=== PATIENT | female | born 1945 | race Caucasian/White ===

== ENCOUNTER 2018-04-27 18:26 | Outpatient (CLI) | payer MEDICARE, SELFPAY ==
[2018-04-27 16:33] LABS: Cholesterol 209 mg/dL (50-200); HDL Cholesterol 42 mg/dL (40-60); LDL CHOLESTEROL 136 mg/dL (<100); Triglyceride 190 mg/dL (30-150)
== END 2018-04-27 18:27 ==
PROVIDERS: PCP Nurse Practitioner; Visit Provider Nurse Practitioner
DX: I10 Essential (primary) hypertension (principal); R78.5 Finding of other psychotropic drug in blood
CPT/HCPCS: 80061; 83721

== ENCOUNTER → 2018-05-16 09:47 | Outpatient (BNVA) | payer MEDICARE, OTHER, SELFPAY | PROVIDERS: Visit Provider Orthopaedic Surgery | DX: M17.12 Unilateral primary osteoarthritis, left knee (principal) | CPT/HCPCS: 20610; 99212; J1040 ==

== ENCOUNTER 2018-05-31 09:45 | Day surgery (SDC) | payer MEDICARE, OTHER, SELFPAY ==
--- NOTE | 2018-05-29 21:06 | W.PIPPEYE ---
PFSH Family History Mother Heart disease Hypertension Father Heart disease Brother Diabetes Brother Diabetes Sister Diabetes Medical History Nuclear sclerotic cataract of right eye (Acute) Cortical cataract of right eye (Acute) Elevated fasting glucose GERD (gastroesophageal reflux disease) Hyperlipidemia Hypertension Obesity Sensorineural hearing loss, asymmetrical Social History adopted: No housing: house number of children: 0 pets and animals: Yes frequency: 1-2 times per week Smoking/Tobacco Use Status: Never alcohol intake: current alcohol intake frequency: holidays/special occasions only Alcohol type: beer, wine and hard liquor substance use type: does not use seatbelt use: always working smoke detector in home: Yes fire extinguisher in home: Yes carbon monox detector in home: Yes Surgical History History of arthroplasty of right knee (Acute ~02/2012) History of total right hip arthroplasty (Acute ~05/13/14) Colonoscopy - IV Sedation (04/10/16) Vaginal hysterectomy Meds Home Medications Medication Instructions Recorded Confirmed Type aspirin [Ecotrin Low Strength] 81 mg PO DAILY tab-cap 12/26/12 05/28/18 History multivitamin 1 ea PO DAILY 12/26/12 05/28/18 History acetaminophen [Tylenol Extra 1,000 mg PO DAILY PRN 05/11/14 05/28/18 History Strength] blood pressure monitor [Blood #1 kit 07/11/17 05/16/18 Rx Pressure Kit] ranitidine HCl 150 mg PO BID #180 tab-cap 10/25/17 05/28/18 Rx Varicella-Zoster Ge/As01b/Pf 50 mcg IM ONCE #1 kit 01/09/18 05/16/18 Clinic [Shingrix Vial Kit] hydrochlorothiazide 25 mg PO DAILY #90 tab-cap 01/09/18 05/28/18 Rx losartan 100 mg PO DAILY #90 tab-cap 01/09/18 05/28/18 Rx Allergies Allergy/AdvReac Type Severity Reaction Status Date / Time Sulfa (Sulfonamide Allergy Unknown FEELS LIKE Unverified 05/15/18 12:21 Antibiotics) IN OUTER SPACE Wpnlism-Xgd-Zjv Reductase AdvReac Intermediate MYALGIAS Unverified 05/15/18 12:21 Inhibitor lisinopril AdvReac Mild cough Unverified 05/15/18 11:37 Exam OCULAR EXAM:: Visual acuity at distance: [] Pupils: [] IOP: [] Extraocular Motility: [] Pertinent Slit Lamp Findings: [] Dilated Funduscopic Examination: [] BRIGHTNESS ACUITY TESTING (BAT):: Off [] Low:[] Medium:[] High:[] Assessment and Plan (1) Cortical cataract of right eye: Current visit: Yes Status: Acute (2) Nuclear sclerotic cataract of right eye: Current visit: Yes Status: Acute Note: NOTE:: The details of the planned surgery, including the risks, indications,limitations,expectations,outcome and possible complications were explained to the patient. The patient understands the complications including, but not limited to: infection, hemorrhage, posterior dislocation of the lens or nuclear fragments which may require the intervention of a vitreoretinal surgeon, possible loss of the eye, or from anesthetic complications. The patient has been made aware of the option of not having surgery, that vision following surgery may not be equal to that prior to surgery, and that the planned surgery may not achieve the intended results. Following this discussion, which the patient appeared to understand, the patient wishes to proceed with cataract surgery with lens implantation of the affected eye to improve and maximize vision.
--- NOTE | 2018-05-29 21:09 | POEE_ITS ---
PFSH Family History Mother Heart disease Hypertension Father Heart disease Brother Diabetes Brother Diabetes Sister Diabetes Medical History Nuclear sclerotic cataract of right eye (Acute) Cortical cataract of right eye (Acute) Elevated fasting glucose GERD (gastroesophageal reflux disease) Hyperlipidemia Hypertension Obesity Sensorineural hearing loss, asymmetrical Social History adopted: No housing: house number of children: 0 pets and animals: Yes frequency: 1-2 times per week Smoking/Tobacco Use Status: Never alcohol intake: current alcohol intake frequency: holidays/special occasions only Alcohol type: beer, wine and hard liquor substance use type: does not use seatbelt use: always working smoke detector in home: Yes fire extinguisher in home: Yes carbon monox detector in home: Yes Surgical History History of arthroplasty of right knee (Acute ~02/2012) History of total right hip arthroplasty (Acute ~05/13/14) Colonoscopy - IV Sedation (04/10/16) Vaginal hysterectomy Meds Home Medications Medication Instructions Recorded Confirmed Type aspirin [Ecotrin Low Strength] 81 mg PO DAILY tab-cap 12/26/12 05/28/18 History multivitamin 1 ea PO DAILY 12/26/12 05/28/18 History acetaminophen [Tylenol Extra 1,000 mg PO DAILY PRN 05/11/14 05/28/18 History Strength] blood pressure monitor [Blood #1 kit 07/11/17 05/16/18 Rx Pressure Kit] ranitidine HCl 150 mg PO BID #180 tab-cap 10/25/17 05/28/18 Rx Varicella-Zoster Ge/As01b/Pf 50 mcg IM ONCE #1 kit 01/09/18 05/16/18 Clinic [Shingrix Vial Kit] hydrochlorothiazide 25 mg PO DAILY #90 tab-cap 01/09/18 05/28/18 Rx losartan 100 mg PO DAILY #90 tab-cap 01/09/18 05/28/18 Rx Allergies Allergy/AdvReac Type Severity Reaction Status Date / Time Sulfa (Sulfonamide Allergy Unknown FEELS LIKE Unverified 05/15/18 12:21 Antibiotics) IN OUTER SPACE Pitrzxd-Vtu-Ymw Reductase AdvReac Intermediate MYALGIAS Unverified 05/15/18 12: 21 Inhibitor lisinopril AdvReac Mild cough Unverified 05/15/18 11:37 Exam OCULAR EXAM:: Visual acuity at distance: [] Pupils: [] IOP: [] Extraocular Motility: [] Pertinent Slit Lamp Findings: [] Dilated Funduscopic Examination: [] BRIGHTNESS ACUITY TESTING (BAT):: Off [] Low:[] Medium:[] High:[] Assessment and Plan (1) Cortical cataract of right eye: Current visit: Yes Status: Acute (2) Nuclear sclerotic cataract of right eye: Current visit: Yes Status: Acute Note: NOTE:: The details of the planned surgery, including the risks, indications, limitations,expectations,outcome and possible complications were explained to the patient. The patient understands the complications including, but not limited to: infection, hemorrhage, posterior dislocation of the lens or nuclear fragments which may require the intervention of a vitreoretinal surgeon, possible loss of the eye, or from anesthetic complications. The patient has been made aware of the option of not having surgery, that vision following surgery may not be equal to that prior to surgery, and that the planned surgery may not achieve the intended results. Following this discussion, which the patient appeared to understand, the patient wishes to proceed with cataract surgery with lens implantation of the affected eye to improve and maximize vision.
--- NOTE | 2018-05-30 13:51 | POEE_ITS ---
History of Present Illness Chief Complaint: Progressive decreased vision, right eye Narrative: The patient is a 72-year-old lady with history of progressive decreased vision in both eyes at both distance and near. She notes significant difficulty with reading road signs. On examination she was noted to have moderate bilateral nuclear and cortical cataracts. The option of cataract surgery was offered to the patient and she felt she was symptomatic enough that she wished to proceed. NOTE: The Chief Complaint, HPI, Past Medical History, Past Surgical History, Family History, Social History, Medications, and complete Ophthalmic Exam with detailed Assessment and Plan have already been documented in the patient's outpatient ophthalmic record and are not covered again in detail here. PFSH Family History Mother Heart disease Hypertension Father Heart disease Brother Diabetes Brother Diabetes Sister Diabetes Medical History Nuclear sclerotic cataract of right eye (Acute) Cortical cataract of right eye (Acute) Elevated fasting glucose GERD (gastroesophageal reflux disease) Hyperlipidemia Hypertension Obesity Sensorineural hearing loss, asymmetrical Social History adopted: No housing: house number of children: 0 pets and animals: Yes frequency: 1-2 times per week Smoking/Tobacco Use Status: Never alcohol intake: current alcohol intake frequency: holidays/special occasions only Alcohol type: beer, wine and hard liquor substance use type: does not use seatbelt use: always working smoke detector in home: Yes fire extinguisher in home: Yes carbon monox detector in home: Yes Surgical History History of arthroplasty of right knee (Acute ~02/2012) History of total right hip arthroplasty (Acute ~05/13/14) Colonoscopy - IV Sedation (04/10/16) Vaginal hysterectomy Meds Home Medications Medication Instructions Recorded Confirmed Type aspirin [Ecotrin Low Strength] 81 mg PO DAILY tab-cap 12/26/12 05/28/18 History multivitamin 1 ea PO DAILY 12/26/12 05/28/18 History acetaminophen [Tylenol Extra 1,000 mg PO DAILY PRN 05/11/14 05/28/18 History Strength] blood pressure monitor [Blood #1 kit 07/11/17 05/16/18 Rx Pressure Kit] ranitidine HCl 150 mg PO BID #180 tab-cap 10/25/17 05/28/18 Rx Varicella-Zoster Ge/As01b/Pf 50 mcg IM ONCE #1 kit 01/09/18 05/16/18 Clinic [Shingrix Vial Kit] hydrochlorothiazide 25 mg PO DAILY #90 tab-cap 01/09/18 05/28/18 Rx losartan 100 mg PO DAILY #90 tab-cap 01/09/18 05/28/18 Rx Allergies Allergy/AdvReac Type Severity Reaction Status Date / Time Sulfa (Sulfonamide Allergy Unknown FEELS LIKE Unverified 05/15/18 12:21 Antibiotics) IN OUTER SPACE Tqymusc-Vxi-Wan Reductase AdvReac Intermediate MYALGIAS Unverified 05/15/18 12: 21 Inhibitor lisinopril AdvReac Mild cough Unverified 05/15/18 11:37 Exam OCULAR EXAM:: Visual acuity at distance: Corrected to 20/50 OD, 20/50 OS. Pupils: Pupils equal, round, and reactive without afferent pupillary defect IOP: 16 OD 14 OS Extraocular Motility: Normal Pertinent Slit Lamp Findings: Significant for pupils dilating to 5 mm OU. 2+ nuclear with 2+ cortical cataracts OU. Dilated Funduscopic Examination: Disc cupping is 0.3 OU with good color. The optic nerves have good perfusion and normal color. The retinal vasculature is normal without significant tortuosity or abnormality. The maculas are normal in appearance with normal contour and foveal reflex appropriate for age. The peripheral retina and vitreous are normal. BRIGHTNESS ACUITY TESTING (BAT):: Off right eye 20/50 Low: 20/30 Medium: 20/30 High: 20/40 Assessment and Plan (1) Nuclear sclerotic cataract of right eye: Current visit: No Status: Acute Assessment: Visually significant cataract, right eye. Plan: Cataract extraction with intraocular lens implantation, right eye (2) Cortical cataract of right eye: Current visit: No Status: Acute Assessment: Visually significant cataract, right eye. Plan: Cataract extraction with intraocular lens implantation, right eye Note: NOTE:: The details of the planned surgery, including the risks, indications, limitations,expectations,outcome and possible complications were explained to the patient. The patient understands the complications including, but not limited to: infection, hemorrhage, posterior dislocation of the lens or nuclear fragments which may require the intervention of a vitreoretinal surgeon, possible loss of the eye, or from anesthetic complications. The patient has been made aware of the option of not having surgery, that vision following surgery may not be equal to that prior to surgery, and that the planned surgery may not achieve the intended results. Following this discussion, which the patient appeared to understand, the patient wishes to proceed with cataract surgery with lens implantation of the affected eye to improve and maximize vision.
[2018-05-31 10:09] VITALS: BP 177/84; PULSE 70; RESP 18; TEMP 37.1; O2SAT 98
[2018-05-31] MEDS: Povidone-Iodine Ophth 30 ML BTL (11:02)
[2018-05-31] MEDS: Lidocaine 2% Jelly 6 ML SYR (11:02)
[2018-05-31] MEDS: Balanced Salt Soln.-PLUS 500 ML BAG (11:02)
--- NOTE | 2018-05-31 11:43 | W.PM.DSUDISC ---
Discharge Plan Discharge Details Attending Provider: Delfino Donovan Primary Care Provider: Shannan De Leon Home Meds and New Rx's Prescriptions: No Action multivitamin 1 EACH tablet 1 ea PO DAILY RF: 0 aspirin [Ecotrin Low Strength] 81 MG tablet,delayed release (DR/EC) 81 mg PO DAILY RF: 0 blood pressure monitor [Blood Pressure Kit] 1 EACH kit 1 ea Miscellaneous DAILY Qty: 1 RF: 0 ranitidine HCl 150 MG capsule 150 mg PO BID Qty: 180 RF: 3 hydrochlorothiazide 25 MG tablet 25 mg PO DAILY Qty: 90 RF: 3 losartan 100 MG tablet 100 mg PO DAILY Qty: 90 RF: 3 Varicella-Zoster Ge/As01b/Pf [Shingrix Vial Kit] 50 MCG INJ 50 mcg IM ONCE Qty: 1 RF: 1 acetaminophen [Tylenol Extra Strength] 500 MG tablet 1,000 mg PO DAILY PRNRF: 0 Discharge Instructions Stand Alone Forms: Post-op Topical Cataract, Antonio Isaac (DSU) DS: Diagnosis Discharge Diagnosis (1) Nuclear sclerotic cataract of right eye: Status: Resolved (2) Cortical cataract of right eye: Status: Resolved
--- NOTE | 2018-05-31 11:44 | W.PM.OP ---
Date of service: 05/31/18 Time of Service: 11:44 Operative Note PRE-OP DIAGNOSIS: Cataract, right eye POST-OP DIAGNOSIS: same SURGEON: Delfino Donovan ANESTHESIA: MAC and local (sub-tenon's anesthetic infiltration) PATHOLOGY: none sent COMPLICATIONS: None Patient was transported to: same day Patient's condition: stable Implants: Brian [employer] Brian Vision / [employer] Tecnis [id number] Indications: Progressive decreased vision due to cataract, right eye Findings: Loose zonules with thin capsular bag Procedure Description: CATARACT SURGERY OPERATIVE REPORT PREOPERATIVE DIAGNOSIS: Nuclear/cortical cataract, right eye POSTOPERATIVE DIAGNOSIS: Same OPERATION: Cataract extraction using phacoemulsification with posterior chamber intraocular lens implant, right eye. IOL: IOL Glass Finisher/Model: J[employer]J Vision / JOHANNY Tecnis ZCB00 IOL Power: + 14.50 diopters IOL Serial Number: [id number] Optic Diameter: 6.0mm Haptic/Overall Diameter: 13.0mm PHACO INFO: Jacob [employer]ovore[employer] Vision System with OZil and Active Fluidics Cumulative Dispersed Energy (CDE): 7.0 seconds SURGEON: Delfino Donovan MD, KAMRAN ANESTHESIA: Monitored Anesthesia Care (MAC), with local sub-tenon's anesthetic infiltration COMPLICATIONS: None SPECIMENS: None INDICATIONS FOR PROCEDURE: The patient is a 73-year-old lady with history of progressive decreased vision in both eyes secondary to the development of nuclear and cortical cataracts.. She has a history of myopia. She was significantly symptomatic from her cataract with visual acuity of 20/50 in the right eye that she desires cataract surgery and attempt to improve and maximize her vision PROCEDURE: The correct surgical eye was identified and marked as the right eye and the pupil was dilated in the preoperative area using mydriatics, cycloplegics, and NSAIDS (except in aspirin allergic patients). The dilated pupil size was 5.5 mm. Oral sedation was administered in the form of an Imprimis MKO Melt (midazolam 3mg/ketamine 25mg/ondansetron 2mg). The patient was brought to the operating room where cardiopulmonary monitoring was instituted and surgical time-out was performed, confirming the correct operative eye and IOL power. Topical anesthesia was administered and ophthalmic povidone-iodine 5% was instilled into the conjunctival fornices. Lidocaine gel was applied to the cornea and the silke-ocular area was prepped with Betadine 10% solution and draped in the usual sterile fashion for intraocular surgery. Steri-strips were used to cover the lashes and lid margins and an adhesive eye drape was placed. Care was taken to isolate the lashes and lid margins under the Steri-strips and adhesive eye drape. A lid speculum was placed between the lids of the operative eye and the Amanda-Bandar operating microscope was maneuvered into position. Cristiano scissors were then used to make a conjunctival buttonhole approximately 6mm posterior to the limbus in the inferonasal quadrant. Blunt dissection was carried out to expose bare sclera, and a blunt-tipped sub-tenon?s anesthesia cannula was introduced and passed posteriorly along the globe where non-preserved plain lidocaine was injected into posterior sub-Tenon?s space. A sideport knife was used to make a paracentesis port at the 7:00 postion and the anterior chamber was filled with Healon GV. A 2.4mm keratome knife was used to create a half-thickness groove at the limbus and then to construct a three-plane near-clear corneal tunnel extending 2.0mm into clear cornea at the 10:00 position. A flap was raised on the anterior capsule and capsulorhexis forceps were used to complete a continuous curvilinear capsulorhexis of 4.5 mm. The zonules were noted to be moderately loose. Balanced salt solution was then used to perform cortical cleaving hydrodissection and nuclear hydrodelineation until the lens could be freely rotated within the capsular bag. The lens nucleus was then disassembled and removed within the capsular bag and iris plane using phacoemulsification. Nucleus splitters were used to aid in cracking the nucleus to reduce stress on the zonules. Residual cortical material was removed using the 45-degree angled silicone I/A tip with 0.3mm port. The posterior capsule was carefully polished to remove as much residual lens epithelial cells as safely possible. The capsular bag was then inflated and the anterior chamber deepened with viscoelastic. The lens implant described above was inserted into the capsular bag using the JOHANNY [place] Injector. A Kuglen hook was used to dial the IOL into position. Residual viscoelastic was then removed first from posterior to the IOL, then from the anterior chamber using the I/A handpiece. The lens implant was noted to center nicely within the capsular bag with the haptics oriented at 11 and 5:00. The incisions were stromally hydrated, and the anterior chamber was reformed using BSS. Then 0.4cc of moxifloxacin 1.5mg/ml were injected into the capsular bag and anterior chamber. The incisions were checked with a Weck spear and found to be secure. Several drops of ophthalmic povidone-iodine 5% were then applied to the eye followed by two drops of Imprimis combination moxifloxacin/dexamethasone solution. The drapes were removed and a clear plastic protective eye shield was placed over the eye. The patient was then returned to Same Day Surgery in stable condition.
--- NOTE | 2018-05-31 11:48 | ROE_ITS ---
Date of service: 05/31/18 Time of Service: 11:44 Operative Note PRE-OP DIAGNOSIS: Cataract, right eye POST-OP DIAGNOSIS: same SURGEON: Delfino Donovan ANESTHESIA: MAC and local (sub-tenon's anesthetic infiltration) PATHOLOGY: none sent COMPLICATIONS: None Patient was transported to: same day Patient's condition: stable Implants: Brian and Brian Vision / [employer] Opt[employer] Tecnis [id number] Indications: Progressive decreased vision due to cataract, right eye Findings: Loose zonules with thin capsular bag Procedure Description: CATARACT SURGERY OPERATIVE REPORT PREOPERATIVE DIAGNOSIS: Nuclear/cortical cataract, right eye POSTOPERATIVE DIAGNOSIS: Same OPERATION: Cataract extraction using phacoemulsification with posterior chamber intraocular lens implant, right eye. IOL: IOL Airbrush Painter/Model: J[employer]J Vision / JOHANNY Tecnis ZCB00 IOL Power: + 14.50 diopters IOL Serial Number: [id number] Optic Diameter: 6.0mm Haptic/Overall Diameter: 13.0mm PHACO INFO: Jacob [employer] Vision System with OZil and Active Fluidics Cumulative Dispersed Energy (CDE): 7.0 seconds SURGEON: Delfino Donovan MD, KAMRAN ANESTHESIA: Monitored Anesthesia Care (MAC), with local sub-tenon's anesthetic infiltration COMPLICATIONS: None SPECIMENS: None INDICATIONS FOR PROCEDURE: The patient is a 73-year-old lady with history of progressive decreased vision in both eyes secondary to the development of nuclear and cortical cataracts.. She has a history of myopia. She was significantly symptomatic from her cataract with visual acuity of 20/50 in the right eye that she desires cataract surgery and attempt to improve and maximize her vision PROCEDURE: The correct surgical eye was identified and marked as the right eye and the pupil was dilated in the preoperative area using mydriatics, cycloplegics, and NSAIDS (except in aspirin allergic patients). The dilated pupil size was 5.5 mm. Oral sedation was administered in the form of an Imprimis MKO Melt (midazolam 3mg/ketamine 25mg/ondansetron 2mg). The patient was brought to the operating room where cardiopulmonary monitoring was instituted and surgical time-out was performed, confirming the correct operative eye and IOL power. Topical anesthesia was administered and ophthalmic povidone-iodine 5% was instilled into the conjunctival fornices. Lidocaine gel was applied to the cornea and the silke-ocular area was prepped with Betadine 10% solution and draped in the usual sterile fashion for intraocular surgery. Steri-strips were used to cover the lashes and lid margins and an adhesive eye drape was placed. Care was taken to isolate the lashes and lid margins under the Steri-strips and adhesive eye drape. A lid speculum was placed between the lids of the operative eye and the Amanda-Bandar operating microscope was maneuvered into position. Cristiano scissors were then used to make a conjunctival buttonhole approximately 6mm posterior to the limbus in the inferonasal quadrant. Blunt dissection was carried out to expose bare sclera, and a blunt-tipped sub-tenon? s anesthesia cannula was introduced and passed posteriorly along the globe where non-preserved plain lidocaine was injected into posterior sub-Tenon?s space. A sideport knife was used to make a paracentesis port at the 7:00 postion and the anterior chamber was filled with Healon GV. A 2.4mm keratome knife was used to create a half-thickness groove at the limbus and then to construct a three-plane near-clear corneal tunnel extending 2.0mm into clear cornea at the 10:00 position. A flap was raised on the anterior capsule and capsulorhexis forceps were used to complete a continuous curvilinear capsulorhexis of 4.5 mm. The zonules were noted to be moderately loose. Balanced salt solution was then used to perform cortical cleaving hydrodissection and nuclear hydrodelineation until the lens could be freely rotated within the capsular bag. The lens nucleus was then disassembled and removed within the capsular bag and iris plane using phacoemulsification. Nucleus splitters were used to aid in cracking the nucleus to reduce stress on the zonules. Residual cortical material was removed using the 45-degree angled silicone I/A tip with 0.3mm port. The posterior capsule was carefully polished to remove as much residual lens epithelial cells as safely possible. The capsular bag was then inflated and the anterior chamber deepened with viscoelastic. The lens implant described above was inserted into the capsular bag using the JOHANNY [place] Injector. A Kuglen hook was used to dial the IOL into position. Residual viscoelastic was then removed first from posterior to the IOL, then from the anterior chamber using the I/A handpiece. The lens implant was noted to center nicely within the capsular bag with the haptics oriented at 11 and 5: 00. The incisions were stromally hydrated, and the anterior chamber was reformed using BSS. Then 0.4cc of moxifloxacin 1.5mg/ml were injected into the capsular bag and anterior chamber. The incisions were checked with a Weck spear and found to be secure. Several drops of ophthalmic povidone-iodine 5% were then applied to the eye followed by two drops of Imprimis combination moxifloxacin/dexamethasone solution. The drapes were removed and a clear plastic protective eye shield was placed over the eye. The patient was then returned to Same Day Surgery in stable condition.
[2018-05-31 12:18] VITALS: BP 151/68; PULSE 70; RESP 20; TEMP 36.5; O2SAT 97
== END 2018-05-31 12:15 | disposition home or self-care (01) ==
LOC: SUR 09:45
PROVIDERS: PCP Nurse Practitioner; Visit Provider Ophthalmology
PROC: (CPT 66984; principal; 2018-05-31 11:40)
DX: H25.811 Combined forms of age-related cataract, right eye (principal); I10 Essential (primary) hypertension; K21.9 Gastro-esophageal reflux disease without esophagitis
CPT/HCPCS: 66984; V2632

== ENCOUNTER → 2018-06-07 11:13 | Outpatient (BNVA) | payer MEDICARE, OTHER, SELFPAY | PROVIDERS: PCP Nurse Practitioner; Referring Provider Nurse Practitioner; Visit Provider Surgery | DX: L72.3 Sebaceous cyst (principal); I10 Essential (primary) hypertension | CPT/HCPCS: 99212; 99213 ==

== ENCOUNTER 2018-06-14 09:47 | Day surgery (SDC) | payer MEDICARE, OTHER, SELFPAY ==
--- NOTE | 2018-06-13 17:11 | W.PIPPEYE ---
History of Present Illness Chief Complaint: Progressive decreased vision, left eye Narrative: The patient is a 73-year-old lady with history of progressive decreased vision in both eyes at both distance and near. She has significant difficulty when reading fine print and road signs. On examination she was noted to have moderate bilateral nuclear and cortical cataracts. Visual acuity measures 20/50 in each eye but was blurry. The option of cataract surgery was offered to the patient and she wished to proceed. She underwent cataract surgery in the right eye on 05/31/2018, and postoperatively has regained corrected visual acuity of 20/20 in the right eye. She now presents for cataract surgery in the left eye NOTE: The Chief Complaint, HPI, Past Medical History, Past Surgical History, Family History, Social History, Medications, and complete Ophthalmic Exam with detailed Assessment and Plan have already been documented in the patient's outpatient ophthalmic record and are not covered again in detail here. PFSH Family History Mother Heart disease Hypertension Father Heart disease Brother Diabetes Brother Diabetes Sister Diabetes Medical History Elevated fasting glucose GERD (gastroesophageal reflux disease) Hyperlipidemia Hypertension Obesity Sensorineural hearing loss, asymmetrical Social History adopted: No housing: house number of children: 0 pets and animals: Yes frequency: 1-2 times per week Smoking/Tobacco Use Status: Never alcohol intake: current alcohol intake frequency: holidays/special occasions only Alcohol type: beer, wine and hard liquor substance use type: does not use seatbelt use: always working smoke detector in home: Yes fire extinguisher in home: Yes carbon monox detector in home: Yes Surgical History Status post cataract extraction and insertion of intraocular lens of right eye (Acute 05/31/18) History of arthroplasty of right knee (Acute ~02/2012) History of total right hip arthroplasty (Acute ~05/13/14) Colonoscopy - IV Sedation (04/10/16) Vaginal hysterectomy Meds Home Medications Medication Instructions Recorded Confirmed Type aspirin [Ecotrin Low Strength] 81 mg PO DAILY tab-cap 12/26/12 06/07/18 History multivitamin 1 ea PO DAILY 12/26/12 06/07/18 History acetaminophen [Tylenol Extra 1,000 mg PO DAILY PRN 05/11/14 06/07/18 History Strength] blood pressure monitor [Blood #1 kit 07/11/17 06/07/18 Rx Pressure Kit] ranitidine HCl 150 mg PO BID #180 tab-cap 10/25/17 06/07/18 Rx Varicella-Zoster Ge/As01b/Pf 50 mcg IM ONCE #1 kit 01/09/18 06/07/18 Clinic [Shingrix Vial Kit] hydrochlorothiazide 25 mg PO DAILY #90 tab-cap 01/09/18 06/07/18 Rx losartan 100 mg PO DAILY #90 tab-cap 01/09/18 06/07/18 Rx Allergies Allergy/AdvReac Type Severity Reaction Status Date / Time Sulfa (Sulfonamide Allergy Unknown FEELS LIKE Unverified 05/31/18 10:01 Antibiotics) IN OUTER SPACE Abqwgih-Vbp-Dmf Reductase AdvReac Intermediate MYALGIAS Unverified 05/31/18 10:01 Inhibitor lisinopril AdvReac Mild cough Unverified 05/31/18 10:01 Exam OCULAR EXAM:: Visual acuity at distance: Corrected to 20/20 right eye, 20/50 left eye. Pupils: Pupils equal, round, and reactive without afferent pupillary defect IOP: 16 OD 14 OS Extraocular Motility: Normal Pertinent Slit Lamp Findings: Significant for pupils dilating to 5 mm OU. Well-positioned PCIOL OD with clear posterior capsule. 2+ nuclear with 2+ cortical cataract OS Dilated Funduscopic Examination: Disc cupping is 0.3 OU with good color. The optic nerves have good perfusion and normal color. The retinal vasculature is normal without significant tortuosity or abnormality. The maculas are normal in appearance with normal contour and foveal reflex appropriate for age. The peripheral retina and vitreous are normal. BRIGHTNESS ACUITY TESTING (BAT):: Off left eye 20/50 Low: 20/40 Medium: 20/40 High: 20/40 Assessment and Plan (1) Cortical cataract of left eye: Current visit: No Status: Acute Assessment: Visually significant cataract, left eye. Plan: Cataract extraction with intraocular lens implantation, left eye (2) Nuclear sclerotic cataract of left eye: Current visit: No Status: Acute Assessment: Visually significant cataract, left eye. Plan: Cataract extraction with intraocular lens implantation, left eye Note: NOTE:: The details of the planned surgery, including the risks, indications,limitations,expectations,outcome and possible complications were explained to the patient. The patient understands the complications including, but not limited to: infection, hemorrhage, posterior dislocation of the lens or nuclear fragments which may require the intervention of a vitreoretinal surgeon, possible loss of the eye, or from anesthetic complications. The patient has been made aware of the option of not having surgery, that vision following surgery may not be equal to that prior to surgery, and that the planned surgery may not achieve the intended results. Following this discussion, which the patient appeared to understand, the patient wishes to proceed with cataract surgery with lens implantation of the affected eye to improve and maximize vision.
--- NOTE | 2018-06-13 17:16 | POEE_ITS ---
History of Present Illness Chief Complaint: Progressive decreased vision, left eye Narrative: The patient is a 73-year-old lady with history of progressive decreased vision in both eyes at both distance and near. She has significant difficulty when reading fine print and road signs. On examination she was noted to have moderate bilateral nuclear and cortical cataracts. Visual acuity measures 20/50 in each eye but was blurry. The option of cataract surgery was offered to the patient and she wished to proceed. She underwent cataract surgery in the right eye on 05/31/2018, and postoperatively has regained corrected visual acuity of 20/20 in the right eye. She now presents for cataract surgery in the left eye NOTE: The Chief Complaint, HPI, Past Medical History, Past Surgical History, Family History, Social History, Medications, and complete Ophthalmic Exam with detailed Assessment and Plan have already been documented in the patient's outpatient ophthalmic record and are not covered again in detail here. PFSH Family History Mother Heart disease Hypertension Father Heart disease Brother Diabetes Brother Diabetes Sister Diabetes Medical History Elevated fasting glucose GERD (gastroesophageal reflux disease) Hyperlipidemia Hypertension Obesity Sensorineural hearing loss, asymmetrical Social History adopted: No housing: house number of children: 0 pets and animals: Yes frequency: 1-2 times per week Smoking/Tobacco Use Status: Never alcohol intake: current alcohol intake frequency: holidays/special occasions only Alcohol type: beer, wine and hard liquor substance use type: does not use seatbelt use: always working smoke detector in home: Yes fire extinguisher in home: Yes carbon monox detector in home: Yes Surgical History Status post cataract extraction and insertion of intraocular lens of right eye ( Acute 05/31/18) History of arthroplasty of right knee (Acute ~02/2012) History of total right hip arthroplasty (Acute ~05/13/14) Colonoscopy - IV Sedation (04/10/16) Vaginal hysterectomy Meds Home Medications Medication Instructions Recorded Confirmed Type aspirin [Ecotrin Low Strength] 81 mg PO DAILY tab-cap 12/26/12 06/07/18 History multivitamin 1 ea PO DAILY 12/26/12 06/07/18 History acetaminophen [Tylenol Extra 1,000 mg PO DAILY PRN 05/11/14 06/07/18 History Strength] blood pressure monitor [Blood #1 kit 07/11/17 06/07/18 Rx Pressure Kit] ranitidine HCl 150 mg PO BID #180 tab-cap 10/25/17 06/07/18 Rx Varicella-Zoster Ge/As01b/Pf 50 mcg IM ONCE #1 kit 01/09/18 06/07/18 Clinic [Shingrix Vial Kit] hydrochlorothiazide 25 mg PO DAILY #90 tab-cap 01/09/18 06/07/18 Rx losartan 100 mg PO DAILY #90 tab-cap 01/09/18 06/07/18 Rx Allergies Allergy/AdvReac Type Severity Reaction Status Date / Time Sulfa (Sulfonamide Allergy Unknown FEELS LIKE Unverified 05/31/18 10:01 Antibiotics) IN OUTER SPACE Qryiffo-Fhu-Cdo Reductase AdvReac Intermediate MYALGIAS Unverified 05/31/18 10: 01 Inhibitor lisinopril AdvReac Mild cough Unverified 05/31/18 10:01 Exam OCULAR EXAM:: Visual acuity at distance: Corrected to 20/20 right eye, 20/50 left eye. Pupils: Pupils equal, round, and reactive without afferent pupillary defect IOP: 16 OD 14 OS Extraocular Motility: Normal Pertinent Slit Lamp Findings: Significant for pupils dilating to 5 mm OU. Well- positioned PCIOL OD with clear posterior capsule. 2+ nuclear with 2+ cortical cataract OS Dilated Funduscopic Examination: Disc cupping is 0.3 OU with good color. The optic nerves have good perfusion and normal color. The retinal vasculature is normal without significant tortuosity or abnormality. The maculas are normal in appearance with normal contour and foveal reflex appropriate for age. The peripheral retina and vitreous are normal. BRIGHTNESS ACUITY TESTING (BAT):: Off left eye 20/50 Low: 20/40 Medium: 20/40 High: 20/40 Assessment and Plan (1) Cortical cataract of left eye: Current visit: No Status: Acute Assessment: Visually significant cataract, left eye. Plan: Cataract extraction with intraocular lens implantation, left eye (2) Nuclear sclerotic cataract of left eye: Current visit: No Status: Acute Assessment: Visually significant cataract, left eye. Plan: Cataract extraction with intraocular lens implantation, left eye Note: NOTE:: The details of the planned surgery, including the risks, indications, limitations,expectations,outcome and possible complications were explained to the patient. The patient understands the complications including, but not limited to: infection, hemorrhage, posterior dislocation of the lens or nuclear fragments which may require the intervention of a vitreoretinal surgeon, possible loss of the eye, or from anesthetic complications. The patient has been made aware of the option of not having surgery, that vision following surgery may not be equal to that prior to surgery, and that the planned surgery may not achieve the intended results. Following this discussion, which the patient appeared to understand, the patient wishes to proceed with cataract surgery with lens implantation of the affected eye to improve and maximize vision.
[2018-06-14 09:53] VITALS: BP 143/80; PULSE 70; RESP 16; TEMP 37.3; O2SAT 99
[2018-06-14] MEDS: Lidocaine 1% Pres-Free 5 ML VIAL (11:00)
[2018-06-14] MEDS: Lidocaine 2% Jelly 6 ML SYR (11:00)
[2018-06-14] MEDS: Povidone-Iodine Ophth 30 ML BTL (11:00)
[2018-06-14] MEDS: Balanced Salt Soln.-PLUS 500 ML BAG (11:00)
--- NOTE | 2018-06-14 11:38 | W.PM.DSUDISC ---
Discharge Plan Discharge Details Attending Provider: Delfino Donovan Primary Care Provider: Shannan De Leon Home Meds and New Rx's Prescriptions: No Action multivitamin 1 EACH tablet 1 ea PO DAILY RF: 0 aspirin [Ecotrin Low Strength] 81 MG tablet,delayed release (DR/EC) 81 mg PO DAILY RF: 0 blood pressure monitor [Blood Pressure Kit] 1 EACH kit 1 ea Miscellaneous DAILY Qty: 1 RF: 0 ranitidine HCl 150 MG capsule 150 mg PO BID Qty: 180 RF: 3 hydrochlorothiazide 25 MG tablet 25 mg PO DAILY Qty: 90 RF: 3 losartan 100 MG tablet 100 mg PO DAILY Qty: 90 RF: 3 Varicella-Zoster Ge/As01b/Pf [Shingrix Vial Kit] 50 MCG INJ 50 mcg IM ONCE Qty: 1 RF: 1 acetaminophen [Tylenol Extra Strength] 500 MG tablet 1,000 mg PO DAILY PRNRF: 0 Discharge Instructions Stand Alone Forms: Post-op Topical Cataract, Press Ganey (DSU) DS: Diagnosis Discharge Diagnosis (1) Cortical cataract of left eye: Status: Resolved (2) Nuclear sclerotic cataract of left eye: Status: Resolved (3) Status post cataract extraction and insertion of intraocular lens of left eye: Status: Acute
--- NOTE | 2018-06-14 11:39 | W.PM.OP ---
Date of service: 06/14/18 Time of Service: 11:39 Operative Note DATE OF PROCEDURE: 06/14/18 PRE-OP DIAGNOSIS: Cataract, left eye POST-OP DIAGNOSIS: same PROCEDURE: Cataract extraction using phacoemulsification with intraocular lens implant, left eye SURGEON: Delfino Donovan ANESTHESIA: MAC and local (sub-tenon's anesthetic infiltration) PATHOLOGY: none sent COMPLICATIONS: None Patient was transported to: same day Patient's condition: stable Implants: [employer] / [employer] Tecnis [id number] Indications: Progressive decreased vision due to cataract, left eye Findings: Moderate to severe zonular laxity with hyperdeep anterior chamber Procedure Description: CATARACT SURGERY OPERATIVE REPORT PREOPERATIVE DIAGNOSIS: Nuclear/cortical cataract left eye POSTOPERATIVE DIAGNOSIS: Same OPERATION: Cataract extraction using phacoemulsification with posterior chamber intraocular lens implant, left eye. IOL: IOL Recruiting And Selection Consultant/Model: J[employer]J Vision / JOHANNY Tecnis ZCB00 IOL Power: +14.5diopters IOL Serial Number: [id number] Optic Diameter: 6.0mm Haptic/Overall Diameter: 13.0mm PHACO INFO: Jacob [employer] Vision System with OZil and Active Fluidics Cumulative Dispersed Energy (CDE): 7.32 seconds SURGEON: Delfino Donovan MD, KAMRAN ANESTHESIA: Monitored Anesthesia Care (MAC), with local sub-tenon's anesthetic infiltration COMPLICATIONS: None SPECIMENS: None INDICATIONS FOR PROCEDURE: The patient is a 73-year-old lady with history of diminished visual acuity in both eyes secondary to the development of bilateral nuclear and cortical cataracts. She also has a history of myopic astigmatism. She has undergone cataract surgery in the right eye on 05/31/2018 and postoperatively has achieved best corrected vision of 20/20 in the right eye. She now presents for cataract surgery in the left eye PROCEDURE: The correct surgical eye was identified and marked as the left eye and the pupil was dilated in the preoperative area using mydriatics, cycloplegics, and NSAIDS (except in aspirin allergic patients). The dilated pupil size was 6.5 mm. Oral sedation was administered in the form of an Imprimis MKO Melt (midazolam 3mg/ketamine 25mg/ondansetron 2mg). The patient was brought to the operating room where cardiopulmonary monitoring was instituted and surgical time-out was performed, confirming the correct operative eye and IOL power. Topical anesthesia was administered and ophthalmic povidone-iodine 5% was instilled into the conjunctival fornices. Lidocaine gel was applied to the cornea and the silke-ocular area was prepped with Betadine 10% solution and draped in the usual sterile fashion for intraocular surgery. Steri-strips were used to cover the lashes and lid margins and an adhesive eye drape was placed. Care was taken to isolate the lashes and lid margins under the Steri-strips and adhesive eye drape. A lid speculum was placed between the lids of the operative eye and the Amanda-Bandar operating microscope was maneuvered into position. Cristiano scissors were then used to make a conjunctival buttonhole approximately 6mm posterior to the limbus in the inferonasal quadrant. Blunt dissection was carried out to expose bare sclera, and a blunt-tipped sub-tenon?s anesthesia cannula was introduced and passed posteriorly along the globe where non-preserved plain lidocaine was injected into posterior sub-Tenon?s space. A sideport knife was used to make a paracentesis port at the 12:00 postion and the anterior chamber was filled with Healon GV. A 2.4mm keratome knife was used to create a half-thickness groove at the limbus and then to construct a three-plane near-clear corneal tunnel extending 2.0mm into clear cornea at the 3:00 position. A flap was raised on the anterior capsule and capsulorhexis forceps were used to complete a continuous curvilinear capsulorhexis of 5.0 mm. The capsule was noted to be quite thin with moderate to severe zonular laxity. Balanced salt solution was then used to perform cortical cleaving hydrodissection and nuclear hydrodelineation until the lens could be freely rotated within the capsular bag. The lens nucleus was then disassembled and removed within the capsular bag and iris plane using phacoemulsification. The anterior chamber was noted to be very deep with severely loose zonules. Residual cortical material was removed using the 45-degree angled silicone I/A tip with 0.3mm port. The posterior capsule was carefully polished to remove as much residual lens epithelial cells as safely possible. The capsular bag was then inflated and the anterior chamber deepened with viscoelastic. The lens implant described above was inserted into the capsular bag using the JOHANNY [place] Injector. A Kuglen hook was used to dial the IOL into position. Residual viscoelastic was then removed first from posterior to the IOL, then from the anterior chamber using the I/A handpiece. The lens implant was noted to center nicely within the capsular bag. The incisions were stromally hydrated, and the anterior chamber was reformed using BSS. Then 0.4cc of moxifloxacin 1.5mg/ml were injected into the capsular bag and anterior chamber. The incisions were checked with a Weck spear and found to be secure. Several drops of ophthalmic povidone-iodine 5% were then applied to the eye followed by two drops of Imprimis combination moxifloxacin/dexamethasone solution. The drapes were removed and a clear plastic protective eye shield was placed over the eye. The patient was then returned to Same Day Surgery in stable condition.
--- NOTE | 2018-06-14 11:42 | ROE_ITS ---
Date of service: 06/14/18 Time of Service: 11:39 Operative Note DATE OF PROCEDURE: 06/14/18 PRE-OP DIAGNOSIS: Cataract, left eye POST-OP DIAGNOSIS: same PROCEDURE: Cataract extraction using phacoemulsification with intraocular lens implant, left eye SURGEON: Delfino Donovan ANESTHESIA: MAC and local (sub-tenon's anesthetic infiltration) PATHOLOGY: none sent COMPLICATIONS: None Patient was transported to: same day Patient's condition: stable Implants: [employer] Brian [employer] / [employer] Tecnis [id number] Indications: Progressive decreased vision due to cataract, left eye Findings: Moderate to severe zonular laxity with hyperdeep anterior chamber Procedure Description: CATARACT SURGERY OPERATIVE REPORT PREOPERATIVE DIAGNOSIS: Nuclear/cortical cataract left eye POSTOPERATIVE DIAGNOSIS: Same OPERATION: Cataract extraction using phacoemulsification with posterior chamber intraocular lens implant, left eye. IOL: IOL Pneumatic Press Hand/Model: J&J Vision / JOHANNY Tecnis ZCB00 IOL Power: +14.5diopters IOL Serial Number: [id number] Optic Diameter: 6.0mm Haptic/Overall Diameter: 13.0mm PHACO INFO: Jacob [employer] Vision System with OZil and Active Fluidics Cumulative Dispersed Energy (CDE): 7.32 seconds SURGEON: Delfino Donovan MD, KAMRAN ANESTHESIA: Monitored Anesthesia Care (MAC), with local sub-tenon's anesthetic infiltration COMPLICATIONS: None SPECIMENS: None INDICATIONS FOR PROCEDURE: The patient is a 73-year-old lady with history of diminished visual acuity in both eyes secondary to the development of bilateral nuclear and cortical cataracts. She also has a history of myopic astigmatism. She has undergone cataract surgery in the right eye on 05/31/2018 and postoperatively has achieved best corrected vision of 20/20 in the right eye. She now presents for cataract surgery in the left eye PROCEDURE: The correct surgical eye was identified and marked as the left eye and the pupil was dilated in the preoperative area using mydriatics, cycloplegics, and NSAIDS (except in aspirin allergic patients). The dilated pupil size was 6.5 mm. Oral sedation was administered in the form of an Imprimis MKO Melt (midazolam 3mg/ketamine 25mg/ondansetron 2mg). The patient was brought to the operating room where cardiopulmonary monitoring was instituted and surgical time-out was performed, confirming the correct operative eye and IOL power. Topical anesthesia was administered and ophthalmic povidone-iodine 5% was instilled into the conjunctival fornices. Lidocaine gel was applied to the cornea and the silke-ocular area was prepped with Betadine 10% solution and draped in the usual sterile fashion for intraocular surgery. Steri-strips were used to cover the lashes and lid margins and an adhesive eye drape was placed. Care was taken to isolate the lashes and lid margins under the Steri-strips and adhesive eye drape. A lid speculum was placed between the lids of the operative eye and the Amanda-Bandar operating microscope was maneuvered into position. Cristiano scissors were then used to make a conjunctival buttonhole approximately 6mm posterior to the limbus in the inferonasal quadrant. Blunt dissection was carried out to expose bare sclera, and a blunt-tipped sub-tenon? s anesthesia cannula was introduced and passed posteriorly along the globe where non-preserved plain lidocaine was injected into posterior sub-Tenon?s space. A sideport knife was used to make a paracentesis port at the 12:00 postion and the anterior chamber was filled with Healon GV. A 2.4mm keratome knife was used to create a half-thickness groove at the limbus and then to construct a three-plane near-clear corneal tunnel extending 2.0mm into clear cornea at the 3:00 position. A flap was raised on the anterior capsule and capsulorhexis forceps were used to complete a continuous curvilinear capsulorhexis of 5.0 mm. The capsule was noted to be quite thin with moderate to severe zonular laxity. Balanced salt solution was then used to perform cortical cleaving hydrodissection and nuclear hydrodelineation until the lens could be freely rotated within the capsular bag. The lens nucleus was then disassembled and removed within the capsular bag and iris plane using phacoemulsification. The anterior chamber was noted to be very deep with severely loose zonules. Residual cortical material was removed using the 45-degree angled silicone I/A tip with 0.3mm port. The posterior capsule was carefully polished to remove as much residual lens epithelial cells as safely possible. The capsular bag was then inflated and the anterior chamber deepened with viscoelastic. The lens implant described above was inserted into the capsular bag using the JOHANNY [place] Injector. A Kuglen hook was used to dial the IOL into position. Residual viscoelastic was then removed first from posterior to the IOL, then from the anterior chamber using the I/A handpiece. The lens implant was noted to center nicely within the capsular bag. The incisions were stromally hydrated , and the anterior chamber was reformed using BSS. Then 0.4cc of moxifloxacin 1.5mg/ml were injected into the capsular bag and anterior chamber. The incisions were checked with a Weck spear and found to be secure. Several drops of ophthalmic povidone-iodine 5% were then applied to the eye followed by two drops of Imprimis combination moxifloxacin/dexamethasone solution. The drapes were removed and a clear plastic protective eye shield was placed over the eye. The patient was then returned to Same Day Surgery in stable condition.
[2018-06-14 11:55] VITALS: BP 145/71; PULSE 66; RESP 16; TEMP 36.2; O2SAT 100
== END 2018-06-14 12:03 | disposition home or self-care (01) ==
LOC: SUR 09:48
PROVIDERS: PCP Nurse Practitioner; Visit Provider Ophthalmology
PROC: (CPT 66984; principal; 2018-06-14 11:40)
DX: H25.812 Combined forms of age-related cataract, left eye (principal); Z98.41 Cataract extraction status, right eye; Z96.1 Presence of intraocular lens; I10 Essential (primary) hypertension; K21.9 Gastro-esophageal reflux disease without esophagitis
CPT/HCPCS: 66984; V2632

== ENCOUNTER → 2018-06-21 10:37 | Outpatient (BNVA) | payer MEDICARE, OTHER, SELFPAY | PROVIDERS: PCP Nurse Practitioner; Referring Provider Nurse Practitioner; Visit Provider Surgery | DX: L72.3 Sebaceous cyst (principal); I10 Essential (primary) hypertension | CPT/HCPCS: 11400 ==

== ENCOUNTER 2018-08-01 00:32 | Outpatient (CLI) | payer MEDICARE, OTHER, SELFPAY ==
--- NOTE | 2018-08-01 15:04 | DI.MAMMO_ITS ---
SYMPTOMS/DIAGNOSIS: SCREENING, Z12.31, FAMILY H/O BREAST CA BILATERAL SCREENING MAMMOGRAM: Mammograms were interpreted according to the usual protocol including computer analysis with CAD system, tomosynthesis and C view imaging. Comparison is made with exams from 2014 through 2017. The breasts are composed of scattered fibroglandular densities, breast density category B. No suspicious masses or suspicious microcalcifications are seen. There has been no significant change. IMPRESSION: Category 1B, negative mammogram. Yearly screening mammography is recommended. [facility] ASSESSMENT OF FINDINGS: Negative. Category 1. Patient will receive a letter notifying them of these results. BI-RADS category B. There are scattered areas of fibroglandular density.
== END 2018-08-01 00:52 ==
PROVIDERS: PCP Nurse Practitioner; Visit Provider Nurse Practitioner
DX: Z12.31 Encounter for screening mammogram for malignant neoplasm of breast (principal); Z80.3 Family history of malignant neoplasm of breast
CPT/HCPCS: 77063; 77067

== ENCOUNTER → 2018-08-05 10:02 | Outpatient (BNVA) | payer MEDICARE, OTHER, SELFPAY | PROVIDERS: PCP Nurse Practitioner; Referring Provider Nurse Practitioner; Visit Provider Orthopaedic Surgery | DX: M70.62 Trochanteric bursitis, left hip (principal); M17.12 Unilateral primary osteoarthritis, left knee; I10 Essential (primary) hypertension; E66.9 Obesity, unspecified | CPT/HCPCS: 20610; 99211; 99213; J1040 ==

== ENCOUNTER 2018-10-14 02:05 | Outpatient (CLI) | payer MEDICARE, SELFPAY ==
[2018-10-14 08:59] LABS: Cholesterol 193 mg/dL (50-200); HDL Cholesterol 39 mg/dL (40-60); LDL CHOLESTEROL 113 mg/dL (<100); Triglyceride 223 mg/dL (30-150)
== END 2018-10-14 02:25 ==
PROVIDERS: PCP Nurse Practitioner; Visit Provider Nurse Practitioner
DX: E78.5 Hyperlipidemia, unspecified (principal); I10 Essential (primary) hypertension; E66.9 Obesity, unspecified
CPT/HCPCS: 36415; 80061; 83721

== ENCOUNTER 2018-11-04 10:30 | Outpatient (CLI) | payer MEDICARE, OTHER, SELFPAY ==
--- NOTE | 2018-11-04 10:25 | DI.RAD_ITS ---
SYMPTOMS/DIAGNOSIS: TROCHANTERIC BURSITIS VS DJD LT HIP AP PELVIS: Comparison 08/31/16. There are again seen post surgical changes of a right total hip replacement. The orthopedic hardware appears stable. In the left hip, there is moderately severe narrowing of the superior joint space, subchondral sclerosis and periarticular osteophytes. The bones appear intact and normally mineralized. The soft tissues are grossly unremarkable. IMPRESSION: 1. Stable right THR. 2. Moderately severe degenerative changes of the left hip which appear stable.
== END 2018-11-04 10:50 ==
PROVIDERS: PCP Nurse Practitioner; Referring Provider Nurse Practitioner; Visit Provider Orthopaedic Surgery
DX: M25.552 Pain in left hip (principal); M16.12 Unilateral primary osteoarthritis, left hip; Z96.641 Presence of right artificial hip joint; M17.12 Unilateral primary osteoarthritis, left knee; I10 Essential (primary) hypertension
CPT/HCPCS: 99211; 99213; 72170

== ENCOUNTER 2018-11-28 09:27 | Outpatient (CLI) | payer MEDICARE, OTHER, SELFPAY ==
[2018-11-28 11:13] LABS: Abs Immature Grans 0.02 k/cumm (0.0-0.09); Absolute Basophil Count 0.05 k/cumm (0.0-0.2); Absolute Eosinophil Count 0.27 k/cumm (0.0-0.7); Absolute Monocyte Count 0.61 k/cumm (0.11-0.7); Absolute Neutrophil Count 4.13 k/cumm (1.2-6.7); Basophils % 0.7; HCT 36.8 % (36.0-46.0); HGB 11.9 g/dL (12.0-15.5); Immature Grans % 0.3; Lymphocytes % 25.1; Mean Corp. HGB Concentration 32.3 g/dL (32.0-36.0); Mean Corpuscular Hemoglobin 29.6 pg (27.0-33.0); Mean Corpuscular Volume 91.5 fL (80-95); Neutrophils % 60.9; Platelet Count 303 x1000/uL (130-400); RBC 4.02 m/cumm (4.00-5.20); RBC Distribution Width 14.2 % (11.7-14.6); White Blood Cell Count 6.78 k/cumm (4.4-10.8)
[2018-11-28 11:31] LABS: Anion Gap 6.7 mmol/L (3-11); BUN 21 mg/dL (7-18); CO2 31.3 mmol/L (21.0-32.0); CREATININE 0.74 mg/dL (0.55-1.02); Chloride 100 mmol/L (98-107); Glucose 94 mg/dL (70-100); Potassium 3.9 mmol/L (3.5-5.1); Sodium 138 mmol/L (136-145)
[2018-11-28 11:55] LABS: Bilirubin Negative (Negative); Blood Negative (Negative); Clarity Clear; Glucose Negative (Negative); Ketones Negative (Negative); Leukocyte Esterase Negative (Negative); Nitrite Negative (Negative); Urobilinogen 0.2 EU/dL (Up TO 0.2)
== END 2018-11-28 09:47 ==
PROVIDERS: PCP Nurse Practitioner; Visit Provider Orthopaedic Surgery
DX: M25.552 Pain in left hip (principal); M16.12 Unilateral primary osteoarthritis, left hip; I10 Essential (primary) hypertension; K21.9 Gastro-esophageal reflux disease without esophagitis; E78.5 Hyperlipidemia, unspecified; Z01.818 Encounter for other preprocedural examination
CPT/HCPCS: 36415; 80051; 82947; 84520; 86850; 86900; 86901; 81003; 82565; 85025; 93005; 93010

== ENCOUNTER 2018-12-11 08:51 | Inpatient (IN) | payer MEDICARE, OTHER, SELFPAY ==
[2018-12-11] VITALS (11 sets, daily range): BP systolic 121–178; BP diastolic 49–104; PULSE 74–93; RESP 12–20; TEMP 35.9–36.8; O2SAT 93–97
[2018-12-11] MEDS: Lactated Ringers 1,000 ML 80 ML IV ×2 (10:12→13:36)
[2018-12-11] MEDS: ceFAZolin 2 GM/50 ML BAG IVPB ×2 (11:02→20:54)
[2018-12-11] MEDS: fentaNYL 100 MCG/2 ML VIAL IVP ×3 (14:10→14:30)
--- NOTE | 2018-12-11 14:18 | DI.RAD_ITS ---
SYMPTOMS/DIAGNOSIS: LEFT TOTAL HIP ARTHROPLASTY S/P RIGHT TOTAL HIP AP PELVIS: A left hip prosthesis is noted in excellent position, surrounding bone intact. As visualized, the right hip prosthesis appears well maintained. Pelvic bones are intact.
[2018-12-11] MEDS: HYDROmorphone 2 MG/ML VIAL IVP (14:40)
[2018-12-11] MEDS: Normal Saline Flush 10 ML SYR IV ×2 (14:50→15:40)
[2018-12-11] MEDS: POTASSIUM CHLORIDE/0.9% NACL 1,000 ML 125 MEQ IV ×2 (15:23→23:49)
[2018-12-11] MEDS: MORPHine 10 MG/ML VIAL IVP (15:39)
[2018-12-11] MEDS: HYDROcodone 5/Acetaminophen 325 TAB PO (20:07)
[2018-12-12] VITALS (7 sets, daily range): BP systolic 120–152; BP diastolic 61–68; PULSE 78–93; RESP 16–20; TEMP 36.4–37.5; O2SAT 92–97
--- NOTE | 2018-12-12 01:23 | NUR.NOTE ---
Patient state she used the santizer wipes this evening and her hands started getting red. On assessment right hand noted to bed red. Pt voice no pain to the site. Charge nurse was informed.
[2018-12-12] MEDS: ceFAZolin 2 GM/50 ML BAG IVPB ×3 (02:04→14:43)
[2018-12-12] MEDS: Normal Saline Flush 10 ML SYR IV ×2 (02:04→10:21)
[2018-12-12] MEDS: HYDROcodone 5/Acetaminophen 325 TAB PO ×4 (02:10→21:58)
[2018-12-12 07:33] LABS: HCT 31.8 % (36.0-46.0); HGB 10.1 g/dL (12.0-15.5); Mean Corp. HGB Concentration 31.8 g/dL (32.0-36.0); Mean Corpuscular Hemoglobin 29.4 pg (27.0-33.0); Mean Corpuscular Volume 92.7 fL (80-95); Platelet Count 285 x1000/uL (130-400); RBC 3.43 m/cumm (4.00-5.20); RBC Distribution Width 14.4 % (11.7-14.6); White Blood Cell Count 12.84 k/cumm (4.4-10.8)
[2018-12-12 07:45] LABS: Anion Gap 8.5 mmol/L (3-11); BUN 17 mg/dL (7-18); CO2 25.5 mmol/L (21.0-32.0); CREATININE 0.86 mg/dL (0.55-1.02); Chloride 103 mmol/L (98-107); Glucose 124 mg/dL (70-100); Potassium 4.1 mmol/L (3.5-5.1); Sodium 137 mmol/L (136-145)
--- NOTE | 2018-12-12 08:31 | W.PM.PROGNOT ---
Date of Service Date of service: 12/12/18 Time of Service: 08:31 Assessment and Plan (1) Degenerative joint disease of left hip: Current visit: No Status: Chronic Patient is doing well following difficult left total hip arthroplasty because of her morbid obesity. Hemoglobin is 10.0. She has mild elevated glucose like lites are otherwise within normal limits will progress slowly with close observation of hip precautions even though intraoperatively her hips seem quite stable and I could not easily dislocated. Nonetheless her fascia was very tight and had to use Ethibond sutures to ensure its closure. Therefore I want to avoid any sudden or untoward movements. The Kincaid catheter is not bothering her and therefore we will will keep it in place. (2) History of total left hip arthroplasty: Current visit: Yes Status: Acute Subjective Interval history since last seen: Patient is sitting up in bed eating breakfast. She states that she is much more pain-free than before surgery. She has no numbness or tingling in her left lower extremity. She is moving her toes well. Exam Extrem Other: Patient has no obvious neurovascular deficits of her left lower extremity position of the limb looks good she has 2 regular pillows between her knees. Objective Objective Clinical Data: Abnormal lab results 12/12/18 12/12/18 Range/Units 07:15 07:15 WBC 12.84 H (4.4-10.8) k/cumm RBC 3.43 L (4.00-5.20) m/cumm Hgb 10.1 L (12.0-15.5) g/dL Hct 31.8 L (36.0-46.0) % MCHC 31.8 L (32.0-36.0) g/dL Glucose 124 H (70-100) mg/dL Calcium 8.0 L (8.5-10.1) mg/dL Vital Signs Temperature 97.5 F L 12/12/18 03:30 Temperature Source Skin 12/12/18 03:30 Pulse 86 12/12/18 03:30 Pulse Rhythm Regular 12/12/18 00:10 Respiratory Rate 16 12/12/18 03:30 Respiratory Effort 12/12/18 00:10 Respiratory Depth Normal 12/12/18 00:10 Respiratory Pattern Normal 12/12/18 00:10 Blood Pressure 132/62 12/12/18 03:30 Pulse Oximetry 93 L 12/12/18 03:30 Respiratory End-tidal CO2 40 12/11/18 14:45 Oxygen Delivery Method Room Air 12/12/18 03:30 Oxygen Flow Rate 0 12/12/18 03:30 Pain Level 5 12/12/18 07:43 Intake & Output 12/11/18 12/11/18 12/12/18 11:59 23:59 11:59 Intake Total 50 / 2430 2380 / 2430 331.25 / 331.25 Output Total 775 / 775 1150 / 1150 Balance 50 / 1655 1605 / 1655 -818.75 / -818.75 Weight 240 lb 4.862 oz Intake: IV 50 / 2410 2360 / 2410 331.25 / 331.25 Oral 20 / 20 Output: Urine 475 / 475 1150 / 1150 Estimated Blood Loss 300 / 300 Other: Urine Color Yellow Straw Dark Anisha Urine Appearance Clear Clear Clear Comment SMALL AMT OF BLOOD NOTED IN KINCAID TUBING Emesis Description None Laboratory Results WBC 12.84 k/cumm (4.4-10.8) H 12/12/18 07:15 RBC 3.43 m/cumm (4.00-5.20) L 12/12/18 07:15 Hgb 10.1 g/dL (12.0-15.5) L 12/12/18 07:15 Hct 31.8 % (36.0-46.0) L 12/12/18 07:15 MCV 92.7 fL (80-95) 12/12/18 07:15 MCH 29.4 pg (27.0-33.0) 12/12/18 07:15 MCHC 31.8 g/dL (32.0-36.0) L 12/12/18 07:15 RDW 14.4 % (11.7-14.6) 12/12/18 07:15 Plt Count 285 x1000/uL (130-400) 12/12/18 07:15 MPV 10.0 fL (8.0-11.0) 12/12/18 07:15 Sodium 137 mmol/L (136-145) 12/12/18 07:15 Potassium 4.1 mmol/L (3.5-5.1) 12/12/18 07:15 Chloride 103 mmol/L (98-107) 12/12/18 07:15 Carbon Dioxide 25.5 mmol/L (21.0-32.0) 12/12/18 07:15 Anion Gap 8.5 mmol/L (3-11) 12/12/18 07:15 BUN 17 mg/dL (7-18) 12/12/18 07:15 Creatinine 0.86 mg/dL (0.55-1.02) 12/12/18 07:15 Estimated GFR/1.73 m2 >= 60.00 (mL/min/1.73m2) 12/12/18 07:15 Glucose 124 mg/dL (70-100) H 12/12/18 07:15 Calcium 8.0 mg/dL (8.5-10.1) L 12/12/18 07:15
[2018-12-12] MEDS: POTASSIUM CHLORIDE/0.9% NACL 1,000 ML 125 MEQ IV ×2 (08:35→17:30)
[2018-12-12] MEDS: Enoxaparin 30 MG/0.3 ML SYR SC ×2 (08:35→19:24)
[2018-12-12] MEDS: Losartan 50 MG TAB 100 MG PO (08:36)
[2018-12-12] MEDS: Multivitamin w/Minerals TAB 1 TAB PO (08:36)
[2018-12-12] MEDS: Ezetimibe 10 MG TAB PO (08:36)
[2018-12-12] MEDS: Pantoprazole 40 MG TABCR PO (08:36)
[2018-12-12] MEDS: hydroCHLOROthiazide 25 MG TAB PO (08:36)
--- NOTE | 2018-12-12 08:36 | ROE_ITS ---
REPORT OF OPERATIVE PROCEDURE DATE OF SERVICE December 11, 2018 PREOPERATIVE DIAGNOSIS End-stage osteoarthritis left hip. POSTOPERATIVE DIAGNOSIS End-stage osteoarthritis left hip. PROCEDURE Left total hip arthroplasty with cementless fixation. SURGEON Allen Huang M.D. PUBLIC SPEAKING COACH Anuradha Bacon PA-C ANESTHESIA General endotracheal by Simran Resendiz CRNA PREP ChloraPrep. INDICATIONS This patient is a 73-year-old white female, who I have been following for several years. She is statu s post successful right total hip arthroplasty five years ago. She has also had a total knee arthropl asty. She presented in my office with increasing pain in her left groin radiating down into her left knee. Physical exam showed restriction of axial rotational motion of the hip reproducing her groin a nd knee pain with internal rotation. An x-ray demonstrated end-stage osteoarthritis of the left hip j oint. Since the patient's previous arthroplasty, she has gained a significant amount of weight. She n ow weighs approximately 239 pounds. I discussed treatment options. The patient was anxious to proceed with total hip arthroplasty as she had significant improvement following the procedure done five yea rs ago. She did understand however, that her increased and worsening morbid obesity would make her at risk for complications including infection, blood loss, dislocation and failure to obtain bony ingro wth into the prosthesis. She understood and wished to proceed. PROCEDURE DESCRIPTION I saw the patient in the Day Surgery holding area. I discussed the operative procedure in detail. She understood and wished to proceed. She was taken to the Operating Suite, where she underwent inductio n of general endotracheal anesthesia without difficulty. A Diamond catheter was then inserted under st erile technique. She was placed in the right lateral decubitus position with that position being main tained with an extra-large VAC-JUVENTINO device. Prior to making the skin incision and applying drapes, kelechi dumont was instituted verifying the procedure, and that I had appropriately signed the correct surgical site. After prepping and draping the left hip for posterolateral approach the incision was made. The patien t received 2 grams of Ancef as a prophylactic antibiotic. The incision was carried down through the a bundant subcutaneous fat measuring approximately 8 inches. Hemostasis was controlled by electrocauter y. A Charnley retractor exposed the iliotibial band and the investing fascia of the gluteus polo muscles. These fascial layers were split sharply under direct vision. The Charnley retractor was the n inserted deep to these tissues. It was difficult to initial visualize the hip joint because of the extraneous fat. I had to rotate the hip internally and externally to better define the presence of th e femoral head and neck. I was able to identify the short external rotator tendons consisting of the piriformis and obturator internus. These were tagged with a suture of #1-Vicryl. They were released from their posterior intertrochanteric insertion. The hip capsule was identified. Cutting away from t he sciatic nerve, I was able to expose the femoral head. A moderate amount of joint fluid was noted. The capsule was incised and the femoral head was visualized. I then placed a leg length caliper on th e iliac crest and placed it to a reference juliet on the greater trochanter. The patient's preoperative radiograph showed some shortening of the left lower extremity in comparison to the right side due to the arthritis and I felt that I had to lengthen the left lower extremity about 5 millimeters. After taking these lux and notations of the difference, I then dislocated the hip without difficulty. Th e femoral head was deformed and absent of all articular cartilage. Using a femoral head and neck rese ction guide, the neck was resected at an appropriate level about the lesser trochanter. This was sub sequently revised later on in the procedure to a slightly shorter distance leaving approximately 1.5 centimeters between the superior aspect of the lesser trochanter and the cut line. The acetabulum was exposed with retractors. The femoral head that had been removed measured 45 millimeters with a calip er. I selected 45 millimeters as the beginning size reamer for the acetabulum. I first centralized th e acetabulum and then placed my reamer at an appropriate level of anteversion and abduction. I reamed to size 50 and I felt that this had the most appropriate fit. This allowed use of a 32-mm interface. I did not feel I could safely go to 52 millimeters, which would allow for a 36-mm interface because I felt that that would compromise the acetabular bone quality. The actual acetabular shell was then tapped into position. A tight press fit was achieved. Fixation s crews were placed at the 1 o'clock and 4 o'clock positions. The superior screw was approximately 30 millimeters in length. The inferior screw was 20 millimeters in length. Both had good bony purchase. The screw heads were seate d in the depths of the shell. A provisional acetabular liner, which was a trial liner, was placed. Next, the proximal femur was approached. The bone between the lesser and greater trochanter was remov ed with a box chisel. The canal finder was then allowed entrance into the proximal femur. The proxima l femur was reamed with straight reamers to size 5. I then used broaches and it was felt that a size component would have the most appropriate fit. The broach was passed multiple times in order to open up the canal enough to allow the actual prosthesis to fit. I was able to seat the most proximal tip of the broach teeth in relationship to the calcar. I then proceeded to place the broach in position and use it as a reduction guide for the hip joint. I t was felt that a 1-mm x 32-mm extended offset would be most appropriate. This did not however afford any significant lengthening of the leg, compared to the preop status and therefore my plan was to us e a plus 5-mm acetabular component on the femoral head. I then removed the trial acetabular liner, which was screwed into the shell, and placed the actual li ner, which was 50 mm x 32 mm. This had an extraneous lip of polyethylene placed at the 3 o'clock posi tion. I then placed the actual hip prosthesis in position, this was a size 5. As it was nearly seate d, it became difficult to advance it. I waited several minutes to allow hoop stresses to dissipate an d then continue to drive it. I got the actual component within about 4 to 5 millimeters of its ideal position. I allowed to accept that and instead of using a plus 5-mm head, I was going to use a plus 1 -mm head. Trial head was placed and this seemed to improve the leg lengths and equalize and correct the leg length inequality. The actual ceramic head was then placed on the C-taper of the femoral comp onent. This was made of ceramic and measured 32 millimeters. It was reduced with mild to moderate dif ficulty because of the lengthening of the limb. However, the hip was stable to the extremes of flexio n, adduction and internal rotation, as well as extension and external rotation. I felt the leg length s were improved, if not perfectly equalized. The wound was then irrigated utilizing the Betadine irrigation protocol. Dilute Betadine, consisting of 17.5 cc was placed in 500 cc of saline. Over the course of 3 minutes, it was instilled and evacua jacky from the wound. This was followed by irrigation of the wound of 1000 cc of sterile saline. The I T band and investing fascia of the gluteus polo, the tendons were closed after first repairing the piriformis tendon to the posterior intertrochanteric line. I did not have any significant posterior capsule available to repair. The IT band was closed with sutures of #2 Ethibond and #1-Vicryl. The Sc arpa's fascia was closed with #2-0 Vicryl and the skin was closed with stables after closing the subc uticular layer with #2-0 Vicryl. Prior to closure of the deep fascia, tranexamic acid 3 grams and 100 cc of saline was placed topically in the incision to provide for hemostasis. The patient had utiliza tion of the OrthoPAT blood salvage device, but there was not exuberant bleeding such that no blood wa s produced despite it being used during the case. A total estimated blood loss was approximately 300 cc. No blood was replaced intraoperatively. The wo und was dressed with Xeroform gauze, 4x4s, ABD pads and Medipore tape. The patient was carefully carcamo sferred into the supine position with an abduction bolster pillow between her legs. She tolerated the procedure well. In the Recovery Room, the patient has good function in terms of sensation and motor function of her left foot, including dorsiflexion and plantar flexion.
[2018-12-12] MEDS: MORPHine 10 MG/ML VIAL IVP (10:21)
--- NOTE | 2018-12-12 13:21 | PHARADMIT ---
Addendum entered by Rachel Cardona 12/15/18 09:40: Pharmacy Note Subjective post op day #4 Objective HR-95 other VS okay Assessment fleet enema ordered daily PRN Plan MD to re-examine wound tomorrow Addendum entered by Rachel Cardona 12/14/18 11:19: Pharmacy Note Subjective post op day #3; pain-5/10; pt feeling better per progress note Objective BP-184/75 HR-92 other VS okay no labs Assessment has been using IV morphine and PO hydrocodone/APAP for pain; has ibuprofen and acetaminophen ordered PRN but has not used these yesterday or so far today Plan continue to watch VS, labs and for med changes Addendum entered by Dario Milligan III 12/13/18 12:05: Pharmacy Note Subjective Post-op day#2 for left Hip arthroplasty. Doing welll with mild, asympsomatic surgical anemia. Objective BP-16./2 Pain:9/10 Lytes, SCr,WBC, PLts-OK H&H-9.3/29.9 (down) No BM yet Assessment Ancef post-op completed, Morphine IV dc's Plan Patient progressing with PT. Dressing change and shower tomorrow. Original Note: Admission Pharmacy Clinical Review LEFT TOTAL KNEE ARTHROPLASTY Code Status Full Code Current Weight Wgt-109 kg Renally Cleared and Narrow Therapeutic Index Meds CrCl~ 49.5 mL/min Meds-OK QTc Value / Action Taken QTc-438 NA BP Control, Fever BP- 120/64 Tmax- 37.1C Electrolytes reviewed Na- 137 K+4.1 DVT Prophylaxis Lovenox Opiate Usage / Scheduled Bowel Regimen Ordered Yes Yes Plt/SCr for Heparin / Enoxaparin Plts-285 SCr-0.86 INR for Warfarin NA H/H stable, WBC/Bands H&H- 10.1/31.8 WBC-12.84 Antibiotic appropriateness Cefazolin Cultures and Sensitivities NA Surgical ABX d/c within 24 hr Yes DM control / Insulin Dosing BG-124 Heart Failure (Check EF%) (HUBER's, B-Block, Diuretics) HCTZ,Losartan IV to PO Switch No Home Meds Reviewed YUes Home Meds Not Ordered Ibuprofen, Zantac, Crestor Comments
--- NOTE | 2018-12-12 14:08 | PT.INTREAT ---
Date of service: 12/12/18 Time of Service: 14:08 PT Notes Inpatient Physical Therapy Treatment Note [facility] Date: 12/12/18 PRECAUTIONS: Fall, WBAT on L, AKIL Prec SUBJECTIVE: Irene states that she has been up in the chair for several hours and would like to go back to bed. OBJECTIVE: PAIN: Patient c/o L LE pain with transfers and ther ex BED MOBILITY/TRANSFERS Sit-supine: Max A Sit-stand: CGA Stand-sit: CGA GAIT Assistive Device: FWW Weight bearing: WBAT L Assist: CGA Distance: 3' + 15' Deviation: Standing rest x3 THEREX: Patient completed a LE strengthening and stabilization program, in a supine position, as per flow sheet. TOILETING: Patient toileted with assist. ASSESSMENT: Patient tolerated session with c/o increased L LE pain with ther ex and transfers. She was able to tolerate a progression in gait distance with FWW support and SBA. She would benefit from continued gait and transfer training as well as strengthening for improved ability to perform daily functional tasks at a more independent level and improved activity tolerance. PLAN: Continue with PT's POC TREATMENT CODE/TIME: 35 minutes; 29502, [id number]
--- NOTE | 2018-12-12 14:30 | PT.INIE ---
Date of service: 12/12/18 Time of Service: 10:45 PT Notes Inpatient Physical Therapy Evaluation Date: 12/12/18 Referring Doctor: Dr. Huang PT Orders: PT CONSULT: 73-year-old morbidly obese female, status post left cementless total hip arthroplasty 12/11/2018. Up in chair tomorrow, weightbearing as tolerated on the left. Patient is status post right total hip replacement 5 years ago. Precautions: Fall, standard, WBAT LLE, posterior hip precautions left Patient Profile/Admitting Diagnosis: Patient presenting 1 day status post left cementless AKIL. 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) Trochanteric bursitis of left hip (Chronic) Pulmonary nodule seen on imaging study (Acute 03/28/17) Conductive hearing loss (Chronic) Tubular adenoma (Acute 04/10/16) Sensorineural hearing loss, unilateral (Acute 06/07/17) Pre-diabetes (Acute 01/09/18) Osteopenia (Acute 07/11/16) IBS (irritable bowel syndrome) (Acute 07/09/17) Abnormal CT scan, bladder (Acute 05/08/17) Obesity (Chronic) Hypertension (Chronic) Chronic sinusitis (Chronic) GERD (gastroesophageal reflux disease) (Chronic) Elevated lipids (Chronic) Conductive hearing loss, external ear (Resolved 06/07/17) Impacted cerumen (Resolved 05/01/14) Impacted cerumen of both ears (Resolved) OA (osteoarthritis) of hip (Resolved 05/13/14) Primary osteoarthritis of left knee (Resolved) Elevated fasting glucose Social History/Home Situation: Patient lives in a single level home with ramp to enter. She normally drives independently, and has a neighbor who checks in with her, and assist with grocery shopping, meal prep, etc. She has been attending outpatient physical therapy at [facility], and plans to utilize home health services upon discharge. Equipment Owned/DME: FW W Subjective: Irene states that she is feeling well. She is very nervous about getting up out of bed. Objective: General Observation: Resting in bed with IV in LUE, Diamond catheter in place. Mental Status: A and O x3 Pain: 2/10 ROM: Right Upper Extremity: WFL Left Upper Extremity: WFL Right Lower Extremity: WFL Left Lower Extremity: Not assessed due to acute postoperative status Strength: Right Upper Extremity: WFL Left Upper Extremity: WFL Right Lower Extremity: Quads 5/5, hip flexion 3/5 or greater Left Lower Extremity: Patient is able to pump ankles and wiggle toes. Quad strength is 3/5 or greater Sensation: Intact distally Bed Mobility/Transfers: Supine?sit: Mod assist x1 with head of bed at 45 degrees Sit to stand: Min assist x1 Stand to sit: Min assist x1 Bed to chair: Mod assist x1 with FW W Gait: Patient ambulance 3 feet with FW W, mod assist x1, WBAT LLE. She demonstrates poor foot clearance bilaterally, and relies heavily on upper extremity support to FW W Balance: Static Sitting: Good Dynamic Sitting: Fair Static Standing: Fair Dynamic Standing: Fair Special Tests: Mobility Limitations Standardized Measure [facility] AM-PAC 6 clicks Basic Mobility Inpatient Short Form: Raw Score: 17 CMS Score: 51% Informed Consent/Education: Patient instructed in purpose of PT consult and plan of care. She was instructed in an early exercise program, consisting of lower extremity isometrics and long arc quads. We reviewed posterior hip precautions, with patient verbalizing understanding. Assessment: Patient is a 73 year old female referred to physical therapy services with the diagnosis of left hip OA, 1 day status post AKIL. Patient presents with clinical signs and symptoms consistent with postoperative status, as demonstrated by the following impairment level findings: 1. Decreased left lower extremity strength 2. Decreased left lower extremity range of motion 3. Decreased activity tolerance 4. Posterior hip precautions with associated range of motion restrictions Impairments are contributing to the following functional limitations: 1. Gait impairments 2. Decreased activity tolerance 3. Unable to tolerate household distance ambulation 4. Unable to independently perform bed mobility 5. Unable to independently transfer 6. Unable to manage stairs Patient is assessed as Moderate 48253 complexity based on the following: History: 73-year-old female, one day status post left AKIL. Extensive medical history, as noted above. Patient also lives independently and relies on a neighbor for assistance with wire frame dipper. Examination: Actual limitations as noted above Presentation: Evolving Decision Making: Moderate complexity Goals: Goals X1 week 1. Supine-Sit : Supervision 2. Sit-Supine: Supervision 3. Sit-Stand: Supervision 4. Stand-Sit: Supervision 5. Bed-Chair: Supervision with FWW 6. Chair-Bed: Supervision with FWW 7. Gait: Supervision with FWW x 50' Plan of Care/Treatment Plan: 1-2x/day, 7 days/week x 1 week. Plan of care has been reviewed with the DIRECTOR EMERGENCY SERVICES providing the service under Physical Therapy direction. Initiate Physical Therapy intervention for strengthening, bed mobility, transfers, gait, stairs, balance training, use of assistive device. DISCHARGE RECOMMENDATIONS: Home with home health PT TREATMENT CODE/TIME: 09235 (10:45 AM?11:15 AM) Eugenia Webster, PT, DPT [facility]
--- NOTE | 2018-12-12 14:40 | IN_ITS ---
Date of service: 12/12/18 Time of Service: 10:45 PT Notes Inpatient Physical Therapy Evaluation Date: 12/12/18 Referring Doctor: Dr. Huang PT Orders: PT CONSULT: 73-year-old morbidly obese female, status post left cementless total hip arthroplasty 12/11/2018. Up in chair tomorrow, weightbearing as tolerated on the left. Patient is status post right total hip replacement 5 years ago. Precautions: Fall, standard, WBAT LLE, posterior hip precautions left Patient Profile/Admitting Diagnosis: Patient presenting 1 day status post left cementless AKIL. 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) Trochanteric bursitis of left hip (Chronic) Pulmonary nodule seen on imaging study (Acute 03/28/17) Conductive hearing loss (Chronic) Tubular adenoma (Acute 04/10/16) Sensorineural hearing loss, unilateral (Acute 06/07/17) Pre-diabetes (Acute 01/09/18) Osteopenia (Acute 07/11/16) IBS (irritable bowel syndrome) (Acute 07/09/17) Abnormal CT scan, bladder (Acute 05/08/17) Obesity (Chronic) Hypertension (Chronic) Chronic sinusitis (Chronic) GERD (gastroesophageal reflux disease) (Chronic) Elevated lipids (Chronic) Conductive hearing loss, external ear (Resolved 06/07/17) Impacted cerumen (Resolved 05/01/14) Impacted cerumen of both ears (Resolved) OA (osteoarthritis) of hip (Resolved 05/13/14) Primary osteoarthritis of left knee (Resolved) Elevated fasting glucose Social History/Home Situation: Patient lives in a single level home with ramp to enter. She normally drives independently, and has a neighbor who checks in with her, and assist with grocery shopping, meal prep, etc. She has been attending outpatient physical therapy at [facility], and plans to utilize home health services upon discharge. Equipment Owned/DME: FW W Subjective: Irene states that she is feeling well. She is very nervous about getting up out of bed. Objective: General Observation: Resting in bed with IV in LUE, Diamond catheter in place. Mental Status: A and O x3 Pain: 2/10 ROM: Right Upper Extremity: WFL Left Upper Extremity: WFL Right Lower Extremity: WFL Left Lower Extremity: Not assessed due to acute postoperative status Strength: Right Upper Extremity: WFL Left Upper Extremity: WFL Right Lower Extremity: Quads 5/5, hip flexion 3/5 or greater Left Lower Extremity: Patient is able to pump ankles and wiggle toes. Quad strength is 3/5 or greater Sensation: Intact distally Bed Mobility/Transfers: Supine?sit: Mod assist x1 with head of bed at 45 degrees Sit to stand: Min assist x1 Stand to sit: Min assist x1 Bed to chair: Mod assist x1 with FW W Gait: Patient ambulance 3 feet with FW W, mod assist x1, WBAT LLE. She demonstrates poor foot clearance bilaterally, and relies heavily on upper extremity support to FW W Balance: Static Sitting: Good Dynamic Sitting: Fair Static Standing: Fair Dynamic Standing: Fair Special Tests: Mobility Limitations Standardized Measure [facility] AM-PAC 6 clicks Basic Mobility Inpatient Short Form: Raw Score: 17 CMS Score: 51% Informed Consent/Education: Patient instructed in purpose of PT consult and plan of care. She was instructed in an early exercise program, consisting of lower extremity isometrics and long arc quads. We reviewed posterior hip precautions, with patient verbalizing understanding. Assessment: Patient is a 73 year old female referred to physical therapy services with the diagnosis of left hip OA, 1 day status post AKIL. Patient presents with clinical signs and symptoms consistent with postoperative status, as demonstrated by the following impairment level findings: 1. Decreased left lower extremity strength 2. Decreased left lower extremity range of motion 3. Decreased activity tolerance 4. Posterior hip precautions with associated range of motion restrictions Impairments are contributing to the following functional limitations: 1. Gait impairments 2. Decreased activity tolerance 3. Unable to tolerate household distance ambulation 4. Unable to independently perform bed mobility 5. Unable to independently transfer 6. Unable to manage stairs Patient is assessed as Moderate 97210 complexity based on the following: History: 73-year-old female, one day status post left AKIL. Extensive medical history, as noted above. Patient also lives independently and relies on a neighbor for assistance with senior project accountant. Examination: Actual limitations as noted above Presentation: Evolving Decision Making: Moderate complexity Goals: Goals X1 week 1. Supine-Sit : Supervision 2. Sit-Supine: Supervision 3. Sit-Stand: Supervision 4. Stand-Sit: Supervision 5. Bed-Chair: Supervision with FWW 6. Chair-Bed: Supervision with FWW 7. Gait: Supervision with FWW x 50' Plan of Care/Treatment Plan: 1-2x/day, 7 days/week x 1 week. Plan of care has been reviewed with the HAIRSPRING SETTER providing the service under Physical Therapy direction. Initiate Physical Therapy intervention for strengthening, bed mobility, transfers, gait, stairs, balance training, use of assistive device. DISCHARGE RECOMMENDATIONS: Home with home health PT TREATMENT CODE/TIME: [id number] (10:45 AM?11:15 AM) Eugenia Webster, PT, DPT [facility]
[2018-12-12] MEDS: Docusate Sodium 100 MG CAP PO (14:43)
--- NOTE | 2018-12-12 15:39 | CHAPLAIN ---
Irene has a hip replacement yesterday and said she had pain getting up last night and this morning, but his is her second hip replacement so she said she knew what she was getting in to. She had hot flashes last night that made it difficult to sleep, so I was able to get her a small portable fan to use. Her daughter was with her. Irene is a member of the [facility], but has not been able to attend [employer] recently because she has difficulty walking.
--- NOTE | 2018-12-12 17:55 | INITIAL_ITS ---
Care Management Initial Assess REASON FOR HOSPITALIZATION:: Left Total Hip Arthroplasty PAST MEDICAL HISTORY/PAST SURGICAL HISTORY:: L AKIL, degenerative joint disease of left hip, trochanteric bursitis of left hip, pulmonary nodule seen on imaging study, conductive hearing loss, tubular adenoma, sensorineural hearing loss, pre-diabetes, osteopenia, IBS, abnormal CT scan, obesity, hypertension, chronic sinusitis, GERD, Elevated lipids PREVIOUS FUNCTIONAL STATUS/SOCIAL/FAMILY SUPPORTS:: Irene resides alone in [place], [place] with her three year old cat, [place] who she shares is full of hell. She reports a supportive family incluidng her nephew Campbell and brother, Raffi. She reports being independent with all ADLs but shares she has slowed down quite a bit. CURRENT FUNCTIONAL STATUS:: Irene is sitting up in her chair, female visitor at her side both enjoying lunch. Irene is forthcoming with information and pleasant in interaction. ADVANCE DIRECTIVES:: At home; not yet completed; CM provided patient education. Has patient been provided with information about the portal?: Yes Did the patient sign up for the portal?: No CODE STATUS:: Full Code CURRENT HOME/COMMUNITY SERVICES/EQUIPMENT:: FWW, raised toilet seat. PRIMARY CARE PHYSICIAN:: Shannan De Leon POTENTIAL DISCHARGE NEEDS:: PT evaluation, pain management, follow up appointments. PATIENT/FAMILY EDUCATION NEEDS:: Review of discharge instructions, discuss Ask Me Three. ANTICIPATED BARRIERS TO DISCHARGE:: None identified. TRANSPORTATION:: Via private vehicle with family. PLAN:: Irene will continue working with PT and her pain will be closely managed. She will follow up with Dr. Huang and her plan of care as prescribed including medication recommendations and activity limitations. She will transport via private vehicle with family.
[2018-12-12] MEDS: Acetaminophen 325 MG TAB 650 MG PO (23:30)
[2018-12-13] MEDS: POTASSIUM CHLORIDE/0.9% NACL 1,000 ML 125 MEQ IV (00:56)
[2018-12-13 03:55] VITALS: BP 124/66; PULSE 81; RESP 18; TEMP 36.5; O2SAT 95
[2018-12-13] MEDS: HYDROcodone 5/Acetaminophen 325 TAB PO ×4 (06:05→22:50)
[2018-12-13 07:35] LABS: HCT 29.9 % (36.0-46.0); HGB 9.3 g/dL (12.0-15.5); Mean Corp. HGB Concentration 31.1 g/dL (32.0-36.0); Mean Corpuscular Hemoglobin 29.2 pg (27.0-33.0); Mean Platelet Volume 9.9 fL (8.0-11.0); Platelet Count 250 x1000/uL (130-400); RBC 3.18 m/cumm (4.00-5.20); RBC Distribution Width 14.5 % (11.7-14.6); White Blood Cell Count 9.09 k/cumm (4.4-10.8)
[2018-12-13 07:49] LABS: Anion Gap 7.3 mmol/L (3-11); BUN 15 mg/dL (7-18); CO2 25.7 mmol/L (21.0-32.0); CREATININE 0.71 mg/dL (0.55-1.02); Calcium 7.8 mg/dL (8.5-10.1); Chloride 106 mmol/L (98-107); Glucose 103 mg/dL (70-100); Potassium 4.2 mmol/L (3.5-5.1); Sodium 139 mmol/L (136-145)
[2018-12-13 07:55] VITALS: BP 163/82; PULSE 86; RESP 18; TEMP 36.6; O2SAT 96
--- NOTE | 2018-12-13 08:04 | PGE_ITS ---
Date of Service Date of service: 12/13/18 Time of Service: 07:57 Assessment and Plan (1) History of total left hip arthroplasty: Current visit: Yes Status: Acute Left total hip arthroplasty with mild to moderate surgical anemia which is asymptomatic. Patient's electrolytes are pending. Patient has not required IV morphine in 24 hours. Therefore, I will d/c iv and hep cap since she is eating and drinking well. I will also d/c harrington catheter. Urine is grossly clear in harrington bag. Dressing change tomorrow and up to shower tomorrow as tolerated. Continue lovenox dvt prophylaxis. Platelet count is adequate. Subjective Interval history since last seen: Feeling well. Currently sitting at bedside g etting ready to get out of bed. No chest pain, pressure, or shortness of breath. Exam Extrem Other: No gross swelling of left leg. The patient's edema is difficult to assess because of morbid obesity. No newovascular deficits of left foot. Objective Objective Clinical Data: Abnormal lab results 12/13/18 Range/Units 07:26 RBC 3.18 L (4.00-5.20) m/cumm Hgb 9.3 L (12.0-15.5) g/dL Hct 29.9 L (36.0-46.0) % MCHC 31.1 L (32.0-36.0) g/dL Vital Signs Temperature 97.7 F 12/13/18 03:55 Temperature Source Tympanic 12/13/18 03:55 Pulse 81 12/13/18 03:55 Pulse Rhythm Regular 12/13/18 00:33 Respiratory Rate 18 12/13/18 03:55 Respiratory Effort Non-Labored 12/13/18 00:33 Respiratory Depth Normal 12/13/18 00:33 Respiratory Pattern Normal 12/13/18 00:33 Blood Pressure 124/66 12/13/18 03:55 Pulse Oximetry 95 12/13/18 03:55 Respiratory End-tidal CO2 40 12/11/18 14:45 Oxygen Delivery Method Room Air 12/13/18 03:55 Oxygen Flow Rate 0 12/13/18 03:55 Pain Level 3 12/13/18 07:48 Comment 12/13/18 03:55 Intake & Output 12/12/18 12/12/18 12/13/18 11:59 23:59 11:59 Intake Total 2614.167 / 4919.584 2305.417 / 4919.584 2058.334 / 2058.334 Output Total 1150 / 3650 2500 / 3650 1250 / 1250 Balance 1464.167 / 1269.584 -194.583 / 1269.584 808.334 / 808.334 Intake: IV 1824.167 / 2859.584 1035.417 / 2859.584 1558.334 / 1558.334 Oral 790 / 2060 1270 / 2060 500 / 500 Output: Urine 1150 / 3650 2500 / 3650 1250 / 1250 Other: Urine Color Dark Anisha Pale Yellow Yellow Urine Appearance Clear Clear Clear Comment SMALL AMT OF BLOOD NOTED IN HARRINGTON TUBING Laboratory Results WBC 9.09 k/cumm (4.4-10.8) 12/13/18 07:26 RBC 3.18 m/cumm (4.00-5.20) L 12/13/18 07:26 Hgb 9.3 g/dL (12.0-15.5) L 12/13/18 07:26 Hct 29.9 % (36.0-46.0) L 12/13/18 07:26 MCV 94.0 fL (80-95) 12/13/18 07:26 MCH 29.2 pg (27.0-33.0) 12/13/18 07:26 MCHC 31.1 g/dL (32.0-36.0) L 12/13/18 07:26 RDW 14.5 % (11.7-14.6) 12/13/18 07:26 Plt Count 250 x1000/uL (130-400) 12/13/18 07:26 MPV 9.9 fL (8.0-11.0) 12/13/18 07:26 Sodium 137 mmol/L (136-145) 12/12/18 07:15 Potassium 4.1 mmol/L (3.5-5.1) 12/12/18 07:15 Chloride 103 mmol/L (98-107) 12/12/18 07:15 Carbon Dioxide 25.5 mmol/L (21.0-32.0) 12/12/18 07:15 Anion Gap 8.5 mmol/L (3-11) 12/12/18 07:15 BUN 17 mg/dL (7-18) 12/12/18 07:15 Creatinine 0.86 mg/dL (0.55-1.02) 12/12/18 07:15 Estimated GFR/1.73 m2 >= 60.00 (mL/min/1.73m2) 12/12/18 07:15 Glucose 124 mg/dL (70-100) H 12/12/18 07:15 Calcium 8.0 mg/dL (8.5-10.1) L 12/12/18 07:15
--- NOTE | 2018-12-13 09:34 | PT.INTREAT ---
Date of service: 12/13/18 Time of Service: 09:34 PT Notes Inpatient Physical Therapy Treatment Note [facility] Date: 12/13/18 PRECAUTIONS: Fall, WBAT on L, AKIL Prec SUBJECTIVE: Irene reports that her leg is pretty sore this morning. She also reports that she has been performing quad sets and glute sets independently. OBJECTIVE: PAIN: Patient c/o L LE pain with transfers and ther ex, and UE pain with gait training with FWW BED MOBILITY/TRANSFERS Supine-sit: Min A with HOB at 50 degrees Sit-stand: SBA with cueing for safety Stand-sit: SBA GAIT Assistive Device: FWW Weight bearing: WBAT L Assist: CGA Distance: 20' Deviation: Standing rest x1 THEREX: Patient completed a LE strengthening and stabilization program, in a supine and seated position, as per flow sheet. ASSESSMENT: Patient tolerated session with c/o increased L LE pain with ther ex and transfers. She was able to tolerate a progression in gait distance with FWW support and CGA. She would benefit from continued gait and transfer training as well as strengthening for improved ability to perform daily functional tasks at a more independent level and improved activity tolerance. PLAN: Continue with PT's POC TREATMENT CODE/TIME: 25 minutes; 53113, [id number]
[2018-12-13] MEDS: Ezetimibe 10 MG TAB PO (09:52)
[2018-12-13] MEDS: Docusate Sodium 100 MG CAP PO (09:52)
[2018-12-13] MEDS: Pantoprazole 40 MG TABCR PO (09:52)
[2018-12-13] MEDS: Multivitamin w/Minerals TAB 1 TAB PO (09:52)
[2018-12-13] MEDS: hydroCHLOROthiazide 25 MG TAB PO (09:52)
[2018-12-13] MEDS: Losartan 50 MG TAB 100 MG PO (09:52)
[2018-12-13] MEDS: Enoxaparin 30 MG/0.3 ML SYR SC ×2 (09:53→19:37)
--- NOTE | 2018-12-13 11:34 | PDOC.CMPRO ---
Care Management Progress Note S/O: Irene was sitting up in her chair, she remains pleasant in interaction. Per MD, Irene will have harrington removed today and switch to oral medications. She continues to work with PT and has required no IV pain medication overnight. Anticipate she will discharge home tomorrow with continued gains. CM will continue to follow. A: 73 year old female admitted to [facility] 12/10/18 for Left AKIL P: Irene will continue working with PT, her dressings will be changed tomorrow and she will shower per MD. She will follow up with Dr. Huang and her plan of care as prescribed including medication recommendations and activity limitations. She will transport via private vehicle with family.
--- NOTE | 2018-12-13 11:46 | CMPROGNOTE_ITS ---
Care Management Progress Note S/O: Irene was sitting up in her chair, she remains pleasant in interaction. Per MD, Irene will have harrington removed today and switch to oral medications. She continues to work with PT and has required no IV pain medication overnight. Anticipate she will discharge home tomorrow with continued gains. CM will continue to follow. A: 73 year old female admitted to [facility] 12/10/18 for Left AKIL P: Irene will continue working with PT, her dressings will be changed tomorrow and she will shower per MD. She will follow up with Dr. Huang and her plan of care as prescribed including medication recommendations and activity limitations. She will transport via private vehicle with family.
--- NOTE | 2018-12-13 12:13 | PT.INTREAT ---
Date of service: 12/13/18 Time of Service: 12:13 PT Notes Inpatient Physical Therapy Treatment Note [facility] Date: 12/13/18 PRECAUTIONS: Fall, WBAT on L, AKIL Prec SUBJECTIVE: Irene reports that she continues to feel pretty sore, although she has been up to the commode. OBJECTIVE: PAIN: Patient c/o L LE pain with transfers and ther ex BED MOBILITY/TRANSFERS Sit-stand: SBA Stand-sit: SBA GAIT Assistive Device: FWW Weight bearing: WBAT L Assist: CGA Distance: 40' THEREX: Patient completed a LE strengthening and stabilization program, in a seated position, as per flow sheet. She also completed functional [id number] exercise x5 with UE support. ASSESSMENT: Patient tolerated increased gait distance with c/o increased fatigue, although without c/o UE pain. She would benefit from continued gait and transfer training as well as strengthening for improved ability to perform daily functional tasks at a more independent level and improved activity tolerance. PLAN: Continue with PT's POC TREATMENT CODE/TIME: 30 minutes; [id number], [id number]
--- NOTE | 2018-12-13 12:17 | PTTR_ITS ---
Date of service: 12/13/18 Time of Service: 12:13 PT Notes Inpatient Physical Therapy Treatment Note [facility] Date: 12/13/18 PRECAUTIONS: Fall, WBAT on L, AKIL Prec SUBJECTIVE: Irene reports that she continues to feel pretty sore, although she has been up to the commode. OBJECTIVE: PAIN: Patient c/o L LE pain with transfers and ther ex BED MOBILITY/TRANSFERS Sit-stand: SBA Stand-sit: SBA GAIT Assistive Device: FWW Weight bearing: WBAT L Assist: CGA Distance: 40' THEREX: Patient completed a LE strengthening and stabilization program, in a seated position, as per flow sheet. She also completed functional [id number] exercise x5 with UE support. ASSESSMENT: Patient tolerated increased gait distance with c/o increased fatigue, although without c/o UE pain. She would benefit from continued gait and transfer training as well as strengthening for improved ability to perform daily functional tasks at a more independent level and improved activity tolerance. PLAN: Continue with PT's POC TREATMENT CODE/TIME: 30 minutes; [id number], [id number]
[2018-12-13 14:20] VITALS: BP 131/69; PULSE 92; RESP 16; TEMP 36.8; O2SAT 98
[2018-12-13 15:36] VITALS: BP 144/75; PULSE 97; RESP 18; TEMP 37; O2SAT 98
[2018-12-13 19:31] VITALS: BP 139/67; PULSE 93; RESP 20; TEMP 37.6; O2SAT 97
[2018-12-13 23:45] VITALS: BP 169/64; PULSE 97; RESP 18; TEMP 36.6; O2SAT 96
[2018-12-14 03:05] VITALS: BP 125/72; PULSE 89; RESP 18; TEMP 36.8; O2SAT 94
[2018-12-14 07:34] VITALS: BP 184/75; PULSE 92; RESP 18; TEMP 37.4; O2SAT 96
--- NOTE | 2018-12-14 08:18 | W.PM.PROGNOT ---
Date of Service Date of service: 12/14/18 Time of Service: 08:18 Assessment and Plan (1) History of total left hip arthroplasty: Current visit: Yes Status: Acute 72 hours s/p left total hip arthroplasty, patient generally doing well. I will add ibuprofen to meds as patient is getting regular doses of norco and is close to tylenol maximum of 3000 mg. Up to shower with assistance. Up to shower prn. Meds available for constipation. Continue lovenox dvt prophylaxis. Subjective Interval history since last seen: Felling better I think im getting better. Patient is sitting in chair and awaiting breakfast. She needed minimal assistanceto get in and out of bed. She got up twice last night to urinate, but denies dysuria. No chest pain, pressure or wshortness of breath. Exam Extrem Other: Left hip bandage changed by Gwen Wound is benign. Mild serous drainage on bandage, but no active drainage that can be expressed. New sterile gauze applied. Objective Objective Clinical Data: Vital Signs Temperature 99.3 F 12/14/18 07:34 Temperature Source Tympanic 12/14/18 07:34 Pulse 92 H 12/14/18 07:34 Pulse Rhythm Regular 12/13/18 23:45 Respiratory Rate 18 12/14/18 07:34 Respiratory Effort 12/13/18 23:45 Respiratory Depth Normal 12/13/18 23:45 Respiratory Pattern Normal 12/13/18 23:45 Blood Pressure 184/75 H 12/14/18 07:34 Pulse Oximetry 96 12/14/18 07:34 Respiratory End-tidal CO2 40 12/11/18 14:45 Oxygen Delivery Method Room Air 12/14/18 07:34 Oxygen Flow Rate 0 12/14/18 07:34 Pain Level 3 12/14/18 06:39 Comment 12/13/18 19:31 Intake & Output 12/13/18 12/13/18 12/14/18 11:59 23:59 11:59 Intake Total 3209.334 / 4389.334 1180 / 4389.334 300 / 300 Output Total 1925 / 4075 2150 / 4075 700 / 700 Balance 1284.334 / 314.334 -970 / 314.334 -400 / -400 Intake: IV 1679.334 / 1679.334 Oral 1530 / 2710 1180 / 2710 300 / 300 Output: Urine 1925 / 4075 2150 / 4075 700 / 700 Other: Urine Color Yellow Yellow Yellow Urine Appearance Clear Clear Clear Urine Odor None None None Voiding Methods Bedside Commode Bedside Commode Bedside Commode Laboratory Results WBC 9.09 k/cumm (4.4-10.8) 12/13/18 07:26 RBC 3.18 m/cumm (4.00-5.20) L 12/13/18 07:26 Hgb 9.3 g/dL (12.0-15.5) L 12/13/18 07:26 Hct 29.9 % (36.0-46.0) L 12/13/18 07:26 MCV 94.0 fL (80-95) 12/13/18 07:26 MCH 29.2 pg (27.0-33.0) 12/13/18 07:26 MCHC 31.1 g/dL (32.0-36.0) L 12/13/18 07:26 RDW 14.5 % (11.7-14.6) 12/13/18 07:26 Plt Count 250 x1000/uL (130-400) 12/13/18 07:26 MPV 9.9 fL (8.0-11.0) 12/13/18 07:26 Sodium 139 mmol/L (136-145) 12/13/18 07:26 Potassium 4.2 mmol/L (3.5-5.1) 12/13/18 07:26 Chloride 106 mmol/L (98-107) 12/13/18 07:26 Carbon Dioxide 25.7 mmol/L (21.0-32.0) 12/13/18 07:26 Anion Gap 7.3 mmol/L (3-11) 12/13/18 07:26 BUN 15 mg/dL (7-18) 12/13/18 07:26 Creatinine 0.71 mg/dL (0.55-1.02) 12/13/18 07:26 Estimated GFR/1.73 m2 >= 60.00 (mL/min/1.73m2) 12/13/18 07:26 Glucose 103 mg/dL (70-100) H 12/13/18 07:26 Calcium 7.8 mg/dL (8.5-10.1) L 12/13/18 07:26
[2018-12-14] MEDS: Docusate Sodium 100 MG CAP PO (08:38)
[2018-12-14] MEDS: hydroCHLOROthiazide 25 MG TAB PO (08:38)
[2018-12-14] MEDS: Ezetimibe 10 MG TAB PO (08:38)
[2018-12-14] MEDS: Multivitamin w/Minerals TAB 1 TAB PO (08:38)
[2018-12-14] MEDS: Losartan 50 MG TAB 100 MG PO (08:38)
[2018-12-14] MEDS: Enoxaparin 30 MG/0.3 ML SYR SC ×2 (08:38→19:39)
[2018-12-14] MEDS: Pantoprazole 40 MG TABCR PO (08:39)
[2018-12-14] MEDS: HYDROcodone 5/Acetaminophen 325 TAB PO ×3 (08:39→21:55)
[2018-12-14 11:05] VITALS: BP 108/65; PULSE 93; RESP 18; TEMP 37.4; O2SAT 96
[2018-12-14] MEDS: Ibuprofen 400 MG TAB PO ×2 (11:24→16:37)
--- NOTE | 2018-12-14 12:40 | PT.INTREAT ---
Date of service: 12/14/18 Time of Service: 10:00 PT Notes Inpatient Physical Therapy Treatment Note [facility] Date: 12/14/18 PRECAUTIONS:WBAT on left LE and post hip replacement precautions SUBJECTIVE: Feels good to walk. Reviewed posterior hip precautions with client. OBJECTIVE: PAIN: 3 out of 10 on 0-10 pain scale BED MOBILITY/TRANSFERS Up with nursing when I arrived to room. Sit-stand: SBA and verbal cueing Stand-sit: SBA adn verbal cueing GAIT Assistive Device: FWW Weight bearing: WBAT on left Assist: CGA Distance: 50 ft, walked part way to shower room THEREX: Performed AP, LAQs, seated hip abd/add and seated marching to 90 degree only on left for 20 reps each. Sit to stands x 7 reps with SBA and verbal cueing. ASSESSMENT: Tolerated today's PT session well with good effort given. PLAN: Continue to encourage mobility for improved ADL function. TREATMENT CODE/TIME: 10:00 to 10:25 (25'), TP x 1 and Gait x 1
[2018-12-14 16:05] VITALS: BP 122/63; PULSE 77; RESP 18; TEMP 36.8; O2SAT 96
--- NOTE | 2018-12-14 17:54 | PDOC.CMPRO ---
- If Service Date Differs Date of service: 12/14/18 Time of Service: 17:54 Care Management Progress Note S/O: Irene was sitting up in her chair, she makes good eye contact she states her pain level is a 3 out of 10 after ambulation. She states that she anticipates she may go home over the weekend. She a friend that is supportive and will assist her at home. She states she has a walker and raised toilet seat. She would like home health PT which she has had in the past and is being recommended by PT. A: 73 year old female admitted to [facility] 12/10/18 for Left AKIL P: Irene will continue working with PT, her dressings will be changed tomorrow and she will shower per MD. She will follow up with Dr. Huang and her plan of care as directed including medication recommendations and activity limitations. Irene would like home health PT at time of discharge she will need a face to face for services. She will transport via private vehicle with family.
--- NOTE | 2018-12-14 17:58 | CMPROGNOTE_ITS ---
- If Service Date Differs Date of service: 12/14/18 Time of Service: 17:54 Care Management Progress Note S/O: Irene was sitting up in her chair, she makes good eye contact she states her pain level is a 3 out of 10 after ambulation. She states that she anticipates she may go home over the weekend. She a friend that is supportive and will assist her at home. She states she has a walker and raised toilet seat. She would like home health PT which she has had in the past and is being recommended by PT. A: 73 year old female admitted to [facility] 12/10/18 for Left AKIL P: Irene will continue working with PT, her dressings will be changed tomorrow and she will shower per MD. She will follow up with Dr. Huang and her plan of care as directed including medication recommendations and activity limitations. Irene would like home health PT at time of discharge she will need a face to face for services. She will transport via private vehicle with family.
[2018-12-14 19:37] VITALS: BP 105/66; PULSE 87; RESP 18; TEMP 37.1; O2SAT 98
[2018-12-14] MEDS: Milk of Magnesia 30 ML CUP PO (19:39)
--- NOTE | 2018-12-14 21:56 | NUR.NOTE ---
Pt state after getting up to commode she started feeling burning sensation to the right thigh (non-post op). she state the pain when it had started felt like a 6/10. Charge nurse made aware. Pt encouraged to active range of motion exercises when away.
[2018-12-14 23:36] VITALS: BP 135/70; PULSE 80; RESP 18; TEMP 36.7; O2SAT 96
[2018-12-15] MEDS: Ibuprofen 400 MG TAB PO ×3 (00:39→18:42)
[2018-12-15] MEDS: HYDROcodone 5/Acetaminophen 325 TAB PO ×4 (01:59→22:53)
[2018-12-15 03:27] VITALS: BP 145/66; PULSE 78; RESP 20; TEMP 36.9; O2SAT 96
[2018-12-15] MEDS: Losartan 50 MG TAB 100 MG PO (07:36)
[2018-12-15] MEDS: hydroCHLOROthiazide 25 MG TAB PO (07:36)
[2018-12-15] MEDS: Ezetimibe 10 MG TAB PO (07:36)
[2018-12-15] MEDS: Pantoprazole 40 MG TABCR PO (07:36)
[2018-12-15] MEDS: Multivitamin w/Minerals TAB 1 TAB PO (07:36)
[2018-12-15] MEDS: Enoxaparin 30 MG/0.3 ML SYR SC ×2 (07:36→20:34)
[2018-12-15] MEDS: Docusate Sodium 100 MG CAP PO (07:36)
[2018-12-15 07:40] VITALS: BP 128/62; PULSE 95; RESP 20; TEMP 36.8; O2SAT 100
--- NOTE | 2018-12-15 08:08 | PGE_ITS ---
Date of Service Date of service: 12/15/18 Time of Service: 08:02 Assessment and Plan (1) History of total left hip arthroplasty: Current visit: Yes Status: Acute S/P left total hip arthroplasty. Patient is afebrile. Will re-examine wound tomorrow. Patient may continue to shower prn. Patient will need [facility] physical therapy and home health nursing. Subjective Interval history since last seen: Feeeling well in general. Did have some muscular pain in right quad, ? secondary to over use for left AKIL. No chestpain, pressure or wshortness of breath. Still has had no bowel movement. Did develop some serous drainage over incision, which was expected due to 8 + inches of subcutaneous fat. Patient feels ready to go home tomorrow afternoon. This was the same length of hospitalization as for her right AKIL in 2013. Exam Extrem Other: No unusual swelling. No neurovascular deficits. Patient sitting comfortably in bedside chair, doing word puzzles and awaiting breakfast. Objective Objective Clinical Data: Vital Signs Temperature 98.4 F 12/15/18 03:27 Temperature Source Tympanic 12/15/18 03:27 Pulse 78 12/15/18 03:27 Pulse Rhythm Regular 12/15/18 00:05 Respiratory Rate 20 12/15/18 03:27 Respiratory Effort 12/15/18 00:05 Respiratory Depth Normal 12/15/18 00:05 Respiratory Pattern Normal 12/15/18 00:05 Blood Pressure 145/66 H 12/15/18 03:27 Pulse Oximetry 96 12/15/18 03:27 Respiratory End-tidal CO2 40 12/11/18 14:45 Oxygen Delivery Method Room Air 12/15/18 03:27 Oxygen Flow Rate 0 12/15/18 03:27 Pain Level 4 12/15/18 07:15 Comment 12/13/18 19:31 Intake & Output 12/14/18 12/14/18 12/15/18 11:59 23:59 11:59 Intake Total 750 / 1350 600 / 1350 1100 / 1100 Output Total 700 / 1700 1000 / 1700 1850 / 1850 Balance 50 / -350 -400 / -350 -750 / -750 Intake: Oral 750 / 1350 600 / 1350 1100 / 1100 Output: Urine 700 / 1700 1000 / 1700 1850 / 1850 Other: Urine Color Yellow Yellow Yellow Urine Appearance Clear Clear Clear Urine Odor None None Normal Voiding Methods Bedside Commode Bedside Commode Bedside Commode Laboratory Results WBC 9.09 k/cumm (4.4-10.8) 12/13/18 07:26 RBC 3.18 m/cumm (4.00-5.20) L 12/13/18 07:26 Hgb 9.3 g/dL (12.0-15.5) L 12/13/18 07:26 Hct 29.9 % (36.0-46.0) L 12/13/18 07:26 MCV 94.0 fL (80-95) 12/13/18 07:26 MCH 29.2 pg (27.0-33.0) 12/13/18 07:26 MCHC 31.1 g/dL (32.0-36.0) L 12/13/18 07:26 RDW 14.5 % (11.7-14.6) 12/13/18 07:26 Plt Count 250 x1000/uL (130-400) 12/13/18 07:26 MPV 9.9 fL (8.0-11.0) 12/13/18 07:26 Sodium 139 mmol/L (136-145) 12/13/18 07:26 Potassium 4.2 mmol/L (3.5-5.1) 12/13/18 07:26 Chloride 106 mmol/L (98-107) 12/13/18 07:26 Carbon Dioxide 25.7 mmol/L (21.0-32.0) 12/13/18 07:26 Anion Gap 7.3 mmol/L (3-11) 12/13/18 07:26 BUN 15 mg/dL (7-18) 12/13/18 07:26 Creatinine 0.71 mg/dL (0.55-1.02) 12/13/18 07:26 Estimated GFR/1.73 m2 >= 60.00 (mL/min/1.73m2) 12/13/18 07:26 Glucose 103 mg/dL (70-100) H 12/13/18 07:26 Calcium 7.8 mg/dL (8.5-10.1) L 12/13/18 07:26
[2018-12-15] MEDS: Milk of Magnesia 30 ML CUP PO (08:28)
[2018-12-15 11:40] VITALS: BP 113/66; PULSE 92; RESP 18; TEMP 37.3; O2SAT 100
--- NOTE | 2018-12-15 14:45 | PDOC.CMPRO ---
- If Service Date Differs Date of service: 12/15/18 Time of Service: 14:46 Care Management Progress Note S/O: Irene is sitting up in the chair in her room she states she has minimal pain today. She is excited to report she had a bowel movement. She states she does have stool softner at home if she needs it. She is planning on discharging home on Sunday with new home health services. She will be discharged after PT and her friend will help her return home and assist her at home. A: 73 year old female admitted to [facility] 12/10/18 for Left AKIL P: Irene will continue working with PT, anticipate discharge home on Sunday with new home health. She will transport via private vehicle with friend.
--- NOTE | 2018-12-15 14:49 | CMPROGNOTE_ITS ---
- If Service Date Differs Date of service: 12/15/18 Time of Service: 14:46 Care Management Progress Note S/O: Irene is sitting up in the chair in her room she states she has minimal pain today. She is excited to report she had a bowel movement. She states she does have stool softner at home if she needs it. She is planning on discharging home on Sunday with new home health services. She will be discharged after PT and her friend will help her return home and assist her at home. A: 73 year old female admitted to [facility] 12/10/18 for Left AKIL P: Irene will continue working with PT, anticipate discharge home on Sunday with new home health. She will transport via private vehicle with friend.
[2018-12-15 16:14] VITALS: BP 129/77; PULSE 93; RESP 18; TEMP 37.1; O2SAT 98
[2018-12-15 19:55] VITALS: BP 140/86; PULSE 94; RESP 18; TEMP 36.6; O2SAT 98
[2018-12-16 00:14] VITALS: BP 126/72; PULSE 88; RESP 16; TEMP 36.4; O2SAT 97
[2018-12-16 03:30] VITALS: BP 154/85; PULSE 88; RESP 16; TEMP 36.4; O2SAT 97
[2018-12-16 07:45] VITALS: BP 148/78; PULSE 88; RESP 18; TEMP 36.9; O2SAT 96
--- NOTE | 2018-12-16 08:00 | W.PM.PROGNOT ---
Date of Service Date of service: 12/16/18 Time of Service: 08:00 Assessment and Plan (1) History of total left hip arthroplasty: Current visit: Yes Status: Acute S/p cementless total hip arthroplasty, doing well. Able to stand and sit in chair comfortabley and without loss of muscular control. Total hip precautions re-reviewed and patient understands. I will discharge home after am physical therapy. Follow-up in 1 week. Patient knows to take aspirin 81 mg bid. She will have home health nursing and home health physical therapy. Subjective Interval history since last seen: Feeling well. Again up in chair awaiting breakfast. No drainage from incision and it was left open to the iar. Had bowel movements yesterday which is making her feel much better. Exam Extrem Other: Left hip wound is carefully examined. No drainage, unusual swelling or cellulitis. Left hip alignment is good. Galeazzi's sign is negative. Objective Objective Clinical Data: Vital Signs Temperature 97.5 F L 12/16/18 03:30 Temperature Source Tympanic 12/16/18 03:30 Pulse 88 12/16/18 03:30 Pulse Rhythm Regular 12/15/18 19:50 Respiratory Rate 16 12/16/18 03:30 Respiratory Effort Non-Labored 12/15/18 19:50 Respiratory Depth Normal 12/15/18 19:50 Respiratory Pattern Normal 12/15/18 19:50 Blood Pressure 154/85 H 12/16/18 03:30 Pulse Oximetry 97 12/16/18 03:30 Respiratory End-tidal CO2 40 12/11/18 14:45 Oxygen Delivery Method Room Air 12/16/18 03:30 Oxygen Flow Rate 0 12/16/18 03:30 Pain Level 4 12/15/18 18:42 Comment 12/13/18 19:31 Intake & Output 12/15/18 12/15/18 12/16/18 11:59 23:59 11:59 Intake Total 1100 / 1530 430 / 1530 750 / 750 Output Total 1850 / 2500 650 / 2500 700 / 700 Balance -750 / -970 -220 / -970 50 / 50 Intake: Oral 1100 / 1530 430 / 1530 750 / 750 Output: Urine 1850 / 2500 650 / 2500 700 / 700 Other: Urine Color Yellow Pale Pale Yellow Yellow Urine Appearance Clear Clear Urine Odor Normal None None Comment voided in the commode pt voided using the commode Stool Size Large Copious Stool Characteristics Soft Soft Formed Brown Brown Voiding Methods Toilet Bedside Commode Bedside Commode Bedside Commode Laboratory Results WBC 9.09 k/cumm (4.4-10.8) 12/13/18 07:26 RBC 3.18 m/cumm (4.00-5.20) L 12/13/18 07:26 Hgb 9.3 g/dL (12.0-15.5) L 12/13/18 07:26 Hct 29.9 % (36.0-46.0) L 12/13/18 07:26 MCV 94.0 fL (80-95) 12/13/18 07:26 MCH 29.2 pg (27.0-33.0) 12/13/18 07:26 MCHC 31.1 g/dL (32.0-36.0) L 12/13/18 07:26 RDW 14.5 % (11.7-14.6) 12/13/18 07:26 Plt Count 250 x1000/uL (130-400) 12/13/18 07:26 MPV 9.9 fL (8.0-11.0) 12/13/18 07:26 Sodium 139 mmol/L (136-145) 12/13/18 07:26 Potassium 4.2 mmol/L (3.5-5.1) 12/13/18 07:26 Chloride 106 mmol/L (98-107) 12/13/18 07:26 Carbon Dioxide 25.7 mmol/L (21.0-32.0) 12/13/18 07:26 Anion Gap 7.3 mmol/L (3-11) 12/13/18 07:26 BUN 15 mg/dL (7-18) 12/13/18 07:26 Creatinine 0.71 mg/dL (0.55-1.02) 12/13/18 07:26 Estimated GFR/1.73 m2 >= 60.00 (mL/min/1.73m2) 12/13/18 07:26 Glucose 103 mg/dL (70-100) H 12/13/18 07:26 Calcium 7.8 mg/dL (8.5-10.1) L 12/13/18 07:26
[2018-12-16] MEDS: Pantoprazole 40 MG TABCR PO (08:03)
[2018-12-16] MEDS: Ezetimibe 10 MG TAB PO (08:04)
[2018-12-16] MEDS: hydroCHLOROthiazide 25 MG TAB PO (08:04)
[2018-12-16] MEDS: Multivitamin w/Minerals TAB 1 TAB PO (08:05)
[2018-12-16] MEDS: Losartan 50 MG TAB 100 MG PO (08:05)
[2018-12-16] MEDS: Enoxaparin 30 MG/0.3 ML SYR SC (08:06)
--- NOTE | 2018-12-16 08:17 | DSE_ITS ---
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 Her post operative course was uneventful. She was maintained on prophylactic antibiotics for 24 hours. Her harrington catheter was removed after 48 hours and she had no trouble voiding or dysuria or signs of a uti. She had serial cbc and electrolyte counts done and the results were unremarkable except for mild s urgical anemia with hgb of 9.3. She was started on dvt prophylaxis using lovenox 30 mg sub q bid starting 12/12/18. In addition she had serial scd's and JOSE hose. She received physical therapy twice daily, weight bearing as tolerated on left with walker. She will continue home health p.t. and home health nursing assessment of multiple medical problems. Her wound had a benign appearance and will be left open to the air unless drainage develops. She had her first post op bowel movement on 12/15/18. She was afebrile thru out her hospital course. Home Meds and New Rx's Prescriptions: New hydrocodone-acetaminophen 5-325 mg tablet 1 tab PO Q6H Qty: 18 RF: 0 No Action multivitamin 1 EACH tablet 1 ea PO DAILY RF: 0 aspirin [Ecotrin Low Strength] 81 MG tablet,delayed release (DR/EC) 81 mg PO DAILY RF: 0 blood pressure monitor [Blood Pressure Kit] 1 EACH kit 1 ea Miscellaneous DAILY Qty: 1 RF: 0 ranitidine HCl 150 MG capsule 150 mg PO BID Qty: 180 RF: 3 hydrochlorothiazide 25 MG tablet 25 mg PO DAILY Qty: 90 RF: 3 losartan 100 MG tablet 100 mg PO DAILY Qty: 90 RF: 3 Varicella-Zoster Ge/As01b/Pf [Shingrix Vial Kit] 50 MCG INJ 50 mcg IM ONCE Qty: 1 RF: 1 ezetimibe [Zetia] 10 mg tablet 10 mg PO DAILY Qty: 90 RF: 1 acetaminophen [Tylenol Extra Strength] 500 mg tablet 1,000 mg PO PRN RF: 0 ibuprofen 800 mg Tablet 800 mg PO DAILY RF: 0 Discharge Instructions Additional Instructions: Use your new hip. You may place your full weight upon it. Use your walker at all times for balance and to prevent falls. Always observe your hip precautions and make sure you keep your knees spread wide apart especially when getting in or out of a chair. Take multiple small walks about your home in addition to performing physical therapy with home health p.t. Home health nursing will be checking up on your other medical problems as well and will make sure they are stable. You may get your incision wet in the shower with soap and water. Gently pat the mich dry and leave them open to the air. If your mich catch on your clothing, or if you develop any drainage from the wound, cover the wound with gauze. Placing a chair or stool in the shower to sit upon will assist with showering. Use your elastic stockings during the day. They help to prevent blood clots. Using baby powder will assist in placing them on and off. Take your regular medications as before. In addition take a baby aspirin (81 mg) twice daily for the next 2 weeks. This also prevents blood clots.Follow-up with Dr. Huang in 1 week for staple removal and wound check. Take tylenol and ibuprofen for milder pain. They may be taken at the same time because they are metabolized differently and are not cross toxic. Take norco (5/325 mg) 1-2 every 4-6 hours for more serious pain. [facility] regulations limit the amount of norco that may be prescribed to 18 tablets. Care Plan Goals: Home with new home health PT face to face is needed. Activity:: Activity as Tolerated Equipment/Supplies:: Walker Diet:: Carb Counting Discharge Orders Discharge Orders: Discharge Order (Routine); Ordered 12/16/18 Ordered By: Allen Huang DS: Data Vitals/I&O Vitals and I&O: Vital Signs Temperature 97.5 F L 12/16/18 03:30 Temperature Source Tympanic 12/16/18 03:30 Pulse 88 12/16/18 03:30 Pulse Rhythm Regular 12/15/18 19:50 Respiratory Rate 16 12/16/18 03:30 Respiratory Effort Non-Labored 12/15/18 19:50 Respiratory Depth Normal 12/15/18 19:50 Respiratory Pattern Normal 12/15/18 19:50 Blood Pressure 154/85 H 12/16/18 03:30 Pulse Oximetry 97 12/16/18 03:30 Respiratory End-tidal CO2 40 12/11/18 14:45 Oxygen Delivery Method Room Air 12/16/18 03:30 Oxygen Flow Rate 0 12/16/18 03:30 Pain Level 4 12/15/18 18:42 Comment 12/13/18 19:31 Intake & Output 12/15/18 12/15/18 12/16/18 11:59 23:59 11:59 Intake Total 1100 / 1530 430 / 1530 750 / 750 Output Total 1850 / 2500 650 / 2500 700 / 700 Balance -750 / -970 -220 / -970 50 / 50 Intake: Oral 1100 / 1530 430 / 1530 750 / 750 Output: Urine 1850 / 2500 650 / 2500 700 / 700 Other: Urine Color Yellow Pale Pale Yellow Yellow Urine Appearance Clear Clear Urine Odor Normal None None Comment voided in the commode pt voided using the commode Stool Size Large Copious Stool Characteristics Soft Soft Formed Brown Brown Voiding Methods Toilet Bedside Commode Bedside Commode Bedside Commode [facility] Medical History 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) Trochanteric bursitis of left hip (Chronic) Pulmonary nodule seen on imaging study (Acute 03/28/17) Conductive hearing loss (Chronic) Tubular adenoma (Acute 04/10/16) Sensorineural hearing loss, unilateral (Acute 06/07/17) Pre-diabetes (Acute 01/09/18) Osteopenia (Acute 07/11/16) IBS (irritable bowel syndrome) (Acute 07/09/17) Abnormal CT scan, bladder (Acute 05/08/17) Obesity (Chronic) Hypertension (Chronic) Chronic sinusitis (Chronic) GERD (gastroesophageal reflux disease) (Chronic) Elevated lipids (Chronic) Cyst (Acute) Conductive hearing loss, external ear (Resolved 06/07/17) Impacted cerumen (Resolved 05/01/14) Impacted cerumen of both ears (Resolved) OA (osteoarthritis) of hip (Resolved 05/13/14) Primary osteoarthritis of left knee (Resolved) Elevated fasting glucose Surgical History History of arthroplasty of right knee (Acute ~02/2012) History of total right hip arthroplasty (Acute ~05/13/14) S/P total hip arthroplasty (Resolved 05/13/14) Status post cataract extraction and insertion of intraocular lens of left eye (Resolved 06/14/18) Status post cataract extraction and insertion of intraocular lens of right eye (Resolved 05/31/18) Colonoscopy - IV Sedation (04/10/16) Vaginal hysterectomy Social History Smoking/Tobacco Use Status: Never Alcohol Intake: current Alcohol Intake frequency: holidays/special occasions only Alcohol type: beer, wine and hard liquor Drug use: Never Substance use type: does not use Adopted: No Caregiver/Support person: No Household members: none Housing: house Number of Children: 0 Pets and animals: Yes Sexually active: No Current gender identity: female What type of physical activity do you participate in: regular exercise Frequency: 1-2 times per week Seatbelt use: always Working smoke detector in home: Yes Fire extinguisher in home: Yes Carbon monox detector in home: Yes Do you feel safe in your relationship?: Yes
--- NOTE | 2018-12-16 08:35 | PDOC.HHF2F ---
1. Encounter Date and Reason I certify that MEAGAN STEINER was seen by Allen Huang MD on 12/16/18 and that I had a [id number] encounter with this patient that meets the physician face to face encounter requirements. 2. Clinical Findings Supporting Skilled Need and Homebound Status I certify that home health services are medically necessary, include either intermittent correction and/or physical/speech therapy, and that this patient is homebound in that absences from the home require considerable and taxing effort and are infrequent or of short duration, or are attributable to the need to receive medical care. [X] (a) Attached documentation from encounter provides clinical findings supporting skilled need and homebound status (including what assistance patient requires to leave the home). The encounter with the patient was in whole, or in part, for the following medical condition, which is the primary reason for home health care: LEFT TOTAL HIP ARTHROPLASTY Shelter: 73 YEAR OLD 240 POUND WHITE FEMALE WITH MULTIPLE CO-MORBIDITIES S/P LEFT TOTAL HIP ARTHROPLASTY. OTHER PROBLEMS INCLUDE DECONDITIONING, HYPERTENSION,GERD,PRE-DIABETES,IRRITABLE BOWEL SYNDROM, UNILATERAL HEARING LOSS Physical Therapy:CEMENTLKESS LEFT TOTAL HIP 12/11/18. S/P RIGHT TOTAL HIP AND RIGHT TOTAL KNEE Speech Therapy: Homebound: 3. Certification and Authentication I certify that I composed the above information based on my clinical judgement relating to this patient's medical condition and, if applicable, clinical findings communicated to me by the NPP or inpatient physician who performed the Home Health Referral. All further orders will be obtained through (Community Based Physician - PCP)
--- NOTE | 2018-12-16 08:40 | HHF2F_ITS ---
1. Encounter Date and Reason I certify that MEAGAN STEINER was seen by Allen Huang MD on 12/16/18 and that I had a [id number] encounter with this patient that meets the physician face to face encounter requirements. 2. Clinical Findings Supporting Skilled Need and Homebound Status I certify that home health services are medically necessary, include either intermittent half-way and/or physical/speech therapy, and that this patient is homebound in that absences from the home require considerable and taxing effort and are infrequent or of short duration, or are attributable to the need to receive medical care. [X] (a) Attached documentation from encounter provides clinical findings supporting skilled need and homebound status (including what assistance patient requires to leave the home). The encounter with the patient was in whole, or in part, for the following medical condition, which is the primary reason for home health care: LEFT TOTAL HIP ARTHROPLASTY Assisted: 73 YEAR OLD 240 POUND WHITE FEMALE WITH MULTIPLE CO-MORBIDITIES S/P LEFT TOTAL HIP ARTHROPLASTY. OTHER PROBLEMS INCLUDE DECONDITIONING, HYPERTENSION,GERD,PRE- DIABETES,IRRITABLE BOWEL SYNDROM, UNILATERAL HEARING LOSS Physical Therapy:CEMENTLKESS LEFT TOTAL HIP 12/11/18. S/P RIGHT TOTAL HIP AND RIGHT TOTAL KNEE Speech Therapy: Homebound: 3. Certification and Authentication I certify that I composed the above information based on my clinical judgement relating to this patient's medical condition and, if applicable, clinical findings communicated to me by the NPP or inpatient physician who performed the Home Health Referral. All further orders will be obtained through (Community Based Physician - PCP)
--- NOTE | 2018-12-16 11:33 | PDOC.CMDIS ---
LACE Index Scoring Tool - Questions: Length of Stay (in days): 4 - 6 Acuity (Admit via E.D.?): Yes E.D. Visits: 1 - Answers: Total Score: 8 Risk of Readmission: Low Risk Care Management Discharge Reason for Hospitalization: Left Total Hip Arthroplasty Discharge Plan: Irene will return home when ready per MD. She will transport home via private vehicle with a friend. She will have new orders for PT through [facility], follow up wtih Dr. Huang and her plan of care as prescribed. Patient/Family Education Needs: Review of discharge instructions, discuss Ask Me Three. Services Needed at Discharge: Home Health Care Services (PT)
--- NOTE | 2018-12-16 11:37 | CMDISCH_ITS ---
LACE Index Scoring Tool - Questions: Length of Stay (in days): 4 - 6 Acuity (Admit via E.D.?): Yes E.D. Visits: 1 - Answers: Total Score: 8 Risk of Readmission: Low Risk Care Management Discharge Reason for Hospitalization: Left Total Hip Arthroplasty Discharge Plan: Irene will return home when ready per MD. She will transport home via private vehicle with a friend. She will have new orders for PT through [facility], follow up wtih Dr. Huang and her plan of care as prescribed. Patient/Family Education Needs: Review of discharge instructions, discuss Ask Me Three. Services Needed at Discharge: Home Health Care Services (PT)
[2018-12-16 11:40] VITALS: BP 125/78; PULSE 86; RESP 20; TEMP 37.3; O2SAT 100
--- NOTE | 2018-12-16 12:29 | PT.INTREAT ---
Date of service: 12/16/18 Time of Service: 12:29 PT Notes Inpatient Physical Therapy Treatment Note [facility] Date: 12/16/18 PRECAUTIONS: WBAT on L, Posterior AKIL Prec SUBJECTIVE: Irene states that she is still having anterior thigh pain when she is walking OBJECTIVE: PAIN: Patient c/o anterior thigh pain with hip flexion and gait training BED MOBILITY/TRANSFERS Sit-stand: S Stand-sit: S GAIT Assistive Device: FWW Weight bearing: WBAT on L Assist: SBA Distance: 80' x2 in a.m.; 120' in p.m. THEREX: Patient completed a LE strengthening program, as per flow sheet. She also performed functional [id number] exercise with UE support and glute set. TOILETING: Patient toileted with supervision for transfers ASSESSMENT: Patient tolerated sessions well with minimal c/o anterior thigh pain with gait training. She was able to perform gait training and transfers with decreased assist required. She would benefit from continued strengthening, as well as gait training for improved activity tolerance and mobility. PLAN: As per primary PT TREATMENT CODE/TIME: Session 1: 30 minutes; 63099, [id number] Session 2: 15 minutes; 13785
[2018-12-16] MEDS: HYDROcodone 5/Acetaminophen 325 TAB PO (12:52)
--- NOTE | 2018-12-20 06:06 | INDS_ITS ---
Date of service: 12/16/18 PT Notes Inpatient Physical Therapy Discharge Summary Dates: 12/16/2018 Dates of Service: 12/12/18 through 12/16/18 Referring Doctor: Dr. Huang PT Orders: PT CONSULT: 73-year-old morbidly obese female, status post left cementless total hip arthroplasty 12/11/2018. Up in chair tomorrow, weigh tbearing as tolerated on the left. Patient is status post right total hip replacement 5 years ago. Precautions: Fall, standard, WBAT LLE, posterior hip precautions left Patient Profile/Admitting Diagnosis: Patient presenting 1 day status post left cementless AKIL. 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) Trochanteric bursitis of left hip (Chronic) Pulmonary nodule seen on imaging study (Acute 03/28/17) Conductive hearing loss (Chronic) Tubular adenoma (Acute 04/10/16) Sensorineural hearing loss, unilateral (Acute 06/07/17) Pre-diabetes (Acute 01/09/18) Osteopenia (Acute 07/11/16) IBS (irritable bowel syndrome) (Acute 07/09/17) Abnormal CT scan, bladder (Acute 05/08/17) Obesity (Chronic) Hypertension (Chronic) Chronic sinusitis (Chronic) GERD (gastroesophageal reflux disease) (Chronic) Elevated lipids (Chronic) Conductive hearing loss, external ear (Resolved 06/07/17) Impacted cerumen (Resolved 05/01/14) Impacted cerumen of both ears (Resolved) OA (osteoarthritis) of hip (Resolved 05/13/14) Primary osteoarthritis of left knee (Resolved) Elevated fasting glucose Social History/Home Situation: Patient lives in a single level home with ramp to enter. She normally drives independently, and has a neighbor who checks in with her, and assist with grocery shopping, meal prep, etc. She has been attending outpatient physical therapy at [facility], and plans to utilize home health services upon discharge. Equipment Owned/DME: [facility] This is a clinical summary of skilled therapy services provided on today's listed above. No changes made in the completion of this documentation. Subjective: NT Objective: General Observation: NT Mental Status: A and O x3 Pain: NT ROM: Right Upper Extremity: WFL Left Upper Extremity: WFL Right Lower Extremity: WFL Left Lower Extremity: Not assessed due to acute postoperative status Strength: Right Upper Extremity: WFL Left Upper Extremity: WFL Right Lower Extremity: Quads 5/5, hip flexion 3/5 or greater Left Lower Extremity: Patient is able to pump ankles and wiggle toes. Quad strength is 3/5 or greater Sensation: Intact distally Bed Mobility/Transfers: Supine?sit: S Sit to stand:S Stand to sit: S Bed to chair: S Gait: Patient ambulance 3 feet with FW W, mod assist x1, WBAT LLE. She demonstrates poor foot clearance bilaterally, and relies heavily on upper extremity support to FW W Balance: Static Sitting: Good Dynamic Sitting:Good Static Standing: Fair Dynamic Standing: Fair Assessment: Patient is a 73 year old female referred to physical therapy services with the diagnosis of left hip OA, 1 day status post AKIL. Patient presents with clinical signs and symptoms consistent with postoperative status, as demonstrated by the following impairment level findings: 1. Decreased left lower extremity strength 2. Decreased left lower extremity range of motion 3. Decreased activity tolerance 4. Posterior hip precautions with associated range of motion restrictions Impairments are contributing to the following functional limitations: 1. Gait impairments 2. Decreased activity tolerance 3. Unable to tolerate household distance ambulation 4. Unable to independently perform bed mobility 5. Unable to independently transfer 6. Unable to manage stairs Goals: Goals X1 week 1. Supine-Sit : Supervision MET 2. Sit-Supine: Supervision MET 3. Sit-Stand: Supervision MET 4. Stand-Sit: Supervision MET 5. Bed-Chair: Supervision with FWW MET 6. Chair-Bed: Supervision with FWW MET 7. Gait: Supervision with FWW x 50' NOT MET DISCHARGE RECOMMENDATIONS: Home with home health PT TREATMENT CODE/TIME: NT Thank you very much for this referral. Susan Arroyo, PT, DPT, CLT [facility]
== END 2018-12-16 13:59 | disposition home health service (06) | DRG 470 ==
LOC: PDS 14:04 → MS 14:06
PROVIDERS: Admitting Provider Orthopaedic Surgery; PCP Nurse Practitioner; Visit Provider Orthopaedic Surgery
PROC: 0SRB04A Replacement of Left Hip Joint with Ceramic on Polyethylene Synthetic Substitute, Uncemented, Open Approach (ICD-10-PCS; CPT 27130; principal; 2018-12-11 10:00)
DX: M16.12 Unilateral primary osteoarthritis, left hip (principal); Z68.41 Body mass index [BMI] 40.0-44.9, adult; D62 Acute posthemorrhagic anemia; Z96.642 Presence of left artificial hip joint; Z96.641 Presence of right artificial hip joint; Z96.651 Presence of right artificial knee joint; E66.01 Morbid (severe) obesity due to excess calories; I10 Essential (primary) hypertension; K21.9 Gastro-esophageal reflux disease without esophagitis; R06.09 Other forms of dyspnea; E78.5 Hyperlipidemia, unspecified; Y83.1 Surgical operation with implant of artificial internal device as the cause of abnormal reaction of the patient, or of later complication, without mention of misadventure at the time of the procedure
CPT/HCPCS: 27130; 36415; 80048; 85027; 97110; 97162; 97530; NC; 72170; J0690; J1100; J1644; J1650; J1885; J2270; J2405; J3010

== ENCOUNTER → 2018-12-26 09:16 | Outpatient (BNVA) | payer MEDICARE, OTHER, SELFPAY | PROVIDERS: PCP Nurse Practitioner; Referring Provider Nurse Practitioner; Visit Provider Orthopaedic Surgery | DX: Z47.1 Aftercare following joint replacement surgery (principal); Z96.642 Presence of left artificial hip joint ==

== ENCOUNTER 2018-12-29 14:59 | Emergency (ER) | payer MEDICARE, OTHER, SELFPAY ==
--- NOTE | 2018-12-29 15:03 | NUR.NOTE ---
hip replacement on the 12/11/18 pt stopped using compression stockings prior to removing stockings she started noticing left ankle pain
[2018-12-29 15:06] VITALS: BP 126/60; PULSE 83; RESP 17; TEMP 36.5; O2SAT 96
--- NOTE | 2018-12-29 15:14 | DI.RAD_ITS ---
SYMPTOM/DIAGNOSIS: LATERAL PAIN LEFT ANKLE: Three views were obtained. There is marked soft tissue swelling of the ankle. The ankle mortise appears well maintained. No fracture is seen.
--- NOTE | 2018-12-29 15:14 | W.ED.GENAD ---
Discharge Plan Disposition Patient Disposition: HOME Condition: Stable Discharge Details Chief Complaint: Orthopedic Clinical Impression: Ankle pain, left Primary Care Provider: Shannan De Leon ED Provider: Lei Emanuel Home Meds and New Rx's Prescriptions: Continued hydrocodone-acetaminophen 5-325 mg tablet 1 tab PO Q6H MDD 6 PRN (Reason: pain) Qty: 18 RF: 0 multivitamin 1 EACH tablet 1 ea PO DAILY RF: 0 aspirin [Ecotrin Low Strength] 81 MG tablet,delayed release (DR/EC) 81 mg PO DAILY RF: 0 blood pressure monitor [Blood Pressure Kit] 1 EACH kit 1 ea Miscellaneous DAILY Qty: 1 RF: 0 hydrochlorothiazide 25 MG tablet 25 mg PO DAILY Qty: 90 RF: 3 losartan 100 MG tablet 100 mg PO DAILY Qty: 90 RF: 3 Varicella-Zoster Ge/As01b/Pf [Shingrix Vial Kit] 50 MCG INJ 50 mcg IM ONCE Qty: 1 RF: 1 ezetimibe [Zetia] 10 mg tablet 10 mg PO DAILY Qty: 90 RF: 1 ranitidine HCl 150 mg capsule 150 mg PO BID Qty: 180 RF: 3 acetaminophen [Tylenol Extra Strength] 500 mg tablet 1,000 mg PO PRN RF: 0 ibuprofen 800 mg Tablet 800 mg PO DAILY RF: 0 Discharge Instructions Instructions: Arthralgia (ED), Swollen Joint (ED) Additional Instructions: You may continue to take [id number] every 8 hours as needed for pain. You may also apply ice and make sure that you modify any physical activity that seems to be causing you increased discomfort. If not improving over the next week please call orthopedic office for arrangement of follow-up appointment and reassessment Referrals: Allen Huang MD [ [facility] STAFF PHYSICIAN] - (As needed for reassessment) Discharge Data Discharge Date/Time-TO BE ENTERED AT DEPARTURE: 12/29/18 17:08 Medical Decision Making <HENRY Garcia - Last Filed: 12/30/18 22:08> Patient is a 73-year-old female presents today with chief complaint of left ankle pain. She reports that ankle pain began several days ago, is unclear as to when the pain actually began. Patient is a 15 days status post left total hip replacement, completed by Dr. Huang. She reports that she had her compression hose removed this past week when she was seen by Dr. Huang for her 2-week appointment. She reports that at that time she did mention her left ankle pain to him. Review of Dr. Huang's note explains more vague left lower extremity pain. She reports that he was concerned for possible sciatica at that time. However, on today's exam, her pain is much more localized to the left lateral ankle. Pain is primarily over the ATFL. Patient has bilateral lower extremity edema but certainly has more swelling on the lateral aspect of the left ankle at the area of her discomfort. She denies any known trauma. However, given the patient's history, age I am concerned for possible bony abnormality plan to obtain x-ray. Patient was concerned for gout. However, she does not seem tender enough for this diagnosis, patient is not erythematous, warm. She denies any fevers or chills. Denies any recent illness. Pain does not radiate. No pain in the knee. At the end of my shift, care transitioned to Bryan Emanuel NP with images pending <Lei Emanuel NP - Last Filed: 12/29/18 23:02> I agree with previous assessment and also after discussion with HENRY Garcia feel that patient's ankle pain is most likely secondary arthralgia due to recent procedure and difference in weightbearing. Review of radiological imaging and radiologist interpretation shows no evidence of acute fracture no notation of malalignment or dislocation. Patient was placed in an Cody wrap and informed to wear supportive footwear and to use this as needed for discomfort. Patient was also encouraged to use acetaminophen and modify activity. Patient also informed to contact orthopedist if not improving for reassessment. After discussion of diagnosis and plan of care patient and family have no further needs, questions, or concerns and states clear understanding to return to the emergency department for any worsening symptoms. HPI <HENRY Garcia - Last Filed: 12/30/18 22:08> General Mode of arrival: ambulatory (ambulates with cane). Date/Time Provider Initiated Documentation: 12/29/18 15:13. Limitations to Documentation: no limitations. Information obtained by: patient, family and RN notes reviewed. History of Present Illness 73 year old F presents to the emergency department with the chief complaint of left lateral ankle pain, described as mild, with intensity rated at 3. Quality is described as aching, and is localized to the left and lower extremity. Patient reports no radiation. Patient started experiencing this day(s) and it has been constant. Immobilization improves symptom(s), Movement worsens symptoms . Patient notes no other symptoms.. Patient did receive the following treatments prior to arrival, NSAID (0800) Related Data Home Medications Medication Instructions Recorded Confirmed aspirin [Ecotrin Low Strength] 81 mg PO DAILY tab-cap 12/26/12 12/26/18 multivitamin 1 ea PO DAILY 12/26/12 12/26/18 blood pressure monitor [Blood #1 kit 07/11/17 12/26/18 Pressure Kit] hydrochlorothiazide 25 mg PO DAILY #90 tab-cap 01/09/18 12/26/18 losartan 100 mg PO DAILY #90 tab-cap 01/09/18 12/26/18 ezetimibe 10 mg tablet 10 mg PO DAILY #90 tab 09/04/18 12/26/18 acetaminophen 500 mg tablet 1,000 mg PO PRN tab 11/28/18 12/26/18 ibuprofen 800 mg PO DAILY 12/11/18 12/26/18 ranitidine 150 mg capsule 150 mg PO BID #180 tab-cap 12/25/18 12/26/18 hydrocodone 5 mg-acetaminophen 325 1 tab PO Q6H PRN #18 tab NS MDD 6 12/26/18 12/26/18 mg tablet Previous Rx's Medication Instructions Recorded blood pressure monitor [Blood #1 kit 07/11/17 Pressure Kit] hydrochlorothiazide 25 mg PO DAILY #90 tab-cap 01/09/18 losartan 100 mg PO DAILY #90 tab-cap 01/09/18 ezetimibe 10 mg tablet 10 mg PO DAILY #90 tab 09/04/18 ranitidine 150 mg capsule 150 mg PO BID #180 tab-cap 12/25/18 hydrocodone 5 mg-acetaminophen 325 1 tab PO Q6H PRN #18 tab NS MDD 6 12/26/18 mg tablet Allergies Allergy/AdvReac Type Severity Reaction Status Date / Time Sulfa (Sulfonamide Allergy Unknown FEELS LIKE Verified 12/11/18 09:16 Antibiotics) IN OUTER SPACE Ognjwva-Qct-Icn Reductase AdvReac Intermediate MYALGIAS Verified 12/11/18 09:16 Inhibitor lisinopril AdvReac Mild cough Verified 12/11/18 09:16 oxycodone AdvReac Mild Nausea Verified 11/28/18 11:13 General Stated Complaint: Orthopedic TRICIA: 4 Review of Systems <HENRY Garcia - Last Filed: 12/30/18 22:08> Constitutional Reports as per HPI, Denies chills, Denies fever(s), Denies headache(s) and Denies weakness ENT Denies headache(s) Cardiovascular Reports as per HPI Respiratory Reports as per HPI and Denies cough Musculoskeletal Reports as per HPI, Reports abnormal gait (antalgic gait, associates with left hip replacement) and Denies tingling Integumentary/Breasts Reports as per HPI, Denies rash and Denies wounds Neurologic Reports as per HPI, Reports abnormal gait (antalgic gait, associates with left hip replacement), Denies headache(s), Denies tingling, Denies paresthesias and Denies weakness PFSH <HENRY Garcia - Last Filed: 12/30/18 22:08> Medical History 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) Trochanteric bursitis of left hip (Chronic) Pulmonary nodule seen on imaging study (Acute 03/28/17) Conductive hearing loss (Chronic) Tubular adenoma (Acute 04/10/16) Sensorineural hearing loss, unilateral (Acute 06/07/17) Pre-diabetes (Acute 01/09/18) Osteopenia (Acute 07/11/16) IBS (irritable bowel syndrome) (Acute 07/09/17) Abnormal CT scan, bladder (Acute 05/08/17) Obesity (Chronic) Hypertension (Chronic) Chronic sinusitis (Chronic) GERD (gastroesophageal reflux disease) (Chronic) Elevated lipids (Chronic) Cyst (Acute) Conductive hearing loss, external ear (Resolved 06/07/17) Impacted cerumen (Resolved 05/01/14) Impacted cerumen of both ears (Resolved) OA (osteoarthritis) of hip (Resolved 05/13/14) Primary osteoarthritis of left knee (Resolved) Elevated fasting glucose Surgical History History of arthroplasty of right knee (Acute ~02/2012) History of total right hip arthroplasty (Acute ~05/13/14) S/P total hip arthroplasty (Resolved 05/13/14) Status post cataract extraction and insertion of intraocular lens of left eye (Resolved 06/14/18) Status post cataract extraction and insertion of intraocular lens of right eye (Resolved 05/31/18) Colonoscopy - IV Sedation (04/10/16) Vaginal hysterectomy Social History Smoking/Tobacco Use Status: Never Alcohol Intake: current Alcohol Intake frequency: holidays/special occasions only Alcohol type: beer, wine and hard liquor Drug use: Never Substance use type: does not use Adopted: No Caregiver/Support person: No Household members: none Housing: house Number of Children: 0 Pets and animals: Yes Sexually active: No Current gender identity: female What type of physical activity do you participate in: regular exercise Frequency: 1-2 times per week Seatbelt use: always Working smoke detector in home: Yes Fire extinguisher in home: Yes Carbon monox detector in home: Yes Do you feel safe at home: Yes Do you feel safe in your relationship?: Yes Exam <HENRY Garcia - Last Filed: 12/30/18 22:08> Const General: cooperative, healthy appearing, comfortable, no acute distress, well developed and well groomed Nutritional Appearance: well nourished and overweight Orientation: alert and awake Resp Effort & Inspection: normal respiratory effort, able to speak in complete sentences and no respiratory distress Auscultation: clear to auscultation bilaterally Cardio Rate: regular rate Rhythm: regular rhythm Heart Sounds: S1 normal and S2 normal Skin General skin exam: no rashes or lesions noted Lesions: no lesions Rashes: no rashes Trauma: no lacerations or abrasions Neuro General: alert and awake Cognition: normal cognition Speech: speech normal Gait: normal gait (ambulates well without signs of discomfort, uses cane) Motor: muscle tone normal throughout Sensory Exam: no sensory deficits noted Extrem General: normal to inspection, full ROM, normal capillary refill, no calf tenderness, normal gait (uses cane at baseline), no calf tenderness bilaterally and edema Laterality: bilateral Left lower extremity: full ROM, normal capillary refill, lower leg Details: non-pitting edema; no erythema, no tenderness, no localized swelling and no palpable cords and ankle Details: tenderness Location: of the lateral malleolus and of the anterior talofibular ligament; not of the achilles tendon, not anteromedially, not anterolaterally and not posteriorly, swelling Details: laterally, pitting edema Details: non-pitting and normal ROM; no warmth, no abrasions, no lacerations, no ecchymosis, no crepitus and achilles tendon exam normal; no cyanosis Psych Appearance: grossly normal and well kempt Mental Status: mental status grossly normal Speech and Movement: speech and movement normal Course <HENRY Garcia - Last Filed: 12/30/18 22:08> Vital Signs Temperature 36.5 C 12/29/18 15:06 Pulse 83 12/29/18 15:06 Respiratory Rate 17 12/29/18 15:06 Pulse Oximetry 96 12/29/18 15:06 Temperature 36.5 C 12/29/18 15:06 Temperature Source Skin 12/29/18 15:06 Pulse 83 12/29/18 15:06 Respiratory Rate 17 12/29/18 15:06 Blood Pressure Position Sitting 12/29/18 15:06 Pulse Oximetry 96 12/29/18 15:06 Pain Level 3 12/29/18 15:06 Sign Out <HENRY Garcia - Last Filed: 12/30/18 22:08> Sign Out Data: Sign Out Comment: Care transitioned to Bryan Emanuel NP with images pending Last updated by Zhane Colin PA at 12/29/18 16:21
[2018-12-29] MEDS: Acetaminophen 500 MG TAB PO (15:24)
[2018-12-29] MEDS: Ibuprofen 600 MG TAB PO (15:24)
--- NOTE | 2018-12-29 15:35 | ED.GENADUL_ITS ---
Discharge Plan Disposition Patient Disposition: HOME Condition: Stable Discharge Details Chief Complaint: Orthopedic Clinical Impression: Ankle pain, left Primary Care Provider: Shannan De Leon ED Provider: Lei Emanuel Home Meds and New Rx's Prescriptions: Continued hydrocodone-acetaminophen 5-325 mg tablet 1 tab PO Q6H MDD 6 PRN (Reason: pain) Qty: 18 RF: 0 multivitamin 1 EACH tablet 1 ea PO DAILY RF: 0 aspirin [Ecotrin Low Strength] 81 MG tablet,delayed release (DR/EC) 81 mg PO DAILY RF: 0 blood pressure monitor [Blood Pressure Kit] 1 EACH kit 1 ea Miscellaneous DAILY Qty: 1 RF: 0 hydrochlorothiazide 25 MG tablet 25 mg PO DAILY Qty: 90 RF: 3 losartan 100 MG tablet 100 mg PO DAILY Qty: 90 RF: 3 Varicella-Zoster Ge/As01b/Pf [Shingrix Vial Kit] 50 MCG INJ 50 mcg IM ONCE Qty: 1 RF: 1 ezetimibe [Zetia] 10 mg tablet 10 mg PO DAILY Qty: 90 RF: 1 ranitidine HCl 150 mg capsule 150 mg PO BID Qty: 180 RF: 3 acetaminophen [Tylenol Extra Strength] 500 mg tablet 1,000 mg PO PRN RF: 0 ibuprofen 800 mg Tablet 800 mg PO DAILY RF: 0 Discharge Instructions Instructions: Arthralgia (ED), Swollen Joint (ED) Additional Instructions: You may continue to take [id number] every 8 hours as needed for pain. You may also apply ice and make sure that you modify any physical activity that seems to be causing you increased discomfort. If not improving over the next week please call orthopedic office for arrangement of follow-up appointment and reassessment Referrals: Allen Huang MD [ [facility] STAFF PHYSICIAN] - (As needed for reassessment) Discharge Data Discharge Date/Time-TO BE ENTERED AT DEPARTURE: 12/29/18 17:08 Medical Decision Making <HERNY Garcia - Last Filed: 12/30/18 22:08> Patient is a 73-year-old female presents today with chief complaint of left ankle pain. She reports that ankle pain began several days ago, is unclear as to when the pain actually began. Patient is a 15 days status post left total hip replacement, completed by Dr. Huang. She reports that she had her compression hose removed this past week when she was seen by Dr. Huang for her 2-week appointment. She reports that at that time she did mention her left ankle pain to him. Review of Dr. Huang's note explains more vague left low er extremity pain. She reports that he was concerned for possible sciatica at that time. However, on today's exam, her pain is much more localized to the left lateral ankle. Pain is primarily over the ATFL. Patient has bilateral lower extremity edema but certainly has more swelling on the lateral aspect of the left ankle at the area of her discomfort. She denies any known trauma. However, given the patient's history, age I am concerned for possible bony abnormality plan to obtain x-ray. Patient was concerned for gout. However, she does not seem tender enough for this diagnosis, patient is not erythematous, warm. She denies any fevers or chills. Denies any recent illness. Pain does not radiate. No pain in the knee. At the end of my shift, care transitioned to Bryan Emanuel NP with images pending <Lei Emanuel NP - Last Filed: 12/29/18 23:02> I agree with previous assessment and also after discussion with HENRY Garcia feel that patient's ankle pain is most likely secondary arthralgia due to recent procedure and difference in weightbearing. Review of radiological imaging and radiologist interpretation shows no evidence of acute fracture no notation of malalignment or dislocation. Patient was placed in an Cody wrap and informed to wear supportive footwear and to use this as needed for discomfort. Patient was also encouraged to use acetaminophen and modify activity. Patient also informed to contact orthopedist if not improving for reassessment. After discussion of diagnosis and plan of care patient and family have no further needs, questions, or concerns and states clear understanding to return to the emergency department for any worsening symptoms. HPI <HENRY Garcia - Last Filed: 12/30/18 22:08> General Mode of arrival: ambulatory (ambulates with cane) . Date/Time Provider Initiated Documentation: 12/29/18 15:13 . Limitations to Documentation: no limitations . Information obtained by: patient, family and RN notes reviewed . History of Present Illness 73 year old F presents to the emergency department with the chief complaint of left lateral ankle pain, described as mild, with intensity rated at 3. Quality is described as aching, and is localized to the left and lower extremity. Patient reports no radiation. Patient started experiencing this day(s) and it has been constant. Immobilization improves symptom(s), Movement worsens symptoms . Patient notes no other symptoms.. Patient did receive the following treatments prior to arrival, NSAID (0800) Related Data Home Medications Medication Instructions Recorded Confirmed aspirin [Ecotrin Low Strength] 81 mg PO DAILY tab-cap 12/26/12 12/26/18 multivitamin 1 ea PO DAILY 12/26/12 12/26/18 blood pressure monitor [Blood #1 kit 07/11/17 12/26/18 Pressure Kit] hydrochlorothiazide 25 mg PO DAILY #90 tab-cap 01/09/18 12/26/18 losartan 100 mg PO DAILY #90 tab-cap 01/09/18 12/26/18 ezetimibe 10 mg tablet 10 mg PO DAILY #90 tab 09/04/18 12/26/18 acetaminophen 500 mg tablet 1,000 mg PO PRN tab 11/28/18 12/26/18 ibuprofen 800 mg PO DAILY 12/11/18 12/26/18 ranitidine 150 mg capsule 150 mg PO BID #180 tab-cap 12/25/18 12/26/18 hydrocodone 5 mg-acetaminophen 325 1 tab PO Q6H PRN #18 tab NS MDD 6 12/26/18 12/26/18 mg tablet Previous Rx's Medication Instructions Recorded blood pressure monitor [Blood #1 kit 07/11/17 Pressure Kit] hydrochlorothiazide 25 mg PO DAILY #90 tab-cap 01/09/18 losartan 100 mg PO DAILY #90 tab-cap 01/09/18 ezetimibe 10 mg tablet 10 mg PO DAILY #90 tab 09/04/18 ranitidine 150 mg capsule 150 mg PO BID #180 tab-cap 12/25/18 hydrocodone 5 mg-acetaminophen 325 1 tab PO Q6H PRN #18 tab NS MDD 6 12/26/18 mg tablet Allergies Allergy/AdvReac Type Severity Reaction Status Date / Time Sulfa (Sulfonamide Allergy Unknown FEELS LIKE Verified 12/11/18 09:16 Antibiotics) IN OUTER SPACE Pblekpn-Ywx-Aym Reductase AdvReac Intermediate MYALGIAS Verified 12/11/18 09:16 Inhibitor lisinopril AdvReac Mild cough Verified 12/11/18 09:16 oxycodone AdvReac Mild Nausea Verified 11/28/18 11:13 General Stated Complaint: Orthopedic TRICIA: 4 Review of Systems <HENRY Garcia - Last Filed: 12/30/18 22:08> Constitutional Reports as per HPI, Denies chills, Denies fever(s), Denies headache(s) and Denies weakness ENT Denies headache(s) Cardiovascular Reports as per HPI Respiratory Reports as per HPI and Denies cough Musculoskeletal Reports as per HPI, Reports abnormal gait (antalgic gait, associates with left hip replacement) and Denies tingling Integumentary/Breasts Reports as per HPI, Denies rash and Denies wounds Neurologic Reports as per HPI, Reports abnormal gait (antalgic gait, associates with left hip replacement), Denies headache(s), Denies tingling, Denies paresthesias and Denies weakness PFSH <HENRY Garcia - Last Filed: 12/30/18 22:08> Medical History 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) Trochanteric bursitis of left hip (Chronic) Pulmonary nodule seen on imaging study (Acute 03/28/17) Conductive hearing loss (Chronic) Tubular adenoma (Acute 04/10/16) Sensorineural hearing loss, unilateral (Acute 06/07/17) Pre-diabetes (Acute 01/09/18) Osteopenia (Acute 07/11/16) IBS (irritable bowel syndrome) (Acute 07/09/17) Abnormal CT scan, bladder (Acute 05/08/17) Obesity (Chronic) Hypertension (Chronic) Chronic sinusitis (Chronic) GERD (gastroesophageal reflux disease) (Chronic) Elevated lipids (Chronic) Cyst (Acute) Conductive hearing loss, external ear (Resolved 06/07/17) Impacted cerumen (Resolved 05/01/14) Impacted cerumen of both ears (Resolved) OA (osteoarthritis) of hip (Resolved 05/13/14) Primary osteoarthritis of left knee (Resolved) Elevated fasting glucose Surgical History History of arthroplasty of right knee (Acute ~02/2012) History of total right hip arthroplasty (Acute ~05/13/14) S/P total hip arthroplasty (Resolved 05/13/14) Status post cataract extraction and insertion of intraocular lens of left eye (Resolved 06/14/18) Status post cataract extraction and insertion of intraocular lens of right eye (Resolved 05/31/18) Colonoscopy - IV Sedation (04/10/16) Vaginal hysterectomy Social History Smoking/Tobacco Use Status: Never Alcohol Intake: current Alcohol Intake frequency: holidays/special occasions only Alcohol type: beer, wine and hard liquor Drug use: Never Substance use type: does not use Adopted: No Caregiver/Support person: No Household members: none Housing: house Number of Children: 0 Pets and animals: Yes Sexually active: No Current gender identity: female What type of physical activity do you participate in: regular exercise Frequency: 1-2 times per week Seatbelt use: always Working smoke detector in home: Yes Fire extinguisher in home: Yes Carbon monox detector in home: Yes Do you feel safe at home: Yes Do you feel safe in your relationship?: Yes Exam <HENRY Garcia - Last Filed: 12/30/18 22:08> Const General: cooperative, healthy appearing, comfortable, no acute distress, well developed and well groomed Nutritional Appearance: well nourished and overweight Orientation: alert and awake Resp Effort & Inspection: normal respiratory effort, able to speak in complete sentences and no respiratory distress Auscultation: clear to auscultation bilaterally Cardio Rate: regular rate Rhythm: regular rhythm Heart Sounds: S1 normal and S2 normal Skin General skin exam: no rashes or lesions noted Lesions: no lesions Rashes: no rashes Trauma: no lacerations or abrasions Neuro General: alert and awake Cognition: normal cognition Speech: speech normal Gait: normal gait (ambulates well without signs of discomfort, uses cane) Motor: muscle tone normal throughout Sensory Exam: no sensory deficits noted Extrem General: normal to inspection, full ROM, normal capillary refill, no calf tenderness, normal gait (uses cane at baseline), no calf tenderness bilaterally and edema Laterality: bilateral Left lower extremity: full ROM, normal capillary refill, lower leg Details: non- pitting edema; no erythema, no tenderness, no localized swelling and no palpable cords and ankle Details: tenderness Location: of the lateral malleolus and of the anterior talofibular ligament; not of the achilles tendon, not anteromedially, not anterolaterally and not posteriorly, swelling Details: la terally, pitting edema Details: non-pitting and normal ROM; no warmth, no abrasions, no lacerations, no ecchymosis, no crepitus and achilles tendon exam normal; no cyanosis Psych Appearance: grossly normal and well kempt Mental Status: mental status grossly normal Speech and Movement: speech and movement normal Course <HENRY Garcia - Last Filed: 12/30/18 22:08> Vital Signs Temperature 36.5 C 12/29/18 15:06 Pulse 83 12/29/18 15:06 Respiratory Rate 17 12/29/18 15:06 Pulse Oximetry 96 12/29/18 15:06 Temperature 36.5 C 12/29/18 15:06 Temperature Source Skin 12/29/18 15:06 Pulse 83 12/29/18 15:06 Respiratory Rate 17 12/29/18 15:06 Blood Pressure Position Sitting 12/29/18 15:06 Pulse Oximetry 96 12/29/18 15:06 Pain Level 3 12/29/18 15:06 Sign Out <HENRY Garcia - Last Filed: 12/30/18 22:08> Sign Out Data: Sign Out Comment: Care transitioned to Bryan Emanuel NP with images pending Last updated by Zhane Colin PA at 12/29/18 16:21
--- NOTE | 2018-12-29 16:32 | DI.VRAD_ITS ---
EXAM: XR Left Ankle Complete, 3 or more Views EXAM DATE/TIME: 12/29/2018 3:15 PM CLINICAL HISTORY: 73 years old, female; Left; Patient HX: Lt ankle pain and swelling, sudden onset, no injury TECHNIQUE: Imaging protocol: XR Left ankle. Views: 3 or more views. COMPARISON: No relevant prior studies available. FINDINGS: Bones/joints: There is no evidence of acute fracture.. There is no evidence of malalignment or dislocation. Soft tissues: Bimalleolar soft tissue swelling IMPRESSION: There is no evidence of acute fracture.. Dictated and Authenticated by: Luisa Fields MD. Ordering:ROSALINA Phelan MD
[2018-12-29 17:09] VITALS: BP 130/64; PULSE 83; RESP 17; TEMP 36.5; O2SAT 96
== END 2018-12-29 17:08 | disposition home or self-care (01) ==
PROVIDERS: Emergency Provider Nurse Practitioner Family; PCP Nurse Practitioner
DX: M25.572 Pain in left ankle and joints of left foot (principal); M25.472 Effusion, left ankle; Y83.1 Surgical operation with implant of artificial internal device as the cause of abnormal reaction of the patient, or of later complication, without mention of misadventure at the time of the procedure; Z96.642 Presence of left artificial hip joint; I10 Essential (primary) hypertension
CPT/HCPCS: 99283; 73610

== ENCOUNTER 2019-01-09 13:11 | Outpatient (CLI) | payer MEDICARE, OTHER, SELFPAY ==
--- NOTE | 2019-01-09 13:07 | DI.CT_ITS ---
SYMPTOMS/DIAGNOSIS: LEFT FOOT AND ANKLE PAIN, 9/10, SWELLING, NO INJURY, RECENT LEFT TOTAL HIP ARTHROPLASTY, M79.672, M25.572, M79.[address]: CT examination of the foot and ankle was performed utilizing multislice acquisition and multiplanar reconstruction. No fracture is identified. Bony alignment appears within normal limits. CONCLUSION: No evidence of fracture.
== END 2019-01-09 13:31 ==
PROVIDERS: PCP Nurse Practitioner; Visit Provider Nurse Practitioner
DX: M79.672 Pain in left foot (principal); M25.572 Pain in left ankle and joints of left foot; M79.89 Other specified soft tissue disorders
CPT/HCPCS: 73700

== ENCOUNTER 2019-01-23 01:37 | Outpatient (CLI) | payer MEDICARE, OTHER, SELFPAY ==
--- NOTE | 2019-01-23 08:30 | DI.CT_ITS ---
SYMPTOM/DIAGNOSIS: F/U PULMONARY NODULE, F/U ABNL FINDING LUNG FIELD, R91.[address]; The study was carried out without contrast enhancement and is compared with the previous examination of 12/31/17. Again noted is a right upper lobe nodule, unchanged. Again noted is a small left lower lobe calcification consistent with an old healed granuloma. There is no evidence of adenopathy. There is no pleural effusion. SUMMARY: When compared with the previous examination, there has been no interval change in the status of the right upper lobe nodule or left lower lobe calcification.
== END 2019-01-23 01:57 ==
PROVIDERS: PCP Nurse Practitioner; Visit Provider Internal Medicine
DX: R91.8 Other nonspecific abnormal finding of lung field (principal); J98.4 Other disorders of lung
CPT/HCPCS: 71250

== ENCOUNTER → 2019-01-28 11:08 | Outpatient (BNVA) | payer MEDICARE, OTHER, SELFPAY | PROVIDERS: PCP Nurse Practitioner; Referring Provider Nurse Practitioner; Visit Provider Orthopaedic Surgery | DX: Z47.1 Aftercare following joint replacement surgery (principal); Z96.642 Presence of left artificial hip joint ==

== ENCOUNTER → 2019-04-15 09:29 | Outpatient (BNVA) | payer MEDICARE, OTHER, SELFPAY | PROVIDERS: PCP Nurse Practitioner; Referring Provider Nurse Practitioner; Visit Provider Orthopaedic Surgery | DX: M17.12 Unilateral primary osteoarthritis, left knee (principal); M25.572 Pain in left ankle and joints of left foot; Z96.642 Presence of left artificial hip joint; I10 Essential (primary) hypertension | CPT/HCPCS: 20610; 99211; 99213; J1040; L1902 ==

== ENCOUNTER → 2019-07-17 09:17 | Outpatient (BNVA) | payer MEDICARE, OTHER, SELFPAY | PROVIDERS: PCP Nurse Practitioner; Referring Provider Nurse Practitioner; Visit Provider Student in an Organized Health Care Education/Training Program | DX: M17.12 Unilateral primary osteoarthritis, left knee (principal); M70.61 Trochanteric bursitis, right hip; Z96.643 Presence of artificial hip joint, bilateral; Z96.651 Presence of right artificial knee joint; I10 Essential (primary) hypertension | CPT/HCPCS: 20610; 99213; J1040 ==

== ENCOUNTER 2019-08-18 00:51 | Outpatient (CLI) | payer MEDICARE, OTHER, SELFPAY ==
--- NOTE | 2019-08-18 10:47 | DI.MAMMO_ITS ---
EXAM: MG MAMMO SCREENING CLINICAL HISTORY: screening Z12.39 TECHNIQUE: Bilateral full field digital CC and MLO mammographic images were obtained with 3D tomosyn thesis and utilizing computer aided detection (CAD). COMPARISON: Available for comparison. FINDINGS: Masses/Architectural Distortion: None seen. Microcalcifications: No suspicious pleomorphic-type are seen. Skin Thickening/Nipple Retraction: None. IMPRESSION: 1. No significant interval change with no specific features of malignancy noted. 2. Unless there is more urgent need, screening mammography is recommended, as per [employer] guidelines. ACR BI-RAD Category- 1 Negative Breast Density - Category B - Scattered areas of fibroglandular density A negative radiographic report should not delay biopsy if a dominant or clinically suspicious mass is present. Up to ten percent of cancers are not identified on mammography. A negative report may reinforce clinical impression. Adenosis and dense breasts may obscure an underlying neoplasm. False positive reports average 6 to 10%. Patient will receive a letter notifying them of these results.
== END 2019-08-18 01:11 ==
PROVIDERS: PCP Nurse Practitioner; Visit Provider Nurse Practitioner
DX: Z12.31 Encounter for screening mammogram for malignant neoplasm of breast (principal)
CPT/HCPCS: 77063; 77067

== ENCOUNTER 2019-08-24 10:31 | Emergency (ER) | payer MEDICARE, OTHER, SELFPAY ==
[2019-08-24 10:40] VITALS: BP 175/77; PULSE 89; RESP 16; TEMP 36.3; O2SAT 99
[2019-08-24 11:12] LABS: Bilirubin Negative (Negative); Blood Trace-intact (Negative); Clarity Sl Cloudy (Clear); Glucose Negative (Negative); Ketones Negative (Negative); Leukocyte Esterase Small (Negative); Nitrite Negative (Negative); Specific Gravity 1.015 (1.005-1.025); Urobilinogen 0.2 EU/dL (Up TO 0.2); pH 8.5 (5-8)
[2019-08-24 11:19] LABS: Bacteria Moderate HPF (Negative); C & S Indicated? No/Sq. Contamination; Casts Negative LPF (Negative); Crystals Negative HPF (Negative); Epithelial Cells Moderate HPF (Negative); Mucus Trace (Negative)
--- NOTE | 2019-08-24 11:42 | ED.GENADUL_ITS ---
Discharge Plan Disposition Patient Disposition: HOME Condition: Stable Discharge Details Chief Complaint: Urinary Clinical Impression: UTI (urinary tract infection) Primary Care Provider: Shannan De Leon ED Provider: Anisa Oviedo Home Meds and New Rx's Prescriptions: New cephalexin [Keflex] 500 mg capsule 500 mg PO BID 7 Days Qty: 14 RF: 0 phenazopyridine [Pyridium] 100 mg tablet 100 mg PO TID PRN (Reason: pain) Qty: 6 RF: 0 Continued (DME) Left ankle foot orthosis (AFO) Qty: 1 RF: 0 Culturelle 10 billion cell capsule 1 cap PO .every other day RF: 0 hydrochlorothiazide 25 mg tablet 25 mg PO DAILY Qty: 90 RF: 3 losartan 100 mg tablet 100 mg PO DAILY Qty: 90 RF: 3 multivitamin 1 EACH tablet 1 ea PO DAILY RF: 0 aspirin [Ecotrin Low Strength] 81 MG tablet,delayed release (DR/EC) 81 mg PO DAILY RF: 0 (DME) blood pressure monitor [Blood Pressure Kit] 1 EACH kit 1 ea Miscellaneous DAILY Qty: 1 RF: 0 Varicella-Zoster Ge/As01b/Pf [Shingrix Vial Kit] 50 MCG INJ 50 mcg IM ONCE Qty: 1 RF: 1 ranitidine HCl 150 mg capsule 150 mg PO BID Qty: 180 RF: 3 ezetimibe [Zetia] 10 mg tablet 10 mg PO DAILY Qty: 90 RF: 1 acetaminophen [Tylenol Extra Strength] 500 mg tablet 1,000 mg PO PRN RF: 0 Discharge Instructions Instructions: Urinary Tract Infection in Women (ED) Additional Instructions: Take the antibiotics until finished. Use the Pyridium as needed and directed for pain. Follow-up with your primary care doctor in 1 week. Return to the emergency department with any worsening or new concerning symptoms of fever, vomiting or back pain. Discharge Data Discharge Physician: Anisa Oviedo Medical Decision Making 74-year-old female presents with dysuria, urinary frequency, urgency and hesitancy for the past 4 days. Denies any fever, vomiting or back pain. Urinalysis notes 10-20 WBCs, 5-10 RBCs but appears contaminated. Discussed with patient that we can obtain another sample to send for urine culture but she would rather just go with treatment at this time without urine culture. We will give a prescription for Keflex and Pyridium. She was advised to follow- up with her primary care doctor this week for reevaluation and to return here with any worsening symptoms of fever, vomiting or back pain. HPI General Mode of arrival: ambulatory . Date/Time Provider Initiated Documentation: 08/24/19 11:16 . Limitations to Documentation: no limitations . Information obtained by: patient . History of Present Illness 74 year old F presents to the emergency department with the chief complaint of UTI symptoms, Quality is described as burning and aching, and is localized to the abdomen. Patient reports no radiation. Patient started experiencing this day(s) (4) and it has been constant. No relieving factors improve symptom(s), No exacerbating factors reported . Patient notes denies confusion, chest pain, fever/chills, headaches, loss of appetite, malaise, nausea/vomiting, shortness of breath, syncope and weakness. Patient did receive the following treatments prior to arrival, none Related Data Home Medications Medication Instructions Recorded Confirmed aspirin [Ecotrin Low Strength] 81 mg PO DAILY tab-cap 12/26/12 08/24/19 multivitamin 1 ea PO DAILY 12/26/12 08/24/19 blood pressure monitor [Blood #1 kit 07/11/17 07/17/19 Pressure Kit] acetaminophen 500 mg tablet 1,000 mg PO PRN tab 11/28/18 08/24/19 ranitidine HCl 150 mg capsule 150 mg PO BID #180 tab-cap 12/25/18 08/24/19 hydrochlorothiazide 25 mg tablet 25 mg PO DAILY #90 tab-cap 01/09/19 08/24/19 losartan 100 mg tablet 100 mg PO DAILY #90 tab-cap 01/09/19 08/24/19 ezetimibe 10 mg tablet 10 mg PO DAILY #90 tab 03/03/19 08/24/19 Left ankle foot orthosis (AFO) #1 ea 03/13/19 07/17/19 Lactobacillus rhamnosus GG 10 1 cap PO .every other day cap 07/15/19 08/24/19 billion cell capsule cephalexin [Keflex] 500 mg PO BID 7 Days #14 cap 08/24/19 phenazopyridine [Pyridium] 100 mg PO TID PRN #6 tab 08/24/19 Previous Rx's Medication Instructions Recorded blood pressure monitor [Blood #1 kit 07/11/17 Pressure Kit] ranitidine HCl 150 mg capsule 150 mg PO BID #180 tab-cap 12/25/18 hydrochlorothiazide 25 mg tablet 25 mg PO DAILY #90 tab-cap 01/09/19 losartan 100 mg tablet 100 mg PO DAILY #90 tab-cap 01/09/19 ezetimibe 10 mg tablet 10 mg PO DAILY #90 tab 03/03/19 Left ankle foot orthosis (AFO) #1 ea 03/13/19 cephalexin [Keflex] 500 mg PO BID 7 Days #14 cap 08/24/19 phenazopyridine [Pyridium] 100 mg PO TID PRN #6 tab 08/24/19 Allergies Allergy/AdvReac Type Severity Reaction Status Date / Time Cgtdrhq-Tyy-Thh Reductase AdvReac Intermediate MYALGIAS Verified 08/24/19 10:43 Inhibitor lisinopril AdvReac Mild cough Verified 08/24/19 10:43 oxycodone AdvReac Mild Nausea Verified 08/24/19 10:43 Sulfa (Sulfonamide AdvReac Unknown FEELS LIKE Verified 08/24/19 10:43 Antibiotics) IN OUTER SPACE General Stated Complaint: Urinary TRICIA: 3 Review of Systems All systems reviewed & are unremarkable except as noted in HPI and below Constitutional Constitutional: Reports as per HPI, Denies chills and Denies fever(s) Eyes Eyes: Denies blurry vision ENT Ears, Nose, Mouth, and Throat: Denies dizziness, Denies sore throat and Denies throat swelling Cardiovascular Cardiovascular: Denies chest pain and Denies dyspnea Respiratory Respiratory: Denies cough and Denies dyspnea Gastrointestinal Gastrointestinal: Denies abdominal pain, Denies diarrhea and Denies vomiting Genitourinary Genitourinary: Denies hematuria, Reports urinary frequency, Reports dysuria, Reports urinary hesitancy and Reports urinary urgency Musculoskeletal Musculoskeletal: Denies back pain and Denies numbness Integumentary/Breasts Skin/Breast: Denies lesions and Denies rash Neurologic Neurologic: Denies dizziness, Denies focal weakness and Denies numbness Allergic/Immunologic Allergic/Immunologic: Denies throat swelling [facility] Medical History Abnormal CT scan, bladder (Acute 05/08/17) Chronic sinusitis (Chronic) Has been followed by Dr. Shmuel Willingham. Conductive hearing loss (Chronic) Conductive hearing loss, external ear (Resolved 06/07/17) Cyst (Acute) pt. reports 06/13, removed below L breast Degenerative joint disease of left hip (Resolved) Elevated fasting glucose Elevated lipids (Chronic) Has been on a statin but this caused muscle aches so the medication was stopped. GERD (gastroesophageal reflux disease) (Chronic) Hypertension (Chronic) Long standing hypertension which has been treated with low dose Hydrochlorothiazide. IBS (irritable bowel syndrome) (Acute 07/09/17) Ishan Norman DO Impacted cerumen (Resolved 05/01/14) Impacted cerumen of both ears (Resolved) OA (osteoarthritis) of hip (Resolved 05/13/14) Total hip replacement 05/13/4014 by Allen Huang M.D. Obesity (Chronic) Osteopenia (Acute 07/11/16) DEXA 07/11/16 L forearm T -0.7 NL spine, hip Pre-diabetes (Acute 01/09/18) Primary osteoarthritis of left knee (Resolved) Pulmonary nodule seen on imaging study (Acute 03/28/17) yearly CT, next due 12/2018 Dr. Petersen 03/28/19 F/U with Dr Bee, Chest CT Ordered for 08/2019 with F/U. Sensorineural hearing loss, unilateral (Acute 06/07/17) Trochanteric bursitis of left hip (Chronic) Trochanteric bursitis, right hip (Acute) Tubular adenoma (Acute 04/10/16) Surgical History Colonoscopy - IV Sedation (04/10/16) Dr Prieto History of arthroplasty of right knee (Acute ~02/2012) History of total right hip arthroplasty (Acute ~05/13/14) S/P total hip arthroplasty (Resolved 05/13/14) Status post cataract extraction and insertion of intraocular lens of left eye (Resolved 06/14/18) Status post cataract extraction and insertion of intraocular lens of right eye (Resolved 05/31/18) Vaginal hysterectomy Family History Mother Heart disease Hypertension Father Heart disease [place] caused Brother Diabetes Brother Diabetes Sister Diabetes Social History Smoking/Tobacco Use Status: Never Alcohol Intake: current Alcohol Intake frequency: holidays/special occasions only Alcohol type: beer, wine and hard liquor Drug use: Never Substance use type: does not use Adopted: No Caregiver/Support person: No Foster care: No Household members: none Housing: house Number of Children: 0 Communication Needs: None Pets and animals: Yes Sexually active: No Current gender identity: female What type of physical activity do you participate in: regular exercise Frequency: 1-2 times per week Seatbelt use: always Working smoke detector in home: Yes Fire extinguisher in home: Yes Carbon monox detector in home: Yes Do you feel safe at home: Yes Do you feel safe in your relationship?: Yes Exam Const General: cooperative, healthy appearing and no acute distress HENMT Head: normal to inspection Face and sinus: normal facial exam Eyes General: appearance normal, both eyes and all related structures EOM: EOM intact bilaterally Neck Neck: normal visual inspection and No submandibular swelling Lymphatic: no lymphadenopathy noted Chest Chest: normal inspection of the chest and no tenderness Resp Effort & Inspection: normal respiratory effort and able to speak in complete sentences Auscultation: clear to auscultation bilaterally Cardio Rate: regular rate Rhythm: regular rhythm GI Inspection: normal to inspection Palpation: soft, not firm, not rigid and tender suprapubicly Auscultation: normal bowel sounds Back/Spine/Pelvis Back: no CVA tenderness Skin General skin exam: no rashes or lesions noted Neuro General: alert, awake and oriented x3 Cognition: normal cognition Speech: speech normal Motor: muscle tone normal throughout Sensory Exam: no sensory deficits noted Extrem General: normal to inspection, full ROM, normal capillary refill, no calf tenderness bilaterally and no edema Psych Appearance: grossly normal Mental Status: mental status grossly normal Speech and Movement: speech and movement normal Affect: normal affect Course Vital Signs Vital signs: Vital Signs Temperature 97.3 F L 08/24/19 10:40 Pulse 89 08/24/19 10:40 Respiratory Rate 16 08/24/19 10:40 Blood Pressure 175/77 H 08/24/19 10:40 Pulse Oximetry 99 08/24/19 10:40 Temperature 97.3 F L 08/24/19 10:40 Temperature Source Skin 08/24/19 10:40 Pulse 89 08/24/19 10:40 Respiratory Rate 16 08/24/19 10:40 Respiratory Effort Non-Labored 08/24/19 10:40 Blood Pressure 175/77 H 08/24/19 10:40 Blood Pressure Position Sitting 08/24/19 10:40 Pulse Oximetry 99 08/24/19 10:40 Oxygen Delivery Method Room Air 08/24/19 10:40 Oxygen Flow Rate 0 08/24/19 10:40 Pain Level 8 08/24/19 11:13 Lab/Test Results Lab/Test Results: Laboratory Tests Range/Units 08/24/19 11:05 Urine Color (Yellow) Yellow Urine Clarity (Clear) Sl cloudy Urine pH (5-8) 8.5 H Ur Specific [place] (1.005-1.025) 1.015 Urine Protein (Negative) mg/dL Negative Urine Ketones (Negative) mg/dL Negative Urine Blood (Negative) Trace-intact H Urine Nitrite (Negative) Negative Urine Bilirubin (Negative) Negative Urine Urobilinogen (Up TO 0.2) EU/dL 0.2 Ur Leukocyte Esterase (Negative) Small H Urine RBC (0-2) HPF 5-10 H Urine WBC (0-5) HPF 10-20 H Ur Epithelial Cells (Negative) HPF Moderate Urine Crystals (Negative) HPF Negative Urine Bacteria (Negative) HPF Moderate Urine Casts (Negative) LPF Negative Urine Mucus (Negative) Trace Ur Culture Indicated? No/sq. contamination Urine Glucose (Negative) mg/dL Negative
== END 2019-08-24 12:00 | disposition home or self-care (01) ==
PROVIDERS: Emergency Provider Physician Assistant; PCP Nurse Practitioner
DX: N39.0 Urinary tract infection, site not specified (principal); I10 Essential (primary) hypertension
CPT/HCPCS: 99283; 81003; 81015

== ENCOUNTER 2019-08-28 01:57 | Outpatient (CLI) | payer MEDICARE, OTHER, SELFPAY ==
--- NOTE | 2019-08-28 13:41 | DI.CT_ITS ---
EXAM: CT CHEST WO CLINICAL HISTORY: LUNG MASS R91.8 TECHNIQUE: CT examination of the chest was performed utilizing noncontrast low-dose protocol. COMPARISON: CT CHEST WO from 01/23/2019 CT CHEST WO from 01/23/2019 FINDINGS: The examination is compared with most recent prior scan of 01/23/2019. A previously described left l ower lobe calcified granuloma is again noted. An approximately 7 millimeter mean diameter right upper lobe well-circumscribed noncalcified nodule is unchanged. A vaguely rounded ground-glass opacity of the right lower lobe seen posteriorly is essentially unchanged measuring about 20 x 15 by 15 millime ters in diameter. No new intrapulmonary nodule is seen. No mediastinal or hilar adenopathy. Trache obronchial tree appears intact. Note is made of patchy dependent ground-glass opacities on the current examination and there is cardi omegaly, raising the possibility of borderline CHF. No gross pleural effusion or interstitial infilt rates seen. Images obtained through the upper abdomen show hepatomegaly, presumed splenic scarring, and grossly u nremarkable appearance of the pancreas. IMPRESSION: Stable solid and ground-glass nodular opacities. Category 2, benign appearance or behavior, continue annual screening with LD CT in 12 months.
== END 2019-08-28 02:17 ==
PROVIDERS: PCP Nurse Practitioner; Visit Provider Internal Medicine
DX: R91.8 Other nonspecific abnormal finding of lung field (principal); J84.10 Pulmonary fibrosis, unspecified; J98.4 Other disorders of lung; I51.7 Cardiomegaly
CPT/HCPCS: 71250

== ENCOUNTER 2019-09-09 07:57 | Outpatient (CLI) | payer MEDICARE, OTHER, SELFPAY ==
[2019-09-09 08:30] LABS: HGB 13.4 g/dL (12.0-15.5); Mean Corp. HGB Concentration 31.9 g/dL (32.0-36.0); Mean Corpuscular Hemoglobin 28.9 pg (27.0-33.0); Mean Corpuscular Volume 90.7 fL (80-95); Mean Platelet Volume 9.1 fL (8.0-11.0); Platelet Count 390 x1000/uL (130-400); RBC 4.63 m/cumm (4.00-5.20); RBC Distribution Width 15.5 % (11.7-14.6); White Blood Cell Count 7.63 k/cumm (4.4-10.8)
[2019-09-09 08:42] LABS: Bilirubin Negative (Negative); Blood Trace-intact (Negative); Clarity Clear (Clear); Glucose Negative (Negative); Ketones Negative (Negative); Leukocyte Esterase Trace (Negative); Nitrite Negative (Negative); Specific Gravity 1.015 (1.005-1.025); Urobilinogen 0.2 EU/dL (Up TO 0.2); pH 8.5 (5-8)
[2019-09-09 08:46] LABS: Epithelial Cells Moderate HPF (Negative)
[2019-09-09 08:47] LABS: Bacteria Rare HPF (Negative); Casts Negative LPF (Negative); Mucus Trace (Negative)
[2019-09-09 08:48] LABS: C & S Indicated? No/Sq. Contamination
[2019-09-09 08:57] LABS: Hemoglobin A1C 6.3 % (3.8-5.6)
[2019-09-09 09:21] LABS: ALT 30 U/L (14-59); AST 14 U/L (15-37); Albumin 3.8 g/dL (3.4-5.0); Alkaline Phosphatase 80 U/L (46-116); Anion Gap 7.9 mmol/L (3-11); BUN 15 mg/dL (7-18); Bilirubin, Total 0.5 mg/dL (0.2-1.0); CO2 32.1 mmol/L (21.0-32.0); CREATININE 0.72 mg/dL (0.55-1.02); Calcium 9.4 mg/dL (8.5-10.1); Calculated LDL 144 mg/dL; Chloride 100 mmol/L (98-107); Cholesterol 230 mg/dL (<200); Glucose 103 mg/dL (74-106); HDL Cholesterol 51 mg/dL (40-60); Sodium 140 mmol/L (136-145); Total Protein 7.5 g/dL (6.4-8.2); Triglyceride 177 mg/dL (<150)
== END 2019-09-09 08:17 ==
PROVIDERS: PCP Nurse Practitioner; Visit Provider Nurse Practitioner
DX: E78.5 Hyperlipidemia, unspecified (principal); E11.9 Type 2 diabetes mellitus without complications; I10 Essential (primary) hypertension; R31.29 Other microscopic hematuria; E66.9 Obesity, unspecified
CPT/HCPCS: 36415; 80053; 80061; 85027; 81003; 81015; 83036

== ENCOUNTER → 2019-10-16 09:41 | Outpatient (BNVA) | payer MEDICARE, OTHER, SELFPAY | PROVIDERS: PCP Nurse Practitioner; Referring Provider Nurse Practitioner; Visit Provider Student in an Organized Health Care Education/Training Program | DX: M17.12 Unilateral primary osteoarthritis, left knee (principal); M70.61 Trochanteric bursitis, right hip; Z98.890 Other specified postprocedural states; Z96.651 Presence of right artificial knee joint; Z96.643 Presence of artificial hip joint, bilateral | CPT/HCPCS: 20610; 99213; J1040 ==

== ENCOUNTER → 2019-11-06 10:00 | Outpatient (BNVA) | payer MEDICARE, OTHER, SELFPAY | PROVIDERS: PCP Nurse Practitioner; Referring Provider Nurse Practitioner; Visit Provider Student in an Organized Health Care Education/Training Program | DX: M17.12 Unilateral primary osteoarthritis, left knee (principal); M70.61 Trochanteric bursitis, right hip | CPT/HCPCS: 20610; 99213; J1040 ==

== ENCOUNTER 2020-01-29 09:41 | Outpatient (REF) | payer MEDICARE, OTHER, SELFPAY ==
[2020-01-29 19:27] LABS: BUN 12 mg/dL (7-18); CREATININE 0.81 mg/dL (0.55-1.02); Calcium 10.1 mg/dL (8.5-10.1); Chloride 101 mmol/L (98-107); Glucose 106 mg/dL (74-106); Potassium 3.9 mmol/L (3.5-5.1); Sodium 139 mmol/L (136-145)
== END 2020-01-29 10:01 ==
LOC: LBN 09:41
PROVIDERS: PCP Nurse Practitioner; Visit Provider Nurse Practitioner
DX: I10 Essential (primary) hypertension (principal)
CPT/HCPCS: 80048

== ENCOUNTER 2020-02-12 09:43 | Outpatient (CLI) | payer MEDICARE, OTHER, SELFPAY ==
--- NOTE | 2020-02-12 09:40 | DI.RAD_ITS ---
EXAM: XR STANDING ALIGNMENT CLINICAL HISTORY: eval L knee OA, planning TKA. TECHNIQUE: 2D digital imaging was performed. COMPARISON: No exams were available for comparison FINDINGS: Standing AP views were performed from the pelvis through the ankles. There are bilateral total hip p rostheses and a right total knee prosthesis. There is no significant leg length discrepancy. There are degenerative changes of the left knee with moderate narrowing of the medial femoral tibial joint. Mild degenerative changes are seen at the medial ankle joints. IMPRESSION: Degenerative changes of the left knee. No significant leg length discrepancy. DATA REPOSITORY: RADIATION DOSE DELIVERED:
== END 2020-02-12 10:03 ==
PROVIDERS: PCP Nurse Practitioner; Referring Provider Nurse Practitioner; Visit Provider Student in an Organized Health Care Education/Training Program
DX: M25.562 Pain in left knee (principal); M17.12 Unilateral primary osteoarthritis, left knee; Z96.643 Presence of artificial hip joint, bilateral; I10 Essential (primary) hypertension
CPT/HCPCS: 99214; 77073

== ENCOUNTER 2020-02-16 00:30 | Outpatient (CLI) | payer MEDICARE, OTHER, SELFPAY ==
--- NOTE | 2020-02-16 07:45 | DI.NM_ITS ---
APPROVED REPORT Exam: Pharmacologic Patient Location: Out-Patient Room/Bed: Stress Nurse: Erum Sharif RN BMI: 43.42 Baseline Rhythm: Sinus Rhythm Indications: PARKER. Bilateral leg edema. Hypertension. Pre-surgical screening for scheduled knee replac ement on 03/17/[address] Smith. Medical History Medical History: Pre-Diabetes, HTN, Hyperlipidemia Cardiac Medications: Losartan. Hydrochlorothiazide. Aspirin. Metoprolol. Ezetimide., Allergies: Sulfa Cardiac Risk Factors: HTN, Hyperlipidemia, Pre-Diabetes (non-insulin) Exercise History: Indeterminate Physical Disabilities: Knees Lung Sounds: Crackles in left base. Heart Sounds: Regular Stress Test Details Test: Pharmacologic stress testing performed using 0.4 mg of regadenoson per 5 mL given IV over 10 s econds. Nuclear Acquisition: Rest Tc-99m/Stress Tc-99m 1 day Rest Isotope: Tc-99m Sestamibi. Dose: 11.8 Date: 02/16/2020 Injection Time: 1030 Stress Isotope: Tc-99m Sestamibi. Dose: 38.0 Date: 02/16/2020 Injection Time: 1150 HR Resting HR Supine: 79 bpm Max Heart Rate (APMHR): 145 bpm Target HR (85% APMHR): 123 bpm Max HR Achieved: 97 bpm % of APMHR: 66 HR response to stress: Normal HR response to stress BP Resting BP Supine: 144/80 mmHg Max BP: 168/88 mmHg BP response to stress: Normal blood pressure response to stress. ECG Resting ECG: Sinus Rhythm Stress ECG: Sinus Rhythm ST Change: No significant ST segment changes Arrhythmia: None Recovery ECG: Sinus Rhythm Recovery ST Change: No significant ST segment changes Stress ECG Conclusion 1. This was a pharmacological stress test. 2. The EKG portion of this exam was nondiagnostic. MPI Conclusion The ejection fraction was 69% with stress. There was no wall motion abnormality seen. There is no evidence of ischemia on the imaging portion of the exam. This represents a normal SPECT stress test. Radiologist Interpretation Radiologist Interpretation by: Ernesto Murary MD Interpretation Date/Time: 02/16/2020 16:42:49
[2020-02-16] MEDS: Regadenoson 0.4 MG/5 ML SYR IVP (11:55)
== END 2020-02-16 00:50 ==
PROVIDERS: PCP Nurse Practitioner; Visit Provider Nurse Practitioner
DX: R06.09 Other forms of dyspnea (principal); I10 Essential (primary) hypertension; R60.0 Localized edema; E78.5 Hyperlipidemia, unspecified; R73.03 Prediabetes
CPT/HCPCS: 78452; 93016; 93018; 93017; J2785

== ENCOUNTER 2020-03-10 00:46 | Outpatient (CLI) | payer MEDICARE, OTHER, SELFPAY ==
--- NOTE | 2020-03-10 07:33 | DI.US_ITS ---
APPROVED REPORT EXAM: Comprehensive 2D, Doppler, and color-flow Echocardiogram Patient Location: Out-Patient [employer] Assembly Machine Operator: Lindsay Fox RDCS (AE) Indications: Dyspnea, HTN Other Information Study Quality: Adequate. Technically limited study due to inability to position patient. Conclusion Normal left ventricular wall thickness and chamber size. Estimated ejection fraction is normal at 55 %. There are no segmental wall motion abnormalities Normal right ventricular size and systolic function There is no chamber enlargement There are no structural valvular abnormalities Trace physiologic mitral tricuspid and pulmonic regurgitation Estimated right ventricular systolic pressure is normal at 25.6 mmHg Wall motion Left Ventricle The left ventricle is normal size. The left ventricular systolic function is normal. The left ventric ular ejection fraction is within the normal range. There is normal left ventricular wall thickness. T here is normal LV segmental wall motion. There is no ventricular septal defect visualized. LVEF is 55 %. Right Ventricle The right ventricle is normal size. The right ventricular systolic function is normal. The RVSP is 25 .6mmHg. Atria The left atrium size is normal. The right atrium size is normal. The interatrial septum is intact wit h no evidence for an atrial septal defect. Aortic Valve Aortic valve is trileaflet. There is no aortic valvular stenosis. No aortic regurgitation is present. Mitral Valve The mitral valve is normal in structure. No evidence of mitral valve stenosis. Trace mitral regurgita tion. Tricuspid Valve The tricuspid valve is normal in structure. There is no tricuspid valve stenosis. Trace tricuspid reg urgitation. Pulmonic Valve The pulmonary valve is normal in structure. There is no pulmonic valvular stenosis. Trace pulmonic re gurgitation. Great Vessels The aortic root is normal in size. The ascending aorta is normal in size. Aortic arch is normal in ca liber. IVC is normal in size and collapses >50% with inspiration. Pericardium There is no pericardial effusion. There is no pleural effusion. 2D Dimensions IVSD d PLAX 0.99 cm F: 0.6-1.0 LV Vol A2C d MOD 92.7 mL LVPW d PLAX 0.99 cm F: 0.6 - 1.0 LV Vol A4C d MOD 89.3 mL LVID d PLAX 4.90 cm F: 3.8 - 5.2 LA vol/ BSA A2C s A-L 22.4 mL/m2 LVDs 3.40 cm F: 2.2 - 3.5 LA vol/ BSA A4C s A-L 19.8 mL/m2 Ao Root d 2.61 cm F: 2.7 - 3.3 LA Vol/ BSA Biplane s A-L 21.3 mL/m2 RA Area A4C 14.52 cm2 LA Area A4C s MOD 16.67 cm2 RA Vol/ BSA A4C s A-L 16.5 mL/m2 LA Area A2C s MOD 17.61 cm2 Ao Asc Diam d 2.92 cm F: 2.3 - 3.1 LV EF A4C MOD 52.8 % LV EF Teichholz 57.7 % LV EF A2C MOD 54.5 % LVEF (Hoang's) 54.10 % F: 54 - 74 LV EF Biplane MOD 54.1 % LV Volume 69.51 mL F: 46 - 106 SV 51.61 mL LV Volume Index 31.88 mL/m2 F: 29 - 61 SV Index 23.60 mL/m2 LV Vol Biplane MOD 95.4 mL FS 30.40 % M-Mode TAPSE 2.48 cm (M/F) >1.7 LV Diastology MV E' medial 0.092 (>0.07 m/s) E/A Ratio 0.8 LV E/e MED 7.80 (<14) MV E Vmax 0.72 (0.4-1.3 m/s) MV E' lateral 0.076 (>0.1 m/s) MV A Vmax 0.95 (0.4-1.3 m/s) LV E/e LAT 9.45 (<14) MV E/A Ratio 0.74 MV E/E' medial 7.82 MV E/E' lateral 9.46 Aortic Valve LVOT Area 3.24 cm2 AoV Area Vmax 2.20 cm2 LVOT Vmax 1.09 m/s AoV Area/ BSA (Vmax) 1.01 cm2/m2 LVOT Mean Francesco. 0.73 m/s LILIYA Mean Francesco. 2.10 cm2 LVOT Peak Grad 4.7 mmHg LILIYA Mean Francesco. Index 0.96 cm2/m2 LVOT Mean Grad 2.4 mmHg LVOT VTI 0.238 m LVOT Diam s 2.00 cm AoV Vmax 1.60 m/s Velocity Ratio 0.68 AoV Mean Francesco. 1.12 m/s AoV Peak Grad 10.2 mmHg LVOT SV 76.95 mL AoV Mean Grad 5.6 mmHg AoV VTI 0.352 m AoV Area VTI 2.19 cm2 AoV Area/ BSA (VTI) 1.00 cm/m2 Mitral Valve MV DT 229 (160-240 msec) MV PHT 66 msec MV Area PHT 3.31 cm2 Pulmonary Valve PV Vmax 1.09 (0.5-1.5 m/s) RVOT Peak Gr. 2.45 mmHg PV Peak Grad 4.7 mmHg RVOT Mean Gr. 1.40 mmHg PV Mean Grad 2.8 mmHg RVOT VTI 0.188 m PV VTI 0.236 m RVOT Vmax 0.78 m/s Tricuspid Valve TR Peak Grad 22.5 mmHg TR Vmax 2.38 m/s RA Pressure 3.00 mmHg RVSP (TR) 25.6 mmHg
== END 2020-03-10 01:06 ==
PROVIDERS: PCP Nurse Practitioner; Visit Provider Nurse Practitioner
DX: I10 Essential (primary) hypertension (principal); R06.00 Dyspnea, unspecified; R60.0 Localized edema
CPT/HCPCS: 93306

== ENCOUNTER 2020-03-13 07:10 | Outpatient (CLI) | payer MEDICARE, OTHER, SELFPAY ==
[2020-03-15 07:51] LABS: COVID-19 RT-PCR Result NEGATIVE (Negative)
== END 2020-03-13 07:30 ==
PROVIDERS: PCP Nurse Practitioner; Visit Provider Student in an Organized Health Care Education/Training Program
DX: Z01.818 Encounter for other preprocedural examination (principal); M17.12 Unilateral primary osteoarthritis, left knee
CPT/HCPCS: U0003

== ENCOUNTER 2020-03-15 02:11 | Outpatient (CLI) | payer MEDICARE, OTHER, SELFPAY ==
[2020-03-15 10:01] LABS: HGB 11.9 g/dL (12.0-15.5); Mean Corp. HGB Concentration 32.2 g/dL (32.0-36.0); Mean Corpuscular Hemoglobin 29.3 pg (27.0-33.0); Mean Corpuscular Volume 91.1 fL (80-95); Mean Platelet Volume 9.6 fL (8.0-11.0); Platelet Count 337 x1000/uL (130-400); RBC 4.06 m/cumm (4.00-5.20); RBC Distribution Width 14.5 % (11.7-14.6); White Blood Cell Count 9.56 k/cumm (4.4-10.8)
[2020-03-15 10:27] LABS: Anion Gap 8.7 mmol/L (3-11); BUN 11 mg/dL (7-18); CO2 29.3 mmol/L (21.0-32.0); CREATININE 0.74 mg/dL (0.55-1.02); Calcium 9.4 mg/dL (8.5-10.1); Chloride 99 mmol/L (98-107); Glucose 120 mg/dL (74-106); Potassium 3.9 mmol/L (3.5-5.1); Sodium 137 mmol/L (136-145)
== END 2020-03-15 02:31 ==
PROVIDERS: PCP Nurse Practitioner; Visit Provider Student in an Organized Health Care Education/Training Program
DX: Z01.818 Encounter for other preprocedural examination (principal); M17.12 Unilateral primary osteoarthritis, left knee
CPT/HCPCS: 36415; 80048; 85027

== ENCOUNTER → 2020-03-17 07:48 | Outpatient (BNVA) | payer MEDICARE, OTHER, SELFPAY | PROVIDERS: PCP Nurse Practitioner; Referring Provider Nurse Practitioner; Visit Provider Student in an Organized Health Care Education/Training Program | DX: R69 Illness, unspecified (principal) ==

== ENCOUNTER 2020-03-17 08:57 | Inpatient (IN) | payer MEDICARE, OTHER, SELFPAY ==
[2020-03-17] VITALS (16 sets, daily range): BP systolic 59–147; BP diastolic 26–99; PULSE 50–79; RESP 12–18; TEMP 35.7–36.7; O2SAT 93–100
[2020-03-17] MEDS: Gabapentin 300 MG CAP PO ×2 (09:35→21:33)
[2020-03-17] MEDS: Acetaminophen 500 MG TAB 1000 MG PO (09:35)
[2020-03-17] MEDS: Celecoxib 200 MG CAP 400 MG PO (09:35)
[2020-03-17] MEDS: Lactated Ringers 1,000 ML 80 ML IV ×2 (09:42→14:58)
[2020-03-17] MEDS: Bupivacaine 0.25% Pres-Free 30 ML VIAL ×2 (10:15→13:17)
[2020-03-17] MEDS: ceFAZolin 2 GM/50 ML BAG IVPB (11:58)
[2020-03-17] MEDS: methylPREDNISolone ACETATE 80 MG/ML VIAL (12:23)
[2020-03-17] MEDS: Bupivacaine 0.5% Pres-Free 30 ML VIAL (12:23)
[2020-03-17] MEDS: Ketorolac 30 MG/ML VIAL (13:17)
[2020-03-17] MEDS: Normal Saline 20 ML VIAL (13:17)
--- NOTE | 2020-03-17 16:00 | PT.INIE ---
Date of service: 03/17/20 Time of Service: 16:00 PT Notes Visit Reasons: L KNEE DJD Physical Therapy Inpatient Initial Evaluation Date: 03/15/2020 Referring Doctor: Slava Smith MD PT Orders: PT CONSULT: Status post Ortho surgery Precautions: Fall. Standard. WBAT on left LE. Patient Profile/Admitting Diagnosis: Irene is a 74-year-old female with degenerative joint disease of the left knee status post left total knee arthroplasty on postoperative day 0. PMHX: Medical History Abnormal CT scan, bladder (Acute 05/08/17) Chronic sinusitis (Chronic) Has been followed by Dr. Shmuel Willingham. Conductive hearing loss (Chronic) Conductive hearing loss, external ear (Resolved 06/07/17) Cyst (Acute) pt. reports 06/13, removed below L breast Degenerative joint disease of left hip (Resolved) PARKER (dyspnea on exertion) (Acute) Elevated fasting glucose Elevated lipids (Chronic) Has been on a statin but this caused muscle aches so the medication was stopped. GERD (gastroesophageal reflux disease) (Chronic) Hypertension (Chronic) Long standing hypertension which has been treated with low dose Hydrochlorothiazide. IBS (irritable bowel syndrome) (Acute 07/09/17) Ishan Norman DO Impacted cerumen (Resolved 05/01/14) Impacted cerumen of both ears (Resolved) OA (osteoarthritis) of hip (Resolved 05/13/14) Total hip replacement 05/13/4014 by Allen Huang M.D. Obesity (Chronic) Osteopenia (Acute 07/11/16) DEXA 07/11/16 L forearm T -0.7 NL spine, hip Pre-diabetes (Acute 01/09/18) Primary osteoarthritis of left knee (Resolved) Pulmonary nodule seen on imaging study (Acute 03/28/17) yearly CT non contrast, next due 08/2020 Dr. Petersen Sensorineural hearing loss, unilateral (Acute 06/07/17) Trochanteric bursitis of left hip (Chronic) Trochanteric bursitis, right hip (Acute) Tubular adenoma (Acute 04/10/16) Surgical History Colonoscopy - IV Sedation (04/10/16) Dr Prieto History of arthroplasty of right knee (Acute ~02/2012) History of total right hip arthroplasty (Acute ~05/13/14) S/P total hip arthroplasty (Resolved 05/13/14) Status post cataract extraction and insertion of intraocular lens of left eye (Resolved 06/14/18) Status post cataract extraction and insertion of intraocular lens of right eye (Resolved 05/31/18) Vaginal hysterectomy Social History/Home Situation: Irene lives with her cat [place] private home with a ramp to enter. She has friends and family who live close to her who have been very supportive. Her neighbor helps her with her laundry and picks up groceries for her as needed. She receives Meals on Wheels. Equipment Owned/DME: Front wheeled walker, SPC Subjective: Patient reports 8/10 pain in the left knee aggravated with weight bearing. She reported being nauseated right after a short walk from bedside to her bedside recliner necessitating her to sit down. She denies headache and chest pain throughout session. Objective: General Observation: Obese. IV in R UE. R TEDS on. Ae wraps to L LE. Cryocuff to L knee. Mental Status: Alert and oriented x4 Pain: 8/10 in the L knee at rest Vital Signs: BP went down to the 90s systolically and the 60 diastolically right after short ambulation from bedside to bedside recliner ROM: Right Upper Extremity: Shoulder Flexion WFL. Shoulder abduction WFL. Elbow flexion WFL. Wrist flexion WFL. Opening and closing of hand WFL. Left Upper Extremity: Shoulder Flexion WFL. Shoulder abduction WFL. Elbow flexion WFL. Wrist flexion WFL. Opening and closing of hand WFL. Right Lower Extremity: Hip flexion WFL. Hip abduction WFL. Knee flexion WFL. Ankle dorsiflexion WFL. Ankle plantarflexion WFL. Left Lower Extremity: Hip flexion unable to bring hip to beyond 90 in the seated position due to pain. Hip abduction is limited to about 10 degrees due to pain. Knee flexion allows only up to 80 degrees due to pain. Ankle dorsiflexion WFL. Ankle plantarflexion WFL. Strength: Right Upper Extremity: Shoulder flexors 5/5. Shoulder abductors 5/5. Elbow flexors 5/5. Elbow extensors 5/5. Scientist Immunology strong. Left Upper Extremity: Shoulder flexors 5/5. Shoulder abductors 5/5. Elbow flexors 5/5. Elbow extensors 5/5. Scientist Immunology strong. Right Lower Extremity: Hip flexors 5/5. Hip abductors 5/5. Knee flexors 5/5. Knee extensors 5/5. Ankle dorsiflexors 5/5. Ankle plantarflexors 5/5. Left Lower Extremity:Hip flexors 3-/5. Hip abductors 53-5. Knee flexors 3-/5. Knee extensors 3-/5. Ankle dorsiflexors 3/5. Ankle plantarflexors 3/5. Sensation: Intact as to pain and pressure on bilateral lower extremities. Bed Mobility/Transfers: Supine to sit moderate assist of 2 Sit to stand minimal assist of 2 Stand to sit minimal assist of 2 Bed to chair minimal assist of 2 Gait: 6 feet +2 sidesteps +3 step stepbacks using front wheel walker with minimal assist of PT and standby assist of a nurse Rajat. Reported significant pain in the left knee that caused her to become nauseated and to sit down. Balance: Static Sitting: Normal Dynamic Sitting: Normal Static Standing: Fair Dynamic Standing: Fair Special Tests: Mobility Limitations Standardized Measure [facility] AM-PAC 6 clicks Basic Mobility Inpatient Short Form: Raw Score: 12 CMS Score: 69% deficit Informed Consent/Education: Patient instructed in purpose of PT consult and plan of care. Assessment: Irene demonstrate dates functional mobility decline requiring use of wheeled walker for all mobility ADL performance, pain complaint in the left knee, decreased activity tolerance, difficulty with walking, and generalized weakness due to postoperative status. Irene is a 74-year-old female with degenerative joint disease of the left knee status post left total knee arthroplasty on postoperative day 0. Patient presents with clinical signs and symptoms consistent with current/admitting diagnoses that have resulted to mobility limitations, gait instability, generalized weakness, and impairment of motor control as demonstrated by the following impairment level findings: 1. Decreased strength to left knee major muscle groups 2. Impaired standing balance 3. Impaired activity tolerance 4. Limitation of joint range of motion in left knee Impairments are contributing to the following functional limitations: 1. Dependent bed mobility skills 2. Increased dependence with transfers 3. Inability to safely ambulate without assistive device and physical assistance 4. Increase completion time for mobility ADL performance 5. Increased fall risk 6. Inability to negotiate steps alone safely Patient is assessed as a 58593 moderate complexity based on the following: History: 74-year-old female with impairment level findings, functional limitations, and past medical history as indicated above Examination: Demonstrable impairment in strength, balance, and mobility level with underlying impairments and functional limitations as documented above Presentation:Evolving Decision Makin moderate complexity Goals: Goals X 3 days 1. Supine-Sit independent 2. Sit-Supine independent 3. Sit-Stand independent 4. Stand-Sit independent 5. Bed-Chair independent 6. Chair-Bed independent 7. Independent gait on level surface with use of least restrictive device for at least 300 feet without report of pain nor dyspnea 8. Independent with home exercise program 9. Good static and dynamic standing balance/tolerance Plan of Care/Treatment Plan: 1-2x/day, 7 days/week x 1 week. Plan of care has been reviewed with the DIRECTOR COMPENSATION providing the service under Physical Therapy direction. Initiate Physical Therapy intervention for strengthening, bed mobility, transfers, gait, stairs, balance training, use of assistive device. PT intervention: Session today consisted of initial physical therapy evaluation as well as education training on mobility ADL performance using a front wheeled walker. DISCHARGE RECOMMENDATIONS: SNF vs. HH PT. To be determined once pain level is much more controlled. No equipment needs at this time. TREATMENT CODE/TIME: 89606 x 25 minutes, 54017 x 15 minutes beginning at 16:00 PM. Thank you for the opportunity to participate in the care of this patient. Susan Arroyo PT, DPT, CLT [facility] [place], [place]
[2020-03-17] MEDS: oxyCODONE 5 MG TAB PO (16:11)
--- NOTE | 2020-03-17 17:55 | W.PM.OP ---
Date of service: 03/17/20 Time of Service: 13:52 Operative Note Operative Note DATE OF PROCEDURE: 03/17/20 PRE-OP DIAGNOSIS: Left Knee Osteoarthritis POST-OP DIAGNOSIS: same PROCEDURE: Left Total Knee Replacement SURGEON: Slava Smith SEO SPECIALIST: Anuradha Bacon ANESTHESIA: regional and spinal ESTIMATED BLOOD LOSS: 400 PATHOLOGY: none sent TOURNIQUET TIME: 33 COMPLICATIONS: None Patient was transported to: PACU Patient's condition: stable Implants: 1. Depuy Attune Cruciate Retaining Femoral Component, Size 5 2. Depuy Attune Rotating Platform Tibial Component, Size 4 3. Depuy Attune 5x7mm CR,RP Poly 4. Depuy Attune Patellar Component, Size 35mm Indications: I have seen Irene in clinic for symptoms of knee arthritis, confirmed with radiographic findings. Irene has exhausted nonoperative methods and was having significant limitations in daily function and desired better function and less pain. I discussed the technical details of a knee replacement. I explained the risks of the procedure to include, but not limited to, bleeding, infection, pain, stiffness, fracture, damage to nerves and vessels, damage to muscles and tendons, loosening, need for repeat procedure, blood clot and cardiopulmonary demise. Despite these risks, Irene elected to proceed. Findings: There was significant signs of arthritis throughout the knee. Procedure Description: Irene was greeted in the preoperative holding area where the correct side was identified and marked. The consent was reviewed with the patient and signed. The history and physical was updated. All questions were answered. Preoperative mediacations were administered: Acetaminophen 1000mg, Celebrex 400mg, and Gabapentin 300mg. An adductor canal block was then administered by the anesthesia team in the PACU. Irene was taken back to the operating room. A spinal anesthestic was then administered. The patient was placed into the supine position on the operating room table. A nonsterile tourniquet was placed high onto the leg but only used for cementing. Posts were placed for positioning during the procedure. All bony prominences were well padded. Prophylactic antibiotics in the form of Cefazolin were administered. 1g of Tranxemic Acid was given intravenously within 30 minutes of incision. The left leg was then prepped with Chloraprep and draped in a standard fashion with impervious stockinette and extremity drape. A second prep with Chloraprep was performed prior to placing Ioband. A timeout to confirm correct identity, side and site, procedure, allergies, anesthesia, and medical concerns was performed. With the knee in some flexion, a midline incision was made overlying the knee. Full thickness skin flaps were raised once the extensor mechanism was encountered. These were raised medially and laterally. Any bleeding was controlled with electrocautery. Once the extensor mechanism was fully exposed, a medial parapatellar arthrotomy was performed in a flexed position. All bleeding from the arthrotomy and the geniculate arteries was coagulated. A medial subperiosteal peel was performed with electrocautery to the midcoronal plane. The fat pad was removed while keeping the patellar tendon protected. The anterior distal femur synovium was removed for later visualization. The ACL and PCL were resected and the anterior horn of the lateral meniscus was transected. The knee was then flexed with the patella everted. Using a step drill, and based on preoperative templating, the femoral canal was entered. This was done with a step drill without any difficulty. The intramedullary distal femoral cut guide was inserted, set to a 5 degree valgus cut and 9mm cut thickness. There was some hypoplasia of the lateral femoral condyle and any remnant cartilage of the medial femoral condyle was removed for appropriate thickness. The distal femoral cut guide was then held in position and pinned. With the soft tissues protected, the distal cut was performed. This was passed over a few times to ensure a planar cut. I then turned attention to the tibia. The extramedullary guide was placed onto the leg. The distal aspect was slid medial to adjust for position of center of ankle and stay in line with shaft of the tibia. Approximately 3-5 degrees of posterior slope was kept in the proximal cutting guide. The center of the guide was aligned with the PCL. The stylus was used to assess cut thickness. The medial side, most involved side, was set for a 5mm cut, corresponding to 8mm laterally. This was then held in position and pinned into place with 2 additional pins and a cross pin for stability. The medial and lateral collateral ligaments were protected and the cut was performed. With this completed, it was assessed and noted to be of appropriate dimensions. The guide was removed. A spacer block was inserted and the knee was brought into extension. The 7mm spacer block provided full extension, without hyperextension and with stability of both the medial and lateral collateral ligaments was assessed. The pins from the femur and the tibia were then removed. The distal femur was then sized. The anterior stylus was placed onto the lateral ridge of the anterior femur. This indicated a size 5 femur. The external rotation of the guide was adjusted to 3 degrees to match the epicondylar axis, perpendicular to [place]?s line. The 4-in-1 cutting guide was the placed. The posterior medial femur cut was evaluated and appeared of good thickness. The spacer block was inserted underneath the cutting guide and stability was confirmed in 90 degrees of flexion. An mark wing was used to confirm appropriate position of the anterior cut to avoid notching. This cutting guide was ensured to be flush on the cut surface and then pinned into place with headed pins. While protecting the soft tissues, quad tendon, and collateral ligaments, the anterior and posterior cuts were performed with a saw. The central two pins were removed and the posterior and anterior chamfers were cut next. The notch-cutting guide was placed. This was pinned to lateralize the femoral component as much as possible while keeping it flush on the cut surface. This was then pinned into position. A reciprocating saw was used to make the small notch cut. A trial CR femoral component was then inserted, impacted down to the cut surfaces, and the lug holes were drilled. A provisional trial tibial component was placed and the knee was brought through range of motion. There was noted to be excellent extension and flexion. There was no significant instability. The patella was tracking without thumbs. The tibial cut surface was fully exposed. The medial and lateral menisci were removed. The tibia was then sized as a 4. The tibia had been previously marked during trialing to correspond to the center of the tibial component to help with rotation. The trial was aligned to this juliet, approximately rotated to the medial 1/3rd of the tibial tubercle. The trial was pinned into place. The tibia was prepared with a reamer and a keel punch. The knee was then brought into extension and the patella was measured as 25mm. Using the patellar clamp and cut guide, this was resected to a flat surface with at least 13mm of thickness remaining. The size 35 patella fit the best. This was oriented and then clamped into position. The lugs were drilled. The trial components were removed. The final components, except for the polyethylene were opened on the back table. The periosteal and capsular tissues, especially posteriorly, around the knee were then systematically injected with a periarticular cocktail consisting of 50cc 0.25% Marcaine, 30mg Ketorolac, 20cc of Exparal and 50cc of injectable saline. The tourniquet was then inflated to 275mmHg. The knee was thoroughly irrigated with a pulse lavage and dried. On the back table, with the implants opened, the cement was mixed. 2 batches of antibiotic laden cement were prepared with vacuum assistance. After the cement was ready it was placed on to the back side of the tibial component. A small amount was placed onto the posterior flange of the femur. Cement was manual pressurized and impregnated into the cut surface of the tibia. The tibial component was then inserted into the cut surface and impacted into position. Excess cement was removed and the component was reimpacted. Again, excess cement was removed and our attention was then turned to the femur. The femoral cut surface was once again dried and cement was manually impacted into the cut surface. The femoral component was lined with the lug holes and impacted. Excess cement was removed. It was ensured to be down against the cut surface. The trial polyethylene was then inserted and the leg was brought out into full extension for the duration of the cement curing process, approximately 15min. Cement was lastly manually impacted into the cut surface of the patella and the patellar button was clamped into position and held. During this process attention was turned to the gutters of the knee and for all interfaces for any excess cement. While the cement was hardening, the knee was irrigated with Irrisept chlorhexadine solution. It was allowed to sit in the knee for 3 minutes. After the cement had finally cured, approximately 15min, the clamp was removed from the patella and the knee was taken through range of motion. A size 7mm polyethylene component provided the best range of motion and stability with less than 2mm gapping with medial and lateral stress and full extension without significant hyperextension. The patella was tracking with a no-thumbs technique. The trial poly was removed and once again the knee was checked for any loose, excess, or errant cement. The poly component was then inserted into position after cleaning and drying the tibial tray. The capsule was then reapproximated with a No. 1 Vicryl at multiple locations. The capsule was finally closed with a No. 2 Stratafix, barbed suture. The tourniquet was then released and the arthrotomy appeared watertight without significant bleeding. The second dosing of 1g TXA was started. Deep tissues were then reapproximated with 0 Vicryl and 2-0 Vicryl. The skin was closed with a running 3-0 Monocryl in a subcuticular fashion. This was reinforced with skin glue. A Mepilex silver dressing was applied along with a [id number] HUBER wrap. A CryoCuff was applied. Irene was transferred to the hospital bed without difficulty an suffering no apparent complication. Irene has a good prognosis. Physical therapy will start today and without restrictions, weight-bearing as tolerated. Aspirin 81mg BID will be used for DVT prophylaxis.
[2020-03-17] MEDS: Aspirin E.C. 325 MG TABEC PO (20:19)
[2020-03-17] MEDS: Celecoxib 100 MG CAP PO (20:19)
[2020-03-17] MEDS: ceFAZolin 1 GM/50 ML BAG IVPB (20:20)
[2020-03-18] MEDS: oxyCODONE 5 MG TAB PO ×3 (01:42→10:02)
[2020-03-18] MEDS: Lactated Ringers 1,000 ML 80 ML IV (01:42)
[2020-03-18] MEDS: Normal Saline Flush 10 ML SYR IV ×2 (01:43→11:27)
[2020-03-18] MEDS: Docusate Sodium 100 MG CAP PO (01:46)
[2020-03-18 03:29] VITALS: BP 131/74; PULSE 80; RESP 18; TEMP 36.8; O2SAT 95
[2020-03-18] MEDS: ceFAZolin 1 GM/50 ML BAG IVPB ×2 (04:30→11:25)
[2020-03-18 08:02] VITALS: BP 129/72; PULSE 73; RESP 17; TEMP 36.6; O2SAT 95
[2020-03-18] MEDS: Aspirin E.C. 325 MG TABEC PO (08:37)
[2020-03-18] MEDS: Metoprolol CR 50 MG TABCR PO (08:37)
[2020-03-18] MEDS: Ezetimibe 10 MG TAB PO (08:37)
[2020-03-18] MEDS: Celecoxib 100 MG CAP PO (08:37)
[2020-03-18] MEDS: hydroCHLOROthiazide 25 MG TAB PO (08:37)
[2020-03-18] MEDS: Multivitamin TAB 1 TAB PO (08:38)
[2020-03-18] MEDS: Losartan 50 MG TAB 100 MG PO (08:38)
[2020-03-18] MEDS: Omeprazole 20 MG CAPCR PO (08:38)
--- NOTE | 2020-03-18 10:44 | DSE_ITS ---
Date of service: 03/18/20 Time of Service: 12:57 DS: Diagnosis Discharge Diagnosis (1) Primary osteoarthritis of left knee: Status: Chronic Discharge Plan Disposition Patient Disposition: HOME Condition: Good Discharge Details Reason For Visit: L KNEE DJD Admit Date/Time: 03/17/20 08:57 Admit Provider: Slava Smith Attending Provider: Slava Smith Primary Care Provider: Shannan De Leon Hospital Course Hospital Course: Patient was admitted to the medical/surgical floor following the procedure. The surgery was tolerated well without any notable medical, surgical, or anesthetic complications. Mobilization began postoperatively. Irene was voiding spontaneously. Vitals were stable. Physical therapy worked with the patient and was cleared for discharge home. No acute medical issues. Pain was controlled on oral regimen. Home Meds and New Rx's Prescriptions: New celecoxib [Celebrex] 200 mg capsule 200 mg PO BID Qty: 60 RF: 0 acetaminophen 500 mg tablet 1,000 mg PO Q8H PRN (Reason: pain) Qty: 60 RF: 2 pantoprazole 40 mg tablet,delayed release (DR/EC) 40 mg PO DAILY Qty: 30 RF: 0 oxycodone 5 mg tablet 5 mg PO Q4H PRN (Reason: severe post-operative pain) Qty: 18 RF: 0 aspirin 81 mg tablet,delayed release (DR/EC) 81 mg PO BID Qty: 60 RF: 0 docusate sodium [Colace] 100 mg capsule 100 mg PO BID Qty: 60 RF: 0 Continued (DME) Left ankle foot orthosis (AFO) Qty: 1 RF: 0 Culturelle 10 billion cell capsule 1 cap PO .every other day RF: 0 omeprazole 20 mg capsule,delayed release(DR/EC) 20 mg PO DAILY Qty: 30 RF: 2 metoprolol succinate 50 mg tablet extended release 24 hr 50 mg PO DAILY Qty: 30 RF: 3 hydrochlorothiazide 50 mg tablet 25 mg PO DAILY RF: 0 multivitamin 1 EACH tablet 1 ea PO DAILY RF: 0 albuterol sulfate [ProAir HFA] 90 mcg/actuation HFA aerosol inhaler 2 puff IH Q6H PRNRF: 0 losartan 100 mg tablet 100 mg PO DAILY Qty: 90 RF: 3 nitrofurantoin monohyd/m-cryst [Macrobid] 100 mg capsule 100 mg PO BID Qty: 10 RF: 0 ezetimibe [Zetia] 10 mg tablet 10 mg PO DAILY Qty: 90 RF: 1 Discontinued aspirin [Ecotrin Low Strength] 81 MG tablet,delayed release (DR/EC) 81 mg PO DAILY RF: 0 Varicella-Zoster Ge/As01b/Pf [Shingrix Vial Kit] 50 MCG INJ 50 mcg IM ONCE Qty: 1 RF: 1 acetaminophen [Tylenol Extra Strength] 500 mg tablet 1,000 mg PO PRN RF: 0 Discharge Instructions Additional Instructions: Total Knee Discharge Instructions Activity: The most important activity is to walk. You should try to take short walks a few times a day. It is important that when resting you work on keeping the knee straight. Avoid putting a pillow behind the knee as this will encourage flexion. Work on range of motion exercises as provided by Physical Therapy. - Start outpatient physical therapy within 2 weeks. - You should wear the JOSE hose on both legs for 2 weeks. Dressing: Keep the surgical dressing in place for at least one week. After the first week it may be removed and replace with light gauze and tape or nothing. It may get wet after 3 days but avoid soaking the dressing. If it gets wet, just lightly pat dry. Medications: - You should take Tylenol and anti-inflammatory Celebrex as your primary pain control medications - You have been prescribed a stronger pain medication Oxycodone for breakthrough pain, take as needed as prescribed. - You have also been prescribed a stomach acid reduction agent Pantoprozole to help reduce stomach acid and reflux. - You will be taking Aspirin 81mg twice a day for DVT prevention unless instructed otherwise. - If you have constipation you should take Colace, which has been prescribed, or Miralax ([id number]). It takes most people 3-4 days to have a bowel movement. Follow-up: 2 weeks Referrals: [facility] [Provider Group] Slava Smith MD [ [facility] STAFF PHYSICIAN] - Activity:: Activity as Tolerated Equipment/Supplies:: No Equipment Needed Diet:: As Tolerated Discharge Orders Discharge Orders: Discharge Order (Routine); Ordered 03/18/20 Ordered By: Slava Smith DS: Summary Status at Discharge Functional status at discharge: uses cane/walker Overall status at discharge: patient is progressing back to baseline Mental Status: mental status grossly normal Speech and Movement: speech and movement normal Mood: congruent mood Affect: normal affect Exam Psych Mental Status: mental status grossly normal Speech and Movement: speech and movement normal Mood: congruent mood Affect: normal affect DS: Data Vitals/I&O Vitals and I&O: Vital Signs Temperature 36.6 C 03/18/20 08:02 Temperature Source Tympanic 03/18/20 08:02 Pulse 73 03/18/20 08:02 Pulse Rhythm Regular 03/18/20 08:45 Respiratory Rate 17 03/18/20 08:02 Respiratory Effort Non-Labored 03/18/20 08:45 Respiratory Depth Normal 03/18/20 08:45 Respiratory Pattern Normal 03/18/20 08:45 Blood Pressure 129/72 03/18/20 08:02 Pulse Oximetry 95 03/18/20 08:02 Respiratory End-tidal CO2 45 03/17/20 15:21 Oxygen Delivery Method Room Air 03/18/20 08:02 Oxygen Flow Rate 0 03/18/20 08:02 Pain Level 6 03/18/20 10:02 Comment 03/17/20 15:45 Intake & Output 03/17/20 03/17/20 03/18/20 11:59 23:59 11:59 Intake Total 1092.667 / 2569.516 9992.667 / 1860.667 Output Total 750 / 750 1300 / 1300 Balance 342.667 / 342.667 560.667 / 560.667 Weight 116.6 kg Intake: IV 852.667 / 852.667 830.667 / 830.667 Oral 240 / 240 1030 / 1030 Output: Urine 350 / 350 1300 / 1300 Estimated Blood Loss 400 / 400 Other: Urine Color Yellow Straw Urine Appearance Clear Clear Urine Odor Normal Normal Emesis Description None Voiding Methods Toilet Bedside Commode [facility] Medical History Abnormal CT scan, bladder (Acute 05/08/17) Chronic sinusitis (Chronic) Has been followed by Dr. Shmuel Willingham. Conductive hearing loss (Chronic) R Conductive hearing loss, external ear (Resolved 06/07/17) Cyst (Acute) pt. reports 06/13, removed below L breast Degenerative joint disease of left hip (Resolved) PARKER (dyspnea on exertion) (Acute) Elevated fasting glucose Elevated lipids (Chronic) Has been on a statin but this caused muscle aches so the medication was stopped. GERD (gastroesophageal reflux disease) (Chronic) Hyperlipidemia (Acute) Hypertension (Chronic) Long standing hypertension which has been treated with low dose Hydrochlorothiazide. IBS (irritable bowel syndrome) (Acute 07/09/17) Ishan Norman DO Impacted cerumen (Resolved 05/01/14) Impacted cerumen of both ears (Resolved) OA (osteoarthritis) of hip (Resolved 05/13/14) Total hip replacement 05/13/4014 by Allen Huang M.D. Obesity (Chronic) Osteopenia (Acute 07/11/16) DEXA 07/11/16 L forearm T -0.7 NL spine, hip Pre-diabetes (Acute 01/09/18) Primary osteoarthritis of left knee (Resolved) Pulmonary nodule seen on imaging study (Acute 03/28/17) yearly CT non contrast, next due 08/2020 Dr. Petersen Sensorineural hearing loss, unilateral (Acute 06/07/17) Trochanteric bursitis of left hip (Chronic) Trochanteric bursitis, right hip (Acute) Tubular adenoma (Acute 04/10/16) Surgical History Colonoscopy - IV Sedation (04/10/16) Dr Prieto History of arthroplasty of left hip (Acute) History of arthroplasty of right knee (Acute ~02/2012) History of total right hip arthroplasty (Acute ~05/13/14) Status post cataract extraction and insertion of intraocular lens of left eye (Resolved 06/14/18) Status post cataract extraction and insertion of intraocular lens of right eye (Resolved 05/31/18) Vaginal hysterectomy Family History Mother Heart disease Hypertension Father Heart disease [place] caused Brother Diabetes Brother Diabetes Sister Diabetes Social History Smoking/Tobacco Use Status: Never Alcohol Intake: current Alcohol Intake frequency: holidays/special occasions only Alcohol type: beer, wine and hard liquor Drug use: Never Substance use type: does not use Adopted: No Caregiver/Support person: No Foster care: No Household members: none Housing: house Number of Children: 0 Communication Needs: None Pets and animals: Yes Sexually active: No Current gender identity: female What is your relationship status?: Panel score (0-1 are the most socially isolated patients): 0 What type of physical activity do you participate in: regular exercise Duration: < 15 minutes/day Frequency: 1-2 times per week Seatbelt use: always Working smoke detector in home: Yes Fire extinguisher in home: Yes Carbon monox detector in home: Yes Do you feel safe at home: Yes Do you feel safe in your relationship?: Yes
[2020-03-18 11:38] VITALS: BP 127/71; PULSE 74; RESP 17; TEMP 36.5; O2SAT 96
--- NOTE | 2020-03-18 15:28 | PT.INTREAT ---
Date of service: 03/18/20 Time of Service: 13:45 PT Notes Visit Reasons: L KNEE DJD Inpatient Physical Therapy Treatment Note [facility] Date: 03/18/2020 SUBJECTIVE: Irene states that she has pain but is able to push through it. She is hoping to go home today. OBJECTIVE: [] BED MOBILITY/TRANSFERS Sit-stand: min A/CGA in am and CGA in pm Stand-sit:CGA GAIT Assistive Device: FWW Weight bearing:WBAT L Assist: CGA Distance: 25' in am and 40' in pm THEREX: LE strength and AROM, see flowsheet for details. ASSESSMENT: did well functionally. No assistance required, she did have pain in knee however able to push through it. She can SLR without ext lag. Demonstrates good quad set. PLAN: d/c home. TREATMENT CODE/TIME: 30 min in am and 30 min in pm. [id number], [id number].
--- NOTE | 2020-03-22 17:53 | PT.INDS ---
Date of service: 03/22/20 PT Notes Visit Reasons: L KNEE DJD Inpatient Physical Therapy Discharge Summary Dates: 03/22/2020 Dates of Service: 03/17/2020 through 03/18/2020 This is a clinical summary of care provided on the duration of dates listed above. No charge was made in the completion of this documentation. Referring Doctor: Slava Smith MD PT Orders: PT CONSULT: Status post Ortho surgery Precautions: Fall. Standard. WBAT on left LE. Patient Profile/Admitting Diagnosis: Irene is a 74-year-old female with degenerative joint disease of the left knee status post left total knee arthroplasty on postoperative day 1 on day of discharge. PMHX: Medical History Abnormal CT scan, bladder (Acute 05/08/17) Chronic sinusitis (Chronic) Has been followed by Dr. Shmuel Willingham. Conductive hearing loss (Chronic) Conductive hearing loss, external ear (Resolved 06/07/17) Cyst (Acute) pt. reports 06/13, removed below L breast Degenerative joint disease of left hip (Resolved) PARKER (dyspnea on exertion) (Acute) Elevated fasting glucose Elevated lipids (Chronic) Has been on a statin but this caused muscle aches so the medication was stopped. GERD (gastroesophageal reflux disease) (Chronic) Hypertension (Chronic) Long standing hypertension which has been treated with low dose Hydrochlorothiazide. IBS (irritable bowel syndrome) (Acute 07/09/17) Ishan Norman, Impacted cerumen (Resolved 05/01/14) Impacted cerumen of both ears (Resolved) OA (osteoarthritis) of hip (Resolved 05/13/14) Total hip replacement 05/13/4014 by Allen Huang M.D. Obesity (Chronic) Osteopenia (Acute 07/11/16) DEXA 07/11/16 L forearm T -0.7 NL spine, hip Pre-diabetes (Acute 01/09/18) Primary osteoarthritis of left knee (Resolved) Pulmonary nodule seen on imaging study (Acute 03/28/17) yearly CT non contrast, next due 08/2020 Dr. Petersen Sensorineural hearing loss, unilateral (Acute 06/07/17) Trochanteric bursitis of left hip (Chronic) Trochanteric bursitis, right hip (Acute) Tubular adenoma (Acute 04/10/16) Surgical History Colonoscopy - IV Sedation (04/10/16) Dr Prieto History of arthroplasty of right knee (Acute ~02/2012) History of total right hip arthroplasty (Acute ~05/13/14) S/P total hip arthroplasty (Resolved 05/13/14) Status post cataract extraction and insertion of intraocular lens of left eye (Resolved 06/14/18) Status post cataract extraction and insertion of intraocular lens of right eye (Resolved 05/31/18) Vaginal hysterectomy Social History/Home Situation: Irene lives with her cat [place] private home with a ramp to enter. She has friends and family who live close to her who have been very supportive. Her neighbor helps her with her laundry and picks up groceries for her as needed. She receives Meals on Wheels. Equipment Owned/DME: Front wheeled walker, SPC Subjective: NT. See most recent CALL MANAGER notes. Objective: General Observation: NT. See most recent CALL MANAGER notes. Mental Status: NT. See most recent CALL MANAGER notes. Pain: NT. See most recent CALL MANAGER notes. ROM: Right Upper Extremity: Shoulder Flexion WFL. Shoulder abduction WFL. Elbow flexion WFL. Wrist flexion WFL. Opening and closing of hand WFL. Left Upper Extremity: Shoulder Flexion WFL. Shoulder abduction WFL. Elbow flexion WFL. Wrist flexion WFL. Opening and closing of hand WFL. Right Lower Extremity: Hip flexion WFL. Hip abduction WFL. Knee flexion WFL. Ankle dorsiflexion WFL. Ankle plantarflexion WFL. Left Lower Extremity: Hip flexion unable to bring hip to beyond 90 in the seated position due to pain. Hip abduction is limited to about 10 degrees due to pain. Knee flexion allows only up to 80 degrees due to pain. Ankle dorsiflexion WFL. Ankle plantarflexion WFL. Strength: Right Upper Extremity: Shoulder flexors 5/5. Shoulder abductors 5/5. Elbow flexors 5/5. Elbow extensors 5/5. Manager Council strong. Left Upper Extremity: Shoulder flexors 5/5. Shoulder abductors 5/5. Elbow flexors 5/5. Elbow extensors 5/5. Manager Council strong. Right Lower Extremity: Hip flexors 5/5. Hip abductors 5/5. Knee flexors 5/5. Knee extensors 5/5. Ankle dorsiflexors 5/5. Ankle plantarflexors 5/5. Left Lower Extremity:Hip flexors 3-/5. Hip abductors 53-5. Knee flexors 3-/5. Knee extensors 3-/5. Ankle dorsiflexors 3/5. Ankle plantarflexors 3/5. Sensation: Intact as to pain and pressure on bilateral lower extremities. Bed Mobility/Transfers: Supine to sit contact-guard assist Sit to stand contact-guard assist Stand to sit contact-guard assist Bed to chair contact-guard assist Gait: 40 feet using front wheeled walker with contact-guard assist step to gait pattern. Balance: Static Sitting: Normal Dynamic Sitting: Normal Static Standing: Fair Dynamic Standing: Fair Assessment: Irene demonstrate dates functional mobility decline requiring use of wheeled walker for all mobility ADL performance, pain complaint in the left knee, decreased activity tolerance, difficulty with walking, and generalized weakness due to postoperative status. Irene is a 74-year-old female with degenerative joint disease of the left knee status post left total knee arthroplasty on postoperative day 1 day of discharge. Patient continues to present with clinical signs and symptoms consistent with current/admitting diagnoses that have resulted to mobility limitations, gait instability, generalized weakness, and impairment of motor control as demonstrated by the following impairment level findings: 1. Decreased strength to left knee major muscle groups 2. Impaired standing balance 3. Impaired activity tolerance 4. Limitation of joint range of motion in left knee Impairments are continuing to contribute to the following functional limitations: 1. Dependent bed mobility skills 2. Increased dependence with transfers 3. Inability to safely ambulate without assistive device and physical assistance 4. Increase completion time for mobility ADL performance 5. Increased fall risk 6. Inability to negotiate steps alone safely Goals: Goals X 3 days 1. Supine-Sit independent MET 2. Sit-Supine independent MET 3. Sit-Stand independent NOT MET 4. Stand-Sit independent NOT MET 5. Bed-Chair independent NOT MET 6. Chair-Bed independent NOT MET 7. Independent gait on level surface with use of least restrictive device for at least 300 feet without report of pain nor dyspnea NOT MET 8. Independent with home exercise program NOT MET 9. Good static and dynamic standing balance/tolerance NOT MET DISCHARGE RECOMMENDATIONS: SNF vs. PT. To be determined once pain level is much more controlled. No equipment needs at this time. TREATMENT CODE/TIME:NC. Thank you for the opportunity to participate in the care of this patient. Susan Arroyo PT, DPT, CLT [facility] [place], [place]
== END 2020-03-18 14:34 | disposition home or self-care (01) | DRG 470 ==
LOC: PDS 10:16 → MS 14:35
PROVIDERS: Admitting Provider Student in an Organized Health Care Education/Training Program; PCP Nurse Practitioner; Visit Provider Student in an Organized Health Care Education/Training Program
PROC: 0SRD0J9 Replacement of Left Knee Joint with Synthetic Substitute, Cemented, Open Approach (ICD-10-PCS; CPT 27447; principal; 2020-03-17 11:00)
PROC: 0SRD0J9 Replacement of Left Knee Joint with Synthetic Substitute, Cemented, Open Approach (ICD-10-PCS; CPT 27447; 2020-03-17 11:00)
DX: M17.12 Unilateral primary osteoarthritis, left knee (principal); M25.562 Pain in left knee; Z96.652 Presence of left artificial knee joint; G89.18 Other acute postprocedural pain; I10 Essential (primary) hypertension; R73.03 Prediabetes; E78.5 Hyperlipidemia, unspecified; E66.9 Obesity, unspecified; K21.9 Gastro-esophageal reflux disease without esophagitis
CPT/HCPCS: 27447; 76942; 97110; 97162; 97530; NC; J0690; J1040; J1885; J2001; J2405; J2704

== ENCOUNTER 2020-04-01 11:35 | Outpatient (CLI) | payer MEDICARE, OTHER, SELFPAY ==
--- NOTE | 2020-04-01 11:41 | DI.RAD_ITS ---
EXAM: XR STANDING ALIGNMENT CLINICAL HISTORY: 1st post op TECHNIQUE: COMPARISON: CR XR STANDING ALIGNMENT from 02/12/2020 CR XR KNEE LT 1V from 04/01/2020 FINDINGS: Standing alignment views and lateral view of the left knee were obtained. There are bilateral total hip joint replacements in position. There are bilateral total knee joint replacements in position. No other significant bony abnormality seen. IMPRESSION:
== END 2020-04-01 11:55 ==
PROVIDERS: PCP Nurse Practitioner; Referring Provider Nurse Practitioner; Visit Provider Student in an Organized Health Care Education/Training Program
DX: Z96.643 Presence of artificial hip joint, bilateral (principal); Z96.653 Presence of artificial knee joint, bilateral; Z47.1 Aftercare following joint replacement surgery
CPT/HCPCS: 73560; 77073

== ENCOUNTER 2020-04-21 14:06 | Outpatient (REF) | payer MEDICARE, OTHER, SELFPAY | END 2020-04-21 14:26 | LOC: LBN 14:06 | PROVIDERS: PCP Nurse Practitioner; Visit Provider Nurse Practitioner Adult Health | DX: R30.0 Dysuria (principal) | CPT/HCPCS: 87086 ==

== ENCOUNTER → 2020-04-29 09:50 | Outpatient (BNVA) | payer MEDICARE, OTHER, SELFPAY | PROVIDERS: PCP Nurse Practitioner; Visit Provider Student in an Organized Health Care Education/Training Program | DX: Z96.652 Presence of left artificial knee joint (principal); Z47.1 Aftercare following joint replacement surgery ==

== ENCOUNTER 2020-05-05 14:57 | Outpatient (REF) | payer MEDICARE, OTHER, SELFPAY ==
[2020-05-05 19:44] LABS: Bilirubin Negative (Negative); Blood Negative (Negative); Clarity Clear (Clear); Glucose Negative (Negative); Ketones Negative (Negative); Leukocyte Esterase Trace (Negative); Nitrite Negative (Negative); Specific Gravity 1.015 (1.005-1.025); Urobilinogen 0.2 EU/dL (Up TO 0.2); pH 7.5 (5-8)
[2020-05-05 20:00] LABS: Epithelial Cells Moderate HPF (Negative); Other Cells Few Renal (Negative); RBC 0-2 HPF (0-2)
[2020-05-05 20:01] LABS: Bacteria Few HPF (Negative); C & S Indicated? No/Sq. Contamination; Crystals Negative HPF (Negative); Mucus Negative (Negative)
== END 2020-05-05 15:17 ==
LOC: LBN 14:57
PROVIDERS: PCP Nurse Practitioner; Visit Provider Nurse Practitioner Adult Health
DX: R31.29 Other microscopic hematuria (principal)
CPT/HCPCS: 81003; 81015

== ENCOUNTER → 2020-06-10 09:01 | Outpatient (BNVA) | payer MEDICARE, OTHER, SELFPAY | PROVIDERS: PCP Nurse Practitioner; Referring Provider Nurse Practitioner; Visit Provider Student in an Organized Health Care Education/Training Program | DX: Z96.652 Presence of left artificial knee joint (principal); Z47.1 Aftercare following joint replacement surgery ==

== ENCOUNTER 2020-09-03 04:06 | Outpatient (CLI) | payer MEDICARE, OTHER, SELFPAY ==
--- NOTE | 2020-09-03 08:15 | DI.MAMMO_ITS ---
EXAM: MG MAMMO SCREENING CLINICAL HISTORY: screening,Z12.39. TECHNIQUE: Bilateral full field digital CC and MLO mammographic images were obtained with 3D tomosyn thesis and utilizing computer aided detection (CAD). COMPARISON: Prior mammograms dating back to 2010, the most recent being July 2019. Her mother w as diagnosed with breast cancer at age 80 FINDINGS: There are no spiculated masses nor malignant appearing microcalcification groups. Scattered benign ap pearing microcalcifications are again noted in both breast. There is no significant architectural di stortion nor skin thickening-retraction. Asymmetric density laterally in the right breast is unchanged from prior studies. IMPRESSION: No radiographic evidence of malignancy. BI-RADS Category 1 - Negative Breast Density - Category B - Scattered areas of fibroglandular density Breast density Category C or D implies that the patient has dense breast tissue. Dense breast tissue can make it harder to find cancer on a mammogram. Dense breast tissue is also associated with an incr eased risk of breast cancer. This information about the result of the mammogram report was provided to the patient to raise their awareness. Use this report when you speak with the patient about their risks for breast cancer, which includes their family history. At that time, you may recommend additional screening tests (Ultrasoun d or MRI) as these tests may add significant information. A negative radiographic report should not delay biopsy if a dominant or clinically suspicious mass is present. Up to ten percent of cancers are not identified on mammography. A negative report may reinforce clinical impression. Adenosis and dense breasts may obscure an underlying neoplasm. False positive reports average 6 to 10%. Patient will receive a letter notifying them of these results.
--- NOTE | 2020-09-03 14:25 | DI.CT_ITS ---
EXAM: CT CHEST WO CLINICAL HISTORY: F/U PULMONARY NODULE,R91.1. TECHNIQUE: Imaging protocol: Axial computed tomography images were obtained and coronal and sagittal reformatted images were created and reviewed. COMPARISON: CT CT CHEST WO from 08/28/2019 FINDINGS: Tracheobronchial tree: Patent where visualized. Mediastinum and Ada: No dominant adenopathy or fluid collection. Pulmonary parenchyma: No consolidation or dominant measurable mass. Mild centrilobular emphysema. Th ere is a stable right upper lobe 7 mm pulmonary nodule. There is scarring in the left lung base medi ally with traction bronchiectasis. The rounded ground-glass opacity in the right lower lobe appears stable. No new pulmonary nodules are seen. Pleura: No effusion or pneumothorax. Heart: The heart is not dilated. Mild coronary artery calcification. No pericardial effusion. Aorta: Thoracic aorta non-dilated. Atherosclerosis. Upper abdomen: Fatty infiltration of the liver. Lymph nodes: Within normal limits. Bones:Degenerative changes. Left convex scoliosis of the thoracic spine. Soft tissues: Unremarkable. IMPRESSION: Stable appearance of the lungs. Stable pulmonary nodules. Lung RADS Cat 2 - Benign Appearance / Behavior: Nodules with a very low likelihood of becoming a clin ically active cancer due to size or lack of growth RADIATION DOSE DELIVERED: 726mGy.cm Total DLP 726mGy.cm Total DLP DATA REPOSITORY: All CT scans at this facility are submitted to the National Radiology Data Registry (NRDR) Dose Index Registry (DIR) with the [employer] (ACR). RADIATION OPTIMIZATION: All CT scans at this facility use at least one of these dose optimization te chniques: automated exposure control; mA and/or kV adjustment per patient size (includes targeted exa ms where dose is matched to clinical indication); or iterative reconstruction.
== END 2020-09-03 04:26 ==
PROVIDERS: PCP Nurse Practitioner; Visit Provider Nurse Practitioner
DX: R91.8 Other nonspecific abnormal finding of lung field (principal); Z12.31 Encounter for screening mammogram for malignant neoplasm of breast
CPT/HCPCS: 71250; 77063; 77067

== ENCOUNTER 2020-09-23 11:47 | Outpatient (CLI) | payer MEDICARE, OTHER, SELFPAY ==
--- NOTE | 2020-09-23 11:30 | DI.RAD_ITS ---
EXAM: XR KNEE LT 3V AP,LAT,TEREZA CLINICAL HISTORY: pain s/p TKA. TECHNIQUE: 2D digital imaging was performed. COMPARISON: CR XR STANDING ALIGNMENT from 04/01/2020 CR XR KNEE LT 1V from 04/01/2020 FINDINGS: Is stable alignment of the components of the knee prosthesis. No fracture. However, there is a line ar lucency parallel to the tibial plateau surface subjacent to the lateral component. This is more e vident than previous. May represent an element of loosening. IMPRESSION: DATA REPOSITORY: RADIATION DOSE DELIVERED:
== END 2020-09-23 12:07 ==
PROVIDERS: PCP Nurse Practitioner; Referring Provider Nurse Practitioner; Visit Provider Student in an Organized Health Care Education/Training Program
DX: M25.562 Pain in left knee (principal); Z96.652 Presence of left artificial knee joint
CPT/HCPCS: 73562

== ENCOUNTER 2020-11-04 10:22 | Outpatient (CLI) | payer MEDICARE, OTHER, SELFPAY ==
--- NOTE | 2020-11-04 10:27 | DI.RAD_ITS ---
EXAM: XR KNEE LT 3V AP,LAT,TEREZA CLINICAL HISTORY: left knee pain s/p replacement. TECHNIQUE: 2D digital imaging was performed. COMPARISON: CR XR KNEE LT 3V AP,LAT,TEREZA from 09/23/2020 FINDINGS: BONES: There are stable post operative changes present. No fracture or dislocation. JOINTS: The joint spaces are well maintained. No joint effusion is present. SOFT TISSUE: Normal. IMPRESSION: Stable postoperative changes. DATA REPOSITORY: RADIATION DOSE DELIVERED:
== END 2020-11-04 10:23 | disposition home or self-care (01) ==
LOC: DIORS 10:22
PROVIDERS: PCP Nurse Practitioner; Referring Provider Nurse Practitioner; Visit Provider Student in an Organized Health Care Education/Training Program
DX: M25.562 Pain in left knee (principal); Z96.652 Presence of left artificial knee joint; M76.30 Iliotibial band syndrome, unspecified leg; M70.50 Other bursitis of knee, unspecified knee; M70.61 Trochanteric bursitis, right hip
CPT/HCPCS: 73562; 99213

== ENCOUNTER 2020-11-29 04:33 | Outpatient (CLI) | payer MEDICARE, OTHER, SELFPAY ==
[2020-11-29 09:29] LABS: Hemoglobin A1C 6.5 % (<5.7)
[2020-11-29 10:01] LABS: BUN 16 mg/dL (7-18); CREATININE 0.7 mg/dL (0.55-1.02); Calcium 9.1 mg/dL (8.5-10.1); Cholesterol 184 mg/dL (<200); Glucose 89 mg/dL (74-106); HDL Cholesterol 41 mg/dL (40-60); Triglyceride 223 mg/dL (<150)
[2020-11-29 10:02] LABS: ALT 29 U/L (14-59); AST 18 U/L (15-37); Albumin 3.8 g/dL (3.4-5.0); Alkaline Phosphatase 85 U/L (46-116); Bilirubin, Total 0.3 mg/dL (0.2-1.0); Calculated LDL 99 mg/dL (<100); Chloride 102 mmol/L (98-107); Sodium 140 mmol/L (136-145); Total Protein 7.3 g/dL (6.4-8.2)
== END 2020-11-29 04:34 | disposition home or self-care (01) ==
LOC: LBO 04:33
PROVIDERS: PCP Nurse Practitioner; Visit Provider Nurse Practitioner
DX: E11.9 Type 2 diabetes mellitus without complications (principal); E78.5 Hyperlipidemia, unspecified; I10 Essential (primary) hypertension; E66.01 Morbid (severe) obesity due to excess calories; Z68.41 Body mass index [BMI] 40.0-44.9, adult
CPT/HCPCS: 36415; 80053; 80061; 83036

== ENCOUNTER 2020-12-31 02:14 | Outpatient (CLI) | payer MEDICARE, OTHER, SELFPAY ==
[2020-12-31 10:20] LABS: Anion Gap 6.6 mmol/L (3-11); BUN 18 mg/dL (7-18); CO2 30.4 mmol/L (21.0-32.0); CREATININE 0.8 mg/dL (0.55-1.02); Calcium 8.9 mg/dL (8.5-10.1); Chloride 102 mmol/L (98-107); Glucose 92 mg/dL (74-106); Potassium 4.1 mmol/L (3.5-5.1); Sodium 139 mmol/L (136-145); Uric Acid 6.5 mg/dL (2.6-6.0)
== END 2020-12-31 02:15 | disposition home or self-care (01) ==
LOC: LBO 02:15
PROVIDERS: PCP Nurse Practitioner; Visit Provider Nurse Practitioner
DX: I10 Essential (primary) hypertension (principal); M79.675 Pain in left toe(s)
CPT/HCPCS: 36415; 80048; 73660; 84550

== ENCOUNTER 2020-12-31 04:28 | Outpatient (CLI) | payer MEDICARE, OTHER, SELFPAY ==
--- NOTE | 2020-12-31 09:46 | DI.RAD_ITS ---
Exam(s) XR TOE LT GREAT EXAM: XR TOE LT GREAT CLINICAL HISTORY: TOE Pain for several months,NO INJURY, M79.676. TECHNIQUE: 2D digital imaging was performed. COMPARISON: No exams were available for comparison FINDINGS: BONES: No acute fracture is present. No bony destructive lesion is seen. JOINTS: No dislocation present. The joint spaces are well maintained. SOFT TISSUE: Normal. IMPRESSION: Unremarkable great toe examination. DATA REPOSITORY: RADIATION DOSE DELIVERED:
== END 2020-12-31 04:48 ==
PROVIDERS: PCP Nurse Practitioner; Visit Provider Nurse Practitioner
DX: M79.675 Pain in left toe(s) (principal)
CPT/HCPCS: 73660

== ENCOUNTER 2021-01-20 10:49 | Outpatient (REF) | payer MEDICARE, OTHER, SELFPAY | END 2021-01-20 10:50 | disposition home or self-care (01) | LOC: LBN 10:49 | PROVIDERS: PCP Nurse Practitioner; Visit Provider Nurse Practitioner | DX: R30.9 Painful micturition, unspecified (principal) | CPT/HCPCS: 87077; 87086; 87186 ==

== ENCOUNTER 2021-03-14 10:34 | Outpatient (CLI) | payer MEDICARE, OTHER, SELFPAY ==
--- NOTE | 2021-03-14 08:45 | DI.RAD_ITS ---
Exam(s) XR KNEE LT 2V AP,LAT EXAM: XR KNEE LT 2V AP,LAT CLINICAL HISTORY: f/u of left TKA. TECHNIQUE: 2D digital imaging was performed. COMPARISON: CR XR KNEE LT 3V AP,LAT,TEREZA from 11/04/2020 FINDINGS: Left knee prosthesis remain satisfactory position alignment. No fracture or loosening evident. IMPRESSION: DATA REPOSITORY: RADIATION DOSE DELIVERED:
== END 2021-03-14 10:35 | disposition home or self-care (01) ==
LOC: DIORS 10:37
PROVIDERS: PCP Nurse Practitioner; Referring Provider Nurse Practitioner; Visit Provider Physician Assistant
DX: Z96.652 Presence of left artificial knee joint (principal); Z47.1 Aftercare following joint replacement surgery; M25.551 Pain in right hip
CPT/HCPCS: 99213; 73560

== ENCOUNTER → 2021-04-25 14:37 | Outpatient (BNVA) | payer MEDICARE, OTHER, SELFPAY | PROVIDERS: PCP Nurse Practitioner; Referring Provider Nurse Practitioner; Visit Provider Student in an Organized Health Care Education/Training Program | DX: M70.61 Trochanteric bursitis, right hip (principal) | CPT/HCPCS: 20610; J1040 ==

== ENCOUNTER → 2021-05-06 09:24 | Outpatient (BNVA) | payer MEDICARE, OTHER, SELFPAY | PROVIDERS: PCP Nurse Practitioner; Referring Provider Nurse Practitioner; Visit Provider Physical Therapy Assistant | DX: Z12.11 Encounter for screening for malignant neoplasm of colon (principal); Z86.010 Personal history of colon polyps; I10 Essential (primary) hypertension ==

== ENCOUNTER 2021-05-16 15:18 | Outpatient (REF) | payer MEDICARE, OTHER, SELFPAY | END 2021-05-16 15:19 | disposition home or self-care (01) | LOC: LBN 15:18 | PROVIDERS: PCP Nurse Practitioner; Visit Provider Nurse Practitioner | DX: N39.0 Urinary tract infection, site not specified (principal) | CPT/HCPCS: 87086 ==

== ENCOUNTER 2021-05-20 02:59 | Outpatient (CLI) | payer MEDICARE, OTHER, SELFPAY ==
[2021-05-20 10:27] LABS: Source Nasal/Nares
[2021-05-20 13:56] LABS: COVID-19 PCR Negative (Negative)
== END 2021-05-20 03:00 | disposition home or self-care (01) ==
LOC: LBO 02:59
PROVIDERS: Surgery; PCP Nurse Practitioner; Visit Provider Physical Therapy Assistant
DX: Z20.822 Contact with and (suspected) exposure to COVID-19 (principal); Z01.818 Encounter for other preprocedural examination
CPT/HCPCS: 87635

== ENCOUNTER 2021-05-23 08:10 | Day surgery (SDC) | payer MEDICARE, OTHER, SELFPAY ==
--- NOTE | 2021-05-23 06:12 | W.ANESPRE ---
General Info Date of Service Date Performed: 05/23/21 Height: 5 ft 4 in Weight: 106.764 kg Body Mass Index (BMI): 40.4 Surgical Procedure: Operation Date: 05/23/21 09:20 Proposed Procedures Side Surgeon p Colonoscopy Yamilka Prieto MD Meds Allergies and Home Medications Allergies Allergy/AdvReac Type Severity Reaction Status Date / Time valsartan Allergy Intermediate Swelling/Ed Verified 05/23/21 08:28 gina Vlvoxom-Plj-Jiv Reductase AdvReac Intermediate MYALGIAS Verified 05/23/21 08:28 Inhibitor lisinopril AdvReac Mild cough Verified 05/23/21 08:28 oxycodone AdvReac Mild Nausea Verified 05/23/21 08:28 Sulfa (Sulfonamide AdvReac Unknown FEELS LIKE Verified 05/23/21 08:28 Antibiotics) IN OUTER SPACE Home Medication Medication Instructions Recorded multivitamin 1 ea PO DAILY 12/26/12 albuterol sulfate 90 mcg/actuation 2 puff IH Q6H PRN 11/06/19 aerosol inhaler acetaminophen 1,000 mg PO Q8H PRN #60 tab 03/17/20 aspirin 81 mg tablet,delayed 81 mg PO DAILY 04/29/20 release omeprazole 20 mg capsule,delayed 20 mg PO DAILY #90 cap 10/11/20 release carvedilol 25 mg tablet 25 mg PO BID #60 tab 12/28/20 ezetimibe 10 mg tablet 10 mg PO DAILY #90 tab 12/28/20 hydrochlorothiazide 50 mg tablet 50 mg PO DAILY #90 tab 12/28/20 bisacodyl 5 mg tablet,delayed 5 mg PO ONCE #4 tab 05/06/21 release polyethylene glycol 3350 17 238 g PO ONCE #238 g 05/06/21 gram/dose oral powder nitrofurantoin 100 mg PO BID #14 cap 05/16/21 monohydrate/macrocrystals 100 mg capsule Current Visit Medications: Current Medications Generic Name Dose Route Start Last Admin Trade Name Freq PRN Reason Stop Dose Admin Ringer's Solution 1,000 mls @ 80 mls/hr 05/23/21 06:00 IV 06/19/21 23:59 INFUSION ALLISON IV Miscellaneous Supplies 1 each 05/23/21 06:00 Iv Access IV 06/19/21 23:59 DIRECTED [facility] Sodium Chloride 0 ml 05/23/21 06:00 Normal Saline Flush 10 Ml Syr IV 06/19/21 23:59 PRN PRN Sodium Chloride 0 ml 05/23/21 06:00 Normal Saline 10 Ml Vial IJ 06/19/21 23:59 DIRECTED PRN Sterile Water 0 ml 05/23/21 06:00 Water,Injection,Sterile 10 Ml Vial IJ 06/19/21 23:59 DIRECTED PRN PFSH Active Problems Active Problems: Problem Status Onset Code History of total left knee replacement (TKR) 03/17/20 Z96.652 Chronic foot pain M79.673, G89.29 Pain, eye, right H57.11 Dysuria R30.0 Toe pain M79.676 Colon cancer screening Z12.11 Pes anserine bursitis M70.50 IT band syndrome M76.30 Microscopic hematuria R31.29 Left ankle pain M25.572 Urine abnormality R82.90 Edema of both lower legs R60.0 PARKER (dyspnea on exertion) R06.00 Trochanteric bursitis, right hip M70.61 Trochanteric bursitis of left hip M70.62 Pulmonary nodule seen on imaging study 03/28/17 R91.1 Conductive hearing loss H90.2 Tubular adenoma 04/10/16 D36.9 Sensorineural hearing loss, unilateral 06/07/17 H90.5 Pre-diabetes 01/09/18 R73.03 Osteopenia 07/11/16 M85.80 IBS (irritable bowel syndrome) 07/09/[address] scan, bladder 05/08/17 R93.41 Obesity E66.9 Hypertension I10 Chronic sinusitis J32.9 GERD (gastroesophageal reflux disease) K21.9 Elevated lipids E78.5 Medical History Medical History Abnormal CT scan, bladder (05/08/17) Chronic sinusitis Has been followed by Dr. Shmuel Willingham. Conductive hearing loss 06/21/18 ENT Maulik Conductive hearing loss, external ear (06/07/17) Cyst pt. reports 06/13, removed below L breast Degenerative joint disease of left hip PARKER (dyspnea on exertion) Elevated fasting glucose Elevated lipids Has been on a statin but this caused muscle aches so the medication was stopped. GERD (gastroesophageal reflux disease) Hyperlipidemia Hypertension Long standing hypertension which has been treated with low dose Hydrochlorothiazide. IBS (irritable bowel syndrome) (07/09/17) Ishan Norman, Impacted cerumen (05/01/14) Impacted cerumen of both ears Lung mass OA (osteoarthritis) of hip (05/13/14) Total hip replacement 05/13/4014 by Allen Huang M.D. Obesity Osteopenia (07/11/16) DEXA 07/11/16 L forearm T -0.7 NL spine, hip Pre-diabetes (01/09/18) Primary osteoarthritis of left knee Pulmonary nodule seen on imaging study (03/28/17) yearly CT non contrast, next due 08/2020 Dr. Petersen 10/29/20 Dr Bee, with f/u Chest CT and OV in Aug 2021 (w Dr Swanson) Sensorineural hearing loss, unilateral (06/07/17) 05/14/18 ENT Maulik Trochanteric bursitis of left hip Trochanteric bursitis, right hip Tubular adenoma (04/10/16) Surgical History Surgical History Colonoscopy - IV Sedation (04/10/16) Dr Prieto History of arthroplasty of left hip History of arthroplasty of right knee (~02/2012) History of total left hip arthroplasty History of total left knee replacement (TKR) (03/17/20) History of total right hip arthroplasty (~05/13/14) Status post cataract extraction and insertion of intraocular lens of left eye (06/14/18) Status post cataract extraction and insertion of intraocular lens of right eye (05/31/18) Vaginal hysterectomy Tobacco Smoking/Tobacco Use Status: Never Alcohol Alcohol Intake: current Alcohol intake frequency: holidays/special occasions only Alcohol type: beer, wine and hard liquor Substance Use Substance use: Never Substance use type: does not use Vital Signs and Lab Results Vital Signs Most Recent Vital Signs in EMR: Temp Pulse Resp BP Pulse Ox 36 C L 61 16 163/73 H 98 05/23/21 08:23 05/23/21 08:23 05/23/21 08:23 05/23/21 08:23 05/23/21 08:23 Lab Results Blood Type / Crossmatch: No Data to Display Complete Blood Count: No Data to Display Complete Metabolic Panel: No Data to Display Liver Function Panel: No Data to Display Coagulation Panel: No Data to Display Cardiac Panel: No Data to Display Arterial Blood Gas: No Data to Display Venous Blood Gas: No Data to Display Pancreas Panel: No Data to Display Thyroid Panel: No Data to Display Infectious Disease: Coronavirus (COVID-19)(PCR) Negative (Negative) 05/20/21 08:50 05/20/21 Coronavirus 2019 Source Nasal/Nares 05/20/21 08:50 05/20/21 Blood Cultures: No Data to Display Toxicology Panel: No Data to Display Imaging and Studies Imaging and Studies Stress Test Summary: 01/2020: EKG nondiagnositc, LVEF 69% with stress, no WMA, no evidence of ischemia. Echocardiogram Summary: 02/2020: LVEF 55%, no WMA, normal RvFxn, trace MR/TR/OK, RVSP 25 mmhg. Anesthesia Assessment and Plan Anesthesia History Personal History: No History of Anesthesia Complications Family History: No Family History of Anesthesia Complications Exercise Tolerance Exercise Tolerance: Metabolic Equivalents>4 Cardiac & Pulmonary Exam Cardiac Exam: Normal S1/S2 Heart Sounds Pulmonary Exam: Clear Bilateral Breath Sounds Airway Exam Known Difficult Airway: No Mallampati Class: 3 Mouth Opening: Narrow (< 3cm) Thyromental Distance: Less than 3 cm Neck Range of Motion: Full ROM Neck Circumference: Normal Teeth Condition: Removable Dentures/Plates Upper and Edentulous ASA Classification ASA Score: ASA 3 Emergency Case?: No NPO Status NPO Status: NPO Clears >2 hours, Solids >8 hours Anesthesia Plan Resuscitation Status: Full Code Anesthesia Technique: General Anesthesia Airway Planned: Natural Airway Monitors Used: Standard Monitors Preoperative Comments:: 76 yo female with history of polyps/tubular adenoma here for colonoscopy. Sig PMHx: HTN (carvediol/HCTZ), GERD (omeprozole), lung nodules (stable). Plan: propofol.
--- NOTE | 2021-05-23 06:34 | W.COLOREPORT ---
Colonoscopy Report Date of procedure: 05/23/21 Pre-op diagnosis general: Hx of polyps Post-op diagnosis procedure note: same (polyps x4) Procedure: Colonoscopy with polypectomy Surgeon: Yamilka Prieto Anesthesia Type: General:No Airway (Jones Harmon CRNA) Estimated blood loss (mL): 3 Pathology: other (Transverse polyps, descending polyp and rectal polyp x2) Complications: None Disposition: same day Indications: The patient is here for Colonoscopy pre-op. Her last screening was in 2015 and was remarkable for tubular adenomatous polyp. She has no family history of colon cancer. She has not had any bowel habit changes. -Discussed colonoscopy bowel prep as well as the procedure. Discussed possible complications of the procedure to include bleeding, pain, perforation, missed small lesion/polyp, sore throat, aspiration and adverse reaction to the medications. Questions were answered to patient?s satisfaction. No guarantees were implied or given. Prep: Miralax/Dulcolax Procedure Start Time: 09:12 Procedure End Time: 09:35 Retraction Time: 16 minutes Findings: 4 small polyps Procedure Description: After informed consent was obtained the patient was taken to the procedure room and placed in a left decubitous position. Monitors were applied and a time out was done. The patients name, date of , procedure, allergies to medications and metal in their body was reviewed. The patient was then sedated. Once sedated and comfortable a rectal exam was done. External exam was normal. Internal exam revealed a normal sphincter tone and no palpable masses. The scope was then introduced and retro-flexed. No internal hemorrhoids, polyps or masses were identified on retro-flexion. The scope was then advanced to the cecum without difficulty. The ileocecal vlave and appendiceal orifice were identified. The prep was adequate. The scope was then slowly retracted over 16 minutes back into the rectum. Polyps were removed with cold forceps in the transverse colon, descending colon and rectum x2. There was no diverticulosis noted. The scope was removed and the patient was woken up and taken back to Same day surgery in stable condition. The patient tolerated the procedure well and there were no immediate complications. Follow up: The patient should follow up in 5 years unless they develop changes in bowel habits or other new gastrointestinal complaints.
--- NOTE | 2021-05-23 06:35 | W.PM.DSUDISC ---
Discharge Plan Disposition Patient Disposition: HOME Condition: Good Discharge Details Reason For Visit: Colonoscopy Attending Provider: Yamilka Prieto Primary Care Provider: Shannan De Leon Home Meds and New Rx's Prescriptions: Continued aspirin [Adult Aspirin Regimen] 81 mg tablet,delayed release (DR/EC) 81 mg PO DAILY RF: 0 omeprazole 20 mg capsule,delayed release(DR/EC) 20 mg PO DAILY Qty: 90 RF: 3 carvedilol 25 mg tablet 25 mg PO BID Qty: 60 RF: 11 hydrochlorothiazide 50 mg tablet 50 mg PO DAILY Qty: 90 RF: 3 ezetimibe [Zetia] 10 mg tablet 10 mg PO DAILY Qty: 90 RF: 3 nitrofurantoin monohyd/m-cryst [Macrobid] 100 mg capsule 100 mg PO BID Qty: 14 RF: 0 multivitamin 1 EACH tablet 1 ea PO DAILY RF: 0 albuterol sulfate [ProAir HFA] 90 mcg/actuation HFA aerosol inhaler 2 puff IH Q6H PRNRF: 0 acetaminophen 500 mg tablet 1,000 mg PO Q8H PRN (Reason: pain) Qty: 60 RF: 2 Discontinued polyethylene glycol 3350 17 gram/dose powder 238 g PO ONCE Qty: 238 RF: 0 bisacodyl [Dulcolax (bisacodyl)] 5 mg tablet,delayed release (DR/EC) 5 mg PO ONCE Qty: 4 RF: 0 Discharge Instructions Instructions: Colorectal Polyps (DC) Additional Instructions: Findings: 4 small polyps Follow up: ?5 years Please call if you develop: fevers >101.5 Nausea or Vomiting Abdominal pain that is not transient Rectal bleeding that is more then a tbsp A hard abdomen and inability to pass gas DAY SURGERY UNIT POST ENDOSCOPY INSTRUCTIONS Instructions for everyone who is given Anesthesia: For your safety, please do the following for the next 24 Hours: a. Do not drive or operate dangerous equipment b. Do not drink alcohol beverages or use any recreational drugs for the first 24 hours or while taking pain medications. The medications in your body may have a reaction that can be dangerous. c. Do not make any important decisions or sign any important papers 1. Generally there are no restrictions on your activity after a day or so has gone by, but you may feel a bit fatigued for a few days. 2. After you arrive home you may have a light meal and return to a normal diet as you can tolerate it without feeling sick to your stomach. 3. After surgery, you may feel pain or discomfort. This should be only transient, but if it persists please contact your doctor. 4. If there are any questions regarding the findings of your procedure, please feel free to contact your doctor. 6. If you are unable to contact your doctor with a problem, contact the hospital at [phone]. 7. Continue all your regular medications unless directed otherwise. I understand the above instructions and have no questions. Signature of Patient or Responsible Adult Escort Date/Time Name of Responsible Adult Escort Signature of Nurse Date/Time Activity:: Activity as Tolerated Diet:: As Tolerated Discharge Orders Discharge Orders: Discharge Order (Routine); Ordered 05/23/21 Ordered By: Yamilka Prieto
[2021-05-23 08:23] VITALS: BP 163/73; PULSE 61; RESP 16; TEMP 36; O2SAT 98
[2021-05-23] MEDS: Lactated Ringers 1,000 ML 80 ML IV (08:54)
[2021-05-23 08:55] VITALS: BMI 40.4
--- NOTE | 2021-05-23 09:20 | BOWEL_PTH ---
PATIENT: Irene Sinha LOC: [facility] U#:[id number] AGE/SX: 76/F ROOM: RE05/23/[address]: Yamilka Prieto MD : 1945 BED: DIS: 05/23/2021 SPEC #: [id number] RECD: 05/23/21 12:54 STATUS: NURYS REQ #: [id number] MEGAN: 05/23/21 09:[address]: Yamilka Prieto DEPT: Surgical Specimen RECD BY: Iris Stein ENTERED: 05/23/21 12:55 SP TYPE: Bowel OTHR DR: Shannan De Leon APRN Tissues: 1 - BIOPSY BOWEL 2 - BIOPSY BOWEL 3 - BIOPSY BOWEL Procedures: GROSS AND MICRO LEVEL 4 Comments: [id number]
[2021-05-23 09:47] VITALS: BP 120/48; PULSE 63; RESP 16; TEMP 36.1; O2SAT 95
--- NOTE | 2021-05-23 09:58 | W.ANESPOSTOP ---
Postoperative Evaluation Date, Time and Location Date Performed: 05/23/21 Time Performed: 09:58 Patient Location: Day Surgery Unit Vital Signs Most Recent Imported Vital Signs: Most Recent Vital Signs Temp Pulse Resp BP Pulse Ox 36.1 C L 63 16 120/48 L 95 05/23/21 09:47 05/23/21 09:47 05/23/21 09:47 05/23/21 09:47 05/23/21 09:47 Pain Score Most Recent Pain Score: Most Recent Pain Score Pain Level 0 05/23/21 09:47 Assessment Mental Status: Awake (Alert & Oriented to Patient Baseline) Airway and Respiratory Function: Patent airway with normal (patient baseline) respiratory exam Cardiovascular Function: Hemodynamically Stable Hydration Status: Adequately Hydrated Nausea & Vomiting: No Nausea or Vomiting Pain: Pt. Denies Any Pain Peripheral Nerve Block: Patient did not receive a nerve block
[2021-05-23 10:12] VITALS: BP 141/53; PULSE 53; RESP 16; TEMP 35.8; O2SAT 100
== END 2021-05-23 10:50 | disposition home or self-care (01) ==
PROVIDERS: PCP Nurse Practitioner; Visit Provider Surgery
PROC: 0DJD8ZZ Inspection of Lower Intestinal Tract, Via Natural or Artificial Opening Endoscopic (ICD-10-PCS; CPT 45378; principal; 2021-05-23 09:15)
DX: Z12.11 Encounter for screening for malignant neoplasm of colon (principal); D12.3 Benign neoplasm of transverse colon; D12.4 Benign neoplasm of descending colon; K62.1 Rectal polyp; Z86.010 Personal history of colon polyps
CPT/HCPCS: 45380; 88305; J2001

== ENCOUNTER 2021-06-16 11:23 | Outpatient (REF) | payer MEDICARE, OTHER, SELFPAY | END 2021-06-16 11:24 | disposition home or self-care (01) | LOC: LBN 11:23 | PROVIDERS: PCP Nurse Practitioner; Referring Provider Nurse Practitioner; Visit Provider Nurse Practitioner | DX: R30.0 Dysuria (principal) | CPT/HCPCS: 87086 ==

== ENCOUNTER 2021-09-05 02:00 | Outpatient (CLI) | payer MEDICARE, OTHER, SELFPAY ==
--- NOTE | 2021-09-05 12:51 | DI.MAMMO_ITS ---
Exam(s) MAMMO SCREENING EXAM: MAMMO SCREENING CLINICAL HISTORY: screening,z12.39 TECHNIQUE: Mammograms were interpreted according to the usual protocol including computer analysis w [employer] CAD system, tomosynthesis and C-view imaging. COMPARISON: 2011 through 2020 FINDINGS: The breasts are composed of scattered fibroglandular densities, Breast Density category B. No suspicious masses or suspicious microcalcifications are seen. No skin thickening or abnormal axillary lymph nodes are seen. There has been no significant change from prior exams. IMPRESSION: BI-RADS Category 1, Negative mammogram Yearly screening mammography is recommended. Breast Density - Category B, scattered fibroglandular densities. A negative radiographic report should not delay biopsy if a dominant or clinically suspicious mass is present. Up to ten percent of cancers are not identified on mammography. A negative report may reinforce clinical impression. Adenosis and dense breasts may obscure an underlying neoplasm. False positive reports average 6 to 10%. Patient will receive a letter notifying them of these results.
== END 2021-09-05 02:20 ==
PROVIDERS: PCP Nurse Practitioner; Visit Provider Nurse Practitioner
DX: Z12.31 Encounter for screening mammogram for malignant neoplasm of breast (principal)
CPT/HCPCS: 77063; 77067

== ENCOUNTER 2021-09-06 02:51 | Outpatient (CLI) | payer MEDICARE, OTHER, SELFPAY ==
[2021-09-06] MEDS: Albuterol HFA 18 GM 200 PUFF INH IH (10:51)
[2021-09-06] MEDS: Inhaler, Assist Device 1 EACH MC (10:52)
--- NOTE | 2021-09-06 11:24 | W.PFT ---
Date of service: 09/06/21 Time of Service: 09:59 Pulmonary Function Test Result Requesting Provider Rich Indications: PARKER Interpretation Spirometry: No airflow limitation. No significant bronchodilator response. Lung Volumes: Normal lung volumes Diffusion Capacity: Normal diffusion Airway Pressure: Normal airways resistance Impression Normal PFT's Note: When compared to 03/28/19, there has been some reduction in the FEV1 and FVC not accounted by aging. Clinical Correlation therefore is recommended.
== END 2021-09-06 02:52 | disposition home or self-care (01) ==
LOC: RT 02:51
PROVIDERS: PCP Nurse Practitioner; Visit Provider Student in an Organized Health Care Education/Training Program
DX: R06.09 Other forms of dyspnea (principal)
CPT/HCPCS: 94060; 94726; 94729

== ENCOUNTER → 2021-09-12 13:22 | Outpatient (BNVA) | payer MEDICARE, OTHER, SELFPAY | PROVIDERS: PCP Nurse Practitioner; Referring Provider Nurse Practitioner; Visit Provider Student in an Organized Health Care Education/Training Program | DX: M70.51 Other bursitis of knee, right knee (principal); M70.52 Other bursitis of knee, left knee; M76.31 Iliotibial band syndrome, right leg; M70.61 Trochanteric bursitis, right hip; Z96.643 Presence of artificial hip joint, bilateral; Z96.653 Presence of artificial knee joint, bilateral | CPT/HCPCS: 20610; J1040 ==

== ENCOUNTER 2021-09-14 12:26 | Outpatient (REF) | payer MEDICARE, OTHER, SELFPAY ==
--- NOTE | 2021-09-14 11:40 | SKI_PTH ---
PATIENT: Irene Sinha LOC: [facility] U#:[id number] AGE/SX: 76/F ROOM: RE09/14/[address]: Shmuel Willingham MD : 1945 BED: DIS: 09/14/2021 SPEC #: [id number] RECD: 09/14/21 17:59 STATUS: NURYS REWesley #: [id number] MEGAN: 09/14/21 11:[address]: Shmuel Willingham DEPT: Surgical Specimen RECD BY: Iris Stein ENTERED: 09/14/21 18:00 SP TYPE: PRICILA BROOKS DR: Shannan De Leon APRN Tissues: 1 - SKIN BIOPSY(SHAVE/PUNCH) 2 - SKIN BIOPSY(SHAVE/PUNCH) Procedures: SKIN LEVEL 4 Comments: [id number]
== END 2021-09-14 12:27 | disposition home or self-care (01) ==
LOC: LBN 12:26
PROVIDERS: PCP Nurse Practitioner; Visit Provider Otolaryngology
DX: L82.1 Other seborrheic keratosis (principal)
CPT/HCPCS: 88305

== ENCOUNTER 2021-10-04 01:30 | Outpatient (CLI) | payer MEDICARE, OTHER, SELFPAY ==
--- NOTE | 2021-10-04 08:15 | DI.CT_ITS ---
Exam(s) CT CHEST WO EXAM: CT CHEST WO CLINICAL HISTORY: f/u scan for RLL nodule,R91.1. TECHNIQUE: Imaging protocol: Axial computed tomography images were obtained and coronal and sagittal reformatted images were created and reviewed. COMPARISON: CT CT CHEST WO from 09/03/2020 FINDINGS: Tracheobronchial tree: Patent where visualized. Pulmonary parenchyma: The 7 mm right nodule is unchanged. The ground-glass opacity in the right lowe r lobe is unchanged. There is a calcified granuloma in the left upper lobe. The left perifissural n odule is unchanged. There are no new pulmonary nodules. No focal consolidating infiltrates are pres ent. Mediastinum and Ada: No dominant adenopathy or fluid collection. The esophagus is unremarkable. Thyroid gland: Unremarkable. Pleura: No effusion or pneumothorax. Heart: The heart is not dilated. Coronary artery calcifications are present. No pericardial effusion . Aorta: Thoracic aorta non-dilated. Atherosclerosis. Upper abdomen: Unremarkable. Lymph nodes: Within normal limits. Soft tissues: Unremarkable. Bones:Within normal limits for the patient's age. IMPRESSION: 1. Stable pulmonary nodules. 2. No new pulmonary nodules. 3. No acute pulmonary process. RADIATION DOSE DELIVERED: 607.83mGy.cm Total DLP 607.83mGy.cm Total DLP DATA REPOSITORY: All CT scans at this facility are submitted to the National Radiology Data Registry (NRDR) Dose Index Registry (DIR) with the [employer] (ACR). RADIATION OPTIMIZATION: All CT scans at this facility use at least one of these dose optimization te chniques: automated exposure control; mA and/or kV adjustment per patient size (includes targeted exa ms where dose is matched to clinical indication); or iterative reconstruction.
== END 2021-10-04 01:50 ==
PROVIDERS: PCP Nurse Practitioner; Visit Provider Student in an Organized Health Care Education/Training Program
DX: R91.1 Solitary pulmonary nodule (principal); J98.4 Other disorders of lung
CPT/HCPCS: 71250

== ENCOUNTER 2021-12-07 09:43 | Outpatient (REF) | payer MEDICARE, OTHER, SELFPAY | END 2021-12-07 09:44 | disposition home or self-care (01) | LOC: LBN 09:43 | PROVIDERS: PCP Nurse Practitioner; Visit Provider Nurse Practitioner | DX: R30.0 Dysuria (principal); R31.9 Hematuria, unspecified | CPT/HCPCS: 87086 ==

== ENCOUNTER → 2021-12-12 14:17 | Outpatient (BNVA) | payer MEDICARE, OTHER, SELFPAY | PROVIDERS: PCP Nurse Practitioner; Referring Provider Nurse Practitioner; Visit Provider Student in an Organized Health Care Education/Training Program | DX: M76.31 Iliotibial band syndrome, right leg (principal) | CPT/HCPCS: 20610; J1040 ==

== ENCOUNTER 2022-01-03 01:15 | Outpatient (CLI) | payer MEDICARE, OTHER, SELFPAY ==
[2022-01-03 08:19] LABS: Abs Immature Grans 0.02 10^3/uL (0.0-0.06); Absolute Basophil Count 0.05 10^3/uL (0.0-0.2); Absolute Eosinophil Count 0.09 10^3/uL (0.0-0.7); Absolute Lymphocyte Count 1.95 10^3/uL (1.2-3.4); Absolute Monocyte Count 0.56 10^3/uL (0.1-0.8); Absolute Neutrophil Count 4.99 10^3/uL (1.2-6.7); Basophils % 0.7; Eosinophils % 1.2; HCT 40.8 % (36.0-46.0); HGB 13.1 g/dL (11.2-15.7); Immature Grans % 0.3; Lymphocytes % 25.5; MCH 28.6 pg (27.0-33.0); MCHC 32.1 % (32.0-36.0); MCV 89 fL (80-95); MPV 9.3 fL (8.0-11.0); Monocytes % 7.3; Platelet Count 277 10^3/uL (130-400); RBC 4.58 10^6/uL (3.93-5.22); RDW 15.2 % (11.7-14.6); RDW-SD 49.8 fL; WBC 7.66 10^3/uL (4.4-10.8)
[2022-01-03 08:34] LABS: ALT 21 U/L (14-59); AST 11 U/L (15-37); Albumin 3.6 g/dL (3.4-5.0); Alkaline Phosphatase 77 U/L (46-116); Anion Gap 8.5 mmol/L (3-11); BUN 17 mg/dL (7-18); Bilirubin, Total 0.5 mg/dL (0.2-1.0); CO2 32.5 mmol/L (21.0-32.0); CREATININE 0.7 mg/dL (0.55-1.02); Calcium 8.9 mg/dL (8.5-10.1); Calculated LDL 128 mg/dL (<100); Chloride 100 mmol/L (98-107); Cholesterol 214 mg/dL (<200); Glucose 91 mg/dL (74-106); HDL Cholesterol 62 mg/dL (40-60); Potassium 3.1 mmol/L (3.5-5.1); Sodium 141 mmol/L (136-145); Total Protein 7.6 g/dL (6.4-8.2); Triglyceride 122 mg/dL (<150)
== END 2022-01-03 01:16 | disposition home or self-care (01) ==
LOC: LBO 01:15
PROVIDERS: PCP Nurse Practitioner; Visit Provider Nurse Practitioner
DX: E78.5 Hyperlipidemia, unspecified (principal); I10 Essential (primary) hypertension; J45.909 Unspecified asthma, uncomplicated; R73.03 Prediabetes; E66.01 Morbid (severe) obesity due to excess calories; Z68.41 Body mass index [BMI] 40.0-44.9, adult
CPT/HCPCS: 36415; 80053; 80061; 85025

== ENCOUNTER 2022-01-10 02:05 | Outpatient (CLI) | payer MEDICARE, OTHER, SELFPAY ==
[2022-01-10 11:25] LABS: Potassium 3.4 mmol/L (3.5-5.1)
== END 2022-01-10 02:06 | disposition home or self-care (01) ==
LOC: LBO 02:05
PROVIDERS: PCP Nurse Practitioner; Visit Provider Nurse Practitioner
DX: R79.89 Other specified abnormal findings of blood chemistry (principal)
CPT/HCPCS: 36415; 84132

== ENCOUNTER 2022-01-24 10:23 | Outpatient (REF) | payer MEDICARE, OTHER, SELFPAY | END 2022-01-24 10:24 | disposition home or self-care (01) | LOC: LBN 10:23 | PROVIDERS: PCP Nurse Practitioner; Visit Provider Nurse Practitioner | DX: R30.0 Dysuria (principal) | CPT/HCPCS: 87086 ==

== ENCOUNTER 2022-01-30 08:48 | Emergency (ER) | payer MEDICARE, OTHER, SELFPAY ==
[2022-01-30 08:52] VITALS: BP 130/74; PULSE 71; RESP 20; TEMP 36.6; O2SAT 99
--- NOTE | 2022-01-30 09:00 | DI.RAD_ITS ---
Exam(s) XR RIBS LT W PA LAT CHEST CLINICAL HISTORY Fall Yesterday, Left rib pain. COMPARISON: CT CT CHEST WO from 10/04/2021 TECHNIQUE:: PA and lateral views of the chest and 3 views of the left ribs were performed. FINDINGS: LUNGS: Clear. No pleural abnormality seen. HEART: Normal. MEDIASTINUM: Normal. BONES: No displaced rib fracture is seen. No compression fractures are seen in the thoracic spine. There are degenerative disc changes. No bony destructive lesion is seen. IMPRESSION: 1. Unremarkable radiographic appearance of the left ribs. 2. No acute pulmonary findings.
--- NOTE | 2022-01-30 09:00 | ED.GENADUL_ITS ---
Discharge Plan Disposition Patient Disposition: HOME Condition: Stable Discharge Details Clinical Impression: Contusion of rib on left side, Fall as cause of accidental injury at home as place of occurrence Primary Care Provider: Shannan De Leon ED Provider: Clarisa Colindres Home Meds and New Rx's Prescriptions: Continued aspirin [Adult Aspirin Regimen] 81 mg tablet,delayed release (DR/EC) 81 mg PO DAILY budesonide-formoterol [Symbicort] 160-4.5 mcg/actuation HFA aerosol inhaler 2 puff inhalation BID Qty: 10.2 8RF albuterol sulfate 90 mcg/actuation HFA aerosol inhaler 2 puff inhalation Q6H PRN multivitamin 1 EACH tablet 1 ea PO DAILY omeprazole 20 mg capsule,delayed release(DR/EC) See Rx Instructions .ROUTE .COMPLEX Qty: 90 3RF Dose Instruction: TAKE ONE CAPSULE BY MOUTH EVERY DAY Rx Instructions: TAKE ONE CAPSULE BY MOUTH EVERY DAY ezetimibe [Zetia] 10 mg tablet 10 mg PO DAILY Qty: 90 3RF hydrochlorothiazide 50 mg tablet 50 mg PO DAILY Qty: 90 3RF carvedilol 25 mg tablet 25 mg PO BID Qty: 180 3RF Rx Instructions: must administer with a meal/food potassium chloride 10 mEq capsule, extended release 10 meq PO DAILY Qty: 30 6RF acetaminophen 500 mg tablet 1,000 mg PO Q8H PRN (Reason: pain) Qty: 60 2RF Discharge Instructions Instructions: Fall Prevention for Older Adults (ED), Rib Contusion (ED) Additional Instructions: At this time x-ray showed no acute broken ribs. Please continue take your daily medications as previously prescribed. You may use lidocaine patches which you can obtain [id number] if they help. Return to the ER for any worsening shortness of breath, worsening chest pain, dizziness, bleeding from rectum or vomiting. Follow up with primary care provider in 7 days. Return to ED sooner if any worsening or concerns. Increase oral fluids. Please take Tylenol or Ibuprofen with food every 4-6 hours as needed for pain and swelling. Referrals: Shannan De Leon, BRANCH DIRECTOR [Primary Care Provider] - 1 week Discharge Data Discharge Date/Time-TO BE ENTERED AT DEPARTURE: 01/30/22 10:45 Medical Decision Making 76-year-old female with a past medical history of osteoarthritis, lung mass, hyperlipidemia, degenerative joint disease of the left hip, hypertension presents to the ER status post mechanical fall yesterday on a wet grassy hill. She is complaining of a left-sided rib pain and left upper arm pain. She was ambulatory after the fall. She denies any loss of consciousness. She did fall forward hitting the left side of her forehead. She does have a small superficial abrasion noted to her left forehead, contusion noted to her left forearm. She did take some Tylenol last night prior to arrival did not take anything this morning. Denies any abdominal pain nausea vomiting diarrhea or any other associated. He denies any neck or back pain. X-ray ribs and PA chest ordered, lidocaine patch will consider stronger medications if needed. X-ray shows no broken ribs. No pneumonia no pleural effusion. Patient reevaluation: She reports that she feels much better after the lidocaine patch. I did discuss the x-ray results with her. I discussed that she can get the lidocaine patches [id number] if needed. Discussed strict return instructions she verbalized understanding. This text was generated using [employer] system, please disregard any oddities of phrase or misspellings. Medical Records Medical records reviewed: Yes I reviewed the patient's medical records. HPI General Mode of arrival: ambulatory . Date/Time Provider Initiated Documentation: 01/30/22 08:57 . Limitations to Documentation: no limitations . Information obtained by: patient, RN notes reviewed and old records reviewed . HPI Narrative: 76-year-old female with a past medical history of osteoarthritis, lung mass, hyperlipidemia, degenerative joint disease of the left hip, hypertension presents to the ER status post mechanical fall yesterday on a [place]. She is complaining of a left-sided rib pain and left upper arm pain. She was ambulatory after the fall. She denies any loss of consciousness. She did fall forward hitting the left side of her forehead. She does have a small superficia l abrasion noted to her left forehead, contusion noted to her left forearm. She did take some Tylenol last night prior to arrival did not take anything this morning. Denies any abdominal pain nausea vomiting diarrhea or any other associated. He denies any neck or back pain. Related Data Home Medications Medication Instructions Recorded Confirmed multivitamin 1 ea PO DAILY 12/26/12 01/30/22 acetaminophen 500 mg tablet 1,000 mg PO Q8H PRN pain #60 tabs 03/17/20 01/30/22 aspirin 81 mg tablet,delayed 81 mg PO DAILY 04/29/20 01/30/22 release (Adult Aspirin Regimen) omeprazole 20 mg capsule,delayed See Rx Instructions .Route 10/10/21 01/30/22 release .COMPLEX #90 caps budesonide-formoterol HFA 160 2 puff inhalation BID #10.2 grams 10/11/21 01/30/22 mcg-4.5 mcg/actuation aerosol inhaler (Symbicort) carvedilol 25 mg tablet 25 mg PO BID #180 tabs 12/21/21 01/30/22 ezetimibe 10 mg tablet (Zetia) 10 mg PO DAILY Elevated 12/21/21 01/09/22 cholesterol #90 tabs hydrochlorothiazide 50 mg tablet 50 mg PO DAILY #90 tabs 12/21/21 01/30/22 albuterol sulfate 90 mcg/actuation 2 puff inhalation Q6H PRN 01/09/22 01/30/22 aerosol inhaler potassium chloride 10 mEq 10 meq PO DAILY #30 caps 01/11/22 01/30/22 capsule,extended release Previous Rx's Medication Instructions Recorded acetaminophen 500 mg tablet 1,000 mg PO Q8H PRN pain #60 tabs 03/17/20 omeprazole 20 mg capsule,delayed See Rx Instructions .Route 10/10/21 release .COMPLEX #90 caps budesonide-formoterol HFA 160 2 puff inhalation BID #10.2 grams 10/11/21 mcg-4.5 mcg/actuation aerosol inhaler (Symbicort) carvedilol 25 mg tablet 25 mg PO BID #180 tabs 12/21/21 ezetimibe 10 mg tablet (Zetia) 10 mg PO DAILY Elevated 12/21/21 cholesterol #90 tabs hydrochlorothiazide 50 mg tablet 50 mg PO DAILY #90 tabs 12/21/21 potassium chloride 10 mEq 10 meq PO DAILY #30 caps 01/11/22 capsule,extended release Allergies Allergy/AdvReac Type Severity Reaction Status Date / Time valsartan Allergy Intermediate Swelling/Ed Verified 01/30/22 09:00 gina Ochzeun-VEF-GqJ Reductase AdvReac Intermediate MYALGIAS Verified 01/30/22 09:00 Inhibitor [Grmoqmx-Gpa-Iwf Reductase Inhibitor] lisinopril AdvReac Mild cough Verified 01/30/22 09:00 oxycodone AdvReac Mild Nausea Verified 01/30/22 09:00 Sulfa (Sulfonamide AdvReac Unknown FEELS LIKE Verified 01/30/22 09:00 Antibiotics) IN OUTER SPACE nitrofurantoin AdvReac Headaches Verified 01/30/22 09:00 [From Macrobid] General Stated Complaint: Trauma TRICIA: 3 Review of Systems All systems reviewed & are unremarkable except as noted in HPI and below ENT Ears, Nose, Mouth, and Throat: Denies neck pain Musculoskeletal Musculoskeletal: Reports as per HPI, Denies back pain and Denies neck pain Integumentary/Breasts Skin/Breast: Reports as per HPI PFSH All Active Problems (Updated 01/30/22 @ 10:41 by Clarisa oClindres) Contusion of rib on left side (Acute) Fall as cause of accidental injury at home as place of occurrence (Acute) Skin lesion of cheek (Acute) Skin lesion of neck (Acute) Iliotibial band syndrome affecting right lower leg (Acute) Dyspnea on exertion (Acute) Sensorineural hearing loss, asymmetrical (Acute) Impacted cerumen, left ear (Acute) Hyperplastic colon polyp (Acute) Tubular adenoma of colon (Acute) History of total left knee replacement (TKR) (Acute 03/17/20) Chronic foot pain (Acute) Pain, eye, right (Acute) Dysuria (Acute) Toe pain (Acute) Colon cancer screening (Acute) Pes anserine bursitis (Acute) IT band syndrome (Acute) Microscopic hematuria (Acute) Left ankle pain (Acute) Urine abnormality (Acute) Edema of both lower legs (Acute) Trochanteric bursitis, right hip (Acute) Trochanteric bursitis of left hip (Chronic) Pulmonary nodule seen on imaging study (Acute 03/28/17) yearly CT non contrast, next due 08/2020 Dr. Petersen 10/29/20 Dr Bee, with f/u Chest CT and OV in Aug 2021 (w Dr Swanson) Conductive hearing loss (Chronic) 06/21/18 ENT Maulik Tubular adenoma (Acute 04/10/16) Sensorineural hearing loss, unilateral (Acute 06/07/17) 05/14/18 ENT Maulik Pre-diabetes (Acute 01/09/18) Osteopenia (Acute 07/11/16) DEXA 07/11/16 L forearm T -0.7 NL spine, hip IBS (irritable bowel syndrome) (Acute 07/09/17) Ishan Norman DO Abnormal CT scan, bladder (Acute 05/08/17) Obesity (Chronic) Hypertension (Chronic) Long standing hypertension which has been treated with low dose Hydrochlorothiazide. Chronic sinusitis (Chronic) Has been followed by Dr. Shmuel Willingham. GERD (gastroesophageal reflux disease) (Chronic) Elevated lipids (Chronic) Has been on a statin but this caused muscle aches so the medication was stopped. Medical History Conductive hearing loss, external ear (06/07/17) Cyst pt. reports 06/13, removed below L breast Degenerative joint disease of left hip PARKER (dyspnea on exertion) Elevated fasting glucose Hyperlipidemia Impacted cerumen (05/01/14) Impacted cerumen of both ears Lung mass OA (osteoarthritis) of hip (05/13/14) Total hip replacement 05/13/4014 by Allen Huang M.D. Primary osteoarthritis of left knee Surgical History Colonoscopy - IV Sedation (04/10/16) Dr Prieto History of arthroplasty of left hip History of arthroplasty of right knee (~02/2012) History of total left hip arthroplasty History of total right hip arthroplasty (~05/13/14) Status post cataract extraction and insertion of intraocular lens of left eye (06/14/18) Status post cataract extraction and insertion of intraocular lens of right eye (05/31/18) Vaginal hysterectomy Family History Mother Heart disease Hypertension Father Heart disease [place] caused Brother Diabetes Brother Diabetes Sister Diabetes Social History Smoking/Tobacco Use Status: Never Smoking risk assessment performed?: Yes Alcohol Intake: current Alcohol Intake frequency: holidays/special occasions only Alcohol type: beer, wine and hard liquor Drug use: Never Substance use type: does not use Adopted: No Caregiver/Support person: No Foster care: No Household members: none Housing: house Number of Children: 0 Communication Needs: None current occupation: retired - worked at [employer] [place] [employer] [employer] Pets and animals: Yes Sexually active: No Current gender identity: female What is your relationship status?: Panel score (0-1 are the most socially isolated patients): 0 What type of physical activity do you participate in: regular exercise and other Details: PT 2x/week Duration: < 15 minutes/day Frequency: 1-2 times per week Seatbelt use: always Working smoke detector in home: Yes Fire extinguisher in home: Yes Carbon monox detector in home: Yes Do you feel safe at home: Yes Do you feel safe in your relationship?: Yes Exam Narrative Exam Narrative: General: Well Developed, Awake and Alert, conversant. Skin: Warm and Dry HEENT: Head: No palpable deformities, Normocephalic, small superficial abrasion noted to left forehead. Eyes: Pupils PERRLA, EOM's intact. No periorbital eccymosis or step off Ears: . No quan's sign, no hemptympanum. Nose/Face: Atraumatic. Facial bones nontender to palpation and stable with manipulation. Mouth/Throat: No intraoral trauma. Teeth and mandible are intact. Neck: No midline tenderness, no step off, no deformity to palpation of C-spine. Trachea midline. Chest: No surface trauma. Tenderness palpated to the left lateral rib cage,without crepitus or deformity. Lungs clear to ausculatation bilaterally. Heart: RRR, no rubs, murmurs or gallop. Abdomen: No abrasions, ecchymosis, or surface trauma. Nondistended. Nontender to palpation no guarding, rebound, or rigidity. Pelvis: Nontender to palpation and stable to compression. Femoral pulses strong and equal Extremities: Contusion noted to left forearm dorsal side, cap refill less than 3 seconds, peripheral pulses intact and equal. Neuro: ANO x4, GCS 15, cranial nerves II through XII intact. Motor and sensory exam nonfocal. Course Vital Signs Vital signs: Vital Signs Temperature 36.6 C 01/30/22 08:52 Pulse 71 01/30/22 08:52 Respiratory Rate 20 01/30/22 08:52 Blood Pressure 130/74 01/30/22 08:52 Pulse Oximetry 99 01/30/22 08:52 Temperature 36.6 C 01/30/22 08:52 Temperature Source Temporal Artery Scan 01/30/22 08:52 Pulse 71 01/30/22 08:52 Respiratory Rate 20 01/30/22 08:52 Respiratory Effort 01/30/22 08:59 Blood Pressure 130/74 01/30/22 08:52 Blood Pressure Position Sitting 01/30/22 08:52 Pulse Oximetry 99 01/30/22 08:52 Oxygen Delivery Method Room Air 01/30/22 08:52 Oxygen Flow Rate 0 01/30/22 08:52 Pain Level 10 01/30/22 08:52
[2022-01-30] MEDS: Lidocaine 5% Patch 1 PATCH TP (09:18)
== END 2022-01-30 10:45 | disposition home or self-care (01) ==
PROVIDERS: Emergency Provider Registered Nurse Emergency; PCP Nurse Practitioner
DX: S20.212A Contusion of left front wall of thorax, initial encounter (principal); S00.81XA Abrasion of other part of head, initial encounter; W17.89XA Other fall from one level to another, initial encounter; M79.622 Pain in left upper arm; I10 Essential (primary) hypertension
CPT/HCPCS: 99283; 71046; 71100

== ENCOUNTER → 2022-03-27 10:45 | Outpatient (BNVA) | payer MEDICARE, OTHER, SELFPAY | PROVIDERS: PCP Nurse Practitioner; Referring Provider Nurse Practitioner; Visit Provider Nurse Practitioner Gerontology | DX: Z77.22 Contact with and (suspected) exposure to environmental tobacco smoke (acute) (chronic) (principal); R31.0 Gross hematuria; R30.0 Dysuria | CPT/HCPCS: 51798; 99215 ==

== ENCOUNTER 2022-03-29 14:05 | Outpatient (CLI) | payer MEDICARE, OTHER, SELFPAY ==
--- NOTE | 2022-03-29 13:15 | DI.RAD_ITS ---
Exam(s) XR HIP RT COMPLETE AP PELVIS EXAM: XR HIP RT COMPLETE AP PELVIS INDICATION: RIGHT HIP PAIN. COMPARISON: CR XR pelvis AP from 12/11/2018 TECHNIQUE: 2D digital imaging was performed. Three views. FINDINGS: There are bilateral total hip prostheses, unchanged.. There is no evidence fracture or abnormal bony lucency. There are severe degenerative changes in the lower lumbar spine. IMPRESSION: Unremarkable right hip prosthesis. DATA REPOSITORY: RADIATION DOSE DELIVERED:
== END 2022-03-29 14:06 | disposition home or self-care (01) ==
LOC: DIORS 14:06
PROVIDERS: PCP Nurse Practitioner; Referring Provider Nurse Practitioner; Visit Provider Student in an Organized Health Care Education/Training Program
DX: M25.551 Pain in right hip (principal); Z96.641 Presence of right artificial hip joint
CPT/HCPCS: 99214; 73502

== ENCOUNTER → 2022-04-05 02:14 | Outpatient (CLI) | payer MEDICARE, OTHER, SELFPAY ==
[2022-04-05 12:35] LABS: CREATININE 0.5 mg/dL (0.55-1.02)
--- NOTE | 2022-04-05 14:05 | DI.CT_ITS ---
Exam(s) CT ABDOMEN PELVIS WO/W EXAM: CT ABDOMEN PELVIS WO/W CLINICAL HISTORY: gross hematuria,R31.9 TECHNIQUE: CT examination of the abdomen pelvis was performed utilizing CT urogram protocol with non contrast CT followed by venous phase 7 minutes delayed phase imaging with intravenous infusion of 100 cc of Omnipaque 350. COMPARISON: CT ABD PELVIS WITH CONTRAST from 03/23/2017 FINDINGS: Noncontrast CT shows no evidence of urinary tract calcification. Images obtained through the lung bases are unremarkable. The liver is unremarkable in appearance except for a tiny presumed left hepatic lobe cyst. The spleen is unremarkable in appearance. The pancreas is unremarkable in appearance. Gallbladder and bile ducts appear normal. Abdominal aorta and major visceral branches appear intact. No evidence of abdominal wall hernia. No evidence of abdominal or pelvic adenopathy. No focal bowel pathology. The kidneys are normal in size and shape. There is normal symmetrical renal cortical enhancement. T here is no evidence of a renal mass, hydronephrosis, or nephrolithiasis. There are small left-sided parapelvic cysts. Urinary bladder is partially obscured by artifact from bilateral metallic hip prostheses. No specifi c bladder abnormality seen. IMPRESSION: Negative CT urogram. RADIATION DOSE DELIVERED: 4,156.21mGy.cm Total DLP 4,156.21mGy.cm Total DLP !Error CTDIvol DATA REPOSITORY: All CT scans at this facility are submitted to the National Radiology Data Registry (NRDR) Dose Index Registry (DIR) with the [employer] (ACR). RADIATION OPTIMIZATION: All CT scans at this facility use at least one of these dose optimization te chniques: automated exposure control; mA and/or kV adjustment per patient size (includes targeted exa ms where dose is matched to clinical indication); or iterative reconstruction.
[2022-04-05] MEDS: Omnipaque 350 MG/ML 100 ML BTL IJ (14:07)
== END ==
PROVIDERS: PCP Nurse Practitioner; Visit Provider Nurse Practitioner Gerontology
DX: R31.9 Hematuria, unspecified (principal)
CPT/HCPCS: 87635; 74178; 82565; J3490

== ENCOUNTER 2022-04-05 02:43 | Outpatient (CLI) | payer MEDICARE, OTHER, SELFPAY ==
[2022-04-05 12:48] LABS: Source Nasal/Nares
[2022-04-05 18:36] LABS: COVID-19 PCR Negative (Negative)
== END 2022-04-05 02:44 | disposition home or self-care (01) ==
LOC: LBO 02:43
PROVIDERS: PCP Nurse Practitioner; Visit Provider Student in an Organized Health Care Education/Training Program
DX: Z20.822 Contact with and (suspected) exposure to COVID-19 (principal); Z01.818 Encounter for other preprocedural examination
CPT/HCPCS: 87635

== ENCOUNTER 2022-04-07 08:49 | Day surgery (SDC) | payer MEDICARE, OTHER, SELFPAY ==
[2022-04-07] VITALS (9 sets, daily range): BP systolic 120–174; BP diastolic 42–82; PULSE 54–64; RESP 13–19; TEMP 36.3–36.6; O2SAT 92–100; BMI 41.0
--- NOTE | 2022-04-07 07:59 | W.ANESPRE ---
General Info Date of Service Date Performed: 04/07/22 Height: 5 ft 4 in Weight: 108.409 kg Body Mass Index (BMI): 41.0 Surgical Procedure: Operation Date: 04/07/22 11:20 Proposed Procedure Side Surgeon p Hip Endoscopic Iliotibial Band Release & Trochanteric Bursectomy w/Possible Gluteal Tendon Repair Right Jamaal Lopez MD Meds Allergies and Home Medications Allergies Allergy/AdvReac Type Severity Reaction Status Date / Time valsartan Allergy Intermediate Swelling/Ed Verified 04/07/22 09:22 gina Eotejnb-RBN-CmR Reductase AdvReac Intermediate MYALGIAS Verified 04/07/22 09:22 Inhibitor [Razzvts-Ism-Kgy Reductase Inhibitor] lisinopril AdvReac Mild cough Verified 04/07/22 09:22 oxycodone AdvReac Mild Nausea Verified 04/07/22 09:22 Sulfa (Sulfonamide AdvReac Unknown FEELS LIKE Verified 04/07/22 09:22 Antibiotics) IN OUTER SPACE nitrofurantoin AdvReac Headaches Verified 04/07/22 09:22 [From Macrobid] Home Medication Medication Instructions Recorded multivitamin 1 ea PO DAILY 12/26/12 acetaminophen 500 mg tablet 1,000 mg PO Q8H PRN pain #60 tabs 03/17/20 aspirin 81 mg tablet,delayed 81 mg PO DAILY 04/29/20 release (Adult Aspirin Regimen) omeprazole 20 mg capsule,delayed See Rx Instructions .Route 10/10/21 release .COMPLEX #90 caps budesonide-formoterol HFA 160 2 puff inhalation BID #10.2 grams 10/11/21 mcg-4.5 mcg/actuation aerosol inhaler (Symbicort) carvedilol 25 mg tablet 25 mg PO BID #180 tabs 12/21/21 ezetimibe 10 mg tablet (Zetia) 10 mg PO DAILY Elevated 12/21/21 cholesterol #90 tabs hydrochlorothiazide 50 mg tablet 50 mg PO DAILY #90 tabs 12/21/21 albuterol sulfate 90 mcg/actuation 2 puff inhalation Q6H PRN 01/09/22 aerosol inhaler potassium chloride 10 mEq 10 meq PO DAILY #30 caps 01/11/22 capsule,extended release cholecalciferol (vitamin D3) 10 10 mcg PO DAILY 03/27/22 mcg (400 unit) capsule Current Visit Medications: Current Medications Generic Name Dose Route Start Last Admin Trade Name Freq PRN Reason Stop Dose Admin Ringer's Solution 1,000 mls @ 30 mls/hr 04/07/22 06:00 IV 05/06/22 23:59 INFUSION ALLISON Cefazolin Sodium 3,000 mg/ 100 mls @ 200 mls/hr 04/07/22 06:00 Sodium Chloride IVPB 04/07/22 16:00 PREOP ALLISON IV Miscellaneous Supplies 1 each 04/07/22 06:00 Iv Access IV 05/06/22 23:59 DIRECTED ALLISON Naproxen 250 - 500 mg 04/07/22 07:16 Naproxen 500 Mg Tab PO BID PRN PRN Sodium Chloride 0 ml 04/07/22 06:00 Normal Saline Flush 10 Ml Syr IV 05/06/22 23:59 PRN PRN Sodium Chloride 0 ml 04/07/22 06:00 Normal Saline 10 Ml Vial IJ 05/06/22 23:59 DIRECTED PRN Sterile Water 0 ml 04/07/22 06:00 Water,Injection,Sterile 10 Ml Vial IJ 05/06/22 23:59 DIRECTED PRN Tramadol HCl 50 mg 04/07/22 07:16 Tramadol 50 Mg Tab PO Q6H PRN PRN PFSH Active Problems Active Problems: Problem Status Onset Code Skin lesion of cheek L98.9 Skin lesion of neck L98.9 Dyspnea on exertion R06.00 Sensorineural hearing loss, asymmetrical H90.3 Impacted cerumen, left ear H61.22 Hyperplastic colon polyp K63.5 Tubular adenoma of colon D12.6 History of total left knee replacement (TKR) 03/17/20 Z96.652 Chronic foot pain M79.673, G89.29 Pain, eye, right H57.11 Dysuria R30.0 Toe pain M79.676 Colon cancer screening Z12.11 Pes anserine bursitis M70.50 IT band syndrome M76.30 Microscopic hematuria R31.29 Left ankle pain M25.572 Urine abnormality R82.90 Edema of both lower legs R60.0 Trochanteric bursitis, right hip M70.61 Trochanteric bursitis of left hip M70.62 Pulmonary nodule seen on imaging study 03/28/17 R91.1 Conductive hearing loss H90.2 Tubular adenoma 04/10/16 D36.9 Sensorineural hearing loss, unilateral 06/07/17 H90.5 Pre-diabetes 01/09/18 R73.03 Osteopenia 07/11/16 M85.80 IBS (irritable bowel syndrome) 07/09/[address] scan, bladder 05/08/17 R93.41 Obesity E66.9 Hypertension I10 Chronic sinusitis J32.9 GERD (gastroesophageal reflux disease) K21.9 Elevated lipids E78.5 Medical History Medical History (Updated 04/07/22 @ 07:17 by Jamaal Lopez MD) Conductive hearing loss, external ear (06/07/17) Cyst pt. reports 06/13, removed below L breast Degenerative joint disease of left hip PARKER (dyspnea on exertion) Elevated fasting glucose Hyperlipidemia Iliotibial band syndrome affecting right lower leg Impacted cerumen (05/01/14) Impacted cerumen of both ears Lung mass OA (osteoarthritis) of hip (05/13/14) Total hip replacement 05/13/4014 by Allen Huang M.D. Primary osteoarthritis of left knee Surgical History Surgical History (Updated 04/07/22 @ 09:19 by Kaylyn Drummond RN) Colonoscopy - IV Sedation (04/10/16) Dr Prieto History of arthroplasty of left hip History of arthroplasty of right knee (~02/2012) History of right breast biopsy History of total left hip arthroplasty History of total right hip arthroplasty (~05/13/14) Status post cataract extraction and insertion of intraocular lens of left eye (06/14/18) Status post cataract extraction and insertion of intraocular lens of right eye (05/31/18) Vaginal hysterectomy Tobacco Smoking/Tobacco Use Status: Never Alcohol Alcohol Intake: current Alcohol intake frequency: holidays/special occasions only Alcohol type: beer, wine and hard liquor Substance Use Substance use: Never Substance use type: does not use Vital Signs and Lab Results Vital Signs Most Recent Vital Signs in EMR: Temp Pulse Resp BP Pulse Ox 36.6 C 64 17 174/68 H 100 04/07/22 09:08 04/07/22 09:08 04/07/22 09:08 04/07/22 09:08 04/07/22 09:08 Lab Results Blood Type / Crossmatch: No Data to Display Complete Blood Count: No Data to Display Complete Metabolic Panel: Creatinine 0.5 mg/dL (0.55-1.02) L 04/05/22 12:10 Estimated GFR/1.73 m2 >= 60.00 (mL/min/1.73m2) 04/05/22 12:10 Liver Function Panel: No Data to Display Coagulation Panel: No Data to Display Cardiac Panel: No Data to Display Arterial Blood Gas: No Data to Display Venous Blood Gas: No Data to Display Pancreas Panel: No Data to Display Thyroid Panel: No Data to Display Infectious Disease: Coronavirus (COVID-19)(PCR) Negative (Negative) 04/05/22 11:23 Coronavirus 2019 Source Nasal/Nares 04/05/22 11:23 Blood Cultures: No Data to Display Toxicology Panel: No Data to Display Imaging and Studies Imaging and Studies Study information below may be from another EMR and interpreted by another provider. Please see original notes in EMR for more complete details. Stress Test Summary: 01/2020: EKG nondiagnositc, LVEF 69% with stress, no WMA, no evidence of ischemia. Echocardiogram Summary: 02/2020: LVEF 55%, no WMA, normal RvFxn, trace MR/TR/VT, RVSP 25 mmhg. Pulmonary Function Summary: 09/17: normal PFTs Anesthesia Assessment and Plan Anesthesia History Personal History: No History of Anesthesia Complications Family History: No Family History of Anesthesia Complications Exercise Tolerance Exercise Tolerance: Metabolic Equivalents>4 Cardiac & Pulmonary Exam Cardiac Exam: Normal S1/S2 Heart Sounds Pulmonary Exam: Clear Bilateral Breath Sounds Implantable Cardiac Device Does patient have a Pacemaker or an ICD?: No Airway Exam Known Difficult Airway: No Mallampati Class: 3 Mouth Opening: Narrow (< 3cm) Thyromental Distance: Less than 3 cm Neck Range of Motion: Full ROM Neck Circumference: Normal Teeth Condition: Removable Dentures/Plates Upper and Edentulous ASA Classification ASA Score: ASA 3 Emergency Case?: No NPO Status NPO Status: NPO Clears >2 hours, Solids >8 hours Anesthesia Plan Resuscitation Status: Full Code Anesthesia Technique: General Anesthesia Airway Planned: Endotracheal Tube Monitors Used: Standard Monitors Preoperative Comments:: 76 yo female for hip scope. Sig PMHx: HTN (carvediol/HCTZ), GERD (omeprozole), lung nodules (stable). Previous Anes: mac 3 grade 1, easy mask. Plan: WEN
[2022-04-07] MEDS: Lactated Ringers 1,000 ML 30 ML IV (09:35)
--- NOTE | 2022-04-07 11:00 | DI.RAD_ITS ---
Exam(s) XR HIP RT IN OR EXAM: XR HIP RT IN OR CLINICAL HISTORY: IT BAND SYNDROME RLE/ TROCHANTERIC BURSITIS RT HIP. TECHNIQUE: 2D and realtime digital imaging was performed. COMPARISON: No exams were available for comparison FINDINGS: Fluoroscopy was provided for Dr. Lopez . Images show a right hip prosthesis. Please see procedure note for details. Fluoro time: 18.1seconds RADIATION DOSE DELIVERED: Ka,r=3.13 mGy
[2022-04-07] MEDS: ceFAZolin 3,000 MG in Normal Saline 100 ML 200 MG IVPB (11:45)
[2022-04-07] MEDS: Bupivacaine 0.25% Pres-Free W/EPI 30 ML VIAL (12:48)
[2022-04-07] MEDS: EPINEPHrine 30 MG/30 ML VIAL (12:48)
[2022-04-07] MEDS: ACETAMINOPHEN 1,000 MG/100 ML BTL 400 MG IVPB (13:10)
[2022-04-07] MEDS: fentaNYL 100 MCG/2 ML VIAL IVP (13:17)
--- NOTE | 2022-04-07 13:24 | W.PM.DSUDISC ---
Discharge Plan Disposition Patient Disposition: HOME Condition: Good Discharge Details Reason For Visit: Right hip surgery Attending Provider: Jamaal Lopez Primary Care Provider: Shannan De Leon Home Meds and New Rx's Prescriptions: New naproxen 250 mg tablet 250 - 500 mg PO BID PRNQty: 20 0RF Rx Instructions: take with a meal tramadol 50 mg tablet 50 mg PO Q8H PRN (Reason: severe pain) Qty: 9 0RF Continued aspirin [Adult Aspirin Regimen] 81 mg tablet,delayed release (DR/EC) 81 mg PO DAILY budesonide-formoterol [Symbicort] 160-4.5 mcg/actuation HFA aerosol inhaler 2 puff inhalation BID Qty: 10.2 8RF albuterol sulfate 90 mcg/actuation HFA aerosol inhaler 2 puff inhalation Q6H PRN cholecalciferol (vitamin D3) 10 mcg (400 unit) capsule 10 mcg PO DAILY multivitamin 1 EACH tablet 1 ea PO DAILY omeprazole 20 mg capsule,delayed release(DR/EC) See Rx Instructions .ROUTE .COMPLEX Qty: 90 3RF Dose Instruction: TAKE ONE CAPSULE BY MOUTH EVERY DAY Rx Instructions: TAKE ONE CAPSULE BY MOUTH EVERY DAY ezetimibe [Zetia] 10 mg tablet 10 mg PO DAILY Qty: 90 3RF hydrochlorothiazide 50 mg tablet 50 mg PO DAILY Qty: 90 3RF carvedilol 25 mg tablet 25 mg PO BID Qty: 180 3RF Rx Instructions: must administer with a meal/food potassium chloride 10 mEq capsule, extended release 10 meq PO DAILY Qty: 30 6RF acetaminophen 500 mg tablet 1,000 mg PO Q8H PRN (Reason: pain) Qty: 60 2RF Discharge Instructions Additional Instructions: Surgery: Right hip endoscopy with iliotibial band release and trochanteric bursectomy Activity: Weightbearing as tolerated. May use crutches or walker as needed for a few days. Gradually advance to full range of motion and activity over the next few weeks. A physical therapy prescription will be provided separately in the office at follow up if needed. Prescriptions: Resume aspirin 81 mg daily tomorrow Naproxen 250 mg take 1-2 every 12 hours with a meal as needed for moderate pain Tramadol 50 mg take 1 every 6-8 hours as needed for severe pain You may use [id number] Tylenol (acetaminophen) as needed for mild pain. These pain medications may be taken all at once or in different combinations as needed. Also, recommend Colace (docusate) as a stool softener as surgery and pain medicine cause constipation. You may try [id number]-[id number] diphenhydramine (Benadryl) 25-50 mg nightly as a sleep aid Dressings: Leave dressing in place for 3 days. May then remove and leave open to air or cover incisions with Band-Aids. May shower after 5 days. Follow-up: 10-14 days with an orthopedic physician automotive service assistant and 6-[address] Lopez Let us know right away if you develop any redness, drainage, fevers, chest pain, or trouble breathing. Do not drink alcohol or drive for at least 24 hours after anesthesia. Please call the office during business hours with any questions or concerns. Discharge Orders Discharge Orders: Discharge Order (Routine); Ordered 04/07/22 Ordered By: Jamaal Lopez DS: Diagnosis Discharge Diagnosis (1) Trochanteric bursitis, right hip: Status: Acute
--- NOTE | 2022-04-07 13:27 | ROE_ITS ---
Operative Note Operative Note DATE OF PROCEDURE: 04/07/22 PRE-OP DIAGNOSIS: Right 1. Iliotibial band syndrome 2. Trochanteric bursitis POST-OP DIAGNOSIS: same PROCEDURE: Right hip endoscopic iliotibial band release (CPT# 93729) and trochanteric bursectomy (CPT# 58369) SURGEON: Jamaal Lopez LICENSING AND REGISTRATION DIRECTOR: Isabel Amado ANESTHESIA TYPE: Local By Surgeon and General LMA/ETT Refer to Anesthesia Record ESTIMATED BLOOD LOSS: 15 COMPLICATIONS: None Patient was transported to: PACU Patient's condition: stable Indications: Please see complete medical record for details. Findings: Thickened iliotibial band. Inflamed trochanteric bursitis. Extensive scarring between iliotibial band and trochanter soft tissues likely from prior surgery. Intact gluteal tendons. Procedure Description: In the operating room, general anesthesia was induced. The patient was positioned supine on the [place] operating room table. All bony prominences were well-padded. Preoperative antibiotics were administered. The hip was prepped and draped in the usual sterile fashion. The correct patient, procedure, and side of the procedure were all verified prior to incision. 20 cc of 0.25% bupivacaine containing epinephrine was infiltrated about the subcutaneous tissues for the planned anterior lateral and distal anterolateral portals as well as deeply over the greater trochanter. A knife was used to incise the skin for the anterior lateral and distal anterolateral portals followed by blunt dissection subcutaneously. Under fluoroscopic guidance, a switching stick and arthroscope were inserted localizing the iliotibial band over the greater trochanter. Blunt dissection and the mechanical shaver were used to resect fat and overlying tissue about the center of the iliotibial band and carefully expose the anterior and posterior margins. Once there was adequate exposure of the IT band, the greater trochanter was again localized under fluoroscopic guidance with a spinal needle inserted through the skin down to bone. This central area was marked using the radiofrequency ablator. A [place] blade was brought in and used to create a 2 cm longitudinal incision in line with the IT band fibers as well as extending it in a cruciate fashion with 2 cm incisions anteriorly and posteriorly. The radiofrequency ablator was used to achieve hemostasis. The mechanical shaver was then used to debride the IT band released edges exposing the trochanteric bursa. Exposure was challenging due to soft tissue envelope and prior surgical scarring. The mechanical shaver was then used to excise the trochanteric bursa taking care to protect musculature about the margins of the greater trochanter as well as neurovascular structures especially posteriorly. There was excellent visualization of the vastus lateralis as well as gluteus medius confirming appropriate bursa excision. The hip was brought through range of motion including internal and external rotation and there was no impinging iliotibial band tissue or remaining pathologic bursa. The viewing and working portals were switched and appropriate IT band release, trochanteric bursa excision, and hemostasis confirmed. Suction was used to remove fluid from the endoscopic space. The portals were closed using 3-0 Monocryl in a buried fashion. Steri-Strips were applied over the incisions followed by Xeroform, 4 x 4 gauze, an ABD pad, and secured with tape. The patient awoke from anesthesia without complication and was transferred to the recovery room in a stable condition.
--- NOTE | 2022-04-07 13:34 | W.ANESPOSTOP ---
Postoperative Evaluation Date, Time and Location Date Performed: 04/07/22 Time Performed: 13:34 Patient Location: PACU Vital Signs Most Recent Imported Vital Signs: Most Recent Vital Signs Temp Pulse Resp BP Pulse Ox 36.3 C L 55 L 18 136/42 L 98 04/07/22 13:16 04/07/22 13:16 04/07/22 13:16 04/07/22 13:16 04/07/22 13:16 Pain Score Most Recent Pain Score: Most Recent Pain Score Pain Level 4 04/07/22 13:16 Assessment Mental Status: Awake (Alert & Oriented to Patient Baseline) Airway and Respiratory Function: Patent airway with normal (patient baseline) respiratory exam Cardiovascular Function: Hemodynamically Stable Hydration Status: Adequately Hydrated Nausea & Vomiting: No Nausea or Vomiting Pain: Pain is tolerable per patient Peripheral Nerve Block: Patient did not receive a nerve block
== END 2022-04-07 14:45 | disposition home or self-care (01) ==
PROVIDERS: PCP Nurse Practitioner; Visit Provider Student in an Organized Health Care Education/Training Program
PROC: (CPT 29863; principal; 2022-04-07 11:00)
DX: M70.61 Trochanteric bursitis, right hip (principal); M76.31 Iliotibial band syndrome, right leg; E78.5 Hyperlipidemia, unspecified; I10 Essential (primary) hypertension
CPT/HCPCS: 27062; 27305; 73501; J0131; J0690; J1100; J2405; J2704; J3010

== ENCOUNTER → 2022-04-19 10:20 | Outpatient (BNVA) | payer MEDICARE, OTHER, SELFPAY | PROVIDERS: PCP Nurse Practitioner; Referring Provider Nurse Practitioner; Visit Provider Physician Assistant Surgical | DX: Z47.89 Encounter for other orthopedic aftercare (principal); M70.61 Trochanteric bursitis, right hip ==

== ENCOUNTER → 2022-04-20 10:20 | Outpatient (BNVA) | payer MEDICARE, OTHER, SELFPAY | PROVIDERS: PCP Nurse Practitioner; Referring Provider Nurse Practitioner; Visit Provider Nurse Practitioner Gerontology | DX: R31.0 Gross hematuria (principal) | CPT/HCPCS: 99442 ==

== ENCOUNTER 2022-04-25 10:02 | Outpatient (REF) | payer MEDICARE, OTHER, SELFPAY ==
[2022-04-25 10:05] LABS: Source Nasal/Nares
[2022-04-25 13:18] LABS: COVID-19 PCR Negative (Negative)
== END 2022-04-25 10:03 | disposition home or self-care (01) ==
LOC: LBN 10:02
PROVIDERS: PCP Nurse Practitioner; Visit Provider Urology
DX: Z20.822 Contact with and (suspected) exposure to COVID-19 (principal)
CPT/HCPCS: 87635

== ENCOUNTER 2022-04-27 06:58 | Day surgery (SDC) | payer OTHER, SELFPAY ==
[2022-04-27 07:45] VITALS: BP 151/65; PULSE 57; RESP 16; TEMP 36.4; O2SAT 99
[2022-04-27] MEDS: Lactated Ringers 1,000 ML 80 ML IV (08:18)
--- NOTE | 2022-04-27 09:47 | W.PM.HP.N ---
Date of service: 04/27/22 Time of Service: 09:47 Assessment and Plan Assessment and plan (1) Microscopic hematuria: Status: Acute Assessment and plan: For cystoscopy with possible TUR Bladder tumor History of Present Illness History of Present Illness Chief Complaint: Microscopic hematuria Narrative: Is a 76-year-old woman who has a history of recurrent urinary tract infections. She has had microscopic hematuria that was evaluated about 5 years ago. 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 No renal or bladder tumors were found. She tends to have gross hematuria when she develops a symptomatic UTI, but does not see blood in her urine routinely. She does continue to have findings of microscopic hematuria however. She has had a recent CT urogram which showed no solid renal masses or stones. She had no hydronephrosis. Her bladder was not well visualized because of her hip prosthesis. She presents now for cystoscopy to complete her hematuria work-up. Review of Systems Narrative: No fevers or chills Decreased hearing acuity. No vision change or dysphasia No diabetes or thyroid dysfunction Asthma. No hemoptysis No chest pain or palpitations Hx GERD. No hepatitis, ulcers, jaundice, diarrhea or constipation No seizures, strokes or peripheral neuropathy No bleeding disorders or anemia No gout PFSH All Active Problems Obesity (Chronic) Hypertension (Chronic) Long standing hypertension which has been treated with low dose Hydrochlorothiazide. Chronic sinusitis (Chronic) Has been followed by Dr. Shmuel Willingham. GERD (gastroesophageal reflux disease) (Chronic) Elevated lipids (Chronic) Has been on a statin but this caused muscle aches so the medication was stopped. Abnormal CT scan, bladder (Acute 05/08/17) IBS (irritable bowel syndrome) (Acute 07/09/17) Ishan Norman DO Osteopenia (Acute 07/11/16) DEXA 07/11/16 L forearm T -0.7 NL spine, hip Pre-diabetes (Acute 01/09/18) Sensorineural hearing loss, unilateral (Acute 06/07/17) 05/14/18 ENT Maulik Tubular adenoma (Acute 04/10/16) Conductive hearing loss (Chronic) 06/21/18 ENT Maulik Pulmonary nodule seen on imaging study (Acute 03/28/17) yearly CT non contrast, next due 08/2020 Dr. Petersen 10/29/20 Dr Bee, with f/u Chest CT and OV in Aug 2021 (w Dr Swanson) Trochanteric bursitis of left hip (Chronic) Left ankle pain (Acute) Trochanteric bursitis, right hip (Acute) Urine abnormality (Acute) Edema of both lower legs (Acute) History of total left knee replacement (TKR) (Acute 03/17/20) Microscopic hematuria (Acute) IT band syndrome (Acute) Pes anserine bursitis (Acute) Colon cancer screening (Acute) Toe pain (Acute) Dysuria (Acute) Pain, eye, right (Acute) Chronic foot pain (Acute) Tubular adenoma of colon (Acute) Hyperplastic colon polyp (Acute) Impacted cerumen, left ear (Acute) Sensorineural hearing loss, asymmetrical (Acute) Dyspnea on exertion (Acute) Skin lesion of neck (Acute) Skin lesion of cheek (Acute) Medical History Conductive hearing loss, external ear (06/07/17) Cyst pt. reports 06/13, removed below L breast Degenerative joint disease of left hip PARKER (dyspnea on exertion) Elevated fasting glucose Hyperlipidemia Iliotibial band syndrome affecting right lower leg Impacted cerumen (05/01/14) Impacted cerumen of both ears Lung mass OA (osteoarthritis) of hip (05/13/14) Total hip replacement 05/13/4014 by Allen Huang M.D. Primary osteoarthritis of left knee Surgical History Colonoscopy - IV Sedation (04/10/16) Dr Prieto History of arthroplasty of left hip History of arthroplasty of right knee (~02/2012) History of right breast biopsy History of total left hip arthroplasty History of total right hip arthroplasty (~05/13/14) Status post cataract extraction and insertion of intraocular lens of left eye (06/14/18) Status post cataract extraction and insertion of intraocular lens of right eye (05/31/18) Vaginal hysterectomy Family History Mother Heart disease Hypertension Father Heart disease [place] caused Brother Diabetes Brother Diabetes Sister Diabetes Social History (Reviewed 03/27/22 @ 12:20 by HILDA Julien Smoking/Tobacco Use Status: Never Smoking risk assessment performed?: Yes Alcohol Intake: current Alcohol Intake frequency: holidays/special occasions only Alcohol type: beer, wine and hard liquor Drug use: Never Substance use type: does not use Adopted: No Caregiver/Support person: No Foster care: No Household members: none Housing: house Number of Children: 0 Communication Needs: None current occupation: retired - worked at [employer] Pets and animals: Yes Sexually active: No Current gender identity: female What is your relationship status?: Panel score (0-1 are the most socially isolated patients): 0 What type of physical activity do you participate in: regular exercise and other Details: PT 2x/week Duration: < 15 minutes/day Frequency: 1-2 times per week Seatbelt use: always Working smoke detector in home: Yes Fire extinguisher in home: Yes Carbon monox detector in home: Yes Do you feel safe at home: Yes Do you feel safe in your relationship?: Yes Meds Allergies and Home Medications Allergies Allergy/AdvReac Type Severity Reaction Status Date / Time valsartan Allergy Intermediate Swelling/Ed Verified 04/27/22 08:01 gina Lbygwgg-RTV-ExO Reductase AdvReac Intermediate MYALGIAS Verified 04/27/22 08:01 Inhibitor [Jiuqnhm-Cuj-Ofg Reductase Inhibitor] lisinopril AdvReac Mild cough Verified 04/27/22 08:01 oxycodone AdvReac Mild Nausea Verified 04/27/22 08:01 Sulfa (Sulfonamide AdvReac Unknown FEELS LIKE Verified 04/27/22 08:01 Antibiotics) IN OUTER SPACE nitrofurantoin AdvReac Headaches Verified 04/27/22 08:01 [From Macrobid] Home Medications Medication Instructions Recorded Confirmed Type multivitamin 1 ea PO DAILY 12/26/12 04/26/22 History acetaminophen 500 mg tablet 1,000 mg PO Q8H PRN pain #60 tabs 03/17/20 04/27/22 Rx aspirin 81 mg tablet,delayed 81 mg PO DAILY 04/29/20 04/26/22 History release (Adult Aspirin Regimen) omeprazole 20 mg capsule,delayed See Rx Instructions .Route 10/10/21 04/27/22 Rx release .COMPLEX #90 caps budesonide-formoterol HFA 160 2 puff inhalation BID #10.2 grams 10/11/21 04/27/22 Rx mcg-4.5 mcg/actuation aerosol inhaler (Symbicort) carvedilol 25 mg tablet 25 mg PO BID #180 tabs 12/21/21 04/27/22 Rx ezetimibe 10 mg tablet (Zetia) 10 mg PO DAILY Elevated 12/21/21 04/27/22 Rx cholesterol #90 tabs hydrochlorothiazide 50 mg tablet 50 mg PO DAILY #90 tabs 12/21/21 04/27/22 Rx albuterol sulfate 90 mcg/actuation 2 puff inhalation Q6H PRN 01/09/22 04/26/22 History aerosol inhaler potassium chloride 10 mEq 10 meq PO DAILY #30 caps 01/11/22 04/27/22 Rx capsule,extended release cholecalciferol (vitamin D3) 10 10 mcg PO DAILY 03/27/22 04/26/22 History mcg (400 unit) capsule naproxen 250 mg tablet 250 - 500 mg PO BID PRN #20 tabs 04/07/22 04/27/22 Rx Exam Const General: cooperative Nutritional Appearance: obese Neck Neck: supple Resp Effort & Inspection: normal respiratory effort Auscultation: clear to auscultation bilaterally Cardio Rate: regular rate Rhythm: regular rhythm GI Palpation: soft and no masses Neuro General: patient alert, patient awake and patient oriented x3 Results Last Vital Signs Temp 36.4 C L 04/27/22 07:45 Pulse 57 L 04/27/22 07:45 Resp 16 04/27/22 07:45 BP 151/65 H 04/27/22 07:45 Pulse Ox 99 04/27/22 07:45
--- NOTE | 2022-04-27 10:54 | ANES.PREOP_ITS ---
General Info Date of Service Date Performed: 04/27/22 Height: 5 ft 4 in Weight: 107.6 kg Body Mass Index (BMI): 40.7 Surgical Procedure: Operation Date: 04/27/22 09:10 Proposed Procedure Side Surgeon p Cystoscopy Possible Transurethral Resection Bladder Tumor Andres Marino MD Meds Allergies and Home Medications Allergies Allergy/AdvReac Type Severity Reaction Status Date / Time valsartan Allergy Intermediate Swelling/Ed Verified 04/27/22 08:01 gina Hbrhqfv-XSH-CdR Reductase AdvReac Intermediate MYALGIAS Verified 04/27/22 08:01 Inhibitor [Vbfzluh-Ynq-Gta Reductase Inhibitor] lisinopril AdvReac Mild cough Verified 04/27/22 08:01 oxycodone AdvReac Mild Nausea Verified 04/27/22 08:01 Sulfa (Sulfonamide AdvReac Unknown FEELS LIKE Verified 04/27/22 08:01 Antibiotics) IN OUTER SPACE nitrofurantoin AdvReac Headaches Verified 04/27/22 08:01 [From Macrobid] Home Medication Medication Instructions Recorded multivitamin 1 ea PO DAILY 12/26/12 acetaminophen 500 mg tablet 1,000 mg PO Q8H PRN pain #60 tabs 03/17/20 aspirin 81 mg tablet,delayed 81 mg PO DAILY 04/29/20 release (Adult Aspirin Regimen) omeprazole 20 mg capsule,delayed See Rx Instructions .Route 10/10/21 release .COMPLEX #90 caps budesonide-formoterol HFA 160 2 puff inhalation BID #10.2 grams 10/11/21 mcg-4.5 mcg/actuation aerosol inhaler (Symbicort) carvedilol 25 mg tablet 25 mg PO BID #180 tabs 12/21/21 ezetimibe 10 mg tablet (Zetia) 10 mg PO DAILY Elevated 12/21/21 cholesterol #90 tabs hydrochlorothiazide 50 mg tablet 50 mg PO DAILY #90 tabs 12/21/21 albuterol sulfate 90 mcg/actuation 2 puff inhalation Q6H PRN 01/09/22 aerosol inhaler potassium chloride 10 mEq 10 meq PO DAILY #30 caps 01/11/22 capsule,extended release cholecalciferol (vitamin D3) 10 10 mcg PO DAILY 03/27/22 mcg (400 unit) capsule naproxen 250 mg tablet 250 - 500 mg PO BID PRN #20 tabs 04/07/22 Current Visit Medications: Current Medications Generic Name Dose Route Start Last Admin Trade Name Freq PRN Reason Stop Dose Admin Ringer's Solution 1,000 mls @ 80 mls/hr 04/27/22 06:00 04/27/22 08:18 IV 05/26/22 23:59 80 mls/hr INFUSION ALLISON Administration Cefazolin Sodium/Dextrose 2 gm in 50 mls @ 100 mls/hr 04/27/22 06:00 Ancef Duplex IVPB 05/26/22 23:59 PREOP ALLISON IV Miscellaneous Supplies 1 each 04/27/22 06:00 Iv Access IV 05/26/22 23:59 DIRECTED ALLISON Sodium Chloride 0 ml 04/27/22 06:00 Normal Saline Flush 10 Ml Syr IV 05/26/22 23:59 PRN PRN Sodium Chloride 0 ml 04/27/22 06:00 Normal Saline 10 Ml Vial IJ 05/26/22 23:59 DIRECTED PRN Sterile Water 0 ml 04/27/22 06:00 Water,Injection,Sterile 10 Ml Vial IJ 05/26/22 23:59 DIRECTED PRN PFSH Active Problems Active Problems: Problem Status Onset Code Obesity E66.9 Hypertension I10 Chronic sinusitis J32.9 GERD (gastroesophageal reflux disease) K21.9 Elevated lipids E78.[address] scan, bladder 05/08/17 R93.41 IBS (irritable bowel syndrome) 07/09/17 K58.9 Osteopenia 07/11/16 M85.80 Pre-diabetes 01/09/18 R73.03 Sensorineural hearing loss, unilateral 06/07/17 H90.5 Tubular adenoma 04/10/16 D36.9 Conductive hearing loss H90.2 Pulmonary nodule seen on imaging study 03/28/17 R91.1 Trochanteric bursitis of left hip M70.62 Left ankle pain M25.572 Trochanteric bursitis, right hip M70.61 Urine abnormality R82.90 Edema of both lower legs R60.0 History of total left knee replacement (TKR) 03/17/20 Z96.652 Microscopic hematuria R31.29 IT band syndrome M76.30 Pes anserine bursitis M70.50 Colon cancer screening Z12.11 Toe pain M79.676 Dysuria R30.0 Pain, eye, right H57.11 Chronic foot pain M79.673, G89.29 Tubular adenoma of colon D12.6 Hyperplastic colon polyp K63.5 Impacted cerumen, left ear H61.22 Sensorineural hearing loss, asymmetrical H90.3 Dyspnea on exertion R06.00 Skin lesion of neck L98.9 Skin lesion of cheek L98.9 Medical History Medical History Conductive hearing loss, external ear (06/07/17) Cyst pt. reports 06/13, removed below L breast Degenerative joint disease of left hip PARKER (dyspnea on exertion) Elevated fasting glucose Hyperlipidemia Iliotibial band syndrome affecting right lower leg Impacted cerumen (05/01/14) Impacted cerumen of both ears Lung mass OA (osteoarthritis) of hip (05/13/14) Total hip replacement 05/13/4014 by Allen Huang M.D. Primary osteoarthritis of left knee Surgical History Surgical History Colonoscopy - IV Sedation (04/10/16) Dr Prieto History of arthroplasty of left hip History of arthroplasty of right knee (~02/2012) History of right breast biopsy History of total left hip arthroplasty History of total right hip arthroplasty (~05/13/14) Status post cataract extraction and insertion of intraocular lens of left eye (06/14/18) Status post cataract extraction and insertion of intraocular lens of right eye (05/31/18) Vaginal hysterectomy Tobacco Smoking/Tobacco Use Status: Never Alcohol Alcohol Intake: current Alcohol intake frequency: holidays/special occasions only Alcohol type: beer, wine and hard liquor Substance Use Substance use: Never Substance use type: does not use Vital Signs and Lab Results Vital Signs Most Recent Vital Signs in EMR: Most Recent Vital Signs Temp Pulse Resp BP Pulse Ox 36.4 C L 57 L 16 151/65 H 99 04/27/22 07:45 04/27/22 07:45 04/27/22 07:45 04/27/22 07:45 04/27/22 07:45 Lab Results Blood Type / Crossmatch: No Data to Display Complete Blood Count: No Data to Display Complete Metabolic Panel: Creatinine 0.5 mg/dL (0.55-1.02) L 04/05/22 12:10 Estimated GFR/1.73 m2 >= 60.00 (mL/min/1.73m2) 04/05/22 12:10 Liver Function Panel: No Data to Display Coagulation Panel: No Data to Display Cardiac Panel: No Data to Display Arterial Blood Gas: 2 No Data to Display Venous Blood Gas: No Data to Display Pancreas Panel: No Data to Display Thyroid Panel: No Data to Display Infectious Disease: Coronavirus (COVID-19)(PCR) Negative (Negative) 04/25/22 09:45 Coronavirus 2019 Source Nasal/Nares 04/25/22 09:45 Blood Cultures: No Data to Display Toxicology Panel: No Data to Display Imaging and Studies Imaging and Studies Study information below may be from another EMR and interpreted by another provider. Please see original notes in EMR for more complete details. Stress Test Summary: 01/2020: EKG nondiagnositc, LVEF 69% with stress, no WMA, no evidence of ischemia. Echocardiogram Summary: 02/2020: LVEF 55%, no WMA, normal RvFxn, trace MR/TR/RI, RVSP 25 mmhg. Pulmonary Function Summary: 09/17: normal PFTs Anesthesia Assessment and Plan Anesthesia History Personal History: No History of Anesthesia Complications Family History: No Family History of Anesthesia Complications Exercise Tolerance Exercise Tolerance: Metabolic Equivalents>4 Pertinent Negatives Pertinent Negatives: No Symptoms of GERD, No Major Pulmonary Symptoms or Complaints (Mild Asthma no ED visits, no rescue inhaler use) and No History of CVA/TIA Cardiac & Pulmonary Exam Cardiac Exam: Normal S1/S2 Heart Sounds Pulmonary Exam: Clear Bilateral Breath Sounds Implantable Cardiac Device Does patient have a Pacemaker or an ICD?: No Airway Exam Known Difficult Airway: No Mallampati Class: 3 Mouth Opening: Narrow (< 3cm) Thyromental Distance: Less than 3 cm Neck Range of Motion: Full ROM Neck Circumference: Normal Teeth Condition: Removable Dentures/Plates Upper and Edentulous ASA Classification ASA Score: ASA 2 Emergency Case?: No NPO Status NPO Status: NPO Clears >2 hours, Solids >8 hours Anesthesia Plan Resuscitation Status: Full Code Anesthesia Technique: General Anesthesia Airway Planned: Natural Airway Monitors Used: Standard Monitors
[2022-04-27 10:57] VITALS: BMI 40.7
[2022-04-27] MEDS: ceFAZolin 2 GM/50 ML BAG IVPB (11:15)
[2022-04-27] MEDS: Lidocaine 2% Jelly 6 ML SYR (11:24)
--- NOTE | 2022-04-27 11:37 | W.PM.DSUDISC ---
Discharge Plan Disposition Patient Disposition: HOME Condition: Good Discharge Details Reason For Visit: cystoscopy Attending Provider: Andres Marino Primary Care Provider: Shannan De Leon Home Meds and New Rx's Prescriptions: No Action aspirin [Adult Aspirin Regimen] 81 mg tablet,delayed release (DR/EC) 81 mg PO DAILY budesonide-formoterol [Symbicort] 160-4.5 mcg/actuation HFA aerosol inhaler 2 puff inhalation BID Qty: 10.2 8RF albuterol sulfate 90 mcg/actuation HFA aerosol inhaler 2 puff inhalation Q6H PRN cholecalciferol (vitamin D3) 10 mcg (400 unit) capsule 10 mcg PO DAILY multivitamin 1 EACH tablet 1 ea PO DAILY omeprazole 20 mg capsule,delayed release(DR/EC) See Rx Instructions .ROUTE .COMPLEX Qty: 90 3RF Dose Instruction: TAKE ONE CAPSULE BY MOUTH EVERY DAY Rx Instructions: TAKE ONE CAPSULE BY MOUTH EVERY DAY ezetimibe [Zetia] 10 mg tablet 10 mg PO DAILY Qty: 90 3RF hydrochlorothiazide 50 mg tablet 50 mg PO DAILY Qty: 90 3RF carvedilol 25 mg tablet 25 mg PO BID Qty: 180 3RF Rx Instructions: must administer with a meal/food potassium chloride 10 mEq capsule, extended release 10 meq PO DAILY Qty: 30 6RF acetaminophen 500 mg tablet 1,000 mg PO Q8H PRN (Reason: pain) Qty: 60 2RF naproxen 250 mg tablet 250 - 500 mg PO BID PRNQty: 20 0RF Rx Instructions: take with a meal Discharge Instructions Additional Instructions: followup yearly for urinalysis Activity:: Activity as Tolerated Shower/Bathe:: 24 hours Diet:: As Tolerated DS: Diagnosis Discharge Diagnosis (1) Microscopic hematuria: Status: Acute
[2022-04-27 11:40] VITALS: BP 145/57; PULSE 69; RESP 16; TEMP 36.2; O2SAT 97
--- NOTE | 2022-04-27 11:40 | W.PM.OP ---
Date of service: 04/27/22 Time of Service: 11:40 Operative Note Operative Note DATE OF PROCEDURE: 04/27/22 PRE-OP DIAGNOSIS: microscopic hematuria POST-OP DIAGNOSIS: same PROCEDURE: Cystoscopy SURGEON: Andres Marino ANESTHESIA TYPE: General:No Airway Refer to Anesthesia Record ESTIMATED BLOOD LOSS: 5 PATHOLOGY: none sent Patient was transported to: same day Patient's condition: stable Implants: none Indications: Is a 76-year-old woman who was previously seen with microscopic hematuria. She had a negative hematuria work-up in 2017. The only finding was a bladder diverticulum. She has had recurrent urinary tract infections and can see gross hematuria when the infections are present. Even with a negative urine culture, she still has persistent microscopic hematuria. She had a normal CT urogram. The bladder portion of the imaging was difficult to assess due to streaking from her hip implant. She presents for cystoscopy to complete her hematuria work-up. Findings: Normal bladder with right-sided bladder diverticulum Procedure Description: The patient was given a dose of antibiotics and brought to the operating room on 04/27/2025. After successful induction of general anesthesia, she was placed in the dorsal lithotomy position. Her genitalia was prepped and draped. 2% Xylocaine jelly was instilled into the urethra to act as a local anesthetic. A 22 Congolese rigid cystoscope was passed through the urethra into the bladder. The bladder was inspected with both the 30 and a 70 degree lens. Both ureteral orifices appeared normal with no blood seen coming from either side. The bladder mucosa was smooth with no papillary or nodular lesions. There was a diverticulum on the right side of the bladder. The diverticulum was a larger mouth and I was easily able to pass the scope into the diverticulum. No mucosal abnormalities were seen. These findings were confirmed on reinspection of the bladder he with a 70 degree lens. Again, no papillary or nodular lesions were identified. The bladder was emptied and the cystoscope was withdrawn. The patient tolerated the procedure well. There were no complications. We would recommend yearly urinalysis and repeat imaging studies in 5 years if the hematuria persists.
--- NOTE | 2022-04-27 11:41 | W.ANESPOSTOP ---
Postoperative Evaluation Date, Time and Location Date Performed: 04/27/22 Time Performed: 11:41 Patient Location: Day Surgery Unit Vital Signs Most Recent Imported Vital Signs: Most Recent Vital Signs Temp Pulse Resp BP Pulse Ox 36.4 C L 57 L 16 151/65 H 99 04/27/22 07:45 04/27/22 07:45 04/27/22 07:45 04/27/22 07:45 04/27/22 07:45 Most Recent Manually Entered Vital Signs: Adult Blood Pressure: 145/57 Heart Rate: 68 Respirations: 12 Oxygen Saturation (%): 97 Temperature (C): 36.3 C Pain Score (0-10 Scale): 0 Assessment Mental Status: Awake (Alert & Oriented to Patient Baseline) Airway and Respiratory Function: Patent airway with normal (patient baseline) respiratory exam Cardiovascular Function: Hemodynamically Stable Hydration Status: Adequately Hydrated Nausea & Vomiting: No Nausea or Vomiting Pain: Pt. Denies Any Pain Peripheral Nerve Block: Patient did not receive a nerve block
[2022-04-27 11:42] VITALS: BP 145/57; PULSE 68; RESP 12; TEMPC 36.3; O2SAT 97
[2022-04-27 12:15] VITALS: BP 151/52; PULSE 60; RESP 14; TEMP 36.2; O2SAT 99
== END 2022-04-27 13:00 | disposition home or self-care (01) ==
PROVIDERS: PCP Nurse Practitioner; Visit Provider Urology
PROC: 0TBB8ZZ Excision of Bladder, Via Natural or Artificial Opening Endoscopic (ICD-10-PCS; CPT 52000; principal; 2022-04-27 09:00)
DX: R31.29 Other microscopic hematuria (principal); N32.3 Diverticulum of bladder
CPT/HCPCS: 52000; J0690; J2250

== ENCOUNTER → 2022-05-12 10:52 | Outpatient (BNVA) | payer OTHER, SELFPAY | PROVIDERS: PCP Nurse Practitioner; Referring Provider Nurse Practitioner; Visit Provider Urology | DX: R31.29 Other microscopic hematuria (principal) | CPT/HCPCS: 99212 ==

== ENCOUNTER → 2022-05-31 12:59 | Outpatient (BNVA) | payer OTHER, SELFPAY | PROVIDERS: PCP Nurse Practitioner; Referring Provider Nurse Practitioner; Visit Provider Student in an Organized Health Care Education/Training Program | DX: Z47.89 Encounter for other orthopedic aftercare (principal); M70.61 Trochanteric bursitis, right hip ==

== ENCOUNTER → 2022-06-12 13:14 | Outpatient (BNVA) | payer OTHER, SELFPAY | PROVIDERS: PCP Nurse Practitioner; Referring Provider Nurse Practitioner; Visit Provider Nurse Practitioner Gerontology | DX: R30.0 Dysuria (principal) | CPT/HCPCS: 81003; 99213 ==

== ENCOUNTER 2022-06-12 15:52 | Outpatient (REF) | payer OTHER, SELFPAY | END 2022-06-12 15:53 | disposition home or self-care (01) | LOC: NCHCN 15:52 | PROVIDERS: PCP Nurse Practitioner; Visit Provider Nurse Practitioner Gerontology | DX: N39.0 Urinary tract infection, site not specified (principal) | CPT/HCPCS: 87077; 87086; 87186 ==

== ENCOUNTER → 2022-08-02 12:58 | Outpatient (BNVA) | payer OTHER, SELFPAY | PROVIDERS: PCP Nurse Practitioner; Referring Provider Nurse Practitioner; Visit Provider Student in an Organized Health Care Education/Training Program | DX: M70.61 Trochanteric bursitis, right hip (principal); M79.7 Fibromyalgia | CPT/HCPCS: 99213 ==

== ENCOUNTER 2022-09-11 02:03 | Outpatient (CLI) | payer OTHER, SELFPAY ==
--- NOTE | 2022-09-11 07:00 | DI.MAMMO_ITS ---
Exam(s) MAMMO SCREENING EXAM: MAMMO SCREENING CLINICAL HISTORY: screening,z12.39 TECHNIQUE: Bilateral full field digital CC and MLO mammographic images were obtained with 3D tomosyn thesis and utilizing computer aided detection (CAD). COMPARISON: Available for comparison. FINDINGS: Masses/Architectural Distortion: None seen. Microcalcifications: No suspicious pleomorphic-type are seen. Skin Thickening/Nipple Retraction: None. IMPRESSION: 1. No significant interval change with no specific features of malignancy noted. 2. Unless there is more urgent need, screening mammography is recommended, as per [employer] guidelines. BI-RADS Category 1 - Negative Breast Density - Category B - Scattered areas of fibroglandular density Breast density category C or D implies that the patient has dense breast tissue. Dense breast tissue is very common and is not abnormal but dense breast tissue can make it harder to find cancer on a ma mmogram. Also, dense breast tissue may increase their breast cancer risk. This information about the result of the mammogram report was provided to the patient to raise their awareness. Use this report when you speak with the patient about their risks for breast cancer, which includes their family hist ory. At that time, you may recommend for more screening tests (Ultrasound or MRI) as they might be us eful based on their risk. A negative radiographic report should not delay biopsy if a dominant or clinically suspicious mass is present. Up to ten percent of cancers are not identified on mammography. A negative report may reinforce clinical impression. Adenosis and dense breasts may obscure an underlying neoplasm. False positive reports average 6 to 10%. Patient will receive a letter notifying them of these results.
== END 2022-09-11 02:23 ==
LOC: DI 02:04
PROVIDERS: PCP Nurse Practitioner; Visit Provider Nurse Practitioner
DX: Z12.31 Encounter for screening mammogram for malignant neoplasm of breast (principal); R92.8 Other abnormal and inconclusive findings on diagnostic imaging of breast
CPT/HCPCS: 77063; 77067

== ENCOUNTER 2022-11-08 02:46 | Outpatient (CLI) | payer OTHER, SELFPAY ==
[2022-11-08 12:30] LABS: Abs Immature Grans 0.03 10^3/uL (0.0-0.06); Absolute Basophil Count 0.06 10^3/uL (0.0-0.2); Absolute Eosinophil Count 0.21 10^3/uL (0.0-0.7); Absolute Lymphocyte Count 1.72 10^3/uL (1.2-3.4); Absolute Neutrophil Count 4.19 10^3/uL (1.2-6.7); Basophils % 0.9; ESR 22 mm/hr (0-30); Eosinophils % 3.1; HCT 41.7 % (36.0-46.0); HGB 13.1 g/dL (11.2-15.7); Immature Grans % 0.4; Lymphocytes % 25.3; MCH 27.3 pg (27.0-33.0); MCHC 31.4 % (32.0-36.0); MCV 87 fL (80-95); MPV 9.8 fL (8.0-11.0); Monocytes % 8.8; Neutrophils % 61.5; Platelet Count 381 10^3/uL (130-400); RBC 4.79 10^6/uL (3.93-5.22); RDW-SD 47.8 fL; WBC 6.81 10^3/uL (4.4-10.8)
[2022-11-08 12:57] LABS: Anion Gap 7.1 mmol/L (3-11); BUN 15 mg/dL (7-18); CO2 30.9 mmol/L (21.0-32.0); CREATININE 0.7 mg/dL (0.55-1.02); Calcium 9.3 mg/dL (8.5-10.1); Chloride 98 mmol/L (98-107); Estimated GFR 88.47 (mL/min/1.73m2); Glucose 107 mg/dL (74-106); Hemoglobin A1C 6.5 % (<5.7); Potassium 3.3 mmol/L (3.5-5.1); Sodium 136 mmol/L (136-145)
== END 2022-11-08 02:47 | disposition home or self-care (01) ==
LOC: LOS 02:47
PROVIDERS: PCP Nurse Practitioner; Visit Provider Nurse Practitioner
DX: R73.03 Prediabetes (principal); M25.50 Pain in unspecified joint; I10 Essential (primary) hypertension; E78.5 Hyperlipidemia, unspecified; R10.13 Epigastric pain
CPT/HCPCS: 36415; 80048; 85652; 83036; 85025

== ENCOUNTER 2022-12-04 10:34 | Outpatient (REF) | payer OTHER, SELFPAY ==
[2022-12-04 16:00] LABS: COVID-19 PCR Negative (Negative); Influenza A PCR Negative (Negative); Influenza B PCR Negative (Negative); RSV PCR Negative (Negative)
[2022-12-04 16:01] LABS: Source Nasopharynx
== END 2022-12-04 10:35 | disposition home or self-care (01) ==
LOC: LBN 10:34
PROVIDERS: PCP Nurse Practitioner; Visit Provider Nurse Practitioner
DX: R05.9 Cough, unspecified (principal); R06.02 Shortness of breath; R06.2 Wheezing; Z20.822 Contact with and (suspected) exposure to COVID-19
CPT/HCPCS: 87637

== ENCOUNTER 2022-12-25 18:19 | Outpatient (REF) | payer OTHER, SELFPAY ==
[2022-12-25 14:39] LABS: Bilirubin Negative (Negative); Blood Trace-lysed (Negative); Clarity Clear (Clear); Glucose Negative (Negative); Ketones Negative (Negative); Leukocyte Esterase Small (Negative); Nitrite Negative (Negative); Urobilinogen 0.2 mg/dL (Up to 0.2)
[2022-12-25 14:54] LABS: Bacteria Moderate HPF (Negative); C & S Indicated? C&S Done As Ordered; Casts Negative LPF (Negative); Crystals Negative HPF (Negative); Epithelial Cells Rare HPF (Negative); Mucus Negative (Negative); Other Cells Negative (Negative); RBC 0-2 HPF (0-2)
== END 2022-12-25 18:20 | disposition home or self-care (01) ==
LOC: LBN 18:19
PROVIDERS: PCP Nurse Practitioner; Visit Provider Nurse Practitioner
DX: R31.9 Hematuria, unspecified (principal); R30.0 Dysuria
CPT/HCPCS: 87077; 81003; 81015; 87086; 87186

== ENCOUNTER 2023-01-19 00:10 | Outpatient (CLI) | payer OTHER, SELFPAY ==
--- NOTE | 2023-01-19 09:25 | DI.DEXA_ITS ---
Exam(s) XR DEXA BONE DENSITY W/WO JASON EXAM: XR DEXA BONE DENSITY W/WO JASON CLINICAL HISTORY: screening for osteoporosis in postmenopausal woman,z78.0 TECHNIQUE: COMPARISON: DX DEXA BONE DENSITY WITH JASON from 07/11/2016 FINDINGS: Lateral Spine Image: Unremarkable. No compression deformities identified. The patient has bilateral total hip replacements. Left forearm: Total T-Score: -0.9. Total Z-Score: 1.9 T- and Z-scores: Within normal limits. There is osteopenia in the forearm with a T-score of -1.5. Th ere is no osteoporosis. Lumbar Spine: Total T-Score: 1.4. This compares to 1.3 on the prior examination. Total Z-Score: 4.0 T- and Z-scores: Within normal limits. IMPRESSION: No evidence of osteoporosis.
== END 2023-01-19 00:30 ==
LOC: DI 00:11
PROVIDERS: PCP Nurse Practitioner; Visit Provider Nurse Practitioner
DX: Z78.0 Asymptomatic menopausal state (principal); Z13.820 Encounter for screening for osteoporosis
CPT/HCPCS: 77080

== ENCOUNTER 2023-02-14 01:59 | Outpatient (CLI) | payer OTHER, SELFPAY ==
--- NOTE | 2023-02-14 07:15 | DI.MRI_ITS ---
Exam(s) MR LUMBAR SPINE WO EXAM: MR LUMBAR SPINE WO CLINICAL HISTORY: bl lower extremity discomfort, abnormal CT, DDD LUMBAR, M51.36. TECHNIQUE: Multiplanar multisequence MRI of the Lumbar spine was performed. COMPARISON: CR XR DEXA BONE DENSITY W/WO JASON from 01/19/2023 FINDINGS: Bones: The last intervertebral disc space is designated the L5/S1 level for the numbering purpose of this examination. The vertebral body heights are well maintained. There is a right convex lumbar sc oliosis. Mild degenerative endplate signal changes. Cord: The conus tip ends at the L1 level. It is of normal size and signal intensity. T12-L1: No disc herniations or bulges are present. No central spinal canal or neural foraminal stenos is. L1-2: There is a mild diffuse disc bulge. No central spinal canal or neural foraminal stenosis. L2-3: No disc herniations or bulges are present. No central spinal canal or neural foraminal stenosis . L3-4: Mild diffuse disc bulge. Degenerative changes of the facets are seen. There is mild narrowing of the central spinal canal. No significant right neural foraminal stenosis. There is mild left ne ural foraminal stenosis. L4-5: No disc herniations or bulges are present. Degenerative changes of the facets are seen, left gr eater than right. No significant central spinal canal stenosis is present.No significant right neura l foraminal stenosis. There is [id number] left neural foraminal stenosis. L5-S1: There is a mild diffuse disc bulge. Mild degenerative changes of the facets are present, righ t greater than left. There is mild narrowing of the right neural foramen. The left neural foramen i s unremarkable. No central spinal canal stenosis. Soft tissues: The visualized SI joints and sacrum are well maintained. The paraspinal soft tissues ar e unremarkable. Visualized abdominal organs: There again seen small left parapelvic cysts. No follow-up is recommend ed. IMPRESSION: Multilevel degenerative changes are seen in the lumbar spine resulting in varying degrees of central and neural foraminal stenosis as described above. DATA REPOSITORY:
== END 2023-02-14 02:19 ==
LOC: DI 01:59
PROVIDERS: PCP Nurse Practitioner; Visit Provider Physician Assistant Surgical
DX: M47.816 Spondylosis without myelopathy or radiculopathy, lumbar region (principal)
CPT/HCPCS: 72148

== ENCOUNTER 2023-03-07 10:15 | Outpatient (REF) | payer OTHER, SELFPAY ==
[2023-03-07 17:04] LABS: Uric Acid 6.6 mg/dL (2.6-6.0)
== END 2023-03-07 10:16 | disposition home or self-care (01) ==
LOC: LBN 10:15
PROVIDERS: PCP Nurse Practitioner; Visit Provider Nurse Practitioner
DX: R30.0 Dysuria (principal)
CPT/HCPCS: 87077; 84132; 84550; 87086; 87186

== ENCOUNTER 2023-06-04 11:44 | Outpatient (CLI) | payer OTHER, SELFPAY ==
[2023-06-04 11:12] LABS: C-Reactive Protein 0.41 mg/dL (0.0-0.3)
[2023-06-04 15:53] LABS: ESR (LRH) 60 mm/hr
== END 2023-06-04 11:45 | disposition home or self-care (01) ==
LOC: LBO 11:45
PROVIDERS: PCP Nurse Practitioner; Visit Provider Family Medicine
DX: M54.2 Cervicalgia (principal); R51.9 Headache, unspecified
CPT/HCPCS: 36415; 85652; 86140

== ENCOUNTER 2023-06-06 06:47 | Emergency (ER) | payer OTHER, SELFPAY ==
[2023-06-06 06:52] VITALS: BP 145/70; PULSE 78; RESP 20; TEMP 36.9; O2SAT 95
[2023-06-06] MEDS: Balanced Salt Solution 15 ML BTL OP (07:28)
[2023-06-06] MEDS: valACYclovir 500 MG TAB 1000 MG PO (07:29)
[2023-06-06] MEDS: Ibuprofen 600 MG TAB PO (07:29)
[2023-06-06] MEDS: Fluorescein STRIPS 100/BOX 1 MG OP (07:29)
--- NOTE | 2023-06-06 07:43 | ED.GENADUL_ITS ---
Discharge Plan Disposition Patient Disposition: Home Condition: Stable Discharge Details Clinical Impression: Herpes zoster, Ophthalmic herpes zoster Primary Care Provider: Shannan De Leon ED Provider: Vinay Caicedo Home Meds and New Rx's Prescriptions: New valacyclovir [Valtrex] 1 gram tablet 1,000 mg PO TID Qty: 20 0RF Continued aspirin [Adult Aspirin Regimen] 81 mg tablet,delayed release (DR/EC) 81 mg PO DAILY cholecalciferol (vitamin D3) 50 mcg (2,000 unit) capsule 50 mcg PO DAILY Qty: 90 3RF albuterol sulfate 90 mcg/actuation HFA aerosol inhaler 2 puff inhalation Q6H PRN (Reason: shortness of breath or wheezing) Qty: 8.5 12RF omeprazole 20 mg capsule,delayed release(DR/EC) See Rx Instructions .ROUTE .COMPLEX Qty: 90 3RF Dose Instruction: TAKE ONE CAPSULE BY MOUTH EVERY DAY Rx Instructions: TAKE ONE CAPSULE BY MOUTH EVERY DAY carvedilol 25 mg tablet 25 mg PO BID Qty: 180 3RF Rx Instructions: must administer with a meal/food ezetimibe [Zetia] 10 mg tablet 10 mg PO DAILY Qty: 90 3RF hydrochlorothiazide 50 mg tablet 50 mg PO DAILY Qty: 90 3RF potassium chloride 10 mEq tablet extended release 10 meq PO DAILY fluticasone propion-salmeterol [Advair HFA] 230-21 mcg/actuation HFA aerosol inhaler 2 puff inhalation BID Qty: 12 12RF acetaminophen 500 mg tablet 1,000 mg PO Q8H PRN (Reason: pain) Qty: 60 2RF Discontinued prednisone 20 mg tablet 40 mg PO DAILY Qty: 60 0RF Patient Comments: just started 06/05/23 No Action cholecalciferol (vitamin D3) 10 mcg (400 unit) capsule 10 mcg PO DAILY Patient Comments: takes stronger dose. Discharge Instructions Instructions: Shingles (ED) Additional Instructions: You were given the initial dose of antiviral treatment Valtrex today in the emergency department. Please fill prescription as soon as possible and continue dosing this afternoon as prescribed. Please follow-up with [facility] [place] today. Please contact your primary care physician to arrange follow-up. Return to the ER immediately for any worsening or new concerning symptoms. Referrals: [facility] [Outside] Shannan De Leon NP [Primary Care Provider] - Medical Decision Making 78-year-old female here with right-sided temporal/frontal headache for the past 5 days, now with painful vesicular rash of the forehead, blurred vision right eye. There is a small corneal lesion right eye. I will initiate treatment with valacyclovir. Patient spoke with Dr. Hansen at [facility], discussed ED presentation and course, she agrees with treatment plan and will be happy to see the patient today in clinic and follow-up. Usual customary discharge instructions were reviewed with the patient. HPI General Mode of arrival: ambulatory . Date/Time Provider Initiated Documentation: 06/06/23 06:48 . Limitations to Documentation: no limitations . Information obtained by: patient . HPI Narrative: 78-year-old female presents with chief complaint of facial pain and rash. Patient notes she started develop right temporal/frontal headache 5 days ago. Pain has persisted and now frontal and involving her right eye. Pain is described as a burning ache. She saw her PCP on Sunday who was concerned about the potential for temporal arteritis versus shingles. Diagnostic labs including ESR were nondiagnostic. Today patient noticed rash on her forehead. Patient states associated mild blurred vision to her right eye. No associated fever. Related Data Home Medications Medication Instructions Recorded Confirmed acetaminophen 500 mg tablet 1,000 mg PO Q8H PRN pain #60 tabs 03/17/20 06/06/23 aspirin 81 mg tablet,delayed 81 mg PO DAILY 04/29/20 06/06/23 release (Adult Aspirin Regimen) cholecalciferol (vitamin D3) 10 10 mcg PO DAILY 03/27/22 06/04/23 mcg (400 unit) capsule albuterol sulfate 90 mcg/actuation 2 puff inhalation Q6H PRN 07/12/22 06/06/23 aerosol inhaler shortness of breath or wheezing #8.5 grams carvedilol 25 mg tablet 25 mg PO BID #180 tabs 09/19/22 06/06/23 ezetimibe 10 mg tablet (Zetia) 10 mg PO DAILY Elevated 09/19/22 06/06/23 cholesterol #90 tabs hydrochlorothiazide 50 mg tablet 50 mg PO DAILY #90 tabs 09/19/22 06/06/23 fluticasone propionate 230 2 puff inhalation BID #12 grams 11/10/22 06/06/23 mcg-salmeterol 21 mcg/actuation HFA inhaler (Advair HFA) omeprazole 20 mg capsule,delayed See Rx Instructions .Route 11/22/22 06/06/23 release .COMPLEX #90 caps cholecalciferol (vitamin D3) 50 50 mcg PO DAILY #90 caps 03/07/23 06/06/23 mcg (2,000 unit) capsule potassium chloride 10 mEq 10 meq PO DAILY 05/30/23 06/06/23 tablet,extended release valacyclovir 1 gram tablet 1,000 mg PO TID #20 tabs 06/06/23 (Valtrex) Previous Rx's Medication Instructions Recorded acetaminophen 500 mg tablet 1,000 mg PO Q8H PRN pain #60 tabs 03/17/20 albuterol sulfate 90 mcg/actuation 2 puff inhalation Q6H PRN 07/12/22 aerosol inhaler shortness of breath or wheezing #8.5 grams carvedilol 25 mg tablet 25 mg PO BID #180 tabs 09/19/22 ezetimibe 10 mg tablet (Zetia) 10 mg PO DAILY Elevated 09/19/22 cholesterol #90 tabs hydrochlorothiazide 50 mg tablet 50 mg PO DAILY #90 tabs 09/19/22 fluticasone propionate 230 2 puff inhalation BID #12 grams 11/10/22 mcg-salmeterol 21 mcg/actuation HFA inhaler (Advair HFA) omeprazole 20 mg capsule,delayed See Rx Instructions .Route 11/22/22 release .COMPLEX #90 caps cholecalciferol (vitamin D3) 50 50 mcg PO DAILY #90 caps 03/07/23 mcg (2,000 unit) capsule valacyclovir 1 gram tablet 1,000 mg PO TID #20 tabs 06/06/23 (Valtrex) Allergies Allergy/AdvReac Type Severity Reaction Status Date / Time valsartan Allergy Intermediate Swelling/Ed Verified 06/06/23 06:58 gina Kazghhm-DCS-TyZ Reductase AdvReac Intermediate MYALGIAS Verified 06/06/23 06:58 Inhibitor [Urqiavx-Eui-Aql Reductase Inhibitor] lisinopril AdvReac Mild cough Verified 06/06/23 06:58 oxycodone AdvReac Mild Nausea Verified 06/06/23 06:58 Sulfa (Sulfonamide AdvReac Unknown FEELS LIKE Verified 06/06/23 06:58 Antibiotics) IN OUTER SPACE nitrofurantoin AdvReac Headaches Verified 06/06/23 06:58 [From Macrobid] General Stated Complaint: RashLesion TRICIA: 3 Review of Systems Constitutional Constitutional: Denies fever(s) Eyes Eyes: Reports as per HPI Comments: Right eye is watering PFSH All Active Problems (Updated 06/06/23 @ 08:19 by Vinay Caicedo MD) Herpes zoster (Acute) Ophthalmic herpes zoster (Acute) Temporal arteritis syndrome (Acute) Tenderness of head and neck (Acute) Lumbosacral spondylosis without myelopathy (Acute) Neural foraminal stenosis of lumbosacral spine (Acute) Degenerative disc disease, lumbar (Acute) Impacted cerumen, left ear (Acute) Fibromyalgia (Acute) Obesity (Chronic) Hypertension (Chronic) Long standing hypertension which has been treated with low dose Hydrochlorothiazide. Chronic sinusitis (Chronic) Has been followed by Dr. Shmuel Willingham. GERD (gastroesophageal reflux disease) (Chronic) Elevated lipids (Chronic) Has been on a statin but this caused muscle aches so the medication was stopped. Abnormal CT scan, bladder (Acute 05/08/17) IBS (irritable bowel syndrome) (Acute 07/09/17) Ishan Norman DO Osteopenia (Acute 07/11/16) DEXA 07/11/16 L forearm T -0.7 NL spine, hip Pre-diabetes (Acute 01/09/18) Sensorineural hearing loss, unilateral (Acute 06/07/17) 05/14/18 ENT Maulik Tubular adenoma (Acute 04/10/16) Conductive hearing loss (Chronic) 06/21/18 ENT Maulik Pulmonary nodule seen on imaging study (Acute 03/28/17) yearly CT non contrast, next due 08/2020 Dr. Petersen 10/29/20 Dr Bee, with f/u Chest CT and OV in Aug 2021 (w Dr Swanson) Trochanteric bursitis of left hip (Chronic) Left ankle pain (Acute) Trochanteric bursitis, right hip (Acute) Urine abnormality (Acute) Edema of both lower legs (Acute) History of total left knee replacement (TKR) (Acute 03/17/20) Microscopic hematuria (Acute) IT band syndrome (Acute) Pes anserine bursitis (Acute) Colon cancer screening (Acute) Toe pain (Acute) Dysuria (Acute) Pain, eye, right (Acute) Chronic foot pain (Acute) Tubular adenoma of colon (Acute) Hyperplastic colon polyp (Acute) Impacted cerumen, left ear (Acute) Sensorineural hearing loss, asymmetrical (Acute) Dyspnea on exertion (Acute) Skin lesion of neck (Acute) Skin lesion of cheek (Acute) Medical History Conductive hearing loss, external ear (06/07/17) Cyst pt. reports 06/13, removed below L breast Degenerative joint disease of left hip PARKER (dyspnea on exertion) Elevated fasting glucose Hyperlipidemia Iliotibial band syndrome affecting right lower leg Impacted cerumen (05/01/14) Impacted cerumen of both ears Lung mass OA (osteoarthritis) of hip (05/13/14) Total hip replacement 05/13/4014 by Allen Huang M.D. Primary osteoarthritis of left knee Surgical History Colonoscopy - IV Sedation (04/10/16) Dr Prieto History of arthroplasty of left hip History of arthroplasty of right knee (~02/2012) History of right breast biopsy History of total left hip arthroplasty History of total right hip arthroplasty (~05/13/14) Status post cataract extraction and insertion of intraocular lens of left eye (06/14/18) Status post cataract extraction and insertion of intraocular lens of right eye (05/31/18) Vaginal hysterectomy Family History Mother Heart disease Hypertension Father Heart disease [place] caused Brother Diabetes Brother Diabetes Sister Diabetes Social History Smoking/Tobacco Use Status: Never Smoking risk assessment performed?: Yes Alcohol Intake: current Alcohol Intake frequency: holidays/special occasions only Alcohol type: beer, wine and hard liquor Drug use: Never Substance use type: does not use Adopted: No Caregiver/Support person: No Foster care: No Household members: none Housing: house Number of Children: 0 Communication Needs: None current occupation: retired - worked at [employer] [place] [employer] Pets and animals: Yes Sexually active: No Current gender identity: female What is your relationship status?: Panel score (0-1 are the most socially isolated patients): 0 What type of physical activity do you participate in: regular exercise and other Details: PT 2x/week Duration: < 15 minutes/day Frequency: 1-2 times per week Seatbelt use: always Working smoke detector in home: Yes Fire extinguisher in home: Yes Carbon monox detector in home: Yes Do you feel safe at home: Yes Do you feel safe in your relationship?: Yes Exam Const General: cooperative and no acute distress HENKY Head: normocephalic and atraumatic Mouth: moist mucous membranes Eyes Alignment and Position: alignment normal Eyelids: eyelids normal Conjunctivae: conjunctival abnormality right conjunctival injection Sclera: normal sclerae Cornea: corneas abnormal and fluorescein used Pupils: PERRL EOM: EOM intact bilaterally Other: Patient has small area of fluorescein uptake 7:00 concerning for dendritic lesion Neck Neck: trachea midline and supple Resp Auscultation: clear to auscultation bilaterally, no rales, no rhonchi and no wheezes Cardio Rate: regular rate and not tachycardic Rhythm: regular rhythm Skin Rashes: rashes noted (Vesicular rash with mild erythema right forehead) Neuro General: patient alert, patient awake, patient oriented x3 and tone normal Course Vital Signs Vital signs: Vital Signs Temperature 36.9 C 06/06/23 06:52 Pulse 78 06/06/23 06:52 Respiratory Rate 20 06/06/23 06:52 Blood Pressure 145/70 H 06/06/23 06:52 Pulse Oximetry 95 06/06/23 06:52 Temperature 36.9 C 06/06/23 06:52 Temperature Source Skin 06/06/23 06:52 Pulse 78 06/06/23 06:52 Respiratory Rate 20 06/06/23 06:52 Respiratory Effort Normal, Non-Labored 06/06/23 07:11 Blood Pressure 145/70 H 06/06/23 06:52 Blood Pressure Position Sitting 06/06/23 06:52 Pulse Oximetry 95 06/06/23 06:52 Oxygen Delivery Method Room Air 06/06/23 06:52 Oxygen Flow Rate 0 06/06/23 06:52 Pain Level 10 06/06/23 06:52 PAWSS Have you Been Recently Intoxicated or Drunk Within the Last 30 days?: No Have you Ever Experienced Previous Episodes of Alcohol Withdrawal?: No Have you ever Experienced Withdrawal Seizures?: No Have you ever Experienced Delirium Tremens(DT)s?: No Have you ever undergone Alcohol Rehabilitation Treatment (i.e, inpt ot outpatient treatment programs)?: No Have you ever Experienced Blackouts?: No Have you ever Combined Alcohol with other Downers within the last 90 days?: No Have you ever Combined Alcohol with any other Substance of Abuse during the last 90 days?: No Positive Blood Alcohol level on Presentation? [PCS.BAL]: No Evidence of Increased Autonomic Activity (i.e. HR>120, tremor, sweating, agitation, nausea)?: No Result: 0
[2023-06-06 08:31] VITALS: BP 145/70; PULSE 78; RESP 20; TEMP 36.9; O2SAT 95
== END 2023-06-06 08:32 | disposition home or self-care (01) ==
PROVIDERS: Emergency Provider Student in an Organized Health Care Education/Training Program; PCP Nurse Practitioner
DX: B02.30 Zoster ocular disease, unspecified (principal)
CPT/HCPCS: 80053; 83690; 99283; 85025; 99284

== ENCOUNTER 2023-06-13 19:15 | Outpatient (REF) | payer OTHER, SELFPAY | END 2023-06-13 19:16 | disposition home or self-care (01) | LOC: LBN 19:15 | PROVIDERS: PCP Nurse Practitioner; Visit Provider Nurse Practitioner | DX: R30.0 Dysuria (principal) | CPT/HCPCS: 87077; 87086; 87186 ==

== ENCOUNTER → 2023-07-09 09:48 | Outpatient (BNVA) | payer OTHER, SELFPAY | PROVIDERS: PCP Nurse Practitioner; Referring Provider Nurse Practitioner; Visit Provider Student in an Organized Health Care Education/Training Program | DX: J45.909 Unspecified asthma, uncomplicated (principal); Z79.51 Long term (current) use of inhaled steroids; Z79.899 Other long term (current) drug therapy; R91.1 Solitary pulmonary nodule; R06.00 Dyspnea, unspecified; I10 Essential (primary) hypertension | CPT/HCPCS: 99214 ==

== ENCOUNTER 2023-08-29 10:31 | Outpatient (CLI) | payer OTHER, SELFPAY ==
[2023-08-29 10:54] VITALS: BP 157/77; PULSE 64; RESP 20; TEMP 36.7; O2SAT 95
--- NOTE | 2023-08-29 11:33 | DI.RAD_ITS ---
Exam(s) XR PAIN CLINIC LUMBAR SP 2V EXAM: XR PAIN CLINIC LUMBAR SP 2V CLINICAL HISTORY: DX: Lumbar Spondylosis. TECHNIQUE: Fluoroscopy was provided for the referring physician for guidance with performing pain cl inic injection procedure. COMPARISON: No exams were available for comparison FINDINGS: Please see procedure note for details. Fluoro time: 48.6 seconds RADIATION DOSE DELIVERED: Jasenr=19.18 mGy
[2023-08-29 11:38] VITALS: BP 157/67; PULSE 67; RESP 12; O2SAT 95
[2023-08-29] MEDS: Bupivacaine 0.5% Pres-Free 10 ML VIAL IJ (11:39)
[2023-08-29] MEDS: Omnipaque 240 MG/ML 50 ML BTL IJ (11:40)
--- NOTE | 2023-08-30 09:33 | PDOC.PAIN ---
Date of service: 08/29/23 Time of Service: 11:33 Pain Managment Procedure Note Procedure Note Procedure Note: PROCEDURE NOTE Right Lumbar Medial Branch Blocks Date of Service: August 29, 2023 Patient: Irene Sinha Provider: Rangel Balderas DO, MPH Irene Sinha has been [facility] for lumbar medial branch blocks. Pre-operative diagnosis: Lumbar Spondylosis without Myelopathy Post-operative diagnosis: Same Pre-procedure pain: VAS= 4/10 COMMENTS: I previously evaluated her in the office. No stop on the ASA. Last Hem A1c was 6.3 on 07/10/23. Nena was interviewed and the medical records were reviewed. There were no medical, pharmacologic, radiographic or other structural contraindications to attempting fluoroscopically guided local anesthetic lumbar medial branch blocks. Risks and potential side effects were discussed. I also discussed the potential benefit(s) of the procedure with Irene, and voiced concerns were addressed. After Irene was completely informed about the procedure, the printed consent form was signed. A standard time-out procedure was performed. Irene was placed in the prone position on the fluoroscopy table. Automated blood pressure cuff and pulse oximeter were applied. The skin entry points for approaching the anatomic target points of the segmental medial branches of Right L3,L4,L5 were identified with fluoroscopy and marked. The skin at the target site area was thoroughly prepared with Chlorhexadine. The skin was then draped. Next, a 25 gauge 3.5 spinal needle was placed under fluoroscopic guidance down on to the target point (the articular pillar) for each respective segmental medial branch. Position was confirmed in A/P and lateral views. Aspiration revealed no blood or clear fluid. Next, 0.25ml of omnipaque 240 was injected at each level. No contrast following a vascular or neural pattern was visualized under continuous fluoroscopy. Next, 0.25 ml of preservative-free 0.5% bupivicaine was injected at each level. There was no unusual discomfort expressed by Irene. The needles were withdrawn without difficulty. (49 mls of Omnipaque was wasted) Irene was observed and was without hemodynamic, neurologic, or allergic reactions.? Fluoroscopic images were digitally archived. Provacative testing using the Modified Mccarty's facet loading test- Right Side Directly before the block VAS (0-10) = 4/10 Five minutes after the block VAS (0-10) = 0/10 Percentage relief obtained with this diagnostic block 100% Any improved physical functioning directly after the blocks? Able to move the low back without pain Follow up plans and appointments were discussed with Irene. Irene was instructed to keep careful note of how the usual pain was modified by these injections. Specifically, to keep a pain diary for the next 4 hours using a numeric pain scale of 0-10 and report these results. Post procedure instruction was given as documented in the nursing documentation and having met discharge criteria, the patient was [facility]. Based on the medial branches blocked today, if they patient has adequate relief and we are able to proceed to radiofrequency ablation, the treatment should result in the denervation of the right L4-L5 and L5-S1 facet joints. We would expect to denervate a total of 2 facets during the radiofrequency ablation. COMMENTS: No apparent complications. Post-procedure pain: VAS= 0/10 Irene will call back with 0-4 hour post-procedure pain scores. I personally performed the entire procedure. RANGEL BALDERAS DO, MPH ABPM&R-subspecialty board certification in Pain Medicine [facility] [facility]
--- NOTE | 2023-09-27 08:46 | PDOC.PAIN ---
Date of service: 09/27/23 Time of Service: 08:46 Pain Managment Procedure Note Procedure Note Procedure Note: PROCEDURE NOTE Right Lumbar Medial Branch Blocks #2 Date of Service: August 29, 2023 Patient: Irene Sinha Provider: Rangel Balderas DO, MPH Irene Sinha has been referred to the [facility] for lumbar medial branch blocks. Pre-operative diagnosis: Lumbar Spondylosis without Myelopathy Post-operative diagnosis: Same Pre-procedure pain: VAS= 9/10 COMMENTS: She did very well with her first set of LMBBs Nena was interviewed and the medical records were reviewed. There were no medical, pharmacologic, radiographic or other structural contraindications to attempting fluoroscopically guided local anesthetic lumbar medial branch blocks. Risks and potential side effects were discussed. I also discussed the potential benefit(s) of the procedure with Irene, and voiced concerns were addressed. After Irene was completely informed about the procedure, the printed consent form was signed. A standard time-out procedure was performed. Irene was placed in the prone position on the fluoroscopy table. Automated blood pressure cuff and pulse oximeter were applied. The skin entry points for approaching the anatomic target points of the segmental medial branches of right L2,L3,L4,L5 were identified with fluoroscopy and marked. The skin at the target site area was thoroughly prepared with Chlorhexadine. The skin was then draped. Next, a 25 gauge 3.5 spinal needle was placed under fluoroscopic guidance down on to the target point (the articular pillar) for each respective segmental medial branch. Position was confirmed in A/P and lateral views. Aspiration revealed no blood or clear fluid. Next, 0.25ml of omnipaque 240 was injected at each level. No contrast following a vascular or neural pattern was visualized under continuous fluoroscopy. Next, 0.25 ml of preservative-free 0.5% bupivicaine was injected at each level. There was no unusual discomfort expressed by Irene. The needles were withdrawn without difficulty. (49 mls of Omnipaque was wasted) Irene was observed and was without hemodynamic, neurologic, or allergic reactions.? Fluoroscopic images were digitally archived. Provacative testing using the Modified Mccarty's facet loading test- Left side Right Side Directly before the block VAS (0-10) = 9/10 VAS (0-10) = 9/10 Five minutes after the block VAS (0-10) = 0/10 VAS (0-10) = 0/10 Percentage relief obtained with this diagnostic block 100% 100% Any improved physical functioning directly after the blocks? Able to move her low back without difficulty Follow up plans and appointments were discussed with Irene. Irene was instructed to keep careful note of how the usual pain was modified by these injections. Specifically, to keep a pain diary for the next 4 hours using a numeric pain scale of 0-10 and report these results. Post procedure instruction was given as documented in the nursing documentation and having met discharge criteria, the patient was discharged from the [facility]. Based on the medial branches blocked today, if they patient has adequate relief and we are able to proceed to radiofrequency ablation, the treatment should result in the denervation of the right L3-L4, L4-L5 and L5-S1 facet joints. We would expect to denervate a total of 3 facets during the radiofrequency ablation. COMMENTS: No apparent complications. Post-procedure pain: VAS= 0/10 Irene will call back with 0-4 hour post-procedure pain scores. I personally performed the entire procedure. RANGEL BALDERAS DO, MPH ABPM&R-subspecialty board certification in Pain Medicine [facility] [facility]
== END 2023-08-29 10:32 | disposition home or self-care (01) ==
LOC: PC 10:32
PROVIDERS: PCP Nurse Practitioner; Visit Provider Preventive Medicine Occupational Medicine
DX: M54.50 Low back pain, unspecified (principal); M47.816 Spondylosis without myelopathy or radiculopathy, lumbar region
CPT/HCPCS: 123; 64493; 64494; 64495; 72100; 00123; J0665; Q9967

== ENCOUNTER 2023-09-27 07:46 | Outpatient (CLI) | payer OTHER, SELFPAY ==
[2023-09-27 08:13] VITALS: BP 152/71; PULSE 60; RESP 20; TEMP 36.6; O2SAT 96
--- NOTE | 2023-09-27 08:49 | DI.RAD_ITS ---
Exam(s) XR PAIN CLINIC LUMBAR SP 2V EXAM: XR PAIN CLINIC LUMBAR SP 2V CLINICAL HISTORY: Dx: Lumbar Spondylosis TECHNIQUE: 2D and realtime digital imaging was performed. Radiologist not present. CONTRAST MATERIAL: None. COMPARISON: No exams were available for comparison FINDINGS: Fluoroscopy was provided for pain management therapy. Please refer to procedure report or details. Radiation Exposure Index: Ka,r=17.61 mGy IMPRESSION: As above. RADIATION DOSE DELIVERED:
[2023-09-27 08:50] VITALS: BP 176/74; PULSE 64; RESP 18; O2SAT 93
[2023-09-27] MEDS: Nerve Block Tray 1 EACH MC (08:52)
[2023-09-27] MEDS: Omnipaque 240 MG/ML 50 ML BTL IJ (08:52)
[2023-09-27] MEDS: Bupivacaine 0.5% Pres-Free 10 ML VIAL IJ (08:52)
--- NOTE | 2023-09-27 13:11 | PDOC.PAIN ---
Date of service: 09/27/23 Time of Service: 13:30 Pain Managment Procedure Note Procedure Note Procedure Note: PROCEDURE NOTE Right Lumbar Medial Branch Blocks #2 Date of Service: September 27, 2023 Patient: Irene Sinha Provider: Rangel Balderas DO, MPH Irene Sinha has been referred to the [facility] for lumbar medial branch blocks. Pre-operative diagnosis: Lumbar Spondylosis without Myelopathy Post-operative diagnosis: Same Pre-procedure pain: VAS= 9/10 COMMENTS: She did very well with the first LMBBs to the right L2-L5DR Nena was interviewed and the medical records were reviewed. There were no medical, pharmacologic, radiographic or other structural contraindications to attempting fluoroscopically guided local anesthetic lumbar medial branch blocks. Risks and potential side effects were discussed. I also discussed the potential benefit(s) of the procedure with Irene, and voiced concerns were addressed. After Irene was completely informed about the procedure, the printed consent form was signed. A standard time-out procedure was performed. Irene was placed in the prone position on the fluoroscopy table. Automated blood pressure cuff and pulse oximeter were applied. The skin entry points for approaching the anatomic target points of the segmental medial branches of right L2, L3,L4,L5 were identified with fluoroscopy and marked. The skin at the target site area was thoroughly prepared with Chlorhexadine. The skin was then draped. Next, a 25 gauge 3.5 spinal needle was placed under fluoroscopic guidance down on to the target point (the articular pillar) for each respective segmental medial branch. Position was confirmed in A/P and lateral views. Aspiration revealed no blood or clear fluid. Next, 0.25ml of omnipaque 240 was injected at each level. No contrast following a vascular or neural pattern was visualized under continuous fluoroscopy. Next, 0.25 ml of preservative-free 0.5% bupivicaine was injected at each level. There was no unusual discomfort expressed by Irene. The needles were withdrawn without difficulty. (49 mls of Omnipaque was wasted) Irene was observed and was without hemodynamic, neurologic, or allergic reactions.? Fluoroscopic images were digitally archived. Provacative testing using the Modified Mccarty's facet loading test- Right Side Directly before the block VAS (0-10) = 9/10 Five minutes after the block VAS (0-10) = 0/10 Percentage relief obtained with this diagnostic block 100% Any improved physical functioning directly after the blocks? Able to move at the lumbar spine without pain or difficulty Follow up plans and appointments were discussed with Irene. Irene was instructed to keep careful note of how the usual pain was modified by these injections. Specifically, to keep a pain diary for the next 4 hours using a numeric pain scale of 0-10 and report these results. Post procedure instruction was given as documented in the nursing documentation and having met discharge criteria, the patient was [facility] from the [facility]. Based on the medial branches blocked today, if they patient has adequate relief and we are able to proceed to radiofrequency ablation, the treatment should result in the denervation of the right L3-L4, L4-L5 and L5-S1 facet joints. We would expect to denervate a total of 3 facets during the radiofrequency ablation. COMMENTS: No apparent complications. Post-procedure pain: VAS= 0/10 Irene will call back with 0-4 hour post-procedure pain scores. I personally performed the entire procedure. RANGEL BALDERAS DO, MPH ABPM&R-subspecialty board certification in Pain Medicine [facility] [facility]
== END 2023-09-27 07:47 | disposition home or self-care (01) ==
LOC: PC 07:46
PROVIDERS: PCP Nurse Practitioner; Visit Provider Preventive Medicine Occupational Medicine
DX: M54.50 Low back pain, unspecified (principal); M47.816 Spondylosis without myelopathy or radiculopathy, lumbar region
CPT/HCPCS: 64493; 64494; 72100; J0665; Q9967

== ENCOUNTER → 2023-11-01 02:57 | Outpatient (CLI) | payer OTHER, SELFPAY ==
--- NOTE | 2023-11-01 07:45 | DI.MAMMO_ITS ---
Exam(s) MAMMO SCREENING EXAM: MAMMO SCREENING CLINICAL HISTORY: screening,z12.39. TECHNIQUE: Bilateral full field digital CC and MLO mammographic images were obtained with 3D tomosyn thesis and utilizing computer aided detection (CAD). COMPARISON: Prior mammograms were reviewed. FINDINGS: There has been no significant change in the appearance and distribution of the fibroglandular tissue. Few benign-appearing small nodules anteriorly in the left breast are again noted. There are no new spiculated masses nor malignant appearing microcalcification groups. There is no significant architectural distortion nor skin thickening-retraction. IMPRESSION: Benign findings. No radiographic evidence of malignancy. BI-RADS Category 2 - Benign Findings Breast Density - Category B - Scattered areas of fibroglandular density Breast density Category C or D implies that the patient has dense breast tissue. Dense breast tissue can make it harder to find cancer on a mammogram. Dense breast tissue is also associated with an incr eased risk of breast cancer. This information about the result of the mammogram report was provided to the patient to raise their awareness. Use this report when you speak with the patient about their risks for breast cancer, which includes their family history. At that time, you may recommend additional screening tests (Ultrasoun d or MRI) as these tests may add significant information. A negative radiographic report should not delay biopsy if a dominant or clinically suspicious mass is present. Up to ten percent of cancers are not identified on mammography. A negative report may reinforce clinical impression. Adenosis and dense breasts may obscure an underlying neoplasm. False positive reports average 6 to 10%. Patient will receive a letter notifying them of these results.
== END ==
PROVIDERS: PCP Nurse Practitioner; Visit Provider Nurse Practitioner
DX: Z12.31 Encounter for screening mammogram for malignant neoplasm of breast (principal)
CPT/HCPCS: 77063; 77067

== ENCOUNTER 2023-12-27 11:13 | Outpatient (CLI) | payer OTHER, SELFPAY ==
--- NOTE | 2023-12-27 06:00 | DI.RAD_ITS ---
Exam(s) XR PAIN CLINIC LUMBAR SP 2V EXAM: XR PAIN CLINIC LUMBAR SP 2V CLINICAL HISTORY: DX: Lumbar spondylosis TECHNIQUE: 2D and realtime digital imaging was performed. Radiologist not present. CONTRAST MATERIAL: None. COMPARISON: No exams were available for comparison FINDINGS: Fluoroscopy was provided for pain management therapy. Please refer to procedure report or details. Radiation Exposure Index: Ka,r=19.74 mGy IMPRESSION: As above. RADIATION DOSE DELIVERED:
[2023-12-27 12:11] VITALS: BP 176/63; PULSE 66; RESP 20; TEMP 36.4; O2SAT 97
[2023-12-27] MEDS: Midazolam 2 MG/2 ML VIAL IVP (12:25)
[2023-12-27] MEDS: fentaNYL 100 MCG/2 ML VIAL IVP (12:25)
--- NOTE | 2023-12-27 13:02 | PDOC.PAIN_ITS ---
Date of service: 12/27/23 Time of Service: 13:02 Pain Managment Procedure Note Procedure Note Procedure Note: PROCEDURE NOTE RIGHT LUMBAR RADIOFREQUENCY ABLATION Date of Service: December 27, 2023 Patient:? Irene Sinha? Provider:? Rangel Balderas DO, MPH Irene Sinha has been [facility] to [facility] Right Lumbar Radiofrequency Ablation with the AvAmplimmunes Machine.? Pre Operative Diagnosis: Lumbosacral Spondylosis without Myelopathy Post Operative Diagnosis: Same Pre procedure pain; VAS= 8/10 Comments: She did very well with the LMBBs X 2. PROCEDURE: Radiofrequency Ablation of medial branches - right L3, L4, L5 and lateral branches of right S1. Irene?was interviewed and the medical record was reviewed.? There were no medical, pharmacologic, radiographic or other structural contraindications to attempting fluoroscopically guided Right Lumbar Radiofrequency Ablation.?Risks and expected side effects as well as potential benefit of the procedure were reviewed with Irene, and the patient's voiced concerns were addressed.? The printed consent form was signed.? Standard time-out procedure was performed. Irene was brought into the fluoroscopy suite and positioned into the prone position on the fluoroscopy table and allowed to adjust to a position of comfort. A grounding pad was placed on the left abdomen. The sterile field was prepared using chlorhexidine preparation of the skin and sterile draping. Local anesthesia superficial and deep was provided by local infiltration of 2% lidocaine. A 17g 100 mm radiofrequency introducer needle was placed to the planned anatomic targets guided with intermittent fluoroscopy with a perpendicular approach to terminally place at the junction of the superior articular process and the transverse process of the right L4, L5, the base of the sacral ala on the right for the L5 medial branch nerve and the area between base of the sacral ala to the S1 foramen right. The stylets were removed and radiofrequency probes with a 4mm active tip were then inserted. Needle tip position of the probes was verified in the AP, oblique, and lateral views. At each site, the medial branch nerve was stimulated at 2 Hz to a maximum 1-2 volts determined to finalize safe needle and electrode placement. The patient was awake and responsive during this portion of the procedure. Each target was anesthetized with 1-2 mL of 2 % Lidocaine for anesthesia for lesioning and then each target was lesioned at 80 degrees Celsius for 2 minutes and 30 seconds. Tissue impedances were noted to be between 250 and 500 Ohms. I did inject 1/4 cc of Depomedrol (40 mg/cc) followed by 0.5% Bupivacaine at each segmental sensory nerve. There was no unusual discomfort expressed by Irene. The needles were withdrawn without difficulty and bandages placed over the needle placement sites, the patient was observed and was without hemodynamic, neurologic, or allergic reactions. Fluoro scopic images were digitally archived. POST PROCEDURE EVALUATION: IMPRESSION: 1. Summary of procedure. Medication given is documented in the MAR. 2. Follow up plan: Irene to contact [facility] as needed.?This procedure may be repeated if the patient achieves at least 50% improvement in pain/function for at least 6 months. 3. Estimated Blood Loss: <5 mls 4. Fluoroscopy time: Documented in the EMR. Follow up plans and appointments were discussed with the Irene. Post procedure instruction was given as documented in nursing documentation and having met discharge criteria, Irene was discharged from the [facility]. COMMENTS: No apparent complications. Post-procedure pain: VAS= 0/10. I personally completed the entire procedure. RANGEL BALDERAS DO, MPH ABPM&R - Subspecialty board certification in Pain Medicine [facility] [facility]
[2023-12-27] MEDS: Lactated Ringers 500 ML 80 ML IV (13:05)
[2023-12-27] MEDS: Lidocaine 2% Pres-Free 5 ML VIAL IJ (13:07)
[2023-12-27] MEDS: methylPREDNISolone ACETATE 40 MG/ML VIAL IJ (13:07)
[2023-12-27] MEDS: Nerve Block Tray 1 EACH MC (13:08)
[2023-12-27] MEDS: Bupivacaine 0.5% Pres-Free 10 ML VIAL IJ (13:08)
[2023-12-27 13:13] VITALS: BP 167/92; PULSE 67; RESP 14; O2SAT 90
== END 2023-12-27 11:14 | disposition home or self-care (01) ==
LOC: PC 11:13
PROVIDERS: PCP Nurse Practitioner; Visit Provider Preventive Medicine Occupational Medicine
DX: M47.817 Spondylosis without myelopathy or radiculopathy, lumbosacral region (principal); M54.50 Low back pain, unspecified
CPT/HCPCS: 64635; 64636; 72100; J0665; J1010; J2250; J3010

== ENCOUNTER 2023-12-27 15:06 | Emergency (ER) | payer OTHER, SELFPAY ==
[2023-12-27] VITALS (24 sets, daily range): BP systolic 76–136; BP diastolic 18–90; PULSE 61–71; RESP 11–29; TEMP 36.3; O2SAT 94–99
--- NOTE | 2023-12-27 15:15 | RT.EKG_ITS ---
APPROVED REPORT Exam: Resting ECG Reason for Exam: dizziness Patient Location: E HR:65 bpm ECG Measurements Heart Rate 65 AXIS OH 184 P 93 QRSd 89 QRS 47 QT 392 T 250 QTc 408 Conclusion Sinus rhythm...normal P axis, V-rate 60- 99 Low voltage, precordial leads...precordial leads <1.0mV
--- NOTE | 2023-12-27 15:24 | ED.GENADUL_ITS ---
Discharge Plan Disposition Patient Disposition: Home Condition: Stable Discharge Details Clinical Impression: Medication adverse effect Primary Care Provider: Shannan De Leon ED Provider: Darwin Hillman Home Meds and New Rx's Prescriptions: Continued aspirin [Adult Aspirin Regimen] 81 mg tablet,delayed release (DR/EC) 81 mg PO DAILY cholecalciferol (vitamin D3) 50 mcg (2,000 unit) capsule 50 mcg PO DAILY Qty: 90 3RF gabapentin 100 mg capsule See Rx Instructions PO BID Qty: 90 3RF Rx Instructions: 1 cap in the morning and 2 caps at night cholecalciferol (vitamin D3) 10 mcg (400 unit) capsule 10 mcg PO DAILY Patient Comments: takes stronger dose. albuterol sulfate 90 mcg/actuation HFA aerosol inhaler 2 puff inhalation Q6H PRN (Reason: shortness of breath or wheezing) Qty: 8.5 12RF carvedilol 25 mg tablet 25 mg PO BID Qty: 180 3RF Rx Instructions: must administer with a meal/food hydrochlorothiazide 50 mg tablet 50 mg PO DAILY Qty: 90 3RF valacyclovir [Valtrex] 500 mg tablet 500 mg PO DAILY fluticasone propion-salmeterol [Advair HFA] 230-21 mcg/actuation HFA aerosol inhaler 2 puff inhalation BID Qty: 12 12RF potassium chloride 20 mEq tablet extended release 20 meq PO DAILY Qty: 90 3RF omeprazole 20 mg capsule,delayed release(DR/EC) See Rx Instructions .ROUTE .COMPLEX Qty: 90 3RF Dose Instruction: TAKE ONE CAPSULE BY MOUTH EVERY DAY Rx Instructions: TAKE ONE CAPSULE BY MOUTH EVERY DAY ezetimibe 10 mg tablet See Rx Instructions .ROUTE .COMPLEX Qty: 90 3RF Dose Instruction: TAKE ONE TABLET BY MOUTH EVERY DAY FOR ELEVATED CHOLESTROL Rx Instructions: TAKE ONE TABLET BY MOUTH EVERY DAY FOR ELEVATED CHOLESTROL acetaminophen 500 mg tablet 1,000 mg PO Q8H PRN (Reason: pain) Qty: 60 2RF Discharge Instructions Additional Instructions: Your potassium level was mildly low. It was likely the medications that you were given during the procedure and I do feel which you felt earlier. Follow-up with your primary care provider within 1 to 2 weeks. If you feel more ill, have new symptoms such as severe shortness of breath or chest pain return to the emergency department for reevaluation HPI General Mode of arrival: EMS . Date/Time Provider Initiated Documentation: 12/27/23 15:13 . Limitations to Documentation: no limitations . Information obtained by: patient . History of Present Illness 78 year old F presents to the emergency department with the chief complaint of felt lightheaded, described as moderate, Patient started experiencing this minute(s) (30) and it has been now resolved. No relieving factors improve symptom(s), No exacerbating factors reported . Patient notes denies chest pain, fever/chills and shortness of breath. Related Data Home Medications Medication Instructions Recorded Confirmed acetaminophen 500 mg tablet 1,000 mg (2 x 500 mg) PO Q8H PRN 03/17/20 12/27/23 pain #60 tabs aspirin 81 mg tablet,delayed 81 mg PO DAILY 04/29/20 12/27/23 release (Adult Aspirin Regimen) cholecalciferol (vitamin D3) 10 10 mcg PO DAILY 03/27/22 12/27/23 mcg (400 unit) capsule cholecalciferol (vitamin D3) 50 50 mcg PO DAILY #90 caps 03/07/23 12/27/23 mcg (2,000 unit) capsule valacyclovir 500 mg tablet 500 mg PO DAILY 07/30/23 12/27/23 (Valtrex) fluticasone propionate 230 2 puff inhalation BID #12 grams 08/07/23 12/27/23 mcg-salmeterol 21 mcg/actuation HFA inhaler (Advair HFA) potassium chloride 20 mEq 20 meq PO DAILY #90 tabs 08/28/23 12/27/23 tablet,extended release gabapentin 100 mg capsule See Rx Instructions PO BID #90 caps 10/29/23 12/27/23 omeprazole 20 mg capsule,delayed See Rx Instructions .Route 11/19/23 12/27/23 release .COMPLEX #90 caps ezetimibe 10 mg tablet See Rx Instructions .Route 11/26/23 12/27/23 .COMPLEX #90 tabs albuterol sulfate 90 mcg/actuation 2 puff inhalation Q6H PRN 12/10/23 12/27/23 aerosol inhaler shortness of breath or wheezing #8.5 grams carvedilol 25 mg tablet 25 mg PO BID #180 tabs 12/10/23 12/27/23 hydrochlorothiazide 50 mg tablet 50 mg PO DAILY #90 tabs 12/10/23 12/27/23 Previous Rx's Medication Instructions Recorded acetaminophen 500 mg tablet 1,000 mg (2 x 500 mg) PO Q8H PRN 03/17/20 pain #60 tabs cholecalciferol (vitamin D3) 50 50 mcg PO DAILY #90 caps 03/07/23 mcg (2,000 unit) capsule fluticasone propionate 230 2 puff inhalation BID #12 grams 08/07/23 mcg-salmeterol 21 mcg/actuation HFA inhaler (Advair HFA) potassium chloride 20 mEq 20 meq PO DAILY #90 tabs 08/28/23 tablet,extended release gabapentin 100 mg capsule See Rx Instructions PO BID #90 caps 10/29/23 omeprazole 20 mg capsule,delayed See Rx Instructions .Route 11/19/23 release .COMPLEX #90 caps ezetimibe 10 mg tablet See Rx Instructions .Route 11/26/23 .COMPLEX #90 tabs albuterol sulfate 90 mcg/actuation 2 puff inhalation Q6H PRN 12/10/23 aerosol inhaler shortness of breath or wheezing #8.5 grams carvedilol 25 mg tablet 25 mg PO BID #180 tabs 12/10/23 hydrochlorothiazide 50 mg tablet 50 mg PO DAILY #90 tabs 12/10/23 Allergies Allergy/AdvReac Type Severity Reaction Status Date / Time valsartan Allergy Intermediate Swelling/Ed Verified 12/27/23 15:13 gina [id number] Reductase AdvReac Intermediate MYALGIAS Verified 12/27/23 15:13 Inhibitor [Ixghytp-Hty-Tqt Reductase Inhibitor] lisinopril AdvReac Mild cough Verified 12/27/23 15:13 oxycodone AdvReac Mild Nausea Verified 12/27/23 15:13 Sulfa (Sulfonamide AdvReac Unknown FEELS LIKE Verified 12/27/23 15:13 Antibiotics) IN OUTER SPACE nitrofurantoin AdvReac Headaches Verified 12/27/23 15:13 [From Macrobid] General Stated Complaint: [facility]Medical TRICIA: 3 Review of Systems All systems reviewed & are unremarkable except as noted in HPI and below Constitutional Constitutional: Denies chills and Denies fever(s) Cardiovascular Cardiovascular: Denies chest pain and Denies dyspnea Respiratory Respiratory: Denies cough and Denies dyspnea Gastrointestinal Gastrointestinal: Denies abdominal pain, Denies nausea and Denies vomiting Genitourinary Genitourinary: Denies dysuria Musculoskeletal Musculoskeletal: Denies joint swelling Integumentary/Breasts Skin/Breast: Denies rash Exam Const General: no acute distress Orientation: alert [facility] Head: normal to inspection Ears: external ears normal General nose exam: external nose normal Mouth: moist mucous membranes Eyes General: appearance normal, both eyes and all related structures Neck Neck: normal visual inspection Resp Effort & Inspection: normal respiratory effort and able to speak in complete sentences Auscultation: clear to auscultation bilaterally Cardio Rate: regular rate Heart Sounds: no murmurs GI Palpation: soft and nontender Back/Spine/Pelvis Back: no CVA tenderness, No mass and No erythema Skin General skin exam: no rashes or lesions noted Neuro General: patient alert and patient oriented x3 Extrem General: normal to inspection Psych Mental Status: mental status grossly normal Course Vital Signs Vital signs: Vital Signs Temperature 36.3 C L 12/27/23 15:07 Pulse 68 12/27/23 15:07 Respiratory Rate 18 12/27/23 15:07 Blood Pressure 87/33 L 12/27/23 15:07 Pulse Oximetry 94 12/27/23 15:07 Temperature 36.3 C L 12/27/23 15:07 Temperature Source Skin 12/27/23 15:07 Pulse 68 12/27/23 15:07 Respiratory Rate 18 12/27/23 15:07 Respiratory Effort Normal, Non-Labored 12/27/23 15:12 Blood Pressure 87/33 L 12/27/23 15:07 Blood Pressure Position Sitting 12/27/23 15:07 Pulse Oximetry 94 12/27/23 15:07 Oxygen Delivery Method Room Air 12/27/23 15:07 Oxygen Flow Rate 0 12/27/23 15:07 Pain Level 8 12/27/23 15:07 Medical Decision Making 78-year-old female with a history of lumbosacral pain and had a radiofrequency ablation this morning that was uneventful per report, comes in with complaint of episode of lightheadedness. She says she was sitting down eating lunch at a [place] restaurant when all sudden she felt lightheaded, EMS was called and her blood pressure was in the 80s systolic. She has now asymptomatic, states she feels well and her blood pressure is 117/72. She is alert and oriented x 4 on arrival, denies any abdominal pain, no lower back pain, she has no rashes, no difficulty breathing, the area in her lower back where she had the procedure has no erythema, no drainage. Suspect she had a vasovagal episode, will check CBC, CMP, EKG and troponin. She had a CT in 2021 which showed a normal aorta so doubt AAA. No infectious symptoms to suggest sepsis. Labs unremarkable other than mildly low K of 3.0, oral repletion given. Spoke with staff that was with her during the procedure and apparently was given IV Versed and fentanyl during the procedure, was instructed to go home and rest but it went to the [employer] so suspect her symptoms were side effects of the medications. She is asymptomatic now, she is stable for discharge and return precautions given Differential Diagnosis Differential Diagnosis: Vasovagal, anemia Medical Records Medical records reviewed: Yes I reviewed the patient's medical records. Lab Data Lab results reviewed: Yes I reviewed the patient's lab results. ECG Data Attestation: I personally reviewed and interpreted this ECG (s) as follows: Prior ECG tracings: available for review Interpretation: Sinus rhythm, rate of 65 pr 184, no STEMI Quality:SDOH Health Related Social Needs: No Data to Display PFSH All Active Problems (Updated 12/27/23 @ 17:06 by Darwin Hillman MD) Medication adverse effect (Acute) Temporal arteritis syndrome (Acute) Tenderness of head and neck (Acute) Lumbosacral spondylosis without myelopathy (Acute) Neural foraminal stenosis of lumbosacral spine (Acute) Degenerative disc disease, lumbar (Acute) Impacted cerumen, left ear (Acute) Fibromyalgia (Acute) Obesity (Chronic) Hypertension (Chronic) Long standing hypertension which has been treated with low dose Hydrochlorothiazide. Chronic sinusitis (Chronic) Has been followed by Dr. Shmuel Willingham. GERD (gastroesophageal reflux disease) (Chronic) Elevated lipids (Chronic) Has been on a statin but this caused muscle aches so the medication was stopped. Abnormal CT scan, bladder (Acute 05/08/17) IBS (irritable bowel syndrome) (Acute 07/09/17) Ishan Norman DO Osteopenia (Acute 07/11/16) DEXA 07/11/16 L forearm T -0.7 NL spine, hip Pre-diabetes (Acute 01/09/18) Sensorineural hearing loss, unilateral (Acute 06/07/17) 05/14/18 [facility] [place] Tubular adenoma (Acute 04/10/16) Conductive hearing loss (Chronic) 06/21/18 E[facility] [place] Pulmonary nodule seen on imaging study (Acute 03/28/17) yearly CT non contrast, next due 08/2020 Dr. Petersen 10/29/20 Dr Bee, with f/u Chest CT and OV in Aug 2021 (w Dr Swanson) Trochanteric bursitis of left hip (Chronic) Left ankle pain (Acute) Trochanteric bursitis, right hip (Acute) Urine abnormality (Acute) Edema of both lower legs (Acute) History of total left knee replacement (TKR) (Acute 03/17/20) Microscopic hematuria (Acute) IT band syndrome (Acute) Pes anserine bursitis (Acute) Colon cancer screening (Acute) Toe pain (Acute) Dysuria (Acute) Pain, eye, right (Acute) Chronic foot pain (Acute) Tubular adenoma of colon (Acute) Hyperplastic colon polyp (Acute) Impacted cerumen, left ear (Acute) Sensorineural hearing loss, asymmetrical (Acute) Dyspnea on exertion (Acute) Skin lesion of neck (Acute) Skin lesion of cheek (Acute) Medical History Iliotibial band syndrome affecting right lower leg Lung mass Hyperlipidemia PARKER (dyspnea on exertion) Cyst pt. reports 06/13, removed below L breast Degenerative joint disease of left hip Impacted cerumen of both ears Primary osteoarthritis of left knee Impacted cerumen (05/01/14) Conductive hearing loss, external ear (06/07/17) Elevated fasting glucose OA (osteoarthritis) of hip (05/13/14) Total hip replacement 05/13/4014 by Allen Huang M.D. Surgical History History of right breast biopsy History of arthroplasty of left hip History of total left hip arthroplasty Status post cataract extraction and insertion of intraocular lens of left eye (06/14/18) Status post cataract extraction and insertion of intraocular lens of right eye (05/31/18) History of arthroplasty of right knee (~02/2012) History of total right hip arthroplasty (~05/13/14) Vaginal hysterectomy Colonoscopy - IV Sedation (04/10/16) Dr Prieto Family History Mother Heart disease Hypertension Father Heart disease MA caused Brother Diabetes Brother Diabetes Sister Diabetes Social History Smoking/Tobacco Use Status: Never Smoking risk assessment performed?: Yes Alcohol Intake: current Alcohol Intake frequency: holidays/special occasions only Alcohol type: beer, wine and hard liquor Drug use: Never Substance use type: does not use Adopted: No Caregiver/Support person: No Foster care: No Household members: none Housing: house Number of Children: 0 Communication Needs: None current occupation: retired - worked at [employer] Pets and animals: Yes Sexually active: No Current gender identity: female What is your relationship status?: Panel score (0-1 are the most socially isolated patients): 0 What type of physical activity do you participate in: regular exercise and other Details: PT 2x/week Duration: < 15 minutes/day Frequency: 1-2 times per week Seatbelt use: always Working smoke detector in home: Yes Fire extinguisher in home: Yes Carbon monox detector in home: Yes Do you feel safe at home: Yes Do you feel safe in your relationship?: Yes
[2023-12-27 15:34] LABS: Abs Immature Grans 0.04 10^3/uL (0.0-0.06); Absolute Basophil Count 0.06 10^3/uL (0.0-0.2); Absolute Eosinophil Count 0.14 10^3/uL (0.0-0.7); Absolute Lymphocyte Count 1.86 10^3/uL (1.2-3.4); Absolute Monocyte Count 0.61 10^3/uL (0.1-0.8); Absolute Neutrophil Count 6.44 10^3/uL (1.2-6.7); Basophils % 0.7 %; Eosinophils % 1.5 %; HCT 35.6 % (36.0-46.0); HGB 11.6 g/dL (11.2-15.7); Immature Grans % 0.4 %; Lymphocytes % 20.3 %; MCH 28.9 pg (27.0-33.0); MCHC 32.6 % (32.0-36.0); MCV 89 fL (80-95); MPV 9.6 fL (8.0-11.0); Monocytes % 6.7 %; Neutrophils % 70.4 %; Platelet Count 276 10^3/uL (130-400); RBC 4.02 10^6/uL (3.93-5.22); RDW 15.6 % (11.7-14.6); RDW-SD 51.1 fL; WBC 9.15 10^3/uL (4.4-10.8)
[2023-12-27 15:44] LABS: INR 1.1 (0.9-1.1); PTT Activated 25.4 sec (23.6-32.8); Prothrombin Time 10.7 sec (9.1-11.1)
[2023-12-27 15:47] LABS: ALT 23 U/L (14-59); AST 17 U/L (15-37); Albumin 3.4 g/dL (3.4-5.0); Alkaline Phosphatase 64 U/L (46-116); Anion Gap 9.4 mmol/L (3-11); BUN 16 mg/dL (7-18); Bilirubin, Total 0.5 mg/dL (0.2-1.0); CO2 28.6 mmol/L (21.0-32.0); Calcium 8.5 mg/dL (8.5-10.1); Chloride 101 mmol/L (98-107); Estimated GFR 57.31 (mL/min/1.73m2); Glucose 166 mg/dL (74-106); Magnesium 1.8 mg/dL (1.8-2.4); Sodium 139 mmol/L (136-145); Total Protein 7.1 g/dL (6.4-8.2)
[2023-12-27 15:52] LABS: Troponin I < 50 ng/L (< or =60)
[2023-12-27 15:54] LABS: Bilirubin Negative (Negative); Blood Negative (Negative); Clarity Clear (Clear); Glucose Negative (Negative); Ketones Negative (Negative); Leukocyte Esterase Moderate (Negative); Nitrite Negative (Negative); Specific Gravity 1.025 (1.005-1.025); Urobilinogen 0.2 mg/dL (Up to 0.2)
[2023-12-27 16:02] LABS: Bacteria Negative HPF (Negative); C & S Indicated? No/Sq. Contamination; Crystals Negative HPF (Negative); Epithelial Cells Many HPF (Negative); Mucus Trace (Negative); Other Cells Rare Transitional (Negative); RBC 0-2 HPF (0-2)
[2023-12-27] MEDS: Potassium Chloride 20 MEQ TABCR 40 MEQ PO (16:09)
== END 2023-12-27 17:26 | disposition home or self-care (01) ==
PROVIDERS: Emergency Provider Emergency Medicine; PCP Nurse Practitioner
DX: R42 Dizziness and giddiness (principal); T42.4X5A Adverse effect of benzodiazepines, initial encounter; T40.415A Adverse effect of fentanyl or fentanyl analogs, initial encounter; E87.6 Hypokalemia
CPT/HCPCS: 36415; 80053; 93005; 99284; 81003; 81015; 83735; 84484; 85025; 85610; 85730; 93010; 99283

== ENCOUNTER → 2024-01-07 09:35 | Outpatient (BNVA) | payer OTHER, SELFPAY | PROVIDERS: PCP Nurse Practitioner; Referring Provider Nurse Practitioner; Visit Provider Physician Assistant Surgical | DX: J45.909 Unspecified asthma, uncomplicated (principal); R91.1 Solitary pulmonary nodule; R06.00 Dyspnea, unspecified | CPT/HCPCS: 99214 ==

== ENCOUNTER → 2024-01-10 12:12 | Outpatient (CLI) | payer OTHER, SELFPAY ==
--- NOTE | 2024-01-10 11:15 | DI.RAD_ITS ---
Exam(s) XR KNEE RT 3V AP,LAT,TEREZA EXAM: XR KNEE RT 3V AP,LAT,TEREZA CLINICAL HISTORY: Rt knee pain, M25.561, evaluate pathology. TECHNIQUE: 2D digital imaging was performed. COMPARISON: CR XR KNEE LT 2V AP,LAT from 03/14/2021 CR XR HIP RT COMPLETE AP PELVIS from 03/29/2022 FINDINGS: 3 views There is right knee prosthesis which appears to be satisfactory position alignment. No fracture or l oosening evident. No evidence of osteomyelitis. No prominent joint effusion evident. Bone density normal. No osseous lesions. IMPRESSION: Stable satisfactory appearance of right knee prosthesis. DATA REPOSITORY: RADIATION DOSE DELIVERED:
== END ==
PROVIDERS: PCP Nurse Practitioner; Visit Provider Nurse Practitioner Family
DX: M25.561 Pain in right knee (principal)
CPT/HCPCS: 73562

== ENCOUNTER 2024-01-11 02:24 | Outpatient (CLI) | payer OTHER, SELFPAY ==
[2024-01-11 08:30] LABS: Abs Immature Grans 0.02 10^3/uL (0.0-0.06); Absolute Basophil Count 0.04 10^3/uL (0.0-0.2); Absolute Lymphocyte Count 1.97 10^3/uL (1.2-3.4); Absolute Neutrophil Count 4.43 10^3/uL (1.2-6.7); Basophils % 0.6 %; Eosinophils % 2.8 %; HCT 37.9 % (36.0-46.0); HGB 12.3 g/dL (11.2-15.7); Immature Grans % 0.3 %; Lymphocytes % 27.5 %; MCH 28.6 pg (27.0-33.0); MCHC 32.5 % (32.0-36.0); MCV 88 fL (80-95); MPV 9.8 fL (8.0-11.0); Neutrophils % 61.8 %; Platelet Count 317 10^3/uL (130-400); RDW 15.9 % (11.7-14.6); RDW-SD 51.3 fL; WBC 7.16 10^3/uL (4.4-10.8)
[2024-01-11 08:59] LABS: BUN 20 mg/dL (7-18); CREATININE 0.7 mg/dL (0.55-1.02); Calcium 8.9 mg/dL (8.5-10.1); Calculated LDL 101 mg/dL (<100); Chloride 100 mmol/L (98-107); Cholesterol 175 mg/dL (<200); Estimated GFR 87.92 (mL/min/1.73m2); Glucose 100 mg/dL (74-106); HDL Cholesterol 59 mg/dL (40-60); Potassium 3.4 mmol/L (3.5-5.1); Sodium 135 mmol/L (136-145); Triglyceride 75 mg/dL (<150)
== END 2024-01-11 02:25 | disposition home or self-care (01) ==
LOC: LBO 02:33
PROVIDERS: PCP Nurse Practitioner; Referring Provider Nurse Practitioner; Visit Provider Nurse Practitioner
DX: R79.9 Abnormal finding of blood chemistry, unspecified; E66.01 Morbid (severe) obesity due to excess calories; Z68.41 Body mass index [BMI] 40.0-44.9, adult; I10 Essential (primary) hypertension; R73.03 Prediabetes; E78.5 Hyperlipidemia, unspecified
CPT/HCPCS: 36415; 80048; 80061; 85025

== ENCOUNTER → 2024-01-28 14:23 | Outpatient (BNVA) | payer OTHER, SELFPAY | PROVIDERS: PCP Nurse Practitioner; Referring Provider Nurse Practitioner | DX: M70.51 Other bursitis of knee, right knee (principal) | CPT/HCPCS: 99213 ==

== ENCOUNTER → 2024-03-03 14:37 | Outpatient (BNVA) | payer OTHER, SELFPAY | PROVIDERS: PCP Nurse Practitioner; Referring Provider Nurse Practitioner; Visit Provider Student in an Organized Health Care Education/Training Program | DX: M70.51 Other bursitis of knee, right knee (principal) | CPT/HCPCS: 20610; J1010 ==

== ENCOUNTER 2024-04-07 09:51 | Outpatient (REF) | payer OTHER, SELFPAY | END 2024-04-07 09:52 | disposition home or self-care (01) | LOC: LBN 09:51 | PROVIDERS: PCP Nurse Practitioner; Visit Provider Nurse Practitioner | DX: R30.0 Dysuria (principal) | CPT/HCPCS: 87077; 87086; 87186 ==

== ENCOUNTER 2024-06-11 15:17 | Outpatient (REF) | payer OTHER, SELFPAY ==
[2024-06-11 14:09] LABS: Bilirubin Negative (Negative); Blood Negative (Negative); Clarity Cloudy (Clear); Glucose Negative (Negative); Ketones Negative (Negative); Leukocyte Esterase Small (Negative); Nitrite Negative (Negative); Urobilinogen 0.2 mg/dL (Up to 0.2)
[2024-06-11 14:58] LABS: Bacteria Few HPF (Negative); C & S Indicated? C&S Done As Ordered; Casts Negative LPF (Negative); Crystals Negative HPF (Negative); Epithelial Cells Rare HPF (Negative); Mucus Negative (Negative); RBC 0-2 HPF (0-2); WBC >50 HPF (0-5)
== END 2024-06-11 15:18 | disposition home or self-care (01) ==
LOC: LBN 15:17
PROVIDERS: PCP Nurse Practitioner; Visit Provider Nurse Practitioner Gerontology
DX: R30.0 Dysuria (principal)
CPT/HCPCS: 87077; 81003; 81015; 87086; 87186

== ENCOUNTER → 2024-07-07 09:27 | Outpatient (BNVA) | payer OTHER, SELFPAY | PROVIDERS: PCP Nurse Practitioner; Referring Provider Nurse Practitioner; Visit Provider Physician Assistant Surgical | DX: J45.909 Unspecified asthma, uncomplicated (principal); R91.1 Solitary pulmonary nodule; R06.00 Dyspnea, unspecified | CPT/HCPCS: 99214 ==

== ENCOUNTER 2024-09-10 11:04 | Outpatient (REF) | payer MEDICARE, SELFPAY | END 2024-09-10 11:05 | disposition home or self-care (01) | LOC: LBN 11:04 | PROVIDERS: PCP Nurse Practitioner; Visit Provider Nurse Practitioner | DX: R30.0 Dysuria (principal); N39.0 Urinary tract infection, site not specified | CPT/HCPCS: 87086 ==

== ENCOUNTER 2024-12-12 21:08 | Emergency (ER) | payer MEDICARE, SELFPAY ==
[2024-12-12] VITALS (7 sets, daily range): BP systolic 138–169; BP diastolic 52–95; PULSE 60–72; RESP 9–18; TEMP 36.6; O2SAT 94–100
--- NOTE | 2024-12-12 21:00 | RT.EKG_ITS ---
APPROVED REPORT Exam: Resting ECG Reason for Exam: syncope Patient Location: E HR:59 bpm ECG Measurements Heart Rate 59 AXIS ME 210 P 57 QRSd 98 QRS 23 QT 406 T 208 QTc 401 Conclusion Sinus bradycardia...rate< 60
--- NOTE | 2024-12-12 21:15 | DI.CT_ITS ---
Exam(s) CT HEAD CERV SPINE FACIAL WO EXAM: CT HEAD CERV SPINE FACIAL WO CLINICAL HISTORY: fall, pain. TECHNIQUE: Imaging Protocol: Axial computed tomography images with coronal and sagittal reformatted images were created and reviewed COMPARISON: No exams were available for comparison FINDINGS: CT BRAIN: There are no skull fractures nor fluid in the visualized paranasal sinuses. There is no evidence of intracranial hemorrhage, or shift of midline structures. There are no extra- axial fluid collections. The ventricles are not enlarged or shifted and there is no blood within the ventricular system nor within the basal cisterns. Incidentally noted is a midline falx based calcified mass measuring 1.4 x 1.7 by 1.8 cm, not associat ed with surrounding edema. This is probably an incidental meningioma CT MAXILLOFACIAL BONES: There is no evidence of facial fractures nor fluid in the visualized paranasal sinuses. there is no evidence of orbital blowout fracture. There is a retention cyst in the posterior aspect the left maxillary sinus is clear as is approximate ly [address] CERVICAL SPINE: There is no evidence of fracture nor listhesis. No significant prevertebral soft tissue swelling. N o facet malalignment evident. There is multilevel disc space narrowing at C4-5, C5-6, and C6-7 level s. No significant facet joint degenerative changes and no significant facet arthropathy No significant osseous lesions evident. IMPRESSION: No acute intracranial findings on this noninfused CT scan of the brain. No evidence of facial nor orbital blowout fractures. No evidence of cervical spine fracture, malalignment, nor acute compromise of the cervical spinal can al. Multilevel chronic degenerative disc disease. No listhesis. No facet malalignment. RADIATION DOSE DELIVERED: 1,836.3mGy.cm Total DLP DATA REPOSITORY: All CT scans at this facility are submitted to the National Radiology Data Registry (NRDR) Dose Index Registry (DIR) with the [employer] (ACR). RADIATION OPTIMIZATION: All CT scans at this facility use at least one of these dose optimization te chniques: automated exposure control; mA and/or kV adjustment per patient size (includes targeted exa ms where dose is matched to clinical indication); or iterative reconstruction.
--- NOTE | 2024-12-12 21:15 | DI.RAD_ITS ---
Exam(s) XR CHEST 1V IN DI DEPT EXAM: XR CHEST 1V IN DI DEPT CLINICAL HISTORY: syncope. TECHNIQUE: 2D digital imaging was performed. COMPARISON: CR XR RIBS LT W PA LAT CHEST from 01/30/2022 FINDINGS: Single AP portable view. Heart size is upper normal. The mediastinum is not widened. Right lung is clear. There is platelike atelectasis in the superior lingular segment of the left latrice g. No pleural effusions. No pulmonary edema. IMPRESSION: There is subsegmental platelike atelectasis in the superior lingular segment of the left lung. This was not evident on the most chest x-ray of January 2022. DATA REPOSITORY: RADIATION DOSE DELIVERED:
--- NOTE | 2024-12-12 21:18 | W.ED.GENAD ---
Discharge Plan Disposition Patient Disposition: Home Condition: Stable Discharge Details Clinical Impression: Syncope, Blunt head trauma, Cervical strain Primary Care Provider: Shannan De Leon ED Provider: Darwin Hillman Home Meds and New Rx's Prescriptions: Continued aspirin [Adult Aspirin Regimen] 81 mg tablet,delayed release (DR/EC) 81 mg PO DAILY cholecalciferol (vitamin D3) 50 mcg (2,000 unit) capsule 50 mcg PO DAILY Qty: 90 3RF cephalexin 250 mg capsule 250 mg PO DAILY Qty: 90 0RF pregabalin 50 mg capsule 50 mg PO QHS Qty: 90 0RF albuterol sulfate 90 mcg/actuation HFA aerosol inhaler 2 puff inhalation Q6H PRN (Reason: shortness of breath or wheezing) Qty: 8.5 12RF meloxicam 15 mg tablet 15 mg PO DAILY Qty: 90 1RF potassium chloride 20 mEq tablet extended release See Rx Instructions .ROUTE .COMPLEX Qty: 90 3RF Dose Instruction: TAKE ONE TABLET BY MOUTH EVERY DAY Rx Instructions: TAKE ONE TABLET BY MOUTH EVERY DAY fluticasone propion-salmeterol [Advair HFA] 230-21 mcg/actuation HFA aerosol inhaler See Rx Instructions .ROUTE .COMPLEX Qty: 12 12RF Dose Instruction: INHALE TWO PUFFS BY MOUTH TWICE A DAY Rx Instructions: INHALE TWO PUFFS BY MOUTH TWICE A DAY meloxicam 7.5 mg tablet 7.5 mg PO DAILY Rx Instructions: pt was rx'd 7.5mg by Valentin on 08/06/24. dose was increased to 15mg daily on 09/10/24 but caused nausea, on 09/23/24 she was instructed to go back down to the 7.5mg dose (still had the 7.5mg tabs from prior rx). NC omeprazole 20 mg capsule,delayed release(DR/EC) See Rx Instructions .ROUTE .COMPLEX Qty: 90 3RF Dose Instruction: TAKE ONE CAPSULE BY MOUTH EVERY DAY Rx Instructions: TAKE ONE CAPSULE BY MOUTH EVERY DAY ezetimibe 10 mg tablet See Rx Instructions .ROUTE .COMPLEX Qty: 90 3RF Dose Instruction: TAKE ONE TABLET BY MOUTH EVERY DAY FOR ELEVATED CHOLESTROL Rx Instructions: TAKE ONE TABLET BY MOUTH EVERY DAY FOR ELEVATED CHOLESTROL hydrochlorothiazide 50 mg tablet See Rx Instructions .ROUTE .COMPLEX Qty: 90 3RF Dose Instruction: TAKE ONE TABLET BY MOUTH EVERY DAY Rx Instructions: TAKE ONE TABLET BY MOUTH EVERY DAY carvedilol 25 mg tablet See Rx Instructions .ROUTE .COMPLEX Qty: 180 3RF Dose Instruction: TAKE ONE TABLET BY MOUTH TWO TIMES A DAY MUST ADMINISTER WITH MEAL/FOOD Rx Instructions: TAKE ONE TABLET BY MOUTH TWO TIMES A DAY MUST ADMINISTER WITH MEAL/FOOD acetaminophen 500 mg tablet 1,000 mg PO Q8H PRN (Reason: pain) Qty: 60 2RF Discharge Instructions Additional Instructions: Your blood work and CAT scan did not show any concerning findings at this time. Try to make sure you are drinking plenty of fluids to stay hydrated and when you are going from a sitting to a standing position make sure to take your time. You may want to have your walker nearby especially at nighttime. Follow-up with your primary care provider. If you feel significantly more ill or have difficulty breathing or chest pain return to the emergency department for reevaluation HPI General Mode of arrival: EMS. Date/Time Provider Initiated Documentation: 12/12/24 21:17. Limitations to Documentation: no limitations. Information obtained by: patient. History of Present Illness 79 year old F presents to the emergency department with the chief complaint of syncope with bowel movement, described as moderate, Quality is described as aching, Patient started experiencing this hour(s) and it has been now resolved. No relieving factors improve symptom(s), No exacerbating factors reported . Patient did receive the following treatments prior to arrival, none Related Data Home Medications ?Medication ?Instructions ?Recorded ?Confirmed acetaminophen 500 mg tablet 1,000 mg (2 x 500 mg) PO Q8H PRN 03/17/20 12/12/24 pain #60 tabs aspirin 81 mg tablet,delayed 81 mg PO DAILY 04/29/20 12/12/24 release (Adult Aspirin Regimen) cholecalciferol (vitamin D3) 50 50 mcg PO DAILY #90 caps 03/07/23 12/12/24 mcg (2,000 unit) capsule albuterol sulfate 90 mcg/actuation 2 puff inhalation Q6H PRN 12/10/23 12/12/24 aerosol inhaler shortness of breath or wheezing #8.5 grams potassium chloride 20 mEq See Rx Instructions .Route 08/18/24 12/12/24 tablet,extended release .COMPLEX #90 tabs fluticasone propionate 230 See Rx Instructions .Route 08/25/24 12/12/24 mcg-salmeterol 21 mcg/actuation .COMPLEX #12 grams HFA inhaler (Advair HFA) meloxicam 15 mg tablet 15 mg PO DAILY #90 tabs 09/10/24 12/12/24 meloxicam 7.5 mg tablet 7.5 mg PO DAILY 09/23/24 12/12/24 omeprazole 20 mg capsule,delayed See Rx Instructions .Route 10/28/24 12/12/24 release .COMPLEX #90 caps ezetimibe 10 mg tablet See Rx Instructions .Route 11/18/24 12/12/24 .COMPLEX #90 tabs carvedilol 25 mg tablet See Rx Instructions .Route 11/24/24 12/12/24 .COMPLEX #180 tabs hydrochlorothiazide 50 mg tablet See Rx Instructions .Route 11/24/24 12/12/24 .COMPLEX #90 tabs cephalexin 250 mg capsule 250 mg PO DAILY #90 caps 12/10/24 12/12/24 pregabalin 50 mg capsule 50 mg PO QHS #90 caps 12/10/24 12/12/24 Previous Rx's ?Medication ?Instructions ?Recorded acetaminophen 500 mg tablet 1,000 mg (2 x 500 mg) PO Q8H PRN 03/17/20 pain #60 tabs cholecalciferol (vitamin D3) 50 50 mcg PO DAILY #90 caps 03/07/23 mcg (2,000 unit) capsule albuterol sulfate 90 mcg/actuation 2 puff inhalation Q6H PRN 12/10/23 aerosol inhaler shortness of breath or wheezing #8.5 grams potassium chloride 20 mEq See Rx Instructions .Route 08/18/24 tablet,extended release .COMPLEX #90 tabs fluticasone propionate 230 See Rx Instructions .Route 08/25/24 mcg-salmeterol 21 mcg/actuation .COMPLEX #12 grams HFA inhaler (Advair HFA) meloxicam 15 mg tablet 15 mg PO DAILY #90 tabs 09/10/24 omeprazole 20 mg capsule,delayed See Rx Instructions .Route 10/28/24 release .COMPLEX #90 caps ezetimibe 10 mg tablet See Rx Instructions .Route 11/18/24 .COMPLEX #90 tabs carvedilol 25 mg tablet See Rx Instructions .Route 11/24/24 .COMPLEX #180 tabs hydrochlorothiazide 50 mg tablet See Rx Instructions .Route 11/24/24 .COMPLEX #90 tabs cephalexin 250 mg capsule 250 mg PO DAILY #90 caps 12/10/24 pregabalin 50 mg capsule 50 mg PO QHS #90 caps 12/10/24 Allergies Allergy/AdvReac Type Severity Reaction Status Date / Time valsartan Allergy Intermediate Swelling/Ed Verified 12/12/24 21:19 gina Apjcijd-YLP-AeD Reductase AdvReac Intermediate MYALGIAS Verified 12/12/24 21:19 Inhibitor (Isjbimh-Noj-Pkn Reductase Inhibitor) lisinopril AdvReac Mild cough Verified 12/12/24 21:19 oxycodone AdvReac Mild Nausea Verified 12/12/24 21:19 Sulfa (Sulfonamide AdvReac Unknown FEELS LIKE Verified 12/12/24 21:19 Antibiotics) IN OUTER SPACE nitrofurantoin (From AdvReac Headaches Verified 12/12/24 21:19 Macrobid) General Stated Complaint: [id number] TRICIA: 3 Review of Systems All systems reviewed & are unremarkable except as noted in HPI and below Constitutional Constitutional: Denies chills and Denies fever(s) Cardiovascular Cardiovascular: Denies chest pain, Denies dyspnea and Reports other (syncope) Respiratory Respiratory: Denies cough and Denies dyspnea Gastrointestinal Gastrointestinal: Denies abdominal pain, Denies nausea and Denies vomiting Psychiatric Psychiatric: Denies depression Exam Const General: no acute distress Orientation: alert [facility] Head: normal to inspection Ears: external ears normal General nose exam: external nose normal Mouth: moist mucous membranes Eyes General: appearance normal, both eyes and all related structures Neck Neck: normal visual inspection Resp Effort & Inspection: normal respiratory effort and able to speak in complete sentences Auscultation: clear to auscultation bilaterally Cardio Rate: regular rate GI Palpation: soft and nontender Skin General skin exam: no rashes or lesions noted Neuro General: patient alert and patient oriented x3 Extrem General: normal to inspection Psych Mental Status: mental status grossly normal Course Vital Signs Vital signs: Vital Signs Temperature 36.6 C 12/12/24 21:11 Pulse 61 12/12/24 21:11 Respiratory Rate 18 12/12/24 21:11 Blood Pressure 164/58 H 12/12/24 21:11 Temperature 36.6 C 12/12/24 21:11 Temperature Source Oral 12/12/24 21:11 Pulse 61 04/18/25 21:11 Respiratory Rate 18 12/12/24 21:11 Blood Pressure 164/58 H 12/12/24 21:11 Pain Level 6 12/12/24 21:11 Medical Decision Making 79-year-old female with a history of hyperlipidemia, who comes in with EMS after syncope. She says that she was having a bowel movement and she finished doing that she stood up and started walking to her bed down the umanzor when she suddenly passed out. She fell forward landing on her face. She is unsure how long she was unconscious for but thinks was only for few seconds. She has lower legs x 4 on arrival. She has a mild frontal headache, no neck pain. Denies any chest pain or abdominal pain, no vomiting or back pain, no pain in her extremities. Given her syncope will check CBC, CMP and troponins, given the fall and hitting her head I will obtain CT head, facial bones and C-spine and also a chest x-ray. She has no tearing back pain so I doubt dissection. She has no hypoxia or tachycardia so I do not PE. Labs unremarkable and imaging shows no acute findings. Discussed results with patient and offered observation admission but she declines and request discharge home. Given reassuring workup I feel this is reasonable. If she is able to ambulate on her own without any symptoms we will plan for discharge and have her follow-up with her PCP and return precautions given Lab Data Lab results reviewed: Yes I reviewed the patient's lab results. ECG Data Attestation: I personally reviewed and interpreted this ECG (s) as follows: Prior ECG tracings: available for review Interpretation: Sinus bradycardia, rate of 59, AL 210, no STEMI Quality:SDOH Health Related Social Needs: No Data to Display [facility] All Active Problems (Updated 12/12/24 @ 22:25 by Darwin Hillman MD) Cervical strain (Acute) Blunt head trauma (Acute) Syncope (Chronic) Pes anserinus bursitis of right knee (Acute) Steroid injection: 03/03/2024 Temporal arteritis syndrome (Acute) Tenderness of head and neck (Acute) Lumbosacral spondylosis without myelopathy (Acute) Neural foraminal stenosis of lumbosacral spine (Acute) Degenerative disc disease, lumbar (Acute) Impacted cerumen, left ear (Acute) Fibromyalgia (Acute) Obesity (Chronic) Hypertension (Chronic) Long standing hypertension which has been treated with low dose Hydrochlorothiazide. Chronic sinusitis (Chronic) Has been followed by Dr. Shmuel Willingham. GERD (gastroesophageal reflux disease) (Chronic) Elevated lipids (Chronic) Has been on a statin but this caused muscle aches so the medication was stopped. Abnormal CT scan, bladder (Acute 05/08/17) IBS (irritable bowel syndrome) (Acute 07/09/17) Ishan Norman DO Osteopenia (Acute 07/11/16) DEXA 07/11/16 L forearm T -0.7 NL spine, hip Pre-diabetes (Acute 01/09/18) Sensorineural hearing loss, unilateral (Acute 06/07/17) 05/14/18 ENT Maulik Tubular adenoma (Acute 04/10/16) Conductive hearing loss (Chronic) 06/21/18 ENT Maulik Pulmonary nodule seen on imaging study (Acute 03/28/17) yearly CT non contrast, next due 08/2020 Dr. Petersen 10/29/20 Dr Bee, with f/u Chest CT and OV in Aug 2021 (w Dr Swanson) Trochanteric bursitis of left hip (Chronic) Left ankle pain (Acute) Trochanteric bursitis, right hip (Acute) Urine abnormality (Acute) Edema of both lower legs (Acute) Microscopic hematuria (Acute) IT band syndrome (Acute) Pes anserine bursitis (Acute) Colon cancer screening (Acute) Toe pain (Acute) Dysuria (Acute) Pain, eye, right (Acute) Chronic foot pain (Acute) Tubular adenoma of colon (Acute) Hyperplastic colon polyp (Acute) Impacted cerumen, left ear (Acute) Sensorineural hearing loss, asymmetrical (Acute) Dyspnea on exertion (Acute) Skin lesion of neck (Acute) Skin lesion of cheek (Acute) Medical History Iliotibial band syndrome affecting right lower leg Lung mass Hyperlipidemia PARKER (dyspnea on exertion) Cyst pt. reports 06/13, removed below L breast Degenerative joint disease of left hip Impacted cerumen of both ears Primary osteoarthritis of left knee Impacted cerumen (05/01/14) Conductive hearing loss, external ear (06/07/17) Elevated fasting glucose OA (osteoarthritis) of hip (05/13/14) Total hip replacement 05/13/4014 by Allen Huang M.D. Surgical History History of total left knee replacement (TKR) (03/17/20) History of right breast biopsy History of arthroplasty of left hip History of total left hip arthroplasty Status post cataract extraction and insertion of intraocular lens of left eye (06/14/18) Status post cataract extraction and insertion of intraocular lens of right eye (05/31/18) History of arthroplasty of right knee (~02/2012) History of total right hip arthroplasty (~05/13/14) Vaginal hysterectomy Colonoscopy - IV Sedation (04/10/16) Dr Prieto Family History Mother Heart disease Hypertension Father Heart disease [place] caused Brother Diabetes Brother Diabetes Sister Diabetes Social History (Updated 12/10/24 @ 13:35 by Mary Nogueira LPN) Smoking/Tobacco Use Status: Never Smoking risk assessment performed?: Yes Alcohol Intake: current Alcohol Intake frequency: holidays/special occasions only Alcohol type: beer, wine and hard liquor Drug use: Never Substance use type: does not use Adopted: No Caregiver/Support person: No Foster care: No Household members: none Housing: house Number of Children: 0 Communication Needs: None and Corrective Lenses current occupation: retired - worked at [employer] Pets and animals: Yes Sexually active: No Current gender identity: female What is your relationship status?: How often do you talk on the phone with friends or family?: once per week Panel score (0-1 are the most socially isolated patients): 0 What type of physical activity do you participate in: regular exercise and other Details: PT 2x/week Duration: < 15 minutes/day Frequency: 1-2 times per week Seatbelt use: always Working smoke detector in home: Yes Fire extinguisher in home: Yes Carbon monox detector in home: Yes Do you feel safe at home: Yes Do you feel safe in your relationship?: Yes
[2024-12-12 21:40] LABS: BE (Venous) 5 mmol/L (-2-3); HCO3 (Venous) 30 mmol/L (23-28); O2 Sat (Venous) 51 %; TCO2 (Venous) 28 mmol/L (24-29); pCO2 (Venous) 51 mmHg (41-51); pH (Venous) 7.38 (7.31-7.41); pO2 (Venous) 29 mmHg
[2024-12-12 21:41] LABS: Abs Immature Grans 0.03 10^3/uL (0.0-0.06); Absolute Basophil Count 0.07 10^3/uL (0.0-0.2); Absolute Eosinophil Count 0.21 10^3/uL (0.0-0.7); Absolute Lymphocyte Count 2.06 10^3/uL (1.2-3.4); Absolute Monocyte Count 0.79 10^3/uL (0.1-0.8); Absolute Neutrophil Count 5.88 10^3/uL (1.2-6.7); Basophils % 0.8 %; Eosinophils % 2.3 %; HCT 37.1 % (36.0-46.0); HGB 11.9 g/dL (11.2-15.7); Immature Grans % 0.3 %; Lymphocytes % 22.8 %; MCH 28.2 pg (27.0-33.0); MCHC 32.1 % (32.0-36.0); MCV 88 fL (80-95); MPV 9.7 fL (8.0-11.0); Monocytes % 8.7 %; Neutrophils % 65.1 %; Platelet Count 278 10^3/uL (130-400); RBC 4.22 10^6/uL (3.93-5.22); RDW 15.6 % (11.7-14.6); RDW-SD 50.6 fL; WBC 9.04 10^3/uL (4.4-10.8)
[2024-12-12 21:54] LABS: PTT Activated 25.4 sec (20.6-30.2); Prothrombin Time 9.8 sec (9.1-11.1)
[2024-12-12 22:07] LABS: ALT 22 U/L (14-59); AST 16 U/L (15-37); Albumin 3.6 g/dL (3.4-5.0); Alkaline Phosphatase 87 U/L (46-116); Anion Gap 6.1 mmol/L (3-11); BUN 19 mg/dL (7-18); Bilirubin, Total 0.3 mg/dL (0.2-1.0); CO2 29.9 mmol/L (21.0-32.0); Calcium 9.4 mg/dL (8.5-10.1); Chloride 99 mmol/L (98-107); Estimated GFR 56.95 (mL/min/1.73m2); Glucose 124 mg/dL (74-106); Magnesium 1.8 mg/dL (1.8-2.4); Potassium 3.4 mmol/L (3.5-5.1); Sodium 135 mmol/L (136-145); TSH (W/Ref FT4) 2.63 uIU/mL (0.36-3.74); Total Protein 7.4 g/dL (6.4-8.2); Troponin I 5 ng/L (<or=51)
--- NOTE | 2024-12-12 22:17 | DI.VRAD_ITS ---
PROCEDURE INFORMATION: Exam: XR Chest Exam date and time: 12/12/2024 9:55 PM Age: 79 years old Clinical indication: Other: Syncope TECHNIQUE: Imaging protocol: Radiologic exam of the chest. Views: 1 view. COMPARISON: CR XR RIBS LT W PA LAT CHEST 01/30/2022 9:58 AM FINDINGS: Lungs: Unremarkable. No consolidation. Pleural spaces: Unremarkable. No pleural effusion. No pneumothorax. Heart/Mediastinum: Unremarkable. No cardiomegaly. Bones/joints: Unremarkable. IMPRESSION: No acute findings. Dictated and Authenticated by: Rangel Reed MD. Orderin Rafy Granados MD
--- NOTE | 2024-12-12 22:18 | DI.VRAD_ITS ---
PROCEDURE INFORMATION: Exam: CT Head Without Contrast Exam date and time: 12/12/2024 21:41 Age: 79 years old Clinical indication: Injury or trauma; Blunt trauma (contusions or hematomas); Forehead; Injury date: 12/12/24; Fall, pain TECHNIQUE: Imaging protocol: Computed tomography of the head without contrast. Radiation optimization: All CT scans at this facility use at least one of these dose optimization techniques: automated exposure control; mA and/or kV adjustment per patient size (includes targeted exams where dose is matched to clinical indication); or iterative reconstruction. COMPARISON: No relevant prior studies available. FINDINGS: Brain: Mild cerebral atrophy. Tiny chronic left frontal hypodensity possibly age-indeterminate infarct. Midline dural calcifications suggesting benign incidental meningioma. No surrounding edema. No edema or hemorrhage. Cerebral ventricles: No ventriculomegaly. Paranasal sinuses: Regarding paranasal sinuses please see maxillofacial CT same date. Mastoid air cells: No mastoid effusion. Bones: The calvarium is intact. Soft tissues: No suspicious lesions. IMPRESSION: 1. No acute intracranial findings. 2. Incidental findings as described. PROCEDURE INFORMATION: Exam: CT Maxillofacial Without Contrast Exam date and time: 12/12/2024 21:41 Age: 79 years old Clinical indication: Injury or trauma; Blunt trauma (contusions or hematomas); Forehead; Injury date: 12/12/24; Fall, pain TECHNIQUE: Imaging protocol: Computed tomography of the face without contrast. Radiation optimization: All CT scans at this facility use at least one of these dose optimization techniques: automated exposure control; mA and/or kV adjustment per patient size (includes targeted exams where dose is matched to clinical indication); or iterative reconstruction. COMPARISON: No relevant prior studies available. FINDINGS: Paranasal sinuses: Mild dependent debris in left maxillary sinus. Left maxillary antrectomy. Orbital cavities: Orbits are normal. Globes are unremarkable. Teeth: The patient is edentulous. Bones: Chronic TMJ degenerative changes. No acute fracture or subluxation. Soft tissues: Unremarkable. IMPRESSION: 1. No acute bony pathology. 2. Sinus disease. PROCEDURE INFORMATION: Exam: CT Cervical Spine Without Contrast Exam date and time: 12/12/2024 21:41 Age: 79 years old Clinical indication: Injury or trauma; Blunt trauma (contusions or hematomas); Forehead; Injury date: 12/12/24; Fall, pain TECHNIQUE: Imaging protocol: Computed tomography of the cervical spine without contrast. Radiation optimization: All CT scans at this facility use at least one of these dose optimization techniques: automated exposure control; mA and/or kV adjustment per patient size (includes targeted exams where dose is matched to clinical indication); or iterative reconstruction. COMPARISON: CT CHEST WO 10/04/2021 15:24 FINDINGS: Bones: Reversal of the normal cervical lordosis. No acute fracture or subluxation. Uncovertebral hypertrophy. Moderate mid cervical predominant degenerative changes. No erendira central canal stenosis on CT. Multilevel neural foraminal stenosis. Benign-appearing bone island in the C5 vertebral body. Lungs: No consolidation. Soft tissues: No suspicious lesions. IMPRESSION: No cervical spine fracture. Dictated and Authenticated by: Nevaeh Wang MD. Orderin Rafy Granados MD
== END 2024-12-12 22:42 | disposition home or self-care (01) ==
LOC: ER 22:29
PROVIDERS: Emergency Provider Emergency Medicine; PCP Nurse Practitioner
DX: R55 Syncope and collapse (principal); S09.8XXA Other specified injuries of head, initial encounter; S16.1XXA Strain of muscle, fascia and tendon at neck level, initial encounter; E78.5 Hyperlipidemia, unspecified; R00.1 Bradycardia, unspecified; W18.39XA Other fall on same level, initial encounter; Y93.E8 Activity, other personal hygiene; Y92.012 Bathroom of single-family (private) house as the place of occurrence of the external cause
CPT/HCPCS: 80053; 82805; 93005; 99285; 70450; 70486; 71045; 72125; 83735; 84443; 84484; 85025; 85610; 85730; 93010; 99284

== ENCOUNTER 2025-01-05 04:40 | Outpatient (CLI) | payer MEDICARE, SELFPAY ==
[2025-01-05 13:02] LABS: ALT 19 U/L (14-59); AST 15 U/L (15-37); Albumin 3.7 g/dL (3.4-5.0); Alkaline Phosphatase 73 U/L (46-116); Anion Gap 6.1 mmol/L (3-11); BUN 20 mg/dL (7-18); Bilirubin, Total 0.7 mg/dL (0.2-1.0); CO2 30.9 mmol/L (21.0-32.0); CREATININE 0.8 mg/dL (0.55-1.02); Calcium 9.4 mg/dL (8.5-10.1); Chloride 99 mmol/L (98-107); Estimated GFR 74.44 (mL/min/1.73m2); Glucose 98 mg/dL (74-106); Potassium 3.5 mmol/L (3.5-5.1); Sodium 136 mmol/L (136-145); Total Protein 7.6 g/dL (6.4-8.2)
[2025-01-06 18:51] LABS: Calculated LDL 104 mg/dL (<100); Cholesterol 176 mg/dL (<200); HDL Cholesterol 53 mg/dL (>or=50); Triglyceride 95 mg/dL (<150)
== END 2025-01-05 04:41 | disposition home or self-care (01) ==
LOC: LOS 04:41
PROVIDERS: PCP Nurse Practitioner; Visit Provider Nurse Practitioner
DX: I10 Essential (primary) hypertension (principal); R73.03 Prediabetes
CPT/HCPCS: 36415; 80053; 80061

== ENCOUNTER 2025-01-13 01:23 | Outpatient (CLI) | payer MEDICARE, SELFPAY ==
[2025-01-13] MEDS: Gadoterate meglumine 20 ML SYRINGE IVP (09:31)
[2025-01-13] MEDS: Normal Saline Flush 10 ML SYR IJ (09:32)
--- NOTE | 2025-01-13 13:55 | DI.MRI_ITS ---
Exam(s) MR BRAIN WO/W EXAM: MR BRAIN WO/W CLINICAL HISTORY: seen on CT G93.89 DISORDER OF BRAIN, BRAIN MASS. TECHNIQUE: Multiplanar multisequence MRI of the brain was performed. CONTRAST MATERIAL: IV Contrast: 20 ML of Dotarem contrast administered. COMPARISON: CT CT HEAD CERV SPINE FACIAL WO from 12/12/2024 FINDINGS: VENTRICLES AND EXTRA AXIAL SPACES: Normal in size and morphology for the patient's age. HEMORRHAGE: None. CEREBRAL PARENCHYMA: No focus of restricted diffusion to suggest acute infarct. Circumscribed interme diate T1 signal and low T2 signal mass measuring 2 cm arising from the falx in the high right parieta l region. Signal dropout on susceptibility images consistent with calcification seen on CT. No amanda cent edema or significant mass effect. Homogeneous enhancement. Findings are consistent with a meni ngioma. Abundant on high signal foci in the white matter consistent with chronic microvascular quinteros es. BRAINSTEM/CEREBELLUM: Normal. CALVARIUM: Normal. VISUALIZED PARANASAL SINUSES/MASTOIDS: Minimal mucous retention left maxillary sinus. Orbits: Unremarkable. Pituitary: Not enlarged. Vasculature: Normal flow voids. IMPRESSION: 2 centimeter circumscribed mass arising from the falx in the high right parietal region with imaging characteristics consistent with a meningioma. No adjacent edema or significant mass effect. DATA REPOSITORY:
== END 2025-01-13 01:43 ==
LOC: DI 01:23
PROVIDERS: PCP Nurse Practitioner; Visit Provider Nurse Practitioner
DX: G93.89 Other specified disorders of brain (principal)
CPT/HCPCS: 70553

== ENCOUNTER → 2025-02-11 10:28 | Outpatient (BNVA) | payer MEDICARE, SELFPAY | PROVIDERS: PCP Nurse Practitioner; Referring Provider Nurse Practitioner; Visit Provider Physician Assistant Surgical | DX: J45.909 Unspecified asthma, uncomplicated (principal); R91.1 Solitary pulmonary nodule; R06.00 Dyspnea, unspecified | CPT/HCPCS: 99214 ==

== ENCOUNTER → 2025-05-21 13:44 | Outpatient (BNVA) | payer MEDICARE, SELFPAY | PROVIDERS: PCP Family Medicine; Referring Provider Nurse Practitioner; Visit Provider Psychiatry & Neurology Neurology | DX: D32.0 Benign neoplasm of cerebral meninges (principal); I10 Essential (primary) hypertension; J45.909 Unspecified asthma, uncomplicated | CPT/HCPCS: 99213 ==

== ENCOUNTER → 2025-07-02 01:54 | Outpatient (CLI) | payer MEDICARE, SELFPAY ==
[2025-07-02] MEDS: Gadoterate meglumine 20 ML SYRINGE IVP (13:06)
[2025-07-02] MEDS: Normal Saline Flush 10 ML SYR IVP (13:08)
--- NOTE | 2025-07-02 13:35 | DI.MRI_ITS ---
Exam(s) MR BRAIN WO/W EXAM: MR BRAIN WO/W CLINICAL HISTORY: monitor cerebral meningioma for growth.d32.0 TECHNIQUE: Multiplanar multisequence MRI of the brain was performed. CONTRAST MATERIAL: IV Contrast: 20 mL of Dotarem contrast administered. COMPARISON: CT CT HEAD CERV SPINE FACIAL WO from 12/12/2024 MR MR BRAIN WO/W from 01/13/2025 FINDINGS: VENTRICLES AND EXTRA AXIAL SPACES: Normal in size and morphology for the patient's age. HEMORRHAGE: None. CEREBRAL PARENCHYMA: No focus of restricted diffusion to suggest acute infarct. No space-occupying lesion identified. There are areas of hyperintense signal seen in the white matter on the FLAIR and T2 weighted images consistent with chronic microvascular ischemic disease. MIDLINE SHIFT: None. BRAINSTEM/CEREBELLUM: Normal. CALVARIUM: Normal. ENHANCEMENT: There has been no change in size of the enhancing extra-axial falx lesion measuring 2 cm AP x 1.5 cm transverse. It is most consistent with a meningioma. VISUALIZED PARANASAL SINUSES/MASTOIDS: Clear. [place]: Normal flow void. PITUITARY GLAND: Unremarkable. OTHER FINDINGS: IMPRESSION: There has been no change in size of the 2 cm falx enhancing lesion consistent with a meningioma. DATA REPOSITORY:
== END ==
PROVIDERS: Visit Provider Psychiatry & Neurology Neurology
DX: D32.0 Benign neoplasm of cerebral meninges (principal)
CPT/HCPCS: 70553

== ENCOUNTER → 2025-07-08 09:00 | Outpatient (BNVA) | payer MEDICARE, SELFPAY | PROVIDERS: Referring Provider Nurse Practitioner; Visit Provider Psychiatry & Neurology Neurology | DX: D32.0 Benign neoplasm of cerebral meninges (principal); J45.909 Unspecified asthma, uncomplicated; I10 Essential (primary) hypertension | CPT/HCPCS: 99213 ==

== ENCOUNTER → 2025-08-05 09:58 | Outpatient (BNVA) | payer MEDICARE, SELFPAY | PROVIDERS: Referring Provider Nurse Practitioner; Visit Provider Physician Assistant Surgical | DX: J45.909 Unspecified asthma, uncomplicated (principal); R91.1 Solitary pulmonary nodule; R06.00 Dyspnea, unspecified | CPT/HCPCS: 99214 ==